=== PATIENT | female | born 1960 | race Caucasian/White ===

== ENCOUNTER 2016-10-26 15:44 | Inpatient (IN) | payer MEDICARE, MEDICAID ==
[~2016-10-26] VITALS: Ht 160 cm; Wt 134.5 kg
--- NOTE | ~2016-10-26 | PR ---
[place], [place] PROGRESS NOTE NAME: JAJA SENA UNIT #: [id number] ROOM: 509 DOCTOR: BRIDGETT SIMPSON MD BIRTHDATE: [birth year] DOS: CARDIOLOGY PROGRESS NOTE SUBJECTIVE: The patient was seen at her bedside today for followup of peripheral edema and a question of congestive heart failure. The patient tells me that she feels much better today after aggressive treatment of her respiratory failure and some diuresis. Her ankles are no longer swollen and she is anxious to go home. She has been keeping her legs elevated when she is not out of bed and this has helped as well. PHYSICAL EXAMINATION: VITAL SIGNS: Today, her pulse is 75 and regular, blood pressure is 118/74. She is afebrile. NECK: Supple. She has no jugular distention or hepatojugular reflux. Carotids are full. LUNGS: Respirations are unlabored. She has markedly decreased breath sounds with expiratory prolongation bilaterally and an occasional wheeze, but her lungs do sound more clear than 24 hours ago. HEART: Has a regular rhythm with distant tones. She has a fourth heart sound, but no third heart sound. ABDOMEN: Obese, but otherwise benign. EXTREMITIES: Showed no edema. IMPRESSION: 1. Severe obstructive lung disease. 2. Ongoing cigarette abuse. 3. Dependent edema, exacerbated by right heart strain and slight fluid retention. PLAN: I agree with oral diuresis. The patient should keep her legs elevated when she is not in bed. She should consider wearing support stockings and she should certainly make every effort to quit smoking. I have discussed her case with Dr. Waddell. She may be discharged from a cardiac standpoint when Dr. Waddell feels her pulmonary status will tolerate it. [place], [place] PROGRESS NOTE NAME: JAJA SENA UNIT #: [id number] ROOM: 509 DOCTOR: BRIDGETT SIMPSON MD BIRTHDATE: [birth year] BRIDGETT SIMPSON MD CM:PNTRANS 1642 BRIDGETT SIMPSON MD 10/29/16 0941 interface
--- NOTE | ~2016-10-26 | DS ---
[place], [place] DISCHARGE SUMMARY [id number] UNIT #: [id number] ROOM: 509 DOCTOR: DARRION LAM MD BIRTHDATE: [birth year] DOS: 10/28/2016 DISCHARGE DIAGNOSES: 1. Exacerbation of severe underlying chronic obstructive pulmonary disease with oxygen dependence, acute over chronic respiratory failure. 2. Continued nicotine smoke dependence. 3. Generalized disability and obesity, failure to thrive. 4. Acute congestive heart failure. 5. Bipolar disorder. 6. Major depression, recurrent, mild. HOSPITAL COURSE: 1. The patient was admitted with increased shortness of breath, congestive heart failure and exacerbation of COPD. Her hand shoe cutter, Dr. Martinez, evaluated her and after treatment has cleared her for discharge to home today. The patient is breathing better. 2. Exacerbation of chronic obstructive pulmonary disease improved with use of corticosteroids, antibiotics and oxygen. The patient already has oxygen and bronchodilators at home, which she will continue to use. The patient is quite anxious to go home today, especially after clearance by Cardiology. 3. Bipolar disorder. Her treatment was continued. 4. Chronic skin changes in her legs with improved edema with treatment, stasis dermatitis. LABORATORY DATA: BUN and creatinine 31 and 0.8, normal serum electrolytes. DISCHARGE MANAGEMENT: Lasix 60 mg a day, lamotrigine 300 mg daily, fluoxetine 20 mg a day, aspirin 81 mg a day, Naprosyn 500 mg b.i.d., Dulera twice a day, DuoNeb q.i.d., nicotine patch 21 mg a day. Follow up with PCP within a week. DARRION LAM MD CM:DARRIUS 51 [phone] DARRION LAM MD 10/28/161922 interface
--- NOTE | ~2016-10-26 | EKG ---
[place], [place] ELECTROCARDIOGRAM REPORT NAME: JAJA SENA UNIT #: [id number] ROOM: [facility] DOCTOR: BRIDGETT SIMPSON MD BIRTHDATE: [birth year] DOS: 10/27/2016 TIME: 0924 hours. FINDINGS: 1. Sinus rhythm with frequent premature atrial contractions. 2. Low voltage in precordial leads with poor precordial R wave progression. 3. Abnormal electrocardiogram. BRIDGETT SIMPSON MD CM:EKGRPT:ELECTROCARDIOGRAM REPORT [id number] BRIDGETT SIMPSON MD
--- NOTE | ~2016-10-26 | WRIGHTHP ---
[place], [place] PATIENT HISTORY AND PHYSICAL EXAM NAME: JAJA SENA [facility] #: [id number] UNIT #: [id number] ROOM: 509 DOCTOR: DARRION LAM MD BIRTHDATE: [birth year] DOS: 10/26/2016 HISTORY OF PRESENT ILLNESS: The patient is a 56-year-old with a past medical history of: 1. Morbid obesity. 2. COPD. 3. Continued nicotine dependence, 1 pack of cigarettes a day. 4. Chronic respiratory failure related to COPD and morbid obesity and generalized weakness and obesity hypoventilation syndrome. 5. Mild protein-calorie malnutrition. 6. Bipolar disorder. 7. Major depression, recurrent. 8. Oxygen dependence. 9. Folic acid deficiency. 10. Chronic pedal edema and skin changes with stasis dermatitis. The patient presented to the Emergency Department with 1-month complaint of increasing shortness of breath, wheezing, and cough. The patient was found to have congestive heart failure on the chest x-ray and was diagnosed as having exacerbation of COPD. The patient was admitted on a monitored bed for treatment and she is starting to feel slightly better. REVIEW OF SYSTEMS: LUNGS: Increasing shortness of breath and wheezing. GASTROINTESTINAL: No nausea, vomiting, diarrhea, or constipation. CARDIOVASCULAR: No chest pain, no palpitations. FAMILY HISTORY: Noncontributory. ALLERGIES: No known drug allergies. HOME MEDICATIONS: The patient takes lamotrigine, fluoxetine, aspirin, bronchodilators, Naprosyn, furosemide at home. PHYSICAL EXAMINATION: GENERAL: Alert and oriented x 3, morbidly obese, generalized weakness, and decreased breath sounds all over with some expiratory wheezing, otherwise in no distress. EXTREMITIES: 1-2+ leg and pedal edema with chronic skin changes in her legs and stasis dermatitis. DIAGNOSTIC AND LABORATORY DATA: Chest x-ray showing congestive heart failure. BUN elevated at 29, blood sugar of 129. Normal serum electrolytes. BNP of 1395. Normal serum electrolytes. Normal CBC. IMPRESSION: 1. The patient with exacerbation of severe underlying chronic obstructive pulmonary disease and continued nicotine of smoke dependence. We will increase her bronchodilators, Solu-Medrol, oxygen, antibiotic. 2. Generalized disability, obesity, and adult failure to thrive. The patient worked with physical therapy. [place], [place] PATIENT HISTORY AND PHYSICAL EXAM NAME: JAJA SENA [facility] #: [id number] UNIT #: [id number] ROOM: [facility] DOCTOR: CAROLE EDWARDS,DARRION Johnson BIRTHDATE: [birth year] 3. Acute congestive heart failure to be evaluated and seen by her post exchange manager. The patient is being diuresed with IV Lasix and serum electrolytes are being monitored on daily basis. 4. Bipolar disorder treated by Psychiatry. 5. Major depression, recurrent, treated, and controlled. DARRION LAM MD CM:HISPHYS:PATIENT HISTORY AND PHYSICAL EXAMINATION [id number] DARRION LAM MD 10/27/16 1227 interface
[~2016-10-26 15:44] MED LIST: ADVAIR DISKUS 51 DSK INH; ASPIRIN CHEWABL81 MG PO; CALCIUM 600600 M2 PO; COMBIVENT RESPIM4 GM INH; LAMICTAL XR300 M1 PO; LASIX40 MG PO; LEVOFLOXACIN500 MG PO; NABUMETONE500 M2 PO; NAPROXEN500 MG PO; Nicotrol 10MG I1 BOX INH; PREDNISONE10 MG PO; PROZAC20 MG PO
[2016-10-26 16:06] VITALS: BP 145/58
[2016-10-26 16:24] LABS: BASO % 0.4 % (0.0-1.0); EOS # 0.1 10*3/uL (0.0-0.4); EOS % 1.3 % (1.0-4.0); HEMATOCRIT 38.8 % (37.0-47.0); HEMOGLOBIN 11.8 g/dl (12.0-16.0); LYMPH # 1.9 10*3/uL (1.3-4.4); LYMPH % 22.3 % (27.0-41.0); MEAN CORPUSCULAR HGB 27.4 pg (27.0-31.0); MEAN CORPUSCULAR HGB CONC 30.4 g/dl (33.0-37.0); MEAN PLATELET VOLUME 10.5 fl (9.6-12.3); MONO # 0.5 10*3/uL (0.1-1.0); MONO % 6.5 % (3.0-9.0); NEUT # 5.8 10*3/uL (2.3-7.9); NEUT % 69.3 % (47.0-73.0); PLATELET COUNT AUTOMATED 237 10*3/uL (130-400); RED BLOOD COUNT 4.31 10*6/uL (4.10-5.10); RED CELL DISTRI WIDTH 14.7 % (0-14.5); WHITE BLOOD COUNT 8.3 10*3/uL (4.8-10.8)
[2016-10-26 16:40] LABS: ALBUMIN 3.4 gm/dl (3.1-4.5); ALKALINE PHOSPHATASE 105 U/L (45-117); BILIRUBIN, TOTAL 0.2 mg/dl (0.2-1.0); BUN 23 mg/dl (7-24); CARBON DIOXIDE 33 mmol/L (21-32); CHLORIDE 104 mmol/L (98-107); EST GLOM FILT AFRICAN AMERICAN > 60 ml/min; GLUCOSE 140 mg/dL (65-99); POTASSIUM 4.5 mmol/L (3.5-5.1); SGOT/AST 16 IU/L (3-35); SGPT/ALT 12 U/L (12-78); SODIUM 143 mmol/L (136-145)
[2016-10-26 18:54] VITALS: BP 105/69
[2016-10-26 19:37] VITALS: BP 146/80
[2016-10-26 20:45] VITALS: BP 117/59
[2016-10-27] VITALS: BP 147/61
[2016-10-27 07:29] LABS: BUN 25 mg/dl (7-24); CARBON DIOXIDE 33 mmol/L (21-32); CHLORIDE 100 mmol/L (98-107); EST GLOM FILT AFRICAN AMERICAN > 60 ml/min; GLUCOSE 129 mg/dL (65-99); POTASSIUM 4.8 mmol/L (3.5-5.1); SODIUM 142 mmol/L (136-145)
[2016-10-27 08:00] VITALS: BP 149/54
[2016-10-27 12:00] VITALS: BP 116/55
[2016-10-27 16:00] VITALS: BP 140/65
[2016-10-27 20:00] VITALS: BP 113/56
[2016-10-28] VITALS: BP 109/60
[2016-10-28 06:39] LABS: BUN 31 mg/dl (7-24); CARBON DIOXIDE 37 mmol/L (21-32); CHLORIDE 99 mmol/L (98-107); EST GLOM FILT AFRICAN AMERICAN > 60 ml/min; GLUCOSE 128 mg/dL (65-99); SODIUM 141 mmol/L (136-145)
[2016-10-28 08:00] VITALS: BP 136/63
[2016-10-28 12:00] VITALS: BP 118/74
[2016-10-28 16:00] VITALS: BP 135/66
[2016-10-28] MEDS ORDERED: FUROSEMIDE40 MG PO (18:42)
== END 2016-10-28 19:15 | disposition home or self-care (01) | DRG 291 ==
LOC: ED 15:44 → EDHOLD 18:45 → 5E 18:55
PROVIDERS: Internal Medicine; Nurse Practitioner Family
DX: I50.31 Acute diastolic (congestive) heart failure (principal); J96.20 Acute and chronic respiratory failure, unspecified whether with hypoxia or hypercapnia; Z99.81 Dependence on supplemental oxygen; J44.1 Chronic obstructive pulmonary disease with (acute) exacerbation; Z68.42 Body mass index [BMI] 45.0-49.9, adult; R62.7 Adult failure to thrive; E66.9 Obesity, unspecified; I87.2 Venous insufficiency (chronic) (peripheral); F31.9 Bipolar disorder, unspecified; F17.210 Nicotine dependence, cigarettes, uncomplicated; Z90.49 Acquired absence of other specified parts of digestive tract; Z82.49 Family history of ischemic heart disease and other diseases of the circulatory system; Z83.3 Family history of diabetes mellitus; Z79.899 Other long term (current) drug therapy

== ENCOUNTER 2016-12-20 21:40 | Inpatient (IN) | payer MEDICARE, MEDICAID ==
[~2016-12-20] VITALS: Ht 162.5 cm; Wt 137.6 kg
[~2016-12-20 21:40] MED LIST changes: +FUROSEMIDE40 MG PO
[2016-12-20 21:44] VITALS: BP 104/60
[2016-12-20 21:56] LABS: BASO % 0.4 % (0.0-1.0); EOS # 0.2 10*3/uL (0.0-0.4); EOS % 2.4 % (1.0-4.0); HEMATOCRIT 38.8 % (37.0-47.0); HEMOGLOBIN 11.8 g/dl (12.0-16.0); LYMPH # 1.6 10*3/uL (1.3-4.4); LYMPH % 16.8 % (27.0-41.0); MEAN CELL VOLUME 89.4 fl (81.0-99.0); MEAN CORPUSCULAR HGB 27.2 pg (27.0-31.0); MEAN CORPUSCULAR HGB CONC 30.4 g/dl (33.0-37.0); MEAN PLATELET VOLUME 10.2 fl (9.6-12.3); MONO # 0.8 10*3/uL (0.1-1.0); MONO % 8.6 % (3.0-9.0); NEUT # 6.8 10*3/uL (2.3-7.9); NEUT % 71.5 % (47.0-73.0); PLATELET COUNT AUTOMATED 256 10*3/uL (130-400); RED BLOOD COUNT 4.34 10*6/uL (4.10-5.10); RED CELL DISTRI WIDTH 16.3 % (0-14.5); WHITE BLOOD COUNT 9.5 10*3/uL (4.8-10.8)
[2016-12-20 22:13] LABS: ALBUMIN 2.9 gm/dl (3.1-4.5); ALKALINE PHOSPHATASE 129 U/L (45-117); BILIRUBIN, TOTAL 0.4 mg/dl (0.2-1.0); BUN 18 mg/dl (7-24); CARBON DIOXIDE 31 mmol/L (21-32); CHLORIDE 102 mmol/L (98-107); EST GLOM FILT AFRICAN AMERICAN > 60 ml/min; GLUCOSE 104 mg/dL (65-99); MAGNESIUM 2.2 mg/dL (1.5-2.1); POTASSIUM 4.3 mmol/L (3.5-5.1); SGOT/AST 22 IU/L (3-35); SGPT/ALT 19 U/L (12-78); SODIUM 145 mmol/L (136-145); TROPONIN I < 0.015 ng/ml (<0.045)
[2016-12-20 22:26] LABS: INTERNATIONAL NORM RATIO 0.9 (2.0-3.5)
[2016-12-20 22:35] VITALS: BP 128/76
[2016-12-20 23:12] VITALS: BP 118/64
[2016-12-21] VITALS: BP 110/57
[2016-12-21 00:25] VITALS: BP 122/78
[2016-12-21 08:00] VITALS: BP 148/66
[2016-12-21 16:00] VITALS: BP 109/50
[2016-12-21 20:00] VITALS: BP 112/47
[2016-12-22] VITALS: BP 146/75
[2016-12-22 08:00] VITALS: BP 130/78
[2016-12-22 12:00] VITALS: BP 136/80
[2016-12-22 16:00] VITALS: BP 136/78
[2016-12-22 20:00] VITALS: BP 136/72
[2016-12-23] VITALS: BP 132/47
[2016-12-23 04:00] VITALS: BP 136/64
[2016-12-23 08:00] VITALS: BP 125/96
[2016-12-23 12:00] VITALS: BP 143/72
[2016-12-23 16:08] VITALS: BP 130/56
[2016-12-23 20:00] VITALS: BP 126/60
[2016-12-24] VITALS: BP 135/83
[2016-12-24 08:00] VITALS: BP 136/61
[2016-12-24 12:00] VITALS: BP 150/87
[2016-12-24 16:00] VITALS: BP 125/62
[2016-12-24 20:00] VITALS: BP 131/73
[2016-12-25] VITALS: BP 152/71
[2016-12-25 06:30] LABS: BASO % 0.5 % (0.0-1.0); EOS # 0.1 10*3/uL (0.0-0.4); EOS % 1.1 % (1.0-4.0); HEMATOCRIT 39.1 % (37.0-47.0); HEMOGLOBIN 11.8 g/dl (12.0-16.0); LYMPH # 1.9 10*3/uL (1.3-4.4); LYMPH % 22.3 % (27.0-41.0); MEAN CELL VOLUME 90.3 fl (81.0-99.0); MEAN CORPUSCULAR HGB 27.3 pg (27.0-31.0); MEAN CORPUSCULAR HGB CONC 30.2 g/dl (33.0-37.0); MEAN PLATELET VOLUME 9.7 fl (9.6-12.3); MONO # 0.7 10*3/uL (0.1-1.0); MONO % 8.5 % (3.0-9.0); NEUT # 5.7 10*3/uL (2.3-7.9); NEUT % 67.1 % (47.0-73.0); PLATELET COUNT AUTOMATED 295 10*3/uL (130-400); RED BLOOD COUNT 4.33 10*6/uL (4.10-5.10); RED CELL DISTRI WIDTH 16.2 % (0-14.5); WHITE BLOOD COUNT 8.5 10*3/uL (4.8-10.8)
[2016-12-25 06:49] LABS: BUN 18 mg/dl (7-24); CARBON DIOXIDE 37 mmol/L (21-32); CHLORIDE 96 mmol/L (98-107); EST GLOM FILT AFRICAN AMERICAN > 60 ml/min; GLUCOSE 101 mg/dL (65-99); POTASSIUM 4.1 mmol/L (3.5-5.1); SODIUM 143 mmol/L (136-145)
[2016-12-25] MEDS ORDERED: DOXYCYCLINE MO100 M1 PO (07:30)
[2016-12-25] MEDS ORDERED: COMBIVENT RESPIM4 GM INH (07:30)
[2016-12-25 08:00] VITALS: BP 113/69
== END 2016-12-25 09:05 | disposition home or self-care (01) | DRG 177 ==
LOC: ED 21:40 → EDHOLD 12-21 00:31 → 4E 12-21 00:31
PROVIDERS: Emergency Medicine Emergency Medical Services; Internal Medicine
PROC: 3E073KZ Introduction of Other Diagnostic Substance into Coronary Artery, Percutaneous Approach (ICD-10-PCS; principal; 2016-12-21)
PROC: 4A02XM4 Measurement of Cardiac Total Activity, External Approach (ICD-10-PCS; principal; 2016-12-21)
DX: J15.6 Pneumonia due to other Gram-negative bacteria (principal); J96.20 Acute and chronic respiratory failure, unspecified whether with hypoxia or hypercapnia; I11.0 Hypertensive heart disease with heart failure; I50.9 Heart failure, unspecified; J44.0 Chronic obstructive pulmonary disease with (acute) lower respiratory infection; Z99.81 Dependence on supplemental oxygen; R07.2 Precordial pain; M13.812 Other specified arthritis, left shoulder; M13.811 Other specified arthritis, right shoulder; F31.9 Bipolar disorder, unspecified; F17.210 Nicotine dependence, cigarettes, uncomplicated; J44.9 Chronic obstructive pulmonary disease, unspecified; Z96.642 Presence of left artificial hip joint; Z96.652 Presence of left artificial knee joint; Z83.3 Family history of diabetes mellitus; Z80.0 Family history of malignant neoplasm of digestive organs; Z82.49 Family history of ischemic heart disease and other diseases of the circulatory system; Z79.82 Long term (current) use of aspirin; Z90.49 Acquired absence of other specified parts of digestive tract; Z79.899 Other long term (current) drug therapy

== ENCOUNTER → 2017-01-07 | Outpatient (CLI) | payer MEDICARE, MEDICAID ==
[~2017-01-07] MED LIST changes: +DOXYCYCLINE MO100 M1 PO
== END | disposition home or self-care (01) ==
LOC: RAD 18:20
DX: J18.9 Pneumonia, unspecified organism (principal); R06.02 Shortness of breath; R91.1 Solitary pulmonary nodule

== ENCOUNTER → 2017-01-31 | Outpatient (CLI) | payer MEDICARE, MEDICAID | END | disposition home or self-care (01) | LOC: RAD 15:37 | DX: J18.9 Pneumonia, unspecified organism (principal); I50.9 Heart failure, unspecified; J43.9 Emphysema, unspecified; Z87.891 Personal history of nicotine dependence ==

== ENCOUNTER 2017-04-14 15:34 | Emergency (ER) | payer MEDICARE, MEDICAID ==
[~2017-04-14] VITALS: Wt 136.1 kg
[2017-04-14] MEDS ORDERED: NAPROSYN500 MG PO (15:51)
== END 2017-04-14 20:36 | disposition home or self-care (01) ==
LOC: ED 15:34
DX: M25.561 Pain in right knee (principal); R03.0 Elevated blood-pressure reading, without diagnosis of hypertension; J44.1 Chronic obstructive pulmonary disease with (acute) exacerbation; F31.9 Bipolar disorder, unspecified; I50.9 Heart failure, unspecified; E83.42 Hypomagnesemia; F17.210 Nicotine dependence, cigarettes, uncomplicated; Z79.82 Long term (current) use of aspirin; Z79.899 Other long term (current) drug therapy; J96.00 Acute respiratory failure, unspecified whether with hypoxia or hypercapnia; Z90.49 Acquired absence of other specified parts of digestive tract

== ENCOUNTER → 2017-04-18 | Outpatient (CLI) | payer MEDICARE, MEDICAID ==
[~2017-04-18] MED LIST changes: +NAPROSYN500 MG PO
[2017-04-18 15:19] LABS: HEMATOCRIT 39.7 % (37.0-47.0); HEMOGLOBIN 12.1 g/dl (12.0-16.0); MEAN CELL VOLUME 91.7 fl (81.0-99.0); MEAN CORPUSCULAR HGB 27.9 pg (27.0-31.0); MEAN CORPUSCULAR HGB CONC 30.5 g/dl (33.0-37.0); MEAN PLATELET VOLUME 10.2 fl (9.6-12.3); RED BLOOD COUNT 4.33 10*6/uL (4.10-5.10); RED CELL DISTRI WIDTH 14.6 % (0-14.5); WHITE BLOOD COUNT 9.8 10*3/uL (4.8-10.8)
[2017-04-18 15:44] LABS: ALBUMIN 3.4 gm/dl (3.1-4.5); ALKALINE PHOSPHATASE 111 U/L (45-117); BUN 19 mg/dl (7-24); CHLORIDE 101 mmol/L (98-107); CREATININE 0.89 mg/dL (0.55-1.02); POTASSIUM 3.8 mmol/L (3.5-5.1); SGOT/AST 16 IU/L (3-35); SGPT/ALT 15 U/L (12-78); SODIUM 142 mmol/L (136-145); TOTAL PROTEIN 7.6 gm/dL (6.4-8.2)
== END | disposition home or self-care (01) ==
LOC: LAB 14:43
PROVIDERS: Family Medicine
DX: I51.7 Cardiomegaly (principal); J44.9 Chronic obstructive pulmonary disease, unspecified; R60.0 Localized edema; F41.1 Generalized anxiety disorder; E74.00 Glycogen storage disease, unspecified

== ENCOUNTER 2017-05-21 16:26 | Inpatient (IN) | payer MEDICARE, MEDICAID ==
[~2017-05-21] VITALS: Ht 162.5 cm; Wt 140.6 kg
--- NOTE | ~2017-05-21 | EKG ---
[place], [place] ELECTROCARDIOGRAM REPORT NAME: JAJA SENA UNIT #: [id number] ROOM: [facility] DOCTOR: MELODY EDWARDS,KATY BIRTHDATE: 56 DOS: 05/21/2017 TIME: 1738 hours. IMPRESSION: 1. Sinus rhythm. 2. Low voltage complexes. 3. Normal QT interval. KATY OLIVER MD CM:EKGRPT:ELECTROCARDIOGRAM REPORT [id number] KATY OLIVER MD
[2017-05-21 16:38] VITALS: BP 137/61
[2017-05-21 17:38] LABS: BASO % 0.3 % (0.0-1.0); EOS # 0.1 10*3/uL (0.0-0.4); EOS % 1.1 % (1.0-4.0); HEMATOCRIT 37.3 % (37.0-47.0); HEMOGLOBIN 11.4 g/dl (12.0-16.0); LYMPH # 1.5 10*3/uL (1.3-4.4); MEAN CELL VOLUME 90.8 fl (81.0-99.0); MEAN CORPUSCULAR HGB 27.7 pg (27.0-31.0); MEAN CORPUSCULAR HGB CONC 30.6 g/dl (33.0-37.0); MEAN PLATELET VOLUME 9.6 fl (9.6-12.3); MONO # 0.5 10*3/uL (0.1-1.0); NEUT % 77.2 % (47.0-73.0); PLATELET COUNT AUTOMATED 280 10*3/uL (130-400); RED BLOOD COUNT 4.11 10*6/uL (4.10-5.10); RED CELL DISTRI WIDTH 14.9 % (0-14.5); WHITE BLOOD COUNT 9.1 10*3/uL (4.8-10.8)
[2017-05-21 17:45] VITALS: BP 130/70
[2017-05-21 17:46] LABS: ACT PARTIAL THROMBO TIME 24.4 SECONDS (20.8-31.5)
[2017-05-21 17:54] LABS: ALBUMIN 3.1 gm/dl (3.1-4.5); ALKALINE PHOSPHATASE 126 U/L (45-117); BUN 16 mg/dl (7-24); CHLORIDE 98 mmol/L (98-107); CREATININE 0.89 mg/dL (0.55-1.02); POTASSIUM 4.5 mmol/L (3.5-5.1); SGOT/AST 21 IU/L (3-35); SGPT/ALT 24 U/L (12-78); SODIUM 140 mmol/L (136-145); TOTAL PROTEIN 7.7 gm/dL (6.4-8.2); TROPONIN I < 0.015 ng/ml (<0.045)
[2017-05-21 20:20] VITALS: BP 104/85
--- NOTE | 2017-05-21 20:20 | NUR ---
A 56, admitted to , under the services of RONDA Perry DO with a diagnosis of COPD EXACERBATION. Chief complaint is SOB. Patient arrived via bed from ER. Monitor applied. Initial assessment completed. Vital signs taken and recorded. RONDA PERRY DO notified of admission to the unit. Orders received. See assessment for past medical history, medications and allergies. Patient and/or family oriented to uniT. visitation policy reviewed. Clothing/patient valuable form completed. PAUL CONNOR
[2017-05-21 20:52] VITALS: BP 104/85
--- NOTE | 2017-05-21 21:10 | NUR ---
DR BURNETTE ON FLOOR, MADE HIM AWARE THAT PATIENT HAS RASH ON LEFT SHOULDER, CHEST, ARM. ALSO MADE HIM AWARE OF EXCORIATION UNDER FOLDS AND REQUESTED NYSTATIN.
--- NOTE | 2017-05-21 22:18 | NUR ---
CALLED AND QUESTIONED ORDER FOR NS BOLUS D/T PT HX OF CHF AND PRO-BNP 854. HE STATES HE WILL LOOK AT ORDER AND MAKE ADJUSTMENTS
[2017-05-21] MEDS ORDERED: LASIX40 MG PO (22:39)
[2017-05-21] MEDS ORDERED: OMEPRAZOLE20 M2 PO (22:40)
[2017-05-21] MEDS ORDERED: VOLTAREN50 M1 PO (22:41)
--- NOTE | 2017-05-21 22:41 | NUR ---
MED REC UP TO DATE WITH PT LIST FROM HOME
[2017-05-22] VITALS: BP 118/50
--- NOTE | 2017-05-22 02:00 | NUR ---
SLEEPING. RESP EASY AND NONLABORED ON 2.5L NC. NO DISTRESS NOTED. CALL LIGHT IN REACH. WILL CONTINUE TO MONITOR.
[2017-05-22 06:42] LABS: HEMATOCRIT 37.2 % (37.0-47.0); HEMOGLOBIN 11.3 g/dl (12.0-16.0); MEAN CELL VOLUME 90.7 fl (81.0-99.0); MEAN CORPUSCULAR HGB 27.6 pg (27.0-31.0); MEAN CORPUSCULAR HGB CONC 30.4 g/dl (33.0-37.0); MEAN PLATELET VOLUME 9.5 fl (9.6-12.3); PLATELET COUNT AUTOMATED 295 10*3/uL (130-400); RED CELL DISTRI WIDTH 14.8 % (0-14.5); WHITE BLOOD COUNT 8.6 10*3/uL (4.8-10.8)
[2017-05-22 07:01] LABS: ALKALINE PHOSPHATASE 120 U/L (45-117); BUN 14 mg/dl (7-24); CHLORIDE 101 mmol/L (98-107); CHOLESTEROL 183 mg/dL (<200); CREATININE 0.84 mg/dL (0.55-1.02); FREE T4 1.26 ng/dl (0.76-1.46); HDL CHOLESTEROL 59 mg/dl (40-60); LDL CHOLESTEROL 112 mg/dL (9-159); PHOSPHOROUS 3.2 mg/dL (2.5-4.9); POTASSIUM 4.9 mmol/L (3.5-5.1); SGOT/AST 21 IU/L (3-35); SGPT/ALT 23 U/L (12-78); SODIUM 140 mmol/L (136-145); TOTAL PROTEIN 7.9 gm/dL (6.4-8.2); TRIGLYCERIDES 62 mg/dl (<150); VLDL CHOLESTEROL 12 mg/dL (6-40)
[2017-05-22 07:29] LABS: PLATELET SUFFICIENCY NORMAL (NORMAL); TOTAL CELLS COUNTED 100 #CELLS
[2017-05-22 08:00] VITALS: BP 134/56
--- NOTE | 2017-05-22 09:00 | NUR ---
Director Of Compliance in to talk to patient. Patient states lives at home with son and grandchildren. There are few steps in the home. Physician: francisco [facility]acy: [facility] Home health services: none Patient's level of ADLs: INDEPENDENT Patient has working utilities: all working DME: home oxygen, portable tanks, nebulizer from [employer], cane Follow-up physician's appointment after d/c: will be made by hospitalist nurse director upon discharge Does patient want to access PORTAL?: no Discharge plan discussed with patient, patient lives at home with family, states she gets around fine with a cane, son drives, patient states she will be going back home when able, discussed with her VNA and she stated she didn't need any at this time, case management will follow. ROXANE WAITE
[2017-05-22 12:00] VITALS: BP 125/31
[2017-05-22 16:00] VITALS: BP 140/65
[2017-05-22 20:00] VITALS: BP 150/85
--- NOTE | 2017-05-22 20:00 | NUR ---
ASSUMED CARE OF PATIENT. ASSESSMENT COMPLETE. SITTING UP ON SIDE OF BED. NO COMPLAINTS. DENIES FURTHER NEEDS AT THIS TIME. CALL LIGHT IN REACH. WILL CONTINUE TO MONITOR.
[2017-05-23] VITALS: BP 132/62
--- NOTE | 2017-05-23 02:00 | NUR ---
SLEEPING. RESP EASY AND NONLABORED ON 4L NC. NO DISTRESS NOTED. CALL LIGHT IN REACH. WILL CONTINUE TO MONITOR.
[2017-05-23 06:46] LABS: HEMATOCRIT 33.9 % (37.0-47.0); HEMOGLOBIN 10.4 g/dl (12.0-16.0); MEAN CELL VOLUME 91.4 fl (81.0-99.0); MEAN CORPUSCULAR HGB CONC 30.7 g/dl (33.0-37.0); MEAN PLATELET VOLUME 9.8 fl (9.6-12.3); PLATELET COUNT AUTOMATED 272 10*3/uL (130-400); RED BLOOD COUNT 3.71 10*6/uL (4.10-5.10); RED CELL DISTRI WIDTH 14.9 % (0-14.5); WHITE BLOOD COUNT 8.9 10*3/uL (4.8-10.8)
[2017-05-23 06:59] LABS: BUN 21 mg/dl (7-24); CHLORIDE 102 mmol/L (98-107); CREATININE 0.76 mg/dL (0.55-1.02); SODIUM 141 mmol/L (136-145)
[2017-05-23 07:23] LABS: TOTAL CELLS COUNTED 100 #CELLS
[2017-05-23 07:24] LABS: PLATELET SUFFICIENCY NORMAL (NORMAL)
[2017-05-23 08:00] VITALS: BP 136/78
--- NOTE | 2017-05-23 09:44 | NUR ---
case management visits with patient, patient denies any home needs
[2017-05-23 12:00] VITALS: BP 133/75
[2017-05-23 16:00] VITALS: BP 127/59
[2017-05-23 20:00] VITALS: BP 124/78
--- NOTE | 2017-05-23 22:45 | NUR ---
PATIENT MEDICATED WITH PRN RESTORIL ORDERED FOR C/O INSOMNIA.
--- NOTE | 2017-05-23 23:50 | NUR ---
EARLIER RESTORIL APPEARS EFFECTIVE. PATIENT RESTING QUIETLY IN BED, ON 4L 02 NC. RESPIRATIONS EASY/REG. CALL LIGHT IS IN REACH
[2017-05-24] VITALS: BP 131/78
[2017-05-24 06:35] LABS: HEMATOCRIT 34.7 % (37.0-47.0); HEMOGLOBIN 10.7 g/dl (12.0-16.0); MEAN CELL VOLUME 91.3 fl (81.0-99.0); MEAN CORPUSCULAR HGB 28.2 pg (27.0-31.0); MEAN CORPUSCULAR HGB CONC 30.8 g/dl (33.0-37.0); MEAN PLATELET VOLUME 9.9 fl (9.6-12.3); PLATELET COUNT AUTOMATED 259 10*3/uL (130-400); WHITE BLOOD COUNT 9.9 10*3/uL (4.8-10.8)
[2017-05-24 07:11] LABS: CHLORIDE 100 mmol/L (98-107); POTASSIUM 4.7 mmol/L (3.5-5.1); SODIUM 140 mmol/L (136-145)
[2017-05-24 07:17] LABS: ALKALINE PHOSPHATASE 97 U/L (45-117); BUN 24 mg/dl (7-24); CREATININE 0.69 mg/dL (0.55-1.02); SGOT/AST 18 IU/L (3-35); SGPT/ALT 24 U/L (12-78); TOTAL PROTEIN 7.1 gm/dL (6.4-8.2)
[2017-05-24 07:21] LABS: PLATELET SUFFICIENCY NORMAL (NORMAL); POLYCHROMASIA SLIGHT; TOTAL CELLS COUNTED 100 #CELLS
[2017-05-24 08:00] VITALS: BP 108/52
--- NOTE | 2017-05-24 09:00 | NUR ---
case management visits with patient, patient denies any home needs
--- NOTE | 2017-05-24 11:43 | NUR ---
Nutritional Support Services Note: Discussing with pt and pts son diet for CHF. Encouraged healthy eating and better compliance to diet. Diet copy given to pt. Her diet consists of Lays potato chips and Dr. Cadet. Encouraged follow up as needed. Moni Kenney
[2017-05-24 12:00] VITALS: BP 134/69
--- NOTE | 2017-05-24 12:18 | NUR ---
PULSE OX ON 4L 97% AT REST. DECREASED TO 3L, SAT 93% AT REST. HEART RATE 78, B/P 140/61. PT AMBULATED IN THE LABOY ON 3L, O2 DECREASING TO 80%, INCREASED TO 4L, SAT 90%, ATTEMPTED TO AMBULATE PT. ON 4L, SAT NOT MAINTAINING. PT. WALKED APPRX. 50FT AT THIS TIME. O2 INCREASED TO 6L, SAT INCREASING TO 90%, CONTINUED TO WALK PT BACK TO ROOM, PULSE OX 87 TO 88%. PT. RETURNED TO ROOM, RESTING AT BEDSIDE, WITH 6L, O2 97, DECREASED TO 4L O2 96, DECREASED TO 3L, SAT 96%. B/P AFTER WALKING 160/88 HEART RATE 84. RN AND WILL BE NOTIFIED.
--- NOTE | 2017-05-24 14:55 | NUR ---
PHYSICAL THERAPY PAtient evaluated on 4, full evaluation to follow. Continue with PT as per plan of care with fall, poor activity tolerance and acute debilty precautions. Recommend SNF, patient refuses. Will require home health RN, PT and aides prn. Would benfit from wheeled walker for home- informed case management. PAtient is high complexity via chart review, tests and evaluation: [id number]. Thank you for this referral. Mary Stanton,PT
--- NOTE | 2017-05-24 15:09 | NUR ---
case management received a message that patient needed a wheeled walker at home, script obtained, discussed with patient, patient chose [facility] to get walker from, patient's information and script faxed to [facility]
[2017-05-24 16:00] VITALS: BP 131/68
[2017-05-24 20:00] VITALS: BP 109/42
--- NOTE | 2017-05-24 20:00 | NUR ---
SITTING AT BEDSIDE, NO DISTRESS NOTED. RESPIRATIONS EASY. LUNGS DIMINISHED WITH POOR AIR EXCHANGE. PULSE OX 94% 4L. CLAIMS NON-PRODUCTIVE COUGH, NONE NOTED UPON ASSESSMENT. TRACE BLE EDEMA - OFFERED AND EDUCATED REGARDING TEDS, DECLINED. CALL LIGHT WITHIN REACH. NO VOICED COMPLAINTS
[2017-05-25] VITALS: BP 134/67
--- NOTE | 2017-05-25 | NUR ---
SLEEPING. NO DISTRESS NOTED. RESPIRATIONS EASY. VSS. CALL LIGHT WITHIN REACH
--- NOTE | 2017-05-25 03:00 | NUR ---
SLEEPING. O2 IN USE. CALL LIGHT WITHIN REACH
[2017-05-25 03:58] VITALS: BP 128/70
--- NOTE | 2017-05-25 06:00 | NUR ---
SLEPT THROUGHOUT NIGHT WITH NO DISTRESS NOTED. RESPIRATIONS EASY. O2 IN USE. CALL LIGHT WITHIN REACH. NO VOICED COMPLAINTS THIS SHIFT
--- NOTE | 2017-05-25 08:00 | NUR ---
SITTING ON SIDE OF BED, NO C/O NO DISTRESS NOTED. PT REQUESTING IV BE RESTARTED, STATES WHERE IT IS AT IT HITS CANE WHEN SHE IS WALKING. RESTARTED IN RIGHT ARM. SEE SHIFT ASSESSMENT.
[2017-05-25 08:06] VITALS: BP 144/91
--- NOTE | 2017-05-25 09:00 | NUR ---
case management visits with patient, patient's walker will be delivered to her today, patient denies any other needs at this time
--- NOTE | 2017-05-25 09:16 | NUR ---
Occupational Therapy evalaution completed this date on 4 with full eval to follow. Precautions include low complexity level, 7 steps to enter her home,right knee pain/contusion, new ww use, IV UE,O2 dependent. Recommend OT per POC and return home with family support and home health OT,PT,SN upon d/c. Thank you for this referral. Philly Agudelo OTR/l
--- NOTE | 2017-05-25 10:11 | NUR ---
PHYSICAL THERAPY Ceci seen this AM 1:1 for her therapy session, Pt sitting independent at bed side. Transfer sit/stand and up on her straight cane standing balance MOD A X 1. Gait with her cane 12' X 1, MIN ACCOUNTS PAYABLE ASSISTANT X 1. Then with wheeled walker 70' X 1, CGA X 1, no LOB cueing for safety and back at bedside. After short rest act marching, hip ABD/ADD with not problem. NAKITA LOWE VACATION GUIDE.
--- NOTE | 2017-05-25 10:15 | NUR ---
DRESSING CHANGED TO LEFT BREAST PER ORDER.
--- NOTE | 2017-05-25 10:48 | NUR ---
case management again talked with patient regarding discharge arrangements, discussed a SNF for rehab prior to going back home, patient refused, stated she would feel better going home, again discussed VNA and she stated she would now accept this, given choice of companies, she chose [employer], emergency planner will notify [facility] access hospital when patient is medically stable for discharge
--- NOTE | 2017-05-25 11:45 | NUR ---
MEDICATED PO NORCO FOR C/O PAIN IN LEFT BREAST WOUND.
[2017-05-25 12:00] VITALS: BP 134/59
--- NOTE | 2017-05-25 13:50 | NUR ---
Patient requested home health. provided list of agencies, patient chose [facility]. Received order, faxed clincals for referral.
--- NOTE | 2017-05-25 15:57 | NUR ---
Pt. pulse ox measured during ambulation in the hallway. Pt.s Spo2 at rest on 3L NC 93%, Hr 82, RR 20, BP 136/62. Spo2 dropped to 86% after ambulating 10ft. O2 increased to 6L to bring Spo2 92%. Pt. continued to ambulate approx 100ft with Spo2 between 90-92%, HR 120, BP 144/86. RN notified
[2017-05-25 16:00] VITALS: BP 151/73
--- NOTE | 2017-05-25 16:10 | NUR ---
RESPITORY WALKING PT TO ACCESS O2 LEVEL.
[2017-05-25 20:00] VITALS: BP 129/67
--- NOTE | 2017-05-25 21:00 | NUR ---
SLEEPING, AWAKENS EASILY BUT DROWSY. RESPIRATIONS EASY. LUNGS DIMINISHED WITH POOR AIR EXCHANGE. PULSE OX 99% 3L. INFREQUENT NON-PRODUCTIVE COUGH. TRACE BLE EDEMA - DECLINING TEDS. CALL LIGHT WITHIN REACH. NO VOICED COMPLAINTS
[2017-05-26] VITALS: BP 149/76
--- NOTE | 2017-05-26 | NUR ---
SLEEPING. NO DISTRESS NOTED. RESPIRATIONS EASY. VSS. CALL LIGHT WITHIN REACH
--- NOTE | 2017-05-26 03:00 | NUR ---
SLEEPING, O2 IN USE. CALL LIGHT WITHIN REACH
--- NOTE | 2017-05-26 05:55 | NUR ---
SLEPT THROUGHOUT NIGHT WITH NO DISTRESS NOTED. RESPIRATIONS EASY. O2 REMAINS IN USE. CALL LIGHT WITHIN REACH. NO VOICED COMPLAINTS THIS SHIFT
[2017-05-26 08:00] VITALS: BP 136/68
--- NOTE | 2017-05-26 08:30 | NUR ---
Patient resting quietly with no c/o discomfort. Respirations easy and regular on O2. Vital signs stable. No overt distress. LAMONT DALEY R
[2017-05-26] MEDS ORDERED: LEVAQUIN500 M2 PO (09:40)
[2017-05-26] MEDS ORDERED: PREDNISONE10 MG PO (09:40)
[2017-05-26] MEDS ORDERED: MUCINEX ER600 MG PO (09:40)
--- NOTE | 2017-05-26 10:32 | NUR ---
PHYSICAL THERAPY Therapist arrives with pt seated at edge of bed today on 3L 02 . She reports she just wants to go home if at all possible. While MEDICAL ATTENDANT was in room medical team came in to speak about D/C - DO reports that pt is unable to ambulate level surfaces without increasing O2 to approx 6L and does have 7 stairs to get into home. Pt reports not wanting to go to a SNF and wishes to go home. DO states they will order 6L 02 for exertion activities and 3L 02 at rest. Pt was agreeable to gait training. MEDICAL ATTENDANT donned portable O2 at 6L 02 as per DO request. She completed 70'x2 with WW with no rest breaks. She reports she wanted to go further but was unsure she could make it back. She hopes to get home health PT when she returns home. Pt reports no pain or concerns upon completion. She was left seated edge of bed upon completion. Pt seen 1:1 with MEDICAL ATTENDANT today. Roxie Last MEDICAL ATTENDANT
--- NOTE | 2017-05-26 13:30 | NUR ---
Patient resting quietly with no c/o discomfort. Respirations easy and regular. Vital signs stable. No overt distress. LAMONT DALEY R
--- NOTE | 2017-05-26 13:31 | NUR ---
Discharge instructions reviewed with patient/family. Patient receptive and verbalizes understanding. Follow-up care arranged. Written instructions given to patient/family. LAMONT DALEY
--- NOTE | 2017-05-26 15:24 | NUR ---
PHYSICAL THERAPY CO-SIGN I approve of the Phyical Therapy notes written above. AIDE FRY PT
== END 2017-05-26 13:31 | disposition home health service (06) | DRG 872 ==
LOC: ED 16:26 → 4E 19:00 → EDHOLD 19:00 → 4E 19:18
PROVIDERS: Family Medicine; Internal Medicine; Physician Assistant; Student in an Organized Health Care Education/Training Program; ADMIT Internal Medicine
DX: A41.9 Sepsis, unspecified organism (principal); E44.0 Moderate protein-calorie malnutrition; I50.32 Chronic diastolic (congestive) heart failure; E83.41 Hypermagnesemia; E66.01 Morbid (severe) obesity due to excess calories; J44.1 Chronic obstructive pulmonary disease with (acute) exacerbation; Z68.43 Body mass index [BMI] 50.0-59.9, adult; R74.8 Abnormal levels of other serum enzymes; R73.9 Hyperglycemia, unspecified; Z96.652 Presence of left artificial knee joint; Z96.642 Presence of left artificial hip joint; D64.9 Anemia, unspecified; F31.9 Bipolar disorder, unspecified; Z90.49 Acquired absence of other specified parts of digestive tract; Z80.0 Family history of malignant neoplasm of digestive organs; Z79.899 Other long term (current) drug therapy; Z87.891 Personal history of nicotine dependence; Z79.82 Long term (current) use of aspirin; Z83.3 Family history of diabetes mellitus; Z82.49 Family history of ischemic heart disease and other diseases of the circulatory system

== ENCOUNTER 2017-07-07 12:34 | Inpatient (IN) | payer MEDICARE, MEDICAID ==
[~2017-07-07] VITALS: Ht 162.5 cm; Wt 146.3 kg
--- NOTE | ~2017-07-07 | EKG ---
[place], [place] ELECTROCARDIOGRAM REPORT NAME: JAJA SENA UNIT #: [id number] ROOM: 403 DOCTOR: KATY OLIVER MD BIRTHDATE: [birth year] DOS: 07/07/2017 TIME: 1249 IMPRESSION: 1. Sinus rhythm. 2. Low-voltage complexes. 3. Normal QT interval. KATY OLIVER MD CM:EKGRPT:ELECTROCARDIOGRAM REPORT [id number] KATY OLIVER MD
[2017-07-07 12:34] VITALS: BP 117/42
[~2017-07-07 12:34] MED LIST changes: +LEVAQUIN500 M2 PO; +MUCINEX ER600 MG PO; +OMEPRAZOLE20 M2 PO; +VOLTAREN50 M1 PO
[2017-07-07 13:00] LABS: HEMATOCRIT 34.8 % (37.0-47.0); HEMOGLOBIN 10.5 g/dl (12.0-16.0); MEAN CELL VOLUME 89.2 fl (81.0-99.0); MEAN CORPUSCULAR HGB 26.9 pg (27.0-31.0); MEAN CORPUSCULAR HGB CONC 30.2 g/dl (33.0-37.0); MEAN PLATELET VOLUME 9.8 fl (9.6-12.3); PLATELET COUNT AUTOMATED 230 10*3/uL (130-400); RED CELL DISTRI WIDTH 14.9 % (0-14.5)
[2017-07-07 13:09] LABS: ACT PARTIAL THROMBO TIME 23.2 SECONDS (20.8-31.5)
[2017-07-07 13:17] LABS: ALKALINE PHOSPHATASE 99 U/L (45-117); BUN 24 mg/dl (7-24); CHLORIDE 102 mmol/L (98-107); CREATININE 1.14 mg/dL (0.55-1.02); POTASSIUM 4.1 mmol/L (3.5-5.1); SGOT/AST 20 IU/L (3-35); SGPT/ALT 22 U/L (12-78); SODIUM 142 mmol/L (136-145); TOTAL PROTEIN 6.7 gm/dL (6.4-8.2)
[2017-07-07 13:18] VITALS: BP 117/64
[2017-07-07 13:19] LABS: PLATELET SUFFICIENCY NORMAL (NORMAL); TOTAL CELLS COUNTED 100 #CELLS
[2017-07-07 13:20] LABS: TROPONIN I < 0.015 ng/ml (<0.045)
[2017-07-07] MEDS ORDERED: ALBUTEROL2.5 MG/0.5 INH (13:45)
[2017-07-07 16:00] VITALS: BP 112/64
[2017-07-07 20:00] VITALS: BP 112/79
[2017-07-08] VITALS: BP 99/43
[2017-07-08 07:12] LABS: HEMATOCRIT 33.1 % (37.0-47.0); HEMOGLOBIN 10.2 g/dl (12.0-16.0); MEAN CELL VOLUME 89.7 fl (81.0-99.0); MEAN CORPUSCULAR HGB 27.6 pg (27.0-31.0); MEAN CORPUSCULAR HGB CONC 30.8 g/dl (33.0-37.0); MEAN PLATELET VOLUME 10.2 fl (9.6-12.3); PLATELET COUNT AUTOMATED 202 10*3/uL (130-400); RED BLOOD COUNT 3.69 10*6/uL (4.10-5.10); RED CELL DISTRI WIDTH 14.9 % (0-14.5); WHITE BLOOD COUNT 19.1 10*3/uL (4.8-10.8)
[2017-07-08 07:31] LABS: BUN 26 mg/dl (7-24); CHLORIDE 99 mmol/L (98-107); CHOLESTEROL 160 mg/dL (<200); CREATININE 0.83 mg/dL (0.55-1.02); PHOSPHOROUS 3.3 mg/dL (2.5-4.9); POTASSIUM 4.1 mmol/L (3.5-5.1); SODIUM 141 mmol/L (136-145); TRIGLYCERIDES 51 mg/dl (<150); VLDL CHOLESTEROL 10 mg/dL (6-40)
[2017-07-08 07:41] LABS: HDL CHOLESTEROL 76 mg/dl (40-60); LDL CHOLESTEROL 74 mg/dL (9-159); THYROID STIM HORMONE (HS) 0.545 uIU/ml (0.358-4.75)
[2017-07-08 08:00] VITALS: BP 128/64
[2017-07-08 08:03] LABS: PLATELET SUFFICIENCY NORMAL (NORMAL); TOTAL CELLS COUNTED 100 #CELLS
[2017-07-08 08:28] LABS: VITAMIN D, 25-HYDROXY 13.7 ng/mL (30-100)
[2017-07-08 12:00] VITALS: BP 94/64
[2017-07-08 16:00] VITALS: BP 126/52
[2017-07-08 18:19] LABS: BILIRUBIN NEGATIVE (NEGATIVE); BLOOD NEGATIVE (NEGATIVE); CLARITY CLEAR (CLEAR); COLOR YELLOW (YELLOW); GLUCOSE NEGATIVE (NEGATIVE); KETONE NEGATIVE (NEGATIVE); LEUKO ESTERASE NEGATIVE (NEGATIVE); NITRITE NEGATIVE (NEGATIVE); PH 5.5 (5.0-9.0); SPECIFIC GRAVITY >= 1.030 (1.005-1.030); UROBILINOGEN 0.2 E.U./dl (0.2-1.0)
[2017-07-08 18:31] LABS: BACTERIA TRACE; EPITHELIAL CELLS 0-2
[2017-07-08 20:00] VITALS: BP 153/59
[2017-07-09] VITALS: BP 114/46
[2017-07-09 07:48] LABS: HEMATOCRIT 32.6 % (37.0-47.0); HEMOGLOBIN 9.8 g/dl (12.0-16.0); MEAN CELL VOLUME 89.8 fl (81.0-99.0); MEAN CORPUSCULAR HGB CONC 30.1 g/dl (33.0-37.0); MEAN PLATELET VOLUME 10.5 fl (9.6-12.3); PLATELET COUNT AUTOMATED 240 10*3/uL (130-400); RED BLOOD COUNT 3.63 10*6/uL (4.10-5.10); WHITE BLOOD COUNT 17.9 10*3/uL (4.8-10.8)
[2017-07-09 08:00] VITALS: BP 128/68
[2017-07-09 08:20] LABS: PLATELET SUFFICIENCY NORMAL (NORMAL); TOTAL CELLS COUNTED 100 #CELLS
[2017-07-09 08:21] LABS: CHLORIDE 101 mmol/L (98-107); POTASSIUM 4.5 mmol/L (3.5-5.1); SODIUM 140 mmol/L (136-145)
[2017-07-09 08:27] LABS: BUN 31 mg/dl (7-24); CREATININE 0.81 mg/dL (0.55-1.02)
[2017-07-09 12:00] VITALS: BP 142/50
[2017-07-09 16:00] VITALS: BP 150/70
[2017-07-09 20:00] VITALS: BP 106/54
[2017-07-10] VITALS: BP 137/77
[2017-07-10 07:17] LABS: HEMATOCRIT 33.6 % (37.0-47.0); HEMOGLOBIN 10.3 g/dl (12.0-16.0); MEAN CELL VOLUME 91.1 fl (81.0-99.0); MEAN CORPUSCULAR HGB 27.9 pg (27.0-31.0); MEAN CORPUSCULAR HGB CONC 30.7 g/dl (33.0-37.0); MEAN PLATELET VOLUME 10.8 fl (9.6-12.3); PLATELET COUNT AUTOMATED 223 10*3/uL (130-400); RED BLOOD COUNT 3.69 10*6/uL (4.10-5.10); WHITE BLOOD COUNT 13.3 10*3/uL (4.8-10.8)
[2017-07-10 07:38] LABS: BUN 31 mg/dl (7-24); CHLORIDE 102 mmol/L (98-107); CREATININE 0.85 mg/dL (0.55-1.02); POTASSIUM 4.7 mmol/L (3.5-5.1); SODIUM 141 mmol/L (136-145)
[2017-07-10 08:00] VITALS: BP 142/70
[2017-07-10 08:00] LABS: PLATELET SUFFICIENCY NORMAL (NORMAL); TOTAL CELLS COUNTED 100 #CELLS
[2017-07-10 12:00] VITALS: BP 140/68
[2017-07-10 14:11] LABS: BASO % 0.1 % (0.0-1.0); HEMATOCRIT 34.3 % (37.0-47.0); HEMOGLOBIN 10.5 g/dl (12.0-16.0); LYMPH # 0.7 10*3/uL (1.3-4.4); LYMPH % 4.9 % (27.0-41.0); MEAN CELL VOLUME 90.3 fl (81.0-99.0); MEAN CORPUSCULAR HGB 27.6 pg (27.0-31.0); MEAN CORPUSCULAR HGB CONC 30.6 g/dl (33.0-37.0); MEAN PLATELET VOLUME 10.5 fl (9.6-12.3); MONO # 0.9 10*3/uL (0.1-1.0); MONO % 6.3 % (3.0-9.0); NEUT % 87.5 % (47.0-73.0); PLATELET COUNT AUTOMATED 234 10*3/uL (130-400); WHITE BLOOD COUNT 13.8 10*3/uL (4.8-10.8)
[2017-07-10 16:00] VITALS: BP 126/60
[2017-07-10 20:00] VITALS: BP 148/55
[2017-07-11] VITALS: BP 149/61
[2017-07-11 08:00] VITALS: BP 104/52
[2017-07-11 08:06] LABS: ALBUMIN 3.2 gm/dl (3.1-4.5); BUN 30 mg/dl (7-24); CHLORIDE 101 mmol/L (98-107); CREATININE 0.91 mg/dL (0.55-1.02); POTASSIUM 4.7 mmol/L (3.5-5.1); SODIUM 140 mmol/L (136-145)
[2017-07-11 08:08] LABS: SGOT/AST 51 IU/L (3-35); SGPT/ALT 71 U/L (12-78); TOTAL PROTEIN 7.2 gm/dL (6.4-8.2)
[2017-07-11 08:10] LABS: ALKALINE PHOSPHATASE 77 U/L (45-117)
[2017-07-11] MEDS ORDERED: MUCINEX ER600 MG PO (09:49)
[2017-07-11] MEDS ORDERED: VITAMIN D-32000 UNIT PO (09:51)
[2017-07-11] MEDS ORDERED: PREDNISONE10 MG PO (09:52)
[2017-07-11] MEDS ORDERED: LEVAQUIN750 M1 PO (09:55)
== END 2017-07-11 12:00 | disposition home or self-care (01) | DRG 871 ==
LOC: ED 12:34 → 4E 13:13 → EDHOLD 13:13 → 4E 13:16
PROVIDERS: Emergency Medicine; Internal Medicine; Registered Nurse; Student in an Organized Health Care Education/Training Program
DX: A41.9 Sepsis, unspecified organism (principal); J18.9 Pneumonia, unspecified organism; N17.0 Acute kidney failure with tubular necrosis; E87.2 Acidosis; I50.9 Heart failure, unspecified; Z99.81 Dependence on supplemental oxygen; E44.0 Moderate protein-calorie malnutrition; J44.0 Chronic obstructive pulmonary disease with (acute) lower respiratory infection; J44.1 Chronic obstructive pulmonary disease with (acute) exacerbation; Z68.43 Body mass index [BMI] 50.0-59.9, adult; R65.20 Severe sepsis without septic shock; Z96.642 Presence of left artificial hip joint; Z96.652 Presence of left artificial knee joint; J20.9 Acute bronchitis, unspecified; D64.9 Anemia, unspecified; Y95 Nosocomial condition; E55.9 Vitamin D deficiency, unspecified; F31.9 Bipolar disorder, unspecified; E66.9 Obesity, unspecified; Z90.89 Acquired absence of other organs; Z87.891 Personal history of nicotine dependence; Z82.49 Family history of ischemic heart disease and other diseases of the circulatory system; Z83.3 Family history of diabetes mellitus; Z80.0 Family history of malignant neoplasm of digestive organs; Z79.82 Long term (current) use of aspirin; Z79.899 Other long term (current) drug therapy

== ENCOUNTER → 2017-08-13 | Outpatient (CLI) | payer MEDICARE, MEDICAID ==
[~2017-08-13] MED LIST changes: +ALBUTEROL2.5 MG/0.5 INH; +LEVAQUIN750 M1 PO; +VITAMIN D-32000 UNIT PO
== END | disposition home or self-care (01) ==
LOC: RAD 12:58
DX: J84.10 Pulmonary fibrosis, unspecified (principal); I50.9 Heart failure, unspecified; J44.9 Chronic obstructive pulmonary disease, unspecified; Z87.891 Personal history of nicotine dependence; R09.89 Other specified symptoms and signs involving the circulatory and respiratory systems

== ENCOUNTER 2017-09-18 10:43 | Inpatient (IN) | payer MEDICARE, MEDICAID ==
[~2017-09-18] VITALS: Ht 162.5 cm; Wt 144.4 kg
--- NOTE | ~2017-09-18 | WRIGHTHP ---
[place], [place] PATIENT HISTORY AND PHYSICAL EXAM NAME: JAJA SENA UNIT #: [id number] ROOM: 531 DOCTOR: FRITZ MORENO MD BIRTHDATE: [birth year] DOS: 09/18/2017 HISTORY OF PRESENT ILLNESS: This patient is 56 years old, comes in with complaints of difficulty breathing. The patient was last admitted to the hospital in June 2017 with healthcare-associated pneumonia. The patient comes in again with cough and shortness of breath. Denies having any chest pains or palpitations, not have any fever or chills. PAST MEDICAL HISTORY: Significant for: 1. Panacinar emphysema. 2. Chronic respiratory failure, oxygen dependent. 3. Morbid obesity. 4. Chronic obstructive pulmonary disease. 5. Moderate cigarette smoker. 6. Morbid obesity. MEDICATIONS: She is on currently are albuterol inhaler, Advair 500, Combivent, aspirin, calcium, vitamin D, diclofenac, fluoxetine, Lasix, Lamictal, omeprazole. SOCIAL HISTORY: Smoker. Denies using any alcohol. PHYSICAL EXAMINATION: GENERAL: She is awake and alert and oriented. VITAL SIGNS: Blood pressure is 110/44, pulse of 89, respirations 20, temperature 97.4. LUNGS: Diminished breath sounds, scattered wheezes. HEART: Regular. ABDOMEN: Obese. EXTREMITIES: Without any edema. ASSESSMENT AND PLAN: 1. Acute exacerbation of chronic obstructive pulmonary disease. The patient has been placed on breathing treatments and oxygen supplementation. 2. CT of the chest done in the Emergency Room showed extensive air space infiltrate compatible with pneumonia with the right middle lobe nodule. We will ask Dr. Moreland for an opinion. The patient has been placed on antibiotics. 3. Morbid obesity, most likely has underlying obstructive sleep apnea, may require a sleep study. [place], [place] PATIENT HISTORY AND PHYSICAL EXAM NAME: JAJA SENA UNIT #: [id number] ROOM: 531 DOCTOR: FRITZ MORENO MD BIRTHDATE: [birth year] FRITZ MORENO MD CM:HISPHYS:PATIENT HISTORY AND PHYSICAL EXAMINATION 0848 0920 FRITZ MORENO MD 09/19/17 0919 interface
--- NOTE | ~2017-09-18 | CON ---
[place], [place] REPORT OF CONSULTATION NAME: JAJA SENA UNIT #: [id number] ROOM: 531 DOCTOR: SHEBA ABRAHAM DO BIRTHDATE: [birth year] DOS: 09/19/2017 CONSULTING PROVIDER: Dr. Dewitt. REASON FOR CONSULTATION: Shortness of breath, COPD exacerbation and right upper and right middle lobe pneumonia. HISTORY OF PRESENT ILLNESS: DICTATION ENDS HERE. SHEBA ABRAHAM DO JIMMIE DOAN MD CM:CONSTR:REPORT OF CONSULTATION 1657 09/20/17 1643 EVELYN SCHWARTZ [facility].[id number]
--- NOTE | ~2017-09-18 | PR ---
[place], [place] PROGRESS NOTE [id number] UN[facility] #: [id number] ROOM: 531 DOCTOR: FRITZ MORENO MD BIRTHDATE: [birth year] DOS: SUBJECTIVE: The patient continues to sleep. While talking to her, the patient falls back into sleep. This morning, she does not have any complaints. OBJECTIVE: VITAL SIGNS: Graphic trend shows blood pressure 106/44, pulse of 96, respirations 16, temperature 97.7. LUNGS: Diminished breath sounds. No wheezes heard. HEART: Regular. ABDOMEN: Obese. EXTREMITIES: Without any edema. ASSESSMENT AND PLAN: 1. The patient with bilateral pneumonia. The patient's workup is still proceeding. Today she will undergo the bronchoscopy. 2. Lung nodules. Dr. Moreland has been consulted. There is a possibility this could be malignancy. 3. Morbid obesity with possible obstructive sleep apnea, will require sleep study as an outpatient. FRITZ MORENO MD CM:PNTRANS 0834 0844 FRITZ MORENO MD 09/21/17 0843 interface
--- NOTE | ~2017-09-18 | PR ---
[place], [place] PROGRESS NOTE NAME: JAJA SENA UNIT #: [id number] ROOM: 531 DOCTOR: JIMMIE MAY MD BIRTHDATE: [birth year] DOS: 09/24/2017 SUBJECTIVE: The patient has been noted without any ongoing acute new complaints at this time. The patient is noted comfortable at the present time. Has not been noted with any symptoms of hemoptysis or chest pain or any abdominal pain. The coughing and the other symptoms have been progressively improving. OBJECTIVE: VITAL SIGNS: Normal temperature, respiratory rate 18, heart rate 71, blood pressure 124/54. Pulse oxygen saturation on 4 liters cannula 98% saturation. HEENT: Examination shows no new change. NECK: Supple and obese. CARDIOVASCULAR: S1, S2 audible. LUNGS: Without any wheeze or crackles. ABDOMEN: Soft with severe morbid obesity. Bowel sounds present. EXTREMITIES: Without any acute edema. Chronic obesity. DIAGNOSTIC STUDIES AD LABORATORY DATA: The patient's chest x-ray shows continued resolution of previous mass-like consolidation in the right upper lobe. IgG level was noted as normal. IgG subclass 2 was noted mildly decreased. IgM mildly elevated. Acid fast smear for this patient noted negative with ____ results pending. IMPRESSION: 1. Progressive resolution of the acute pneumonia, rule out underlying malignancy and nodule. 2. Suspected obstructive sleep apnea disorder. 3. Resolving chronic obstructive pulmonary disease. 4. Chronic heavy nicotine abuse. PLAN OF TREATMENT: From the pulmonary standpoint, the patient could be discharged home on oral Levaquin, tapering dose of prednisone, bronchodilators, and also encouraged about tobacco abstinence, oxygen supplementation, assessment if the patient does not have oxygen in the home settings. The patient will require outpatient assessment for the sleep apnea disorder as well as further pulmonary assessment. Monitoring of current abnormality to exclude malignancy. Abstinence of tobacco use was recommended. [place], [place] PROGRESS NOTE NAME: JAJA SENA UNIT #: [id number] ROOM: 531 DOCTOR: JIMMIE MAY MD BIRTHDATE: [birth year] JIMMIE DOAN MD CM:PNTRANS [id number] JIMMIE OG MD 09/24/17 2347 interface
--- NOTE | ~2017-09-18 | PR ---
[place], [place] PROGRESS NOTE [id number] UNIT #: [id number] ROOM: 531 DOCTOR: FRITZ MORENO MD BIRTHDATE: [birth year] DOS: SUBJECTIVE: The patient is doing fine without any complaints today. OBJECTIVE EXAMINATION: GENERAL: She is awake and alert and oriented. VITAL SIGNS: Blood pressure is 100/46, pulse of 80, respirations 20, temperature 98. LUNGS: Clear except for a few scattered wheezes. HEART: Regular. ABDOMEN: Soft. EXTREMITIES: Without any edema. LABORATORY DATA: Chest x-ray shows clearing of the pneumonia. ASSESSMENT AND PLAN: 1. Bilateral pneumonia, which is improving. Chest x-ray continues to show presence of right lobe bronchopneumonia, which is incompletely resolved. The patient will continue on p.o. antibiotics. 2. Precordial chest pain, was to have a stress test yesterday. I have no report available, but the patient can be discharged to home and follow up as an outpatient once cleared by cardiology. 3. Morbid obesity and possible sleep apnea with increased daytime sleepiness, advised to have a sleep study done. FRITZ MORENO MD CM:PNTRANS 38 FRITZ MORENO MD 09/25/171038 interface
--- NOTE | ~2017-09-18 | PR ---
[place], [place] PROGRESS NOTE NAME: JAJA SENA UNIT #: [id number] ROOM: 531 DOCTOR: FRITZ MORENO MD BIRTHDATE: [birth year] DOS: 09/20/2017 SUBJECTIVE: The patient states that she did not rest very well during the night and is requesting an incentive spirometry. Does not have any other complaints. She feels slightly better as far as the breathing is concerned. PHYSICAL EXAMINATION: VITAL SIGNS: Blood pressure is 139/60, pulse of 82, respirations 16, temperature 97.9. LUNGS: Diminished breath sounds, few wheezes heard. HEART: Regular. ABDOMEN: Obese. EXTREMITIES: Without any edema. ASSESSMENT AND PLAN: 1. Bilateral pneumonia, possible gram negative. Workup in progress. 2. CT of the chest showing multiple lung nodules. Dr. Moreland plans to take her for a bronchoscopy tomorrow. Discussed with the patient in detail. Incentive spirometry was ordered. FRITZ MORENO MD CM:PNTRANS [id number] FRITZ MORENO MD 09/20/17 7022 interface
--- NOTE | ~2017-09-18 | CON ---
[place], [place] REPORT OF CONSULTATION [facility] [id number] UNIT #: [id number] ROOM: 531 DOCTOR: SHEBA ABRAHAM DO BIRTHDATE: [birth year] DOS: 09/19/2017 CONSULTING PROVIDER: Dr. Darcy Dewitt REASON FOR CONSULTATION: Shortness of breath with pneumonia and acute exacerbation of COPD. HISTORY OF PRESENT ILLNESS: The patient is a 56-year-old white female who states she has had chest tightness with cough over the past 4 to 5 days. She has a history of COPD and was treated and discharged in June 2017 after treatment for healthcare-associated pneumonia. She is a former 2 pack per day smoker and quit smoking last October. She also has history of chronic respiratory failure with hypoxia and is dependent on 3 liters of O2 via nasal cannula. She states she has never been tested for sleep apnea. She denies chest pains, but states that there is tightness in her chest when she tried to take a deep breath. She denies fever or chills. REVIEW OF SYSTEMS: CONSTITUTIONAL: The patient denies fever or chills. She denies any significant weight change. HEENT: Denies any burning, redness or tenderness. Denies pain in the eyes, ears, nose, mouth. Denies change in vision or hearing. Denies trouble swallowing. CARDIOVASCULAR: Denies chest pain, but admits to chest tightness. Denies palpitations. Denies lower extremity edema. RESPIRATORY: Reports shortness of breath, reports cough, reports dyspnea on exertion, reports sputum production. Denies wheeze or paroxysmal nocturnal dyspnea. GASTROINTESTINAL: Denies nausea, vomiting, diarrhea, constipation, nor abdominal pain. Denies melena. Denies hematochezia. Denies hematemesis. Denies loss of appetite. GENITOURINARY: Denies dysuria. Denies hematuria. Denies frequency, urgency or hesitancy of urine output. SKIN: Denies any new rashes, lesions or ulcers. MUSCULOSKELETAL: Denies joint pains, erythema, edema or cyanosis of the extremities. NEUROLOGIC: Denies dizziness. Denies lightheadedness. Denies confusion. PAST MEDICAL HISTORY: 1. COPD with panacinar emphysema. 2. Chronic respiratory failure with hypoxia and dependence on supplemental O2 via nasal cannula at 3 liters per minute. 3. Morbid obesity. 4. Former tobacco abuse, 2 packs per day smoker, quit in October 2016. 5. Vitamin D deficiency. 6. Depression. 7. GERD. PAST SURGICAL HISTORY: 1. History of Achilles tendon repair. [place], [place] REPORT OF CONSULTATION NAME: JAJA SENA UNIT #: [id number] ROOM: 531 DOCTOR: SHEBA ABRAHAM DO BIRTHDATE: [birth year] 2. History of appendectomy. 3. History of tonsillectomy. 4. Left hip replacement. 5. Left knee replacement. 6. Right foot tendon repair. SOCIAL HISTORY: Former smoker, 2 packs per day, quit in October 2016. Denies alcohol consumption, denies illicit drug use. FAMILY HISTORY: Mother at age 70 of CHF, also had type 2 diabetes and hypertension. Father at age 68 of colon cancer, also had hypertension. MEDICATIONS: Reported home medications: Albuterol 2.5 mg inhaled q.i.d., Advair 1 inhalation daily, Combivent 1 puff inhaled q.i.d. p.r.n. shortness of breath, aspirin 81 mg daily, calcium carbonate 600 mg p.o. daily, vitamin D3 2000 units p.o. daily, diclofenac 75 mg p.o. t.i.d., Prozac 40 mg p.o. daily, Lasix 40 mg p.o. b.i.d., Lamictal XR 300 mg p.o. daily, omeprazole 20 mg p.o. daily. DRUG ALLERGIES: No known drug allergies. PHYSICAL EXAMINATION: GENERAL: The patient is a 56-year-old white female, awake and alert without any acute distress. VITAL SIGNS: Height 5 feet 4 inches with a weight of 144.412 kilograms, BMI of 54.7. Vital signs at time of exam: Temperature 97.4, pulse 89, respiratory rate 22, blood pressure 110/44, pulse ox 93% on 4 liters via nasal cannula. HEENT: Head atraumatic, normocephalic. Eyes are nonicteric. No lesions, no drainage noted. Nares patent. Oral mucosa moist. No pharyngeal erythema or exudate noted. Tongue in midline. NECK: Supple, nontender, trachea midline. CARDIOVASCULAR: Regular rate and rhythm. No murmur, no gallops, no rubs noted. S1 and S2 audible. LUNGS: Sound tight, slightly diminished with scattered wheezes. No rhonchi or rales appreciated. Good inspiratory effort. ABDOMEN: Obese, soft, nontender. Bowel sounds present. EXTREMITIES: No cyanosis, clubbing, erythema or edema appreciated. SKIN: No lesions or rashes noted. NEUROLOGIC: No focal deficit. Grossly intact. No focal neuro deficits. Sensation grossly intact. PSYCHIATRIC: Good historian. Fair judgment, fair insight. Good recent and remote memory. Exhibits normal mood and normal affect. LABORATORY AND DIAGNOSTIC DATA: CBC on admission, 09/18/2017: White blood cell count 8.1, hemoglobin and hematocrit 9.7 and 32.8, platelet count 273. CBC this morning, white blood cell count 6.4, hemoglobin 9.6, hematocrit 32.6, platelet count 280. CMP on admission, 09/18/2017: Sodium 141, potassium 3.9, chloride 101, bicarbonate 33, BUN 15, creatinine 0.71, glucose 82, calcium 8.5, albumin 2.6, total protein 7.2, total bilirubin 0.4, AST 25, ALT 22, alkaline [place], [place] REPORT OF CONSULTATION NAME: JAJA SENA UNIT #: [id number] ROOM: 531 DOCTOR: SHEBA ABRAHAM DO BIRTHDATE: [birth year] phosphatase 130. Initial troponin was negative. Initial lactic acid 2.3, corrected down to 1.5 two hours later. BMP this morning, sodium 140, potassium 4.4, chloride 101, bicarbonate 34, BUN 14, creatinine 0.63, glucose 159 and calcium 8.8. Urinalysis on admission is negative. Chest x-ray on admission shows pneumonia in the right mid lung field and a chest CT taken yesterday afternoon shows extensive airspace infiltrate throughout the right upper and right middle lobes, most compatible with pneumonia. There is also an 8 mm right middle lobe nodule which appears to have increased minimally in size from the prior CT study. IMPRESSION: 1. Right middle and right lower lobe pneumonia. 2. Acute exacerbation of chronic obstructive pulmonary disease. 3. Morbid obesity. PLAN: The patient admitted and started on IV antibiotics of 1 gram Rocephin daily and 500 mg Levaquin daily by primary care provider, Dr. Darcy Dewitt. Dr. Dewitt also started the patient on DuoNeb q. 4 hours and Solu-Medrol 30 mg q. 12 hours. Mucinex q. 12 hours and Dulera q. 12 hours have been started for the patient as well. Blood cultures are pending. We will order a sputum culture as well and we will check urinary Legionella and strep pneumo antigens. We will also check serum IgE level. Thank you for allowing us to participate in the care of this patient. SHEBA ABRAHAM DO JIMMIE DOAN MD CM:CONSTR:REPORT OF CONSULTATION 1737 09/19/174 interface
--- NOTE | ~2017-09-18 | PR ---
[place], [place] PROGRESS NOTE NAME: JAJA SENA [facility] #: [id number] UNIT #: [id number] ROOM: 531 DOCTOR: JIMMIE MAY MD BIRTHDATE: [birth year] DOS: 09/22/2017 SUBJECTIVE: The patient is noted 09/22/2017. She has a bronchoscopy done yesterday, copious amount of purulent material removed from the endobronchial tree. There were no endobronchial specific obstruction noted from many endobronchial lesions. She has been noted reduction of cough for this patient as a shortness breath, wheezing in the last 24 hours after bronchoscopy. Currently, comfortably lying in the bed. Denies symptoms, abdominal pain, nausea, vomiting. The patient has not reported any symptoms of edema or pain of the lower extremities. No dizziness or headache. Remaining systems were reviewed. They were noted all negative. OBJECTIVE: VITAL SIGNS: Normal temperature, respiratory rate 19, heart rate 77, blood pressure 132/63 135/45. The pulse oxygen saturation on 4 liters 94% saturation. HEENT: Examination shows head was atraumatic. Eyes nonicterus. NECK: Supple. CARDIOVASCULAR: S1, S2 was audible. LUNGS: The patient was noted without any wheeze or crackles present time. Breaths are noted moderate decreased bilaterally, significant improvement in the air entry was noted from yesterday. ABDOMEN: Noted severe morbid obesity. Bowel sounds present. EXTREMITIES: The patient noted mild edema with chronic obesity. There were no clubbing, cyanosis. CENTRAL NERVOUS SYSTEM: Cranial nerves 2-12 intact. MUSCULOSKELETAL: Without any acute deformities. SKIN: Was noted without lesions or rashes. LABORATORY DATA: BMP today: BUN 25. Creatinine was normal, glucose 121. CO2 38. CBC of the patient today: WBC count 7.2, hemoglobin 9.0, hematocrit 31.1, platelet count 342,000. IMPRESSION: 1. The patient with acute pneumonia that has been noted at the present time with a severe morbid obesity. 2. Possibility of malignancy cannot be excluded. 3. Suspected obstructive sleep apnea disorder. 4. History of past heavy nicotine abuse. The chest x-ray of patient that was done yesterday was noted with reduction of the infiltration and consolidation in the right upper lobe. PLAN: Continuation of current antibiotics and bronchodilators administration. Continuation of the oxygen supplementation. Continue current dose of corticosteroids. Repeat another chest x-ray in the next couple of days. Ambulation was encouraged. The oxygen supplementation will continue to maintain a pulse ox saturation 92% or greater. Usual treatment, all other therapies. [place], [place] PROGRESS NOTE NAME: JAJA SENA [facility] UNIT #: [id number] ROOM: 531 DOCTOR: JIMMIE MAY MD BIRTHDATE: [birth year] JIMMIE DOAN MD CM:PNRICHARD [id number] JIMMIE OG MD 09/22/17 1548 interface
--- NOTE | ~2017-09-18 | CON ---
[place], [place] REPORT OF CONSULTATION NAME: JAJA SENA [facility] #: [id number] UNIT #: [id number] ROOM: 531 DOCTOR: JIMMIE MAY MD BIRTHDATE: [birth year] DOS: 09/19/2017 PULMONARY CONSULTATION AND EVALUATION REQUESTING PHYSICIAN: Darcy Dewitt M.D. REASON FOR CONSULTATION: Assessment of the acute pneumonia and other abnormalities noted on the CT scan of the chest. The consultation for the patient was done as an addendum on 09/19/2017. The patient was independently seen and examined. History was confirmed. Physical examination was performed. All the labs of the patient including radiology data were independently reviewed. The assessment was personally completed and any changes in the medical management of the patient were personally made for the patient and approved. The note done by the regional medical director was approved as well. HISTORY OF PRESENT ILLNESS: This is a 56-year-old white female patient who was admitted to the hospital under the care of Dr. Darcy Dewitt. She has been treated in the hospital previously in June as well for management of acute pneumonia at that time, treated by Dr. Darcy Dewitt and discharged home. The patient was noted with symptoms of coughing as well, which has been noted intermittently. She denies symptoms of wheezing. She has not reported any symptoms of chest pain. The patient denies any symptoms of hemoptysis. REVIEW OF SYSTEMS: Completed by the regional medical director. The patient does complain of symptoms of fatigue. Denies symptoms of fever, chills, or tiredness. Denies symptoms of gastroesophageal reflux, nausea, vomiting, diarrhea, abdominal pain, hematemesis, melena, abnormal weight loss, or joint pain, skin rashes, dizziness, headache, diplopia, seizures, or others. PAST MEDICAL HISTORY: 1. The patient was reported with history of chronic obstructive pulmonary disease. 2. Chronic hypoxic respiratory failure, with use of oxygen 3 liters nasal cannula continuous use. 3. Severe morbid obesity. 4. Chronic heavy tobacco use. 5. The patient has history of anxiety and depression. SOCIAL HISTORY: Reported by the patient as use of tobacco products since teenager, 2 packs of cigarettes per day, active use. She is not and has one son. PAST SURGICAL HISTORY: 1. The patient had a left hip replacement. 2. Left total knee replacement. 3. Right foot tendon surgery and repair. 4. Appendectomy. FAMILY HISTORY: Unknown by the patient. [place], [place] REPORT OF CONSULTATION NAME: JAJA SENA UNIT #: [id number] ROOM: 531 DOCTOR: FRANKI OG MD,JIMMIE BIRTHDATE: [birth year] CURRENT MEDICATIONS: Administered were noted as use of omeprazole, Lasix oral, diclofenac, aspirin, Lamictal, Prozac, Dulera, Mucinex 600 mg p.o. b.i.d., Solu-Medrol 30 mg b.i.d., DuoNeb q. 4 hours, Levaquin, and IV Rocephin. DRUG ALLERGIES: Reported as no known drug allergies. PHYSICAL EXAMINATION: GENERAL: A 56-year-old female, who has been noted currently awake and alert without any acute distress at this time of assessment, lying on the bed, using oxygen supplementation by the nasal cannula. VITAL SIGNS: Height of the patient recorded by the nursing staff as 5 feet 4 inches, weight of 318 pounds with BMI of 54.6. The vital signs for the patient, which were recorded on the patient, shows the T-max of the patient was noted as normal. Respiratory rate of the patient recorded as 20-22. Heart rate of 71-94. Blood pressure 117/51-118/78. Pulse oxygen saturation of the patient was recorded by the nursing staff on 2 liters was 86% and on 4 liters nasal cannula it was 93% at rest. HEENT: Severe morbid obesity. Head was atraumatic. Eyes nonicterus. Decreased severe posterior pharyngeal space with high tongue base and crowding of soft tissue structures. CARDIOVASCULAR: S1, S2 audible. LUNGS: Generalized decreased breath sounds noted in the lungs bilaterally without any wheezing. ABDOMEN: Noted soft, severely obese. Bowel sounds present without any tenderness. EXTREMITIES: Shows chronic obesity without any acute edema. SKIN: Visible skin, no lesions or rashes. MUSCULOSKELETAL: Without any acute deformities. CENTRAL NERVOUS SYSTEM: Grossly intact. Cranial nerves 2-12 intact. No focal deficit. LABORATORY DATA: The patient's CBC yesterday on admission, WBC count normal, hemoglobin 9.7, hematocrit 32.8, platelet count was normal. The lactic acid was 2.3 yesterday followed by 1.5. CMP from 09/18/2017, normal BUN and creatinine. Glucose was normal, CO2 of 33. Albumin 2.6. Troponin first set was normal. BMP this morning, glucose 159, BUN and creatinine normal. CO2 34. CBC from this morning, hemoglobin 9.6, remaining CBC was unchanged as previously from yesterday. IMAGING STUDIES: Chest x-ray of the patient that was done on 09/18/2017 shows large area of consolidation noted in the right upper lobe on this patient. CT scan of the chest that was done for this patient previously on 12/22/2016shows nodule noted in the right upper lung for the patient with patchy retention of infiltration noted in the right middle and the right upper lobe. The CT scan of the chest that was done on 09/18/2017 was done without contrast. The previous CT scan was also done in December 2016 without contrast limiting the assessment of the mediastinal structures effectively. The current CT scan of the chest of the patient shows mass-like consolidation, infiltration noted with interstitial infiltration involving most of the right upper lobe, lateral subsegment was also noted with mass-like consolidation, air bronchogram involving the right middle [place], [place] REPORT OF CONSULTATION NAME: JAJA SENA UNIT #: [id number] ROOM: 531 DOCTOR: FRANKI OG MD,[facility] BIRTHDATE: [birth year] lobe lateral subsegment as well, small area of patchy scarring on the patient suspected in the left lung. There was no additional infiltration of the patient or nodule noted except a small subcentimeter nodule noted in the periphery of the left upper lobe. IMPRESSION: 1. The patient who has been currently admitted to the hospital with limited symptoms. Whether the patient has acute pneumonia at this time is not clear. The patient has been previously treated for the pneumonia a few times including her admission in June [address] scan in December 2016 as well. Certainly, the pneumonia would be considered ____ the patient's acute bacterial pneumonia; however, other etiology to be considered as findings were noted very concerning for the patient. Possibility of malignant process until is documented is completely resolved. Rule out the recurrent pneumonia etiology of the patient such as common variable hypogammaglobulinemia as well and other etiologies as well. Rule out the allergic bronchopulmonary aspergillosis assessment for the patient as well because of fleeting infiltration and consolidation. The patient was noted with continued chronic nicotine dependence and remained dependent on the nicotine. 2. History of chronic hypoxic respiratory failure with acute hypoxic respiratory failure superimposed. 3. Acute exacerbation of chronic obstructive pulmonary disease. 4. Strong clinical suspicion of obstructive sleep apnea disorder, not assessed in the past or treated at the present time. 5. Severe morbid obesity as well. PLAN OF MANAGEMENT: Ordering the IgE level. Consideration for bronchoscopy would be done as well possibly on Sunday. The patient will be continued on corticosteroids and current antibiotics. Sputum for Gram stain and culture as well. The urine for Legionella antigen and strep antigen for the patient could be obtained as well. Further treatment changes will be made for the patient based on the progression of the current radiologic abnormality and clinical symptoms as well. Tobacco cessation was addressed with the patient. Starting the patient on nicotine replacement patches to overcome any nicotine withdrawal as well. Additional treatment changes will be made accordingly. Thanks for allowing me to participate in the care of this patient. JIMMIE DOAN MD CM:CONSTR:REPORT OF CONSULTATION 1638 09/20/17 0402 interface
--- NOTE | ~2017-09-18 | PR ---
[place], [place] PROGRESS NOTE NAME: [facility]: [id number] UNIT #: [id number] ROOM: 531 DOCTOR: SHEBA ABRAHAM DO BIRTHDATE: [birth year] DOS: 09/20/2017 SUBJECTIVE: The patient states that she is breathing easier today. She is seen and examined today while lying in her bed. She does note that she has not been sleeping well and has been urinating frequently at night. She does note that her cough is loosening up and that the Mucinex is helping, though she is still having coarse cough and is not fully expectorating. She does also note still some dyspnea with exertion. OBJECTIVE: VITAL SIGNS: At the time of exam, temperature 97.9, pulse 82, respirations 16, blood pressure 139/60 with a pulse ox 90% on 4 liters via nasal cannula. GENERAL APPEARANCE: Awake, alert, in no acute distress, cooperative and responsive. HEAD: Normocephalic, atraumatic. EYES: No lesions, no ulcerations. Nonicteric. No drainage. ENT: No scars, no masses, no lesions. Oral mucosa moist. Nares patent. NECK: Without masses or ulcerations. Supple, nontender. Trachea is midline. LUNGS: Slightly diminished. Scattered expiratory wheeze. No rhonchi or rales appreciated. CARDIAC: Regular rate and rhythm. No gallop, no murmur. No edema in the lower extremities. ABDOMEN: Soft, nontender, nondistended, obese, bowel sounds present. EXTREMITIES: No clubbing, no cyanosis, no erythema, no edema appreciated. SKIN: No rashes, no ulcerations, no lesions. No induration, no nodules. NEUROLOGIC: No focal deficit, grossly intact. Sensation grossly intact. PSYCHIATRIC: Good historian. Fair judgment and insight. Good recent and remote memory, exhibits normal mood and normal affect. LABORATORY AND DIAGNOSTIC DATA: Immunoglobulin workup is still pending. Blood cultures have resulted and show no growth. IMPRESSION: 1. Recurrent pneumonia. 2. Acute on chronic hypoxic respiratory failure. 3. Acute exacerbation of chronic obstructive pulmonary disease. 4. Likely obstructive sleep apnea, undiagnosed at this time. 5. Severe morbid obesity. TREATMENT PLAN: Continue current corticosteroids and current antibiotics. Continue DuoNeb breathing treatments as well and Dulera and Mucinex. The patient has not been using her Nicoderm patches. She states she is not having cravings and that she does not need the patches at this time. Continue to encourage her to quit smoking. The sputum culture is as of yet uncollected as the patient has not been able to fully expectorate with her cough. The patient will be taken for bronchoscopy tomorrow. She will be made n.p.o. at midnight in order to have the bronchoscopy in the morning. Urinary strep and legionella antigens are pending. Serum immunoglobulin levels are also pending at this time. [place], [place] PROGRESS NOTE NAME: JAIDADANIELLEJAJA D UNIT #: [id number] ROOM: 531 DOCTOR: SHEBA ABRAHAM DO BIRTHDATE: [birth year] SHEBA ABRAHAM DO JIMMIE DOAN MD CM:WILFREDO [id number] 06 SHEBA ABRAHAM DO 09/20/17 180 interface
--- NOTE | ~2017-09-18 | PR ---
[place], [place] PROGRESS NOTE NAME: JAJA SENA UNIT #: [id number] ROOM: 531 DOCTOR: FRANKI OG MD,JIMMIE BIRTHDATE: [birth year] DOS: 09/25/2017 SUBJECTIVE: The patient is noted comfortable at this time, resting on the bed. She was currently considered for home discharge today. Shortness of breath and the patient's other symptoms have been progressively resolving. OBJECTIVE: VITAL SIGNS: Normal temperature, respiratory rate 20, heart rate of 88, blood pressure 101/46 recorded this morning. The pulse oxygen saturation on 3 liters nasal cannula is 95% saturation. HEENT: Examination shows head was atraumatic. Eyes nonicterus. CARDIOVASCULAR: S1, S2 are audible. LUNGS: The patient was noted without any wheezing or crackles at this time. ABDOMEN: Soft and obese. EXTREMITIES: Without any acute edema. LABORATORY DATA: Culture of the bronchial washing noted as normal duglas. Urine for Legionella antigen and strep antigen were both noted as negative. CBC of this morning, WBC count 12.2, hemoglobin 9.3, hematocrit 32.1, platelet count normal. IMPRESSION: Progressive resolution and improvement of the patient with acute exacerbation of chronic obstructive pulmonary disease, acute bronchitis, respiratory failure, as well as pneumonia, radiologically ruled out mass lesion. PLAN OF TREATMENT: I agree with home discharge on tapering dose of prednisone and antibiotics of the patient and other medical treatment. Outpatient followup suggested in couple of weeks after discharge. JIMMIE DOAN MD CM:PNTRANS 1250 JIMMIE OG MD 09/26/1729 interface
--- NOTE | ~2017-09-18 | PR ---
[place], [place] PROGRESS NOTE NAME: [facility]NA [facility] [id number] UNIT #: [id number] ROOM: 531 DOCTOR: SHEBA ABRAHAM DO BIRTHDATE: [birth year] DOS: 09/21/2017 SUBJECTIVE: The patient was seen and examined today while lying in her bed. She notes that her respiratory improvement has seemed to plateaued and she is still having significant trouble expectorating with her cough. She states that she has not been up moving around much, but does get dyspneic with even minimal exertion. She denies any chest pain, nausea, vomiting, fever, chills, diarrhea, constipation, lightheadedness or dizziness. OBJECTIVE: VITAL SIGNS: At time of exam, temperature 97.6, pulse 86, respirations 22, blood pressure 106/42, bedside pulse ox 94% on 4 liters via nasal cannula. GENERAL APPEARANCE: Awake, alert, in mild distress at rest, cooperative and responsive. HEAD: Normocephalic, atraumatic. EYES: No lesion, no ulcerations. Nonicteric. No drainage. ENT: No scars, no masses, no lesions. Oral mucosa moist. Nares patent. ENT: No scars, no masses, no lesions. NECK: Without masses or ulcerations. Supple, nontender. Trachea is midline. LUNGS: Coarse breath sounds bilaterally with wheeze noted in the left lower lobe of the lung with expiration. The patient has a coarse cough that is not productive. No rales or rhonchi noted. CARDIOVASCULAR: Regular rate and rhythm. No gallop or murmur. No edema in the lower extremities. ABDOMEN: Soft, nontender, nondistended, obese. Bowel sounds present. EXTREMITIES: No clubbing, no cyanosis, no erythema, no edema. SKIN: No rash, no ulcerations, no lesions, no induration, no nodules. NEUROLOGIC: No focal deficit. Sensation grossly intact. PSYCHIATRIC: Good historian. Good recent and remote memory and fair judgment and insight and exhibits normal mood and normal affect. LABORATORY AND DIAGNOSTIC DATA: Serum immunoglobulin studies are still pending. Urinary strep pneumo and Legionella antigens are still pending. Blood cultures are negative. IMPRESSION: 1. Recurrent pneumonia. 2. Acute exacerbation of chronic obstructive pulmonary disease. 3. Acute on chronic hypoxic respiratory failure. 4. Presumed obstructive sleep apnea, undiagnosed. 5. Severe morbid obesity. 6. Tobacco abuse. TREATMENT PLAN: The patient will have bronchoscopy today. Continue current antibiotics per primary team. Any adjustment to antibiotic regimen can be changed based on results of cultures of bronchial washings. Continue use of Solu-Medrol and DuoNeb as well as Mucinex. Continue to encourage the patient to quit smoking. She has been doing well with the nicotine patch thus far. [place], [place] PROGRESS NOTE NAME: JAJA SENA UNIT #: [id number] ROOM: 531 DOCTOR: SHEBA ARBAHAM DO BIRTHDATE: [birth year] SHEBA ABRAHAM DO JIMMIE DOAN MD CM:PNRICHARD 01 26 SHEBA ABRAHAM DO 09/21/171925 interface
--- NOTE | ~2017-09-18 | EKG ---
[place], [place] ELECTROCARDIOGRAM REPORT NAME: JAJA SENA UNIT #: [id number] ROOM: 531 DOCTOR: FRANKI OG MD,JIMMIE BIRTHDATE: [birth year] DOS: 09/20/2017 The electrocardiogram done for the patient on 09/20/2017, at 4:07 p.m. Normal sinus rhythm noted with a heart rate of 79 beats per minute. Nonspecific ST-T changes were noted in the 1 and aVL lead. JIMMIE DOAN MD CM:EKGRPT:ELECTROCARDIOGRAM REPORT 1615 1927 JIMMIE OG MD
--- NOTE | ~2017-09-18 | PR ---
[place], [place] PROGRESS NOTE NAME: JAJA SENA UNIT #: [id number] ROOM: 531 DOCTOR: FRITZ MORENO MD BIRTHDATE: [birth year] DOS: 09/24/2017 SUBJECTIVE: The patient states that she feels a lot better. She did develop some discomfort in her chest Sunday night and a consultation with Cardiology was ordered and pending for a stress test this morning. The patient denies having any chest pains or palpitations this morning. OBJECTIVE: VITAL SIGNS: Graphic trend shows a pressure of 141/68, pulse of 82, respirations 20, temperature 98.5. LUNGS: Diminished breath sounds, clear. HEART: Regular. ABDOMEN: Obese, soft. EXTREMITIES: Without any edema. LABORATORY DATA: The cultures from the bronchoscopy shows moderate yeast, normal duglas. Blood culture shows no bacterial growth. The troponins have all come back negative. Chest x-ray shows improving pneumonia. ASSESSMENT AND PLAN: 1. The patient who presents with bilateral pneumonia, status post bronchoscopy with negative bronch cultures. The patient should be able to go home tomorrow on p.o. antibiotics. 2. Morbid obesity with obstructive sleep apnea. The patient is encouraged to get a sleep study as an outpatient. 3. Benign hypertension, controlled. 4. Precordial chest pain, awaiting a stress test today. If that is cleared, the plan is to discharge her to home tomorrow. 5. 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 The patient to follow up with Dr. Moreland for possible immunoglobulin injections as an outpatient. FRITZ MORENO MD CM:PNTRANS [id number] FRITZ MORENO MD 09/24/17 1510 interface
--- NOTE | ~2017-09-18 | PR ---
[place], [place] PROGRESS NOTE NAME: JAJA SENA [facility] #: [id number] UNIT #: [id number] ROOM: 531 DOCTOR: DARRION LAM MD BIRTHDATE: [birth year] DOS: 09/22/2017 IMPRESSION: 1. The patient with acute pneumonia, being followed by screw down, being treated with antibiotics and clinically improving. Chest x-ray shows right upper and middle lobe pneumonia, which is improving. 2. Obstructive sleep apnea and obesity. 3. Obesity. The patient is working with dietary. 4. Acute of exacerbation of chronic obstructive pulmonary disease, being treated with bronchodilators. 5. Lung nodules, possibility of malignancy exists. Dr. Moreland to perform the workup. DARRION LAM MD CM:PNTRANS 11 DARRION LAM MD 09/23/17 0054 interface
--- NOTE | ~2017-09-18 | PR ---
[place], [place] PROGRESS NOTE [id number] UNIT #: [id number] ROOM: 531 DOCTOR: DARRION LAM MD BIRTHDATE: [birth year] DOS: 09/23/2017 SUBJECTIVE: The patient complaining of some diarrhea today and she had some chest tightness during the night. OBJECTIVE: VITAL SIGNS: Blood pressure 153/50, heart rate 78 beats per minute, breathing 20 times per minute, temperature of 98 degrees Fahrenheit. GENERAL APPEARANCE: The patient is alert and oriented x 3, in no visible distress. Generalized weakness and morbid obesity. HEENT AND NECK: Exam within normal limits. CARDIOVASCULAR SYSTEM: Heart rate is regular in rate and rhythm. S1 and S2 normally audible. LUNGS: Clear to auscultation. ABDOMEN: Soft, nontender. No obvious organomegaly. Bowel sounds are present. EXTREMITIES: Without significant cyanosis or edema. IMPRESSION: 1. The patient complains of acute diarrhea, probably secondary to patient receiving antibiotics, but I will check her for Clostridium difficile colitis. 2. Complains of chest tightness for which cardiology were consulted. Cardiac enzymes have been negative so far. 3. The patient with acute pneumonia with right upper and middle lobe lung infiltrates on the chest x-ray being treated with Levaquin and ceftriaxone. 4. Obstructive sleep apnea and obesity. The patient is being followed by Dr. Moreland, the sports information director. 5. Morbid obesity with a BMI of 54.6. The patient working on diet. 6. Acute exacerbation of chronic obstructive pulmonary disease being treated with bronchodilators. 7. Lung nodules, possibility of malignancy being followed by Dr. Moreland. DARRION LAM MD CM:PNTRANS [id number] DARRION LAM MD 09/23/17 1935 interface
--- NOTE | ~2017-09-18 | DS ---
[place], [place] DISCHARGE SUMMARY NAME: JAJA SENA UNIT #: [id number] ROOM: 531 DOCTOR: TIFFANIE EDWARDSFRITZ BIRTHDATE: [birth year] DOS: 09/25/2017 DIAGNOSES: 1. Bilateral pneumonia with consolidation, possible gram-negative , bronch cultures so far negative. 2. Right middle lobe nodules, for workup as an outpatient by Dr. Moreland. Bronchoscopy did not show any evidence of any malignancy. 3. Moderate cigarette smoker. 4. Chronic obstructive pulmonary disease with acute exacerbation. 5. Chronic respiratory failure, oxygen dependent. 6. Morbid obesity with increased daytime sleepiness, most likely has underlying obstructive sleep apnea. 7. Benign hypertension. 8. Chest pain. Cardiology consultation was obtained and they did not suggest any further cardiac eval. HOSPITAL COURSE: A 56-year-old patient who comes in with complaints of difficulty breathing. She is morbidly obese and seems to have underlying sleep apnea. After admission, was placed on IV antibiotics, breathing treatments. A CT of the chest confirmed the extensive pneumonia. Dr. Moreland was consulted. Bronchoscopy was ordered and performed. Bronch cultures so far are negative. The patient did complain of some chest pain, a Cardiology consultation was obtained. They did not feel that the patient would need to have any further cardiac evaluation. Repeat chest x-rays have shown slow resolution of the pneumonia, but not complete. The patient is encouraged to quit smoking and have a sleep study as an outpatient. This morning, she is stable and is being discharged to home to follow up with Dr. Mead as well as Dr. Moreland. DISCHARGE MEDICATIONS: Breathing treatments of DuoNeb q. 4, Cipro 500 b.i.d., prednisone 5 b.i.d. for 10 days, fluoxetine 40 daily, Lamictal 300 mg daily, Advair 500 twice a day, aspirin 81 daily, calcium 600 daily, Lasix 40 b.i.d., omeprazole 20 daily, diclofenac 75 t.i.d., albuterol breathing treatments q.i.d., vitamin D 2000 units daily, Combivent p.r.n. [place], [place] DISCHARGE SUMMARY NAME: JAJA SENA UNIT #: [id number] ROOM: 531 DOCTOR: FRITZ MORENO MD BIRTHDATE: [birth year] FRITZ MORENO MD CM:DARRIUS 9 FRITZ MORENO MD 09/25/17 0909 interface
--- NOTE | ~2017-09-18 | PR ---
[place], [place] PROGRESS NOTE NAME: JAJA SENA [facility] #: [id number] UNIT #: [id number] ROOM: 531 DOCTOR: JIMMIE MAY MD BIRTHDATE: [birth year] DOS: 09/20/2017 SUBJECTIVE: The patient independently seen and examined in [id number] encounter today. Physical examination performed. All the available labs were reviewed. Assessment and management were personally completed any changes in medical management were personally made. Note done by the medical director/head team physician, was approved. The patient was continued Nicotine replacement therapy as well as antibiotics, bronchodilators, still noted with symptoms of cough. There were no symptoms of chest pain. The cough has been noted with minimal sputum expectoration. Denies symptoms of hemoptysis. Denies symptoms of headache or diplopia. General weakness, fatigue were noted. Shortness of breath occurred with minimal exertion. She denies any symptoms of wheezing. Remaining systems were reviewed. They were noted all negative. PHYSICAL EXAMINATION: VITAL SIGNS: Normal temperature, respiratory rate 18, heart rate 77, blood pressure 120/51. The pulse oxygen saturation on 4 L nasal cannula 90%-92% saturation. GENERAL: Chronic severe obesity. HEENT: Head was atraumatic. Eyes nonicterus. NECK: Supple. CARDIOVASCULAR: S1, S2 audible. LUNGS: The patient was noted with decreased breath sounds in the lungs. There were no wheezing or crackles heard. ABDOMEN: Chronic obesity was noted. Abdomen is soft, nontender. EXTREMITIES: The patient was noted without any new finding. MUSCULOSKELETAL: Without any acute deformities. SKIN: No lesions or rashes. CENTRAL NERVOUS SYSTEM: No gross focal deficit for this patient was noted. Cranial nerves II-XII were intact. IMPRESSION: 1. The patient large area of consolidation nodular formation, rule out mass lesion for the patient and endobronchial obstruction in the right lung. 2. History of recurrent pneumonia, rule out immune deficiency. Other etiology of current pulmonary infiltration, recurrent with allergic bronchial pulmonary aspergillosis workup was also started. PLAN OF MANAGEMENT: The patient was suggested fibrobronchoscopy, that will be done tomorrow morning, which will be therapeutic and diagnostic at the same time. The risk and benefits of procedure were discussed. No change in antibiotic will be needed. Continue bronchodilator. Nicotine replacement patches. Continue other therapy, plan of management and care. In addition, treatment changes for the patient will be needed, to be done based on progression of the illness. Other supportive plan of therapy to be continued as in progress per usual care. [place], [place] PROGRESS NOTE NAME: SENAJAJA UNIT #: [id number] ROOM: 531 DOCTOR: JIMMIE MAY MD BIRTHDATE: [birth year] JIMMIE DOAN MD CM:PNTRANS 1447 23 JIMIME OG MD 09/20/172123 interface
--- NOTE | ~2017-09-18 | CON ---
[place], [place] REPORT OF CONSULTATION NAME: [facility] [id number] UNIT #: [id number] ROOM: 531 DOCTOR: BRIDGETT SIMPSON MD BIRTHDATE: [birth year] DOS: 09/24/2017 REASON FOR CONSULTATION: Chest tightness. HISTORY OF PRESENT ILLNESS: The patient is a 56-year-old woman with a long history of obstructive lung disease and cigarette abuse. The patient has been abstinent of cigarettes since 10/2016. She also has morbid obesity, obstructive sleep apnea and chronic pedal edema. She was admitted to the hospital on this occasion with dyspnea and cough. A chest x-ray did show a right lung pneumonia and a CAT scan of the chest showed extensive infiltrates in the right upper and middle lobes along with an 8 mm right middle lobe nodule which may have increased in size from a prior CT of the chest. The patient is being treated for pneumonia and did undergo bronchoscopy by Dr. Moreland on 09/21/2017. She was found to have mucus plugging and tracheobronchitis. We were asked to see the patient because the night before last, she did experience some tightness in her chest. She described a pressure sensation over her upper chest, which did not radiate. It lasted several minutes before it resolved spontaneously. The patient does note that repositioning herself in bed did seem to alleviate her symptoms. An electrocardiogram did not show any acute changes and serial troponins have been normal. The patient has had episodes of chest tightness in the past and did undergo myocardial perfusion imaging on 12/21/2016, less than one year ago. This showed normal perfusion with an ejection fraction of 75% and was felt to be a low risk examination. PAST MEDICAL HISTORY: Includes: 1. Panacinar emphysema. 2. Chronic respiratory failure, on home oxygen. 3. Morbid obesity. 4. Chronic obstructive pulmonary disease. 5. Probable obstructive sleep apnea. 6. Morbid obesity with body mass index between 50 and 55. 7. History of cigarette abuse. The patient claims to be abstinent since 10/2016. 8. History of recurrent pneumonias. MEDICATIONS PRIOR TO ADMISSION: Albuterol by nebulizer q.i.d., Advair 500/50 one inhalation daily, Combivent 1 puff q.i.d. as needed, aspirin 81 mg daily, calcium carbonate 600 mg daily, vitamin D 2000 units every morning, Voltaren 75 mg t.i.d., fluoxetine 40 mg daily, furosemide 40 mg b.i.d., lamotrigine 300 mg extended release daily and omeprazole 20 mg daily. ALLERGIES: She has no known drug allergies. FAMILY HISTORY: Her mother had diabetes type 2 and hypertension. She at age 70 from heart failure. Father had hypertension, at age 68 of colon cancer. [place], [place] REPORT OF CONSULTATION NAME: JAJA SENA UNIT #: [id number] ROOM: 531 DOCTOR: BRIDGETT SIMPSON MD BIRTHDATE: [birth year] REVIEW OF SYSTEMS: The patient denies diplopia or loss of vision. She denies syncope. She denies focal weakness. She denies lightheadedness. She denies nausea or vomiting. She has had a productive cough, but denies hemoptysis or hematemesis. She denies any nausea or vomiting. She has had some diarrhea with her antibiotic therapies, but denies any blood in her stool or urine. She did have the chest tightness noted above. She denies any palpitations or syncope. She denies any skin rashes. She does have occasional peripheral edema if she is on her feet for a long period of time. She denies any heat or cold intolerance. The remainder of the review of systems is negative except as noted above. SOCIAL HISTORY: The patient was a smoker of one-half to 1 pack of cigarettes a day, but quit in 10/2016. She denies any alcohol consumption. PHYSICAL EXAMINATION: GENERAL: The patient is a morbidly obese white female. She was asleep when I entered the room and was snoring with occasional apparent obstructive movements. She awakened easily, however. VITAL SIGNS: Pulse was 70 and regular, blood pressure is 128/54. She was afebrile, pulse oximetry was 98% with oxygen by 4 liters nasal cannula. She weighs 144.4 kg and has a body mass index of 54.7. HEENT: Normocephalic and atraumatic. Extraocular muscles are intact. Sclerae are clear. Pupils are round and react to light. The oral mucosa is moist. Tongue is midline. NECK: Supple. She has no jugular distention. Carotids are full. I heard no bruits. She had no neck or supraclavicular masses and no thyromegaly. LUNGS: Respirations are unlabored. She does have crackles at the bases, especially on the right. She has no presacral edema or chest wall tenderness. CARDIOVASCULAR: Her heart has a regular rhythm with a soft S4 gallop, but no S3 or murmur. The PMI is not displaced. She has no precordial heave, lift or thrill. ABDOMEN: Soft and normally active without masses, organomegaly or bruits. EXTREMITIES: Showed no edema. Peripheral pulses are palpable in the feet bilaterally. LABORATORY DATA: I reviewed her electrocardiograms, they show sinus rhythm with low voltage, but are otherwise normal tracings. Serial troponins have been unremarkable. Sodium is 142, potassium 4.5, BUN 25, creatinine 0.85. Hemoglobin is 9, hematocrit 31.1. There are 7200 white cells and 342,000 platelets present. IMPRESSIONS: 1. Atypical chest tightness. The patient has no acute EKG changes or elevation in cardiac biomarkers to suggest an acute coronary syndrome. In addition, a stress test done within the last 12 months was a low risk examination. 2. Right lung pneumonia. 3. Obstructive lung disease. 4. Former cigarette smoker. 5. Morbid obesity. 6. Obstructive sleep apnea. [place], [place] REPORT OF CONSULTATION NAME: JAJA SENA UNIT #: [id number] ROOM: 531 DOCTOR: BRIDGTET SIMPSON MD BIRTHDATE: [birth year] PLAN: At this point, the patient shows no signs of an acute coronary syndrome and her cardiac evaluation in the past has been unremarkable. I do not believe that any further cardiac workup at this time is indicated. I think that her chest tightness is probably a result of the pneumonia, coughing, lying in bed, etc. Cardiology will sign off at this point, but we will remain available to see the patient at the request of Dr. Dewitt and Dr. Waddell. We thank Dr. Dewitt and Dr. Waddell for asking our advice regarding her management. BRIDGETT SIMPSON MD CM:CONSTR:REPORT OF CONSULTATION 1007 09/24/17 1034 interface
--- NOTE | ~2017-09-18 | PR ---
[place], [place] PROGRESS NOTE NAME: JAJA SENA [facility] #: [id number] UNIT #: [id number] ROOM: 531 DOCTOR: JIMMIE MAY MD BIRTHDATE: [birth year] DOS: 09/21/2017 SUBJECTIVE: The patient was independently seen and examined, [id number] encounter, history was personally confirmed for the patient. The physical examination performed. The assessment of the patient for today's note were personally completed. The management was also personally done for this patient for today's visit. The note which was done by the dental assistant medical assistant was personally approved. She has been still noted chest congestion, coughing, unable to expectorate sputum with symptoms of shortness breath, which has been noted partially decreased. Wheezing was reported intermittently. She was noted quite nervous about the bronchoscopy. Denies symptoms of chest pain or hemoptysis. Denies symptoms of abdominal pain, nausea, vomiting, diarrhea or earache. Denies symptoms of headache or diplopia. The remaining systems were reviewed, they were noted all negative. OBJECTIVE: VITAL SIGNS: Reviewed of the patient noted as a temperature of 99.2 degree Fahrenheit to normal temperature, respiratory rate is between 16-24, heart rate of 95-88, blood pressure 127/56 to 115/51. The pulse oxygen saturation on 3-4 liters nasal cannula on 88-94% saturation. HEENT: Examination shows head was atraumatic. Eyes nonicterus. NECK: Supple. CARDIOVASCULAR: S1, S2 is audible. LUNGS: The patient was noted with decreased breath sounds noted in the lungs bilaterally. Expiratory wheezing without any crackles heard. ABDOMEN: Soft and obese. EXTREMITIES: The patient was noted with chronic obesity findings. MUSCULOSKELETAL: Without acute deformities. SKIN: Visible skin noted without any lesions or rashes. IMPRESSION: 1. The patient who has been currently noted with large area of consolidation, pulmonary nodule for the patient as well in the lungs. Possibility of infection to be considered, rule out malignancy. 2. History of morbid obesity. 3. Acute exacerbation of chronic obstructive pulmonary disease. 4. History of chronic heavy nicotine abuse. PLAN OF TREATMENT: Proceed with the bronchoscopy as previously. Continue current antibiotic. No changes need to be done based on the current culture. Continue nicotine replacement patches. Oxygen supplementation, use of the BiPAP if needed in case of hypoxia or respiratory distress would be considered. Outpatient assessment for sleep apnea disorder would be done. Usual care. [place], [place] PROGRESS NOTE NAME: JAIDAJAJA Salvador UNIT #: [id number] ROOM: 53 DOCTOR: JIMMIE MAY MD BIRTHDATE: [birth year] JIMMIE DOAN MD CM:WILFREDO 1456 9 JIMMIE OG MD 09/22/17199 interface
--- NOTE | ~2017-09-18 | PR ---
[place], [place] PROGRESS NOTE NAME: JAJA SENA [facility] #: [id number] UNIT #: [id number] ROOM: 531 DOCTOR: JIMMIE MAY MD BIRTHDATE: [birth year] DOS: 09/23/2017 SUBJECTIVE: She has been sitting on the side of the bed and the patient continued to show reduction in symptoms of shortness of breath and cough. Denies symptoms of chest pain or hemoptysis. The patient denies symptoms of nausea or vomiting. She does have diarrhea, which was noted as painless. There were symptoms of hematochezia with that. Denies symptoms of dysuria, suprapubic pain, and hematuria. Denies any joint pains. Denies any acute edema of the lower extremity. Denies any symptoms of headache. General weakness and fatigue for the patient noted with gradual improvement. Remaining systems were reviewed. They were noted all negative. OBJECTIVE: VITAL SIGNS: For the patient, normal temperature, respiratory rate of 20, heart rate 78, blood pressure 153/90-199/71. The pulse oxygen saturation on 2 liters nasal cannula is 93% saturation and 3 liters 93% saturation later on. HEENT: Chronic obesity. Head was atraumatic. Eyes: No icterus. NECK: Supple. CARDIOVASCULAR: S1, S2 is audible. LUNGS: The patient noted moderate decreased breath sounds. The patient noted with absence of wheezing on today's exam. ABDOMEN: Noted severe obesity. There was no tenderness. Bowel sounds present. EXTREMITIES: The patient noted chronic obesity with minimal edema of the ankles. MUSCULOSKELETAL SYMPTOMS: Noted without any acute deformities. VISIBLE SKIN: Dryness of the skin noted. There were no lesions or rashes. CENTRAL NERVOUS SYSTEM: Cranial nerves 2-12 intact without any focal neurologic deficit. LABORATORY DATA: Culture of the bronchial washing of the patient noted moderate growth of yeast as of final results. There was no other abnormal organism noted and normal duglas was isolated. Blood culture from the 09/18/2017, of this month, finally reported as no bacterial growths. CK-MB and troponin for the patient which were done this morning was normal. IMPRESSION: 1. The patient who has been noted clinically and radiologically resolving pneumonia, rule out any additional mass, lesion, and nodules in the lung. 2. History of recurrent pneumonia as well. 3. History of chronic nicotine abuse. 4. Resolving acute exacerbation of chronic obstructive pulmonary disease. 5. Severe morbid obesity. 6. Diarrhea for the patient. Current use of antibiotic, rule out Clostridium difficile colitis. PLAN OF TREATMENT: Decrease the dose of Solu-Medrol. The patient 40 mg daily from 30 mg b.i.d. today. Order stool for C. diff toxins. Continuation of bronchodilator treatment plan for the patient as previously. Usual care and other supportive plan of management and care. [place], [place] PROGRESS NOTE NAME: JAIDAELVINA Salvador UNIT #: [id number] ROOM: 531 DOCTOR: JIMMIE MAY MD BIRTHDATE: [birth year] JIMMIE DOAN MD CM:PNTRANS [id number] JIMMIE OG MD 09/23/17 1631 interface
--- NOTE | ~2017-09-18 | PROC NOTE ---
[place], [place] PROCEDURE NOTE NAME: JAJA SENA UNIT #: [id number] ROOM: 531 DOCTOR: FRANKI OG MD,JIMMIE BIRTHDATE: [birth year] DOS: 09/21/2017 PREOPERATIVE DIAGNOSES: The patient with pulmonary infiltration, which are noted, large with recurrent pneumonia, pulmonary nodules. POSTOPERATIVE DIAGNOSES: The patient with diagnosis of acute pneumonia as well. PROCEDURE DESCRIPTION: Informed consent obtained from the patient. The patient brought to the OR and placed in supine position. Conscious sedation administered by the Anesthesia Department. After achieving proper sedation, airway introduced into the mouth. Bronchoscope advanced into the airway into laryngeal area. Epiglottis and vocal cords were seen. Vocal cord noted yellowish in color. Large amount of redundant tissue noted in the oropharyngeal area because of fat. The vocal cord was moving symmetrically with movements. Bronchoscope was advanced to vocal cord. Tracheal lumen noted moderate amount of bilious secretion with the mixture of thick mucus, suctioned out to the vianey level. Vianey noted sharp. Right upper, right middle, right lower, left upper, lingula, all bronchi were examined for the patient individually. The patient noted impaction of the mucus plug of the patient purulent secretion endobronchial tree of the patient especially in the right, endobronchial tree on the left side. All the secretions suctioned out clear. The mucus plug was extracted from the endobronchial tree. The bronchial washing sent for the appropriate culture. Cytology was also sent. Another chest x-ray ordered of the patient to reassess. The progression of the current pneumonia compared to the previous chest x-ray. JIMMIE DOAN MD CM:PROCNOTE:PROCEDURE NOTE [id number] JIMMIE OG MD
[2017-09-18 10:43] VITALS: BP 135/75
[~2017-09-18 10:43] MED LIST changes: +ADV 500/50 INH; -ADVAIR DISKUS 51 DSK INH; -PROZAC20 MG PO; +PROZAC40 M1 PO
[2017-09-18 11:15] LABS: BASO % 0.2 % (0.0-1.0); EOS # 0.3 10*3/uL (0.0-0.4); EOS % 3.1 % (1.0-4.0); HEMATOCRIT 32.8 % (37.0-47.0); HEMOGLOBIN 9.7 g/dl (12.0-16.0); LYMPH # 0.8 10*3/uL (1.3-4.4); LYMPH % 9.9 % (27.0-41.0); MEAN CELL VOLUME 87.7 fl (81.0-99.0); MEAN CORPUSCULAR HGB 25.9 pg (27.0-31.0); MEAN CORPUSCULAR HGB CONC 29.6 g/dl (33.0-37.0); MEAN PLATELET VOLUME 9.7 fl (9.6-12.3); MONO # 0.9 10*3/uL (0.1-1.0); MONO % 11.2 % (3.0-9.0); NEUT # 6.1 10*3/uL (2.3-7.9); NEUT % 75.4 % (47.0-73.0); PLATELET COUNT AUTOMATED 273 10*3/uL (130-400); RED BLOOD COUNT 3.74 10*6/uL (4.10-5.10); RED CELL DISTRI WIDTH 14.8 % (0-14.5); WHITE BLOOD COUNT 8.1 10*3/uL (4.8-10.8)
[2017-09-18 11:18] VITALS: BP 112/64
[2017-09-18 11:32] LABS: ALBUMIN 2.6 gm/dl (3.1-4.5); ALKALINE PHOSPHATASE 130 U/L (45-117); BUN 15 mg/dl (7-24); CHLORIDE 101 mmol/L (98-107); CREATININE 0.71 mg/dL (0.55-1.02); POTASSIUM 3.9 mmol/L (3.5-5.1); SGOT/AST 25 IU/L (3-35); SGPT/ALT 22 U/L (12-78); SODIUM 141 mmol/L (136-145); TOTAL PROTEIN 7.2 gm/dL (6.4-8.2)
[2017-09-18 11:36] LABS: TROPONIN I < 0.015 ng/ml (<0.045)
[2017-09-18 11:49] LABS: BILIRUBIN NEGATIVE (NEGATIVE); BLOOD NEGATIVE (NEGATIVE); CLARITY CLEAR (CLEAR); COLOR YELLOW (YELLOW); GLUCOSE NEGATIVE (NEGATIVE); KETONE NEGATIVE (NEGATIVE); LEUKO ESTERASE NEGATIVE (NEGATIVE); NITRITE NEGATIVE (NEGATIVE); PH 5.5 (5.0-9.0); SPECIFIC GRAVITY 1.015 (1.005-1.030); UROBILINOGEN 0.2 E.U./dl (0.2-1.0)
[2017-09-18 12:00] LABS: EPITHELIAL CELLS 15-20; RBC 0-2 rbc/hpf (0-2)
[2017-09-18 12:30] VITALS: BP 118/78
[2017-09-18 13:30] VITALS: BP 97/64
[2017-09-18] MEDS ORDERED: COMBIVENT RESPIM4 GM INH (14:48)
[2017-09-18 16:00] VITALS: BP 105/53
[2017-09-18 20:00] VITALS: BP 110/44
[2017-09-19] VITALS: BP 132/59
[2017-09-19 06:30] LABS: HEMATOCRIT 32.6 % (37.0-47.0); HEMOGLOBIN 9.6 g/dl (12.0-16.0); MEAN CELL VOLUME 87.9 fl (81.0-99.0); MEAN CORPUSCULAR HGB 25.9 pg (27.0-31.0); MEAN CORPUSCULAR HGB CONC 29.4 g/dl (33.0-37.0); MEAN PLATELET VOLUME 9.9 fl (9.6-12.3); PLATELET COUNT AUTOMATED 280 10*3/uL (130-400); RED BLOOD COUNT 3.71 10*6/uL (4.10-5.10); RED CELL DISTRI WIDTH 14.7 % (0-14.5); WHITE BLOOD COUNT 6.4 10*3/uL (4.8-10.8)
[2017-09-19 06:35] LABS: BUN 14 mg/dl (7-24); CHLORIDE 101 mmol/L (98-107); POTASSIUM 4.4 mmol/L (3.5-5.1); SODIUM 140 mmol/L (136-145)
[2017-09-19 06:37] LABS: CREATININE 0.63 mg/dL (0.55-1.02)
[2017-09-19 07:15] LABS: PLATELET SUFFICIENCY NORMAL (NORMAL); TOTAL CELLS COUNTED 100 #CELLS
[2017-09-19 08:00] VITALS: BP 110/44
[2017-09-19 12:00] VITALS: BP 117/51
[2017-09-19 16:00] VITALS: BP 119/44
[2017-09-19 20:00] VITALS: BP 125/47
[2017-09-20] VITALS: BP 144/58
[2017-09-20 08:00] VITALS: BP 139/60
[2017-09-20 11:55] LABS: ACT PARTIAL THROMBO TIME 24.9 SECONDS (20.8-31.5)
[2017-09-20 12:00] VITALS: BP 120/51
[2017-09-20 16:00] VITALS: BP 122/60
[2017-09-20 20:00] VITALS: BP 153/59
[2017-09-21] VITALS (10 sets, daily range): BP systolic 92–159; BP diastolic 40–67
[2017-09-21 08:10] LABS: IMMUNOGLOBULIN M, QNT 234 mg/dL (26-217)
[2017-09-22 06:09] LABS: IGG SUBCLASS 1 641 mg/dL (248-810); IGG SUBCLASS 2 83 mg/dL (130-555); IGG SUBCLASS 3 41 mg/dL (15-102); IGG SUBCLASS 4 18 mg/dL (2-96); IMMUNOGLOBULIN G, QNT 879 mg/dL (700-1600)
[2017-09-22 06:26] LABS: HEMATOCRIT 31.1 % (37.0-47.0); LYMPH # 0.6 10*3/uL (1.3-4.4); LYMPH % 8.5 % (27.0-41.0); MEAN CELL VOLUME 89.1 fl (81.0-99.0); MEAN CORPUSCULAR HGB 25.8 pg (27.0-31.0); MEAN CORPUSCULAR HGB CONC 28.9 g/dl (33.0-37.0); MEAN PLATELET VOLUME 10.1 fl (9.6-12.3); MONO # 0.3 10*3/uL (0.1-1.0); MONO % 4.7 % (3.0-9.0); NEUT # 6.2 10*3/uL (2.3-7.9); NEUT % 86.4 % (47.0-73.0); PLATELET COUNT AUTOMATED 342 10*3/uL (130-400); RED BLOOD COUNT 3.49 10*6/uL (4.10-5.10); RED CELL DISTRI WIDTH 14.8 % (0-14.5); WHITE BLOOD COUNT 7.2 10*3/uL (4.8-10.8)
[2017-09-22 06:47] LABS: BUN 25 mg/dl (7-24); CHLORIDE 100 mmol/L (98-107); CREATININE 0.85 mg/dL (0.55-1.02); POTASSIUM 4.5 mmol/L (3.5-5.1); SODIUM 142 mmol/L (136-145)
[2017-09-22 08:00] VITALS: BP 123/54
[2017-09-22 12:00] VITALS: BP 133/63
[2017-09-22 15:08] LABS: ACID FAST SPEC PROCESSING Concentration (.)
[2017-09-22 16:00] VITALS: BP 113/77
[2017-09-22 20:00] VITALS: BP 132/43
[2017-09-23] VITALS: BP 99/71
[2017-09-23 08:00] VITALS: BP 153/50
[2017-09-23 12:00] VITALS: BP 11/55
[2017-09-23 14:47] LABS: CKMB 1.4 ng/ml (0.5-3.6)
[2017-09-23 16:00] VITALS: BP 111/50
[2017-09-23 18:00] LABS: CKMB 1.3 ng/ml (0.5-3.6)
[2017-09-23 20:00] VITALS: BP 118/90
[2017-09-24] VITALS: BP 141/68
[2017-09-24 08:00] VITALS: BP 128/54
[2017-09-24 12:00] VITALS: BP 122/62; BP 145/96
[2017-09-24 16:00] VITALS: BP 128/68
[2017-09-24 20:00] VITALS: BP 107/49
[2017-09-25] VITALS: BP 100/46
[2017-09-25 06:19] LABS: BASO % 0.1 % (0.0-1.0); EOS % 0.1 % (1.0-4.0); HEMATOCRIT 32.1 % (37.0-47.0); HEMOGLOBIN 9.3 g/dl (12.0-16.0); LYMPH % 8.4 % (27.0-41.0); MEAN CELL VOLUME 87.2 fl (81.0-99.0); MEAN CORPUSCULAR HGB 25.3 pg (27.0-31.0); MEAN PLATELET VOLUME 9.9 fl (9.6-12.3); MONO # 0.8 10*3/uL (0.1-1.0); MONO % 6.7 % (3.0-9.0); NEUT # 10.3 10*3/uL (2.3-7.9); NEUT % 84.4 % (47.0-73.0); PLATELET COUNT AUTOMATED 326 10*3/uL (130-400); RED BLOOD COUNT 3.68 10*6/uL (4.10-5.10); RED CELL DISTRI WIDTH 14.7 % (0-14.5); WHITE BLOOD COUNT 12.2 10*3/uL (4.8-10.8)
[2017-09-25 06:26] LABS: CREATININE 0.85 mg/dL (0.55-1.02)
[2017-09-25 08:00] VITALS: BP 101/46
[2017-09-25] MEDS ORDERED: PREDNISONE5 MG PO (08:25)
[2017-09-25] MEDS ORDERED: CIPRO500 MG PO (08:25)
== END 2017-09-25 11:23 | disposition home or self-care (01) | DRG 177 ==
LOC: ED 10:43 → 5E 12:14 → EDHOLD 12:14 → 5E 12:23
PROVIDERS: Emergency Medicine; Internal Medicine; Internal Medicine Cardiovascular Disease; Internal Medicine Critical Care Medicine
PROC: 0BC38ZZ Extirpation of Matter from Right Main Bronchus, Via Natural or Artificial Opening Endoscopic (ICD-10-PCS; principal; 2017-09-21)
PROC: 0BC88ZZ Extirpation of Matter from Left Upper Lobe Bronchus, Via Natural or Artificial Opening Endoscopic (ICD-10-PCS; principal; 2017-09-21)
PROC: 0BC28ZZ Extirpation of Matter from Carina, Via Natural or Artificial Opening Endoscopic (ICD-10-PCS; principal; 2017-09-21)
PROC: 0BCB8ZZ Extirpation of Matter from Left Lower Lobe Bronchus, Via Natural or Artificial Opening Endoscopic (ICD-10-PCS; principal; 2017-09-21)
PROC: 0BC48ZZ Extirpation of Matter from Right Upper Lobe Bronchus, Via Natural or Artificial Opening Endoscopic (ICD-10-PCS; principal; 2017-09-21)
PROC: 0BC58ZZ Extirpation of Matter from Right Middle Lobe Bronchus, Via Natural or Artificial Opening Endoscopic (ICD-10-PCS; principal; 2017-09-21)
PROC: 0BC68ZZ Extirpation of Matter from Right Lower Lobe Bronchus, Via Natural or Artificial Opening Endoscopic (ICD-10-PCS; principal; 2017-09-21)
PROC: 0BC78ZZ Extirpation of Matter from Left Main Bronchus, Via Natural or Artificial Opening Endoscopic (ICD-10-PCS; principal; 2017-09-21)
PROC: 0BC98ZZ Extirpation of Matter from Lingula Bronchus, Via Natural or Artificial Opening Endoscopic (ICD-10-PCS; principal; 2017-09-21)
DX: J15.6 Pneumonia due to other Gram-negative bacteria (principal); J96.21 Acute and chronic respiratory failure with hypoxia; T17.590A Other foreign object in bronchus causing asphyxiation, initial encounter; E66.01 Morbid (severe) obesity due to excess calories; D80.3 Selective deficiency of immunoglobulin G [IgG] subclasses; Z68.43 Body mass index [BMI] 50.0-59.9, adult; J44.0 Chronic obstructive pulmonary disease with (acute) lower respiratory infection; J44.1 Chronic obstructive pulmonary disease with (acute) exacerbation; R07.89 Other chest pain; R19.7 Diarrhea, unspecified; R91.1 Solitary pulmonary nodule; Z96.652 Presence of left artificial knee joint; F31.9 Bipolar disorder, unspecified; F41.9 Anxiety disorder, unspecified; Z96.649 Presence of unspecified artificial hip joint; I10 Essential (primary) hypertension; K21.9 Gastro-esophageal reflux disease without esophagitis; E55.9 Vitamin D deficiency, unspecified; X58.XXXA Exposure to other specified factors, initial encounter; F17.210 Nicotine dependence, cigarettes, uncomplicated; G47.33 Obstructive sleep apnea (adult) (pediatric); J20.9 Acute bronchitis, unspecified; Z99.81 Dependence on supplemental oxygen; Z79.51 Long term (current) use of inhaled steroids; Z79.899 Other long term (current) drug therapy; Z79.82 Long term (current) use of aspirin; Z90.49 Acquired absence of other specified parts of digestive tract; Z82.49 Family history of ischemic heart disease and other diseases of the circulatory system; Z83.3 Family history of diabetes mellitus; Z80.0 Family history of malignant neoplasm of digestive organs; Y93.89 Activity, other specified; Y92.89 Other specified places as the place of occurrence of the external cause; Y99.8 Other external cause status

== ENCOUNTER 2017-09-29 13:37 | Inpatient (IN) | payer MEDICARE, MEDICAID ==
[~2017-09-29] VITALS: Ht 160 cm; Wt 144.4 kg
--- NOTE | ~2017-09-29 | WRIGHTHP ---
[place], [place] PATIENT HISTORY AND PHYSICAL EXAM NAME: JAJA SENA [facility] #: [id number] UNIT #: [id number] ROOM: 518 DOCTOR: FRITZ MORENO MD BIRTHDATE: [birth year] DOS: 09/29/2017 HISTORY OF PRESENT ILLNESS: The patient is 56-year-old. The patient is known to me from previous admission. She was discharged from the hospital on the of this month after being admitted for bilateral pneumonia with negative bronch cultures. The patient after discharge, continued to get worse at home with increasing cough and shortness of breath, so decided to come back to the Emergency Room, where the chest x-ray now shows worsening of the pneumonia. She denies having any chest pains or palpitations. Does have a cough, which is productive of sputum and she also has a moist sounding cough. PAST MEDICAL HISTORY: Significant for: 1. Bilateral pneumonia with consolidation, negative bronch cultures. 2. Right middle lobe nodule. 3. Moderate cigarette smoker. 4. COPD. 5. Chronic respiratory failure, oxygen dependent. 6. Morbid obesity. 7. Benign hypertension. 8. Chest pain, with no workup planned as per Cardiology. MEDICATIONS: She is on Advair 500 twice a day, breathing treatments q.i.d., aspirin 81 daily, calcium 600 daily, vitamin D 2000 units daily, Cipro 500 b.i.d. which she was continuing at home. Voltaren 75 b.i.d., fluoxetine 40 daily, Lasix 40 b.i.d., Lamictal 300 daily, omeprazole 20 daily. SOCIAL HISTORY: Smoker of about half a pack of cigarettes a day. Denies using any alcohol. PHYSICAL EXAMINATION: GENERAL: She is awake and alert and oriented. VITAL SIGNS: Graphic trends shows blood pressure 142/70, pulse of 76, respirations 14, moist sounding cough. LUNGS: Diminished breath sounds. HEART: Regular. ABDOMEN: Obese. EXTREMITIES: Without any edema. ASSESSMENT AND PLAN: 1. This is a patient who presents with cough and shortness of breath, has probably noticed to have another pneumonia. 2. The patient with bilateral pneumonia again, which had initially improved with IV antibiotics, which has worsened now and patient presents with cough and shortness of breath and elevated white cell count and has been admitted. This repeat CT will be ordered. Dr. Moreland has been consulted. IV antibiotics started. 3. Chronic obstructive pulmonary disease with moderate cigarette smoker. Advised against smoking. 4. Lung nodules, which needs to continued be followed up. [place], [place] PATIENT HISTORY AND PHYSICAL EXAM NAME: JAJA SENA UNIT #: [id number] ROOM: [facility] DOCTOR: FRITZ MORENO MD BIRTHDATE: [birth year] FRITZ MORENO MD CM:HISPHYS:PATIENT HISTORY AND PHYSICAL EXAMINATION 2 5 FRITZ MORENO MD 09/30/17 0915 interface
--- NOTE | ~2017-09-29 | CON ---
[place], [place] REPORT OF CONSULTATION NAME: [id number] UNIT #: [id number] ROOM: 518 DOCTOR: JIMMIE MAY MD BIRTHDATE: [birth year] DOS: 09/30/2017 PULMONARY CONSULTATION, EVALUATION AND MANAGEMENT REASON FOR CONSULTATION: Recurrence of respiratory symptoms, increased, requiring rehospitalization. HISTORY OF PRESENT ILLNESS: This is a 56-year-old white female who has been known to me from the past. The patient has been recently hospitalized, noted multilobar pneumonia, area of consolidation, mass-like lesion for the patient. She was discharged home, as the patient showed significant improvement in the respiratory symptoms including coughing, wheezing, shortness of breath and other upon stability. She has been known with chronic hypoxic respiratory failure, using oxygen supplementation. The patient was discharged home on 09/25/2017. She returned back to the hospital, as the patient stated that she had developed increased shortness for the past 2 to 3 days. The shortness of breath has been noted worsening with increased wheezing and nonproductive cough. She denies any symptoms of chest pain, hemoptysis. The coughing has been noted essentially mild to moderate without any sputum expectoration. REVIEW OF SYSTEMS: CONSTITUTIONAL: Fatigue and tiredness noted without symptoms of fever or chills. EYES: Denies any burning, redness, tenderness. EARS, NOSE, THROAT SYMPTOMS: Denies sore throat, hoarseness, otalgia, postnasal drainage or epistaxis. CARDIOVASCULAR: No angina pain, edema, pain, lower extremities. GASTROINTESTINAL: No dysphagia, nausea, vomiting, diarrhea, abdominal pain, hematemesis, melena, or hematochezia. SKIN: No abnormal lesions or rashes. MUSCULOSKELETAL: No acute deformities or pain. Denies any joint redness. GENITOURINARY: Denies dysuria, suprapubic pain, or hematuria. SKIN: Denies abnormal lesions or rashes. CENTRAL NERVOUS SYSTEM: Denies dizziness, headache or diplopia. General weakness and fatigue was reported. Remaining systems were reviewed. They were noted all negative. PAST MEDICAL HISTORY: 1. History of chronic obstructive pulmonary disease. 2. Morbid obesity. 3. Chronic hypoxic respiratory failure with long-term use of oxygen 3 liter nasal cannula. 4. History of chronic nicotine abuse. Denies any tobacco use recently after discharge from the hospital. 5. Anxiety and depression. 6. Suspected pulmonary nodule in the lungs for the patient as well. 7. Suspected diagnosis of obstructive sleep apnea disorder, not assessed as yet. [place], [place] REPORT OF CONSULTATION NAME: JAJA SENA UNIT #: [id number] ROOM: 518 DOCTOR: FRANKI OG MD,JIMMIE BIRTHDATE: [birth year] SOCIAL HISTORY: The patient lives at home. She is not and has one son. Denies history of alcohol use, illicit drug use. Noted tobacco use of the patient since teenager up to 2 packs of cigarettes per day. Stated no use of tobacco of products since hospitalization in September 2017. PAST SURGICAL HISTORY: 1. Left hip replacement. 2. Left total knee replacement. 3. Right foot tendon repair. 4. Appendectomy. 5. Therapeutic and diagnostic bronchoscopy that was done for patient on 09/21/2017. FAMILY HISTORY: Unknown by the patient. CURRENT MEDICATIONS: Administered noted use of diclofenac, omeprazole, Prozac, Lasix 40 mg ordered, Lamictal, DuoNeb q.4 hours, Rocephin, vancomycin, Levaquin, and other p.r.n. medications administration. DRUG ALLERGIES: No known drug allergies. PHYSICAL EXAMINATION: GENERAL: A 56-year-old female has been noted currently awake and alert with a cough and wheezing and mild tachypnea at the present time. The patient's height was recorded by the nursing staff on admission 5 feet 3 inches, weight of 313 pounds, BMI 55.4. VITAL SIGNS: Normal temperature in the last 24 hours since admission, respiratory rate of 18-22, heart rate of 85-80, blood pressure 100/60-124/62. Pulse ox saturation on 4 liters canula 92%-97% saturation recorded. HEENT: Examination shows head was atraumatic. Eyes nonicterus. NECK: Supple. It was obese. Neck was short and obese. Decreased posterior pharyngeal space, high tongue base and crowding soft tissue structures. CARDIOVASCULAR: S1, S2 audible. LUNGS: Decreased breath sounds with diffuse expiratory wheezing in the lungs bilaterally. ABDOMEN: Soft and obese, nontender. EXTREMITIES: The patient was noted without any edema, clubbing or cyanosis. CENTRAL NERVOUS SYSTEM: The patient was noted cranial nerves 2-12 intact. No focal deficit. MUSCULOSKELETAL: Without acute deformities. SKIN: Visible skin, no lesions or rashes. LABORATORY DATA: CMP yesterday on admission, glucose 120, BUN and creatinine normal. CO2 of 36. C-reactive protein 9.95. Troponin normal. CBC yesterday, WBC count 12.8, hemoglobin 10.3, hematocrit 35.2, platelet count 318,000. Lactic acid 1.2, noted yesterday. Chest x-ray shows previously noted pulmonary infiltration without any changes. CT scan of the chest, which was done without contrast was personally reviewed for the patient and compared to the previous CT scan of the chest of the patient done at last admission. It shows evidence of a ground glass opacity infiltration in the right upper lung. Reduction of the [place], [place] REPORT OF CONSULTATION NAME: JAJA SENA UNIT #: [id number] ROOM: 518 DOCTOR: FRANKI OG MD,[facility] BIRTHDATE: [birth year] infiltration of the patient was continued in the right perihilar area in the right upper lobe. Nodule was noted in the left lower lobe for the patient as well. The remaining infiltration seemed to be resolving. Small area of atelectasis noted in the left lingula as well. There were no pleural effusions. IMPRESSION: 1. The patient who has been currently admitted to the hospital with resolving bilateral pneumonia, but noted with recurrence of acute exacerbation of chronic obstructive pulmonary disease. Denies any tobacco use. 2. Morbid obesity and muscle deconditioning as well. 3. Chronic hypoxic respiratory failure with use of oxygen supplementation. 4. Metabolic alkalosis secondary to chronic hypercarbia. 5. Solitary pulmonary nodule for the patient at this time. Etiology was unclear, requires further investigation. 6. Suspected diagnosis of obstructive sleep apnea disorder. PLAN OF TREATMENT: The patient has been started on broad spectrum intravenous antibiotics. The spectrum of the antibiotic will be changed for this patient after the initial cultures are available. The patient has been ordered the Solu-Medrol 40 mg IV q.8 hours. She will benefit from long-term acute care facility consultation and management if approved and authorized by the insurance; otherwise, continue the inpatient care. During this hospitalization, the patient would not be discharged home until sufficient improvement occurs. Other supportive plan of management therapy, plan of care, sputum for Gram stain and culture if the patient is able to expectorate sputum will be done. Other plan of therapy for the patient is to make changes based on the progression of the illness. Thanks for allowing me to participate in the care of this patient. JIMMIE DOAN MD CM:CONSTR:REPORT OF CONSULTATION 1358 09/30/17 5807 interface
--- NOTE | ~2017-09-29 | PR ---
[place], [place] PROGRESS NOTE NAME: JAJA SENA UNIT #: [id number] ROOM: 518 DOCTOR: JIMMIE MAY MD BIRTHDATE: [birth year] DOS: 10/01/2017 SUBJECTIVE: She was still noted symptoms of shortness of breath, stating she is not feeling well. The patient does have [id number] cough without any sputum expectoration, wheezing was described. Denies symptoms of abdominal pain, nausea or vomiting. Denies symptoms of hemoptysis or chest pain. The patient was still complaining of generalized weakness, fatigue, shortness of breath occurring with mild exertion. The remaining systems were reviewed. They were noted all negative. PHYSICAL EXAMINATION: VITAL SIGNS: Normal temperature, respiratory rate 17, heart rate 61, blood pressure 148/68. Intake for the patient recorded 1450 mL. The pulse oxygen saturation on 3 liters cannula 92% saturation. HEENT: Chronic obesity. Head was atraumatic. Eyes nonicterus. CARDIOVASCULAR: S1, S2 audible. LUNGS: Noted without any crackles. Expiratory wheezing was noted with moderate decreased breath sounds. ABDOMEN: Soft, obese. EXTREMITIES: Without acute edema. SKIN: No lesions or rashes. MUSCULOSKELETAL SYMPTOMS: No deformities. CENTRAL NERVOUS SYSTEM: Cranial nerves 2-12 intact. No focal deficit. IMPRESSION: 1. The patient with resolving acute bilateral pneumonia with recurrence of the acute exacerbation of chronic obstructive pulmonary disease as well. 2. Morbid obesity. 3. Muscle deconditioning. 4. Suspected obstructive sleep apnea disorder. PLAN OF TREATMENT: The patient has been accepted for transfer to [facility] that could happen today. The patient will be started on the BiPAP upon transfer to the [facility]. In the meantime, continue bronchodilators, oxygen supplementation, corticosteroids and other medical management. Usual care, other supportive therapy, plan of treatment and care. Adjustment in antibiotic will be made for this patient after transfer to [facility]. [place], [place] PROGRESS NOTE NAME: JAJA SENA UNIT #: [id number] ROOM: 518 DOCTOR: JIMMIE MAY MD BIRTHDATE: [birth year] JIMMIE DOAN MD CM:PNRICHARD [id number] JIMMIE OG MD 10/02/17 0207 interface
--- NOTE | ~2017-09-29 | PR ---
[place], [place] [facility]GRESS NOTE [id number] #: [id number] ROOM: 518 DOCTOR: FRITZ MORENO MD BIRTHDATE: [birth year] DOS: 10/01/2017 SUBJECTIVE: The patient is doing fine without any complaints. OBJECTIVE: VITAL SIGNS: Pressure is 121/48, pulse of 70, respirations 20, temperature 97.6. LUNGS: Clear. HEART: Regular. ABDOMEN: Soft. EXTREMITIES: Without any edema. The patient does have a very moist sounding cough and some upper airway wheezes were noted. ASSESSMENT AND PLAN: Bilateral pneumonia with worsening of the right middle lobe pneumonia after discharge on p.o. antibiotics. She considered peripherally inserted central catheter line and intravenous antibiotics. At the rehab, Dr. Moreland suggested [facility], so arrangements will be made today for transfer to [facility] because of continued prolonged treatment required for this pneumonia. FRITZ MORENO MD CM:PNTRANS [id number] FRITZ MORENO MD 10/01/17 0944 interface
[~2017-09-29 13:37] MED LIST changes: +CIPRO500 MG PO; +PREDNISONE5 MG PO
[2017-09-29 13:45] VITALS: BP 170/77
[2017-09-29 14:30] LABS: HEMATOCRIT 35.2 % (37.0-47.0); HEMOGLOBIN 10.3 g/dl (12.0-16.0); MEAN CORPUSCULAR HGB 25.8 pg (27.0-31.0); MEAN CORPUSCULAR HGB CONC 29.3 g/dl (33.0-37.0); MEAN PLATELET VOLUME 9.7 fl (9.6-12.3); PLATELET COUNT AUTOMATED 318 10*3/uL (130-400); RED CELL DISTRI WIDTH 14.8 % (0-14.5); WHITE BLOOD COUNT 12.8 10*3/uL (4.8-10.8)
[2017-09-29 14:47] LABS: ALBUMIN 2.9 gm/dl (3.1-4.5); ALKALINE PHOSPHATASE 83 U/L (45-117); BUN 20 mg/dl (7-24); CHLORIDE 99 mmol/L (98-107); CREATININE 0.67 mg/dL (0.55-1.02); POTASSIUM 4.8 mmol/L (3.5-5.1); SGOT/AST 10 IU/L (3-35); SGPT/ALT 15 U/L (12-78); SODIUM 140 mmol/L (136-145); TOTAL PROTEIN 6.9 gm/dL (6.4-8.2)
[2017-09-29 15:04] LABS: TOTAL CELLS COUNTED 100 #CELLS
[2017-09-29 15:05] LABS: POLYCHROMASIA SLIGHT; STOMATOCYTE FEW
[2017-09-29 15:06] LABS: PLATELET SUFFICIENCY NORMAL (NORMAL)
[2017-09-29 15:09] LABS: TROPONIN I < 0.015 ng/ml (<0.045)
[2017-09-29 15:13] VITALS: BP 124/77; BP 175/79
[2017-09-29 17:30] VITALS: BP 100/60
[2017-09-29 20:46] VITALS: BP 119/77
[2017-09-30] VITALS: BP 144/71
[2017-09-30 04:36] LABS: BILIRUBIN NEGATIVE (NEGATIVE); BLOOD NEGATIVE (NEGATIVE); CLARITY CLEAR (CLEAR); COLOR YELLOW (YELLOW); GLUCOSE NEGATIVE (NEGATIVE); KETONE NEGATIVE (NEGATIVE); LEUKO ESTERASE TRACE (NEGATIVE); NITRITE NEGATIVE (NEGATIVE); PH 6.5 (5.0-9.0); SPECIFIC GRAVITY 1.025 (1.005-1.030); UROBILINOGEN 0.2 E.U./dl (0.2-1.0)
[2017-09-30 08:00] VITALS: BP 124/62
[2017-09-30 12:00] VITALS: BP 111/44
[2017-09-30 20:00] VITALS: BP 141/58
[2017-10-01] VITALS: BP 121/48
[2017-10-01 08:00] VITALS: BP 148/68
[2017-10-01 12:00] VITALS: BP 113/80
== END 2017-10-01 13:43 | disposition short-term general hospital (02) | DRG 190 ==
LOC: ED 13:37 → EDHOLD 16:11 → 5E 16:11
PROVIDERS: Registered Nurse
DX: J44.0 Chronic obstructive pulmonary disease with (acute) lower respiratory infection (principal); J18.1 Lobar pneumonia, unspecified organism; J96.11 Chronic respiratory failure with hypoxia; E87.3 Alkalosis; J96.12 Chronic respiratory failure with hypercapnia; L89.322 Pressure ulcer of left buttock, stage 2; Z68.43 Body mass index [BMI] 50.0-59.9, adult; Z87.01 Personal history of pneumonia (recurrent); J44.1 Chronic obstructive pulmonary disease with (acute) exacerbation; Z99.81 Dependence on supplemental oxygen; E66.01 Morbid (severe) obesity due to excess calories; Z96.642 Presence of left artificial hip joint; Z96.652 Presence of left artificial knee joint; I10 Essential (primary) hypertension; R91.1 Solitary pulmonary nodule; F41.9 Anxiety disorder, unspecified; F32.9 Major depressive disorder, single episode, unspecified; Z79.899 Other long term (current) drug therapy; Z79.82 Long term (current) use of aspirin; Z90.49 Acquired absence of other specified parts of digestive tract; Z90.89 Acquired absence of other organs; Z87.891 Personal history of nicotine dependence; Z82.49 Family history of ischemic heart disease and other diseases of the circulatory system; Z83.3 Family history of diabetes mellitus; Z80.0 Family history of malignant neoplasm of digestive organs

== ENCOUNTER 2017-10-18 13:46 | Inpatient (IN) | payer MEDICARE, MEDICAID ==
[~2017-10-18] VITALS: Ht 162.5 cm; Wt 135.2 kg
--- NOTE | ~2017-10-18 | PR ---
[place], [place] PROGRESS NOTE [id number] #: [id number] ROOM: 404 DOCTOR: DARRION LAM MD BIRTHDATE: [birth year] DOS: 10/19/2017 SUBJECTIVE: The patient is starting to feel better, but otherwise she is somewhat depressed because of her chronically bad health. PHYSICAL EXAMINATION: VITAL SIGNS: Blood pressure 116/84, heart rate of 99 beats per minute, breathing 20 times per minute, temperature 98.3 degrees Fahrenheit. GENERAL APPEARANCE: Generalized weakness, morbid obesity HEENT AND NECK: Exam within normal limits. CARDIOVASCULAR SYSTEM: Heart rate is regular in rate and rhythm. S1 and S2 normally audible. LUNGS: Decreased breath sounds on lung auscultation. ABDOMEN: Soft, nontender. No obvious organomegaly. Bowel sounds are present. EXTREMITIES: Without significant cyanosis or edema. IMPRESSION: The patient with right upper lung and right middle lobe pneumonia, which are improving. The patient continued on antibiotics. Dr. Moreland is following and has arranged for her to go to [facility]. The patient kept on DVT prophylaxis with Lovenox. 1. Major depression, recurrent, mild, treated with fluoxetine. The patient reassured that she is doing better and will go for rehabilitation again. Generalized weakness and adult failure to thrive. The patient to work with physical therapy. 2. Severe protein calorie malnutrition. The patient working with dietary. Encouraged to eat. 3. Morbid obesity is also being followed by dietary. 4. Acute exacerbation of severe underlying chronic obstructive pulmonary disease with acute over chronic respiratory failure, being treated with corticosteroids, oxygen, and nebulizer treatments. Her breathing is improving. DARRION LAM MD CM:PNTRANS 18 [phone] DARRION LAM MD 10/19/172132 interface
--- NOTE | ~2017-10-18 | DS ---
[place], [place] DISCHARGE SUMMARY NAME: JAJA SENA [facility] #: [id number] UNIT #: [id number] ROOM: 404 DOCTOR: DARRION LAM MD BIRTHDATE: [birth year] DOS: 10/21/2017 DISCHARGE DIAGNOSES: 1. Acute exacerbation of severe underlying chronic obstructive pulmonary disease. 2. Morbid obesity. 3. Major depression, recurrent. 4. Adult failure to thrive. 5. Severe protein calorie malnutrition. 6. Right upper and middle lobe pneumonia, continues to resolve on the chest x-ray. 7. Gastroesophageal reflux disease and esophagitis without any heartburns with omeprazole. 8. Morbid obesity. The patient is working with dietary and on her diet. 9. Severe protein calorie malnutrition. The patient was given nutritional supplements. 10. Major depression, recurrent, mild, treated with fluoxetine. 11. Significant underlying centrilobular emphysema. 12. Stopped smoking cigarettes in 2017. 13. Chronic respiratory failure with oxygen dependence. 14. Benign essential hypertension, treated and controlled. HOSPITAL COURSE: 1. The patient presented to the Emergency Department with increased shortness of breath, wheezing, and cough. The patient was earlier treated for right upper and middle lobe pneumonia. The repeat chest x-ray still showed pneumonia, which has somewhat improved. The patient was treated for acute exacerbation of COPD, significant wheezing and shortness of breath. The patient was seen by Dr. Moreland who is also following her pulmonary nodules in the past. The patient treated with antibiotics, corticosteroids, oxygen, and her breathing is somewhat improved. Dr. Moreland recommended transfer to intermediate facility, which has been arranged and she is going there today on a tapering down dose of prednisone. 2. Treated right upper and middle lobe pneumonia, resolving on the x-ray. 3. Major depression, recurrent, mild, treated with fluoxetine and she is feeling better now. 4. Gastroesophageal reflux disease and esophagitis without heartburns with omeprazole. 5. Morbid obesity. The patient is working with dietary. 6. Severe protein calorie malnutrition. The patient kept on nutritional supplements. LABORATORY DATA: Normal serum electrolytes. Albumin low at 2.3, hemoglobin 10.7, no leukocytosis, normal platelets. CT chest results as mentioned above. DISCHARGE MANAGEMENT: Levaquin 500 mg daily for a week, then to be stopped, DuoNeb every 4 hours, Dulera 200 mcg 2 inhalations b.i.d., diclofenac 75 mg b.i.d., Medrol Dosepak, omeprazole 20 mg daily, aspirin 81 mg a day, fluoxetine 40 mg a day, lamotrigine 300 mg daily, furosemide 40 mg a day, Lovenox 40 mg daily for 5 days, then to be stopped, Tylenol 1 gram every 8 hours p.r.n. for [place], [place] DISCHARGE SUMMARY NAME: JAIDAJAJA D UNIT #: [id number] ROOM: [facility] DOCTOR: DARRION LAM MD BIRTHDATE: [birth year] pain and fever. DARRION LAM MD CM:DARRIUS [id number] DARRION LAM MD 10/21/17 1730 interface
--- NOTE | ~2017-10-18 | PR ---
[place], [place] PROGRESS NOTE NAME: [facility]NA [facility] [id number] UNIT #: [id number] ROOM: 404 DOCTOR: DARRION LAM MD BIRTHDATE: [birth year] DOS: 10/20/2017 SUBJECTIVE: The patient's breathing is slightly better, some complains of cough. She is somewhat depressed because of her overall health condition. OBJECTIVE: VITAL SIGNS: Blood pressure 121/64, heart rate 86 beats per minute, breathing 18 times per minute, temperature 99 degrees Fahrenheit. GENERAL APPEARANCE: Morbid obesity, decreased breath sounds and expiratory wheezing. HEENT AND NECK: Exam within normal limits. CARDIOVASCULAR SYSTEM: Heart rate is regular in rate and rhythm. S1 and S2 normally audible. LUNGS: Clear to auscultation. ABDOMEN: Soft, nontender. No obvious organomegaly. Bowel sounds are present. EXTREMITIES: Without significant cyanosis or edema. IMPRESSION: 1. Major depression, recurrent, mild, treated with fluoxetine. 2. Acute exacerbation of severe underlying chronic obstructive pulmonary disease. The patient is being followed by Dr. Moreland. She is being treated with corticosteroids, nebulizer, oxygen, antibiotics with slow improvement in her breathing. 3. Morbid obesity. The patient is working with dietary. 4. Adult failure to thrive. The patient waiting to be transferred to [facility] facility tomorrow. 5. Severe protein-calorie malnutrition. The patient working with dietary and being encouraged to eat. DARRION LAM MD CM:PNTRANS 06 [phone] DARRION LAM MD 10/20/172131 interface
--- NOTE | ~2017-10-18 | EKG ---
[place], [place] ELECTROCARDIOGRAM REPORT NAME: JAJA SENA UNIT #: [id number] ROOM: 404 DOCTOR: FRANKI OG MD,JIMMIE BIRTHDATE: [birth year] DOS: 10/18/2017 PROCEDURE: Electrocardiogram. PROCEDURE DATE AND TIME: 10/18/2017 at 02:21 p.m. FINDINGS: Sinus rhythm noted with heart rate 97 beats per minute. Ventricular trigeminy was also noted, short MI interval. PVC was also noted. JIMMIE DOAN MD CM:EKGRPT:ELECTROCARDIOGRAM REPORT [id number] JIMMIE OG MD
--- NOTE | ~2017-10-18 | WRIGHTHP ---
[place], [place] PATIENT HISTORY AND PHYSICAL EXAM NAME: JAJA SENA [facility] #: [id number] UNIT #: [id number] ROOM: 404 DOCTOR: DARRION LAM MD BIRTHDATE: [birth year] DOS: 10/18/2017 HISTORY OF PRESENT ILLNESS: The patient is a 57-year-old female with a past medical history of: 1. Pneumonia in September 2017. 2. COPD. 3. Nicotine smoke dependence. The patient says she stopped in 2016. 4. Morbid obesity. 5. Chronic respiratory failure, oxygen dependence. 6. Benign essential hypertension. 7. GERD and esophagitis. The patient presented to the Emergency Department with one day complaints of increasing shortness of breath, wheezing, and cough. The patient already treated for pneumonia last month and her chest x-ray still showed pneumonia in the right upper lung and right middle lung, although it was somewhat improved. The patient was diagnosed as having acute over chronic respiratory failure and recommended for admission and further management. REVIEW OF SYSTEMS: LUNGS: Increasing shortness of breath and wheezing with cough. GASTROINTESTINAL: No nausea, vomiting, diarrhea or constipation. CARDIOVASCULAR: No chest pains or palpitations. FAMILY HISTORY: Noncontributory. MEDICATIONS: Omeprazole, lamotrigine, fluoxetine, aspirin, Advair, DuoNeb, furosemide, oxygen. PHYSICAL EXAMINATION: GENERAL: Alert and oriented x 3, morbidly obese, somewhat short of breath, but in no visible distress, except for morbid obesity and generalized weakness. VITAL SIGNS: Blood pressure 116/58, heart rate 98 beats per minute, breathing 22 times per minute, temperature 98 degrees Fahrenheit. HEENT AND NECK: Extraocular movements are intact. Sclerae are anicteric. Oral mucosa is moist and clean. No obvious facial weakness. Neck is supple without any lymphadenopathy. No thyromegaly. No JVD. No carotid arterial bruits. LUNGS: Clear to auscultation. No wheezing. No rhonchi. CARDIOVASCULAR SYSTEM: Heart rate is regular in rate and rhythm. S1 and S2 normally audible. No significant murmur or any other abnormal cardiac sounds. ABDOMEN: Soft, nontender. No obvious organomegaly. Bowel sounds are present. No obvious herniation. EXTREMITIES: Without significant cyanosis or edema. Warm to touch. CENTRAL NERVOUS SYSTEM: Alert and oriented x 3. Cranial nerves II-XII are intact. Speech is normal. The patient is able to move all extremities. Normal muscle strength. Deep tendon reflexes are equal on both sides. Plantars were downgoing. LABORATORY DATA: Lactic acid level normal. Normal serum electrolytes. Albumin low at 2.3. Chest x-ray is showing resolving right upper lobe and middle lobe [place], [place] PATIENT HISTORY AND PHYSICAL EXAM [facility]: [id number] UN[facility] #: [id number] ROOM: [facility] DOCTOR: DARRION LAM MD BIRTHDATE: [birth year] pneumonia. No leucocytosis. Anemia, hemoglobin low at 10.7. IMPRESSION AND PLAN: 1. The patient with right upper lobe and right middle lobe pneumonia. I will treat with IV Rocephin and get Dr. Moreland, the hvac project engineer to see her. 2. Acute exacerbation of severe underlying chronic obstructive pulmonary disease with acute over chronic respiratory failure, with home oxygen dependence. The patient to be continued on oxygen, breathing treatments, antibiotics. 3. Major depression, recurrent, mild, treated and controlled with fluoxetine, which is being continued. 4. Gastroesophageal reflux disease and esophagitis, asymptomatic with omeprazole. 5. Morbid obesity. The patient to work with Dietary. 6. Severe protein-calorie malnutrition. The patient to work with Dietary. DARRION LAM MD CM:HISPHYS:PATIENT HISTORY AND PHYSICAL EXAMINATION 1643 [id number] DARRION LAM MD 10/18/17 172 interface
--- NOTE | ~2017-10-18 | PR ---
[place], [place] PROGRESS NOTE NAME: JAJA SENA UNIT #: [id number] ROOM: 404 DOCTOR: FRANKI OG MD,JIMMIE BIRTHDATE: [birth year] DOS: 10/20/2017 PULMONARY PROGRESS NOTE SUBJECTIVE: She has been noted comfortable at this time without any acute distress. Denies symptoms of chest pain, nausea, or vomiting. Shortness of breath has been improving, but not resolved. Cough has been noted minimal. The wheezing was improving. OBJECTIVE: VITAL SIGNS: Normal temperature, respiratory rate of 18, heart rate 86, blood pressure and 121/64. Pulse oxygen saturation on 5 liters nasal cannula was noted as 95% saturation. HEENT: Chronic obesity. Head was atraumatic. Eyes nonicterus. NECK: Supple. CARDIOVASCULAR: S1, S2 audible. LUNGS: Noted with moderate decreased breath sounds, expiratory wheezing, no crackles. ABDOMEN: Soft, nontender. Obese. EXTREMITIES: Without any acute edema. IMPRESSION: Other labs of the patient's CT scan of chest, which was done without contrast was noted with marked improvement, resolution previously noted pulmonary infiltration. The patient was still noted with some nodule formation in the left lower lobes. PLAN OF MANAGEMENT: Continuation of the current therapy, plan of management with corticosteroids, bronchodilators, oxygen supplementation and other treatment as previously. Usual care. Additional treatment changes will be based on the progression of the illness. JIMMIE DOAN MD CM:PNTRANS [phone] JIMMIE OG MD 10/21/17211 interface
--- NOTE | ~2017-10-18 | CON ---
[place], [place] REPORT OF CONSULTATION NAME: JAJA SENA [facility] #: [id number] UNIT #: [id number] ROOM: 404 DOCTOR: FRANKI OG MDJIMMIE BIRTHDATE: [birth year] DOS: 10/19/2017 PULMONARY CONSULTATION, EVALUATION, AND MANAGEMENT CONSULTATION REQUESTED BY: Darcy Dewitt MD. REASON FOR CONSULTATION: To assess the patient for the current ongoing increased respiratory symptom and exacerbation of COPD. HISTORY OF PRESENT ILLNESS: This is a 57-year-old white female patient who has been known to me, has been hospitalized in this hospital with extensive pneumonia involving the right lung with a right hilar lymphadenopathy suspected mass lesion in the right lung as well. The patient was seen in the office as the patient initially transferred to [facility]. The patient was treated for 10-11 days and discharged home last week. She came for followup visit as the patient was noted with increased shortness of breath occurring with exertion. Tapering prednisone and also noted increased hypoxia with the usual oxygen. She was assessed and recommended for inpatient hospitalization. The patient did accept the recommendation, came to the Emergency Room yesterday, and hospitalized. Shortness breath, which has been noted with minimal exertion. She was noted with significant oxygen desaturation, oxygen saturation 70-80 with 3 liters of oxygen supplementation on the home settings. She does have symptoms of wheezing intermittently. She was noted with mild cough without any sputum expectoration noticed with general weakness and fatigue. REVIEW OF SYSTEMS: CONSTITUTIONAL SYMPTOMS: Fatigue and tiredness noted without any symptoms of fevers or chills. EYES: Denies any burning, redness, or tenderness. EARS, NOSE, AND THROAT SYMPTOMS: Denies sore throat, hoarseness, otalgia, postnasal drainage, or epistaxis. CARDIOVASCULAR SYSTEM: Denies angina pain, edema or pain of the lower extremities. GASTROINTESTINAL SYMPTOMS: No dysphagia, nausea, vomiting, diarrhea, abdominal pain, hematemesis, melena, or hematochezia. SKIN: Denies abnormal lesions or rashes. CENTRAL NERVOUS SYSTEM: No dizziness, headache, or diplopia. Noted severe generalized muscular weakness and debility and muscle deconditioning. There were symptoms of seizures or tingling sensation of the extremities. Remaining systems were reviewed. They were noted all negative. PAST MEDICAL HISTORY: 1. Chronic hypoxic respiratory failure, use of oxygen supplementation on 3 liters nasal canula after discharge or determined. 2. Very severe COPD was noted with PFTs in the office. 3. Severe morbid obesity. 4. Past heavy nicotine abuse. 5. Anxiety disorder and depression. 6. Pneumonia. The patient noted extensive involving the right lung with a [place], [place] REPORT OF CONSULTATION NAME: JAAJ SENA UNIT #: [id number] ROOM: 404 DOCTOR: FRANKI OG MD,JIMMIE BIRTHDATE: [birth year] right hilar lymphadenopathy, rule out malignancy in the right hemithorax as well. 7. Overall muscle decondition noted currently. SOCIAL HISTORY: The patient lives at home, not , has one son. Tobacco use noted from teenager, 2 packs of cigarettes per day, but has not been smoking cigarettes since her last hospitalization in September 2017. There was no history of alcohol use or illicit drug use. PAST SURGICAL HISTORY: 1. Left hip replacement. 2. Left total knee replacement. 3. Right foot tendon repair. 4. Appendectomy. 5. Therapeutic bronchoscopy, which was done for this patient on 09/21/2017. There were no endobronchial lesions noted. FAMILY HISTORY: Unknown. MEDICATIONS: The current medications administration noted as Lasix 40 mg p.o. daily, Lamictal 300 mg p.o. daily, Prozac 40 mg daily, aspirin 81 mg p.o. daily, Solu-Medrol 40 mg IV b.i.d., omeprazole 20 mg daily, Dulera 200/5 two inhalations b.i.d., DuoNeb q.4 hours, and Levaquin 500 mg IV daily. DRUG ALLERGIES: Noted as no known drug allergies. PHYSICAL EXAMINATION: GENERAL: A 57-year-old female patient who has been currently sitting comfortably on her bed. Height of 5 feet 3 inches, weight of 318 pounds, and BMI 55.4. VITAL SIGNS: Normal temperature, respiratory rate of 18-24, heart rate 66-52, blood pressure 137/69-149/64, and pulse oxygen saturation on 6 liters nasal cannula on admission was 97% and on 5 liters was 88% saturation yesterday noted. HEENT: On examination, head was atraumatic. Eyes nonicterus. NECK: Supple. CARDIOVASCULAR: S1, S2 is audible. LUNGS: Noted moderate decreased breath sounds, scattered expiratory wheezing, no crackles. ABDOMEN: Noted severe morbid obesity. Bowel sounds present. EXTREMITIES: The patient was noted without any acute edema, clubbing, or cyanosis. MUSCULOSKELETAL: The patient noted without any acute deformities. CENTRAL NERVOUS SYSTEM: The patient's cranial nerves 2-12 intact. LABORATORY DATA: Chest x-ray of the patient that was done yesterday, one view, in the Emergency Room, was noted with hyperinflation, resolving infiltration from the upper and the middle lobe from previous chest x-ray comparison. BMP yesterday on admission, glucose 147, BUN 19, and creatinine was normal. Lactic acid 1.7. CBC this morning, normal WBC count and hemoglobin 10.4. BMP: Glucose 161, BUN 30, creatinine was normal, and CO2 33. [place], [place] REPORT OF CONSULTATION NAME: JAJA SENA UNIT #: [id number] ROOM: 404 DOCTOR: JIMMIE MAY MD BIRTHDATE: [birth year] IMPRESSION: 1. The patient with resolving acute pneumonia, rule out right hilar mass. 2. Acute recurrent exacerbation of chronic obstructive pulmonary disease with a previous treatment at home with tapering prednisone. 3. Morbid obesity. 4. History of chronic tobacco use. 5. History of chronic hypercapnic and hypoxic respiratory failure. 6. Rule out acute pneumonia as well. 7. Mild steroid-induced hyperglycemia. PLAN OF MANAGEMENT: CT scan of chest was ordered with contrast to be assessed with further recommendation given afterwards. Continue current dose of steroids, antibiotics, and use of Levaquin at this time. Continue bronchodilators. BiPAP was ordered. The patient was suspected clinically with diagnosis of obstructive sleep apnea disorder with pending sleep study. Physical therapy and occupation therapy, halfway facility assessment upon discharge would be considered for severe muscle deconditioning. The patient was ordered with Lovenox for DVT prophylaxis. Thanks for allowing me to participate in the care of this patient. JIMMIE DOAN MD CM:CONSTR:REPORT OF CONSULTATION 1655 11/01/17 0822 interface
[2017-10-18 13:54] VITALS: BP 113/49
[2017-10-18 14:22] LABS: BASO % 0.1 % (0.0-1.0); EOS % 0.3 % (1.0-4.0); HEMATOCRIT 35.9 % (37.0-47.0); HEMOGLOBIN 10.7 g/dl (12.0-16.0); LYMPH # 0.7 10*3/uL (1.3-4.4); LYMPH % 7.4 % (27.0-41.0); MEAN CELL VOLUME 82.9 fl (81.0-99.0); MEAN CORPUSCULAR HGB 24.7 pg (27.0-31.0); MEAN CORPUSCULAR HGB CONC 29.8 g/dl (33.0-37.0); MEAN PLATELET VOLUME 10.7 fl (9.6-12.3); MONO # 0.3 10*3/uL (0.1-1.0); MONO % 3.2 % (3.0-9.0); NEUT # 8.1 10*3/uL (2.3-7.9); NEUT % 88.6 % (47.0-73.0); PLATELET COUNT AUTOMATED 190 10*3/uL (130-400); RED BLOOD COUNT 4.33 10*6/uL (4.10-5.10); RED CELL DISTRI WIDTH 16.4 % (0-14.5); WHITE BLOOD COUNT 9.1 10*3/uL (4.8-10.8)
[2017-10-18 14:38] LABS: ALBUMIN 2.3 gm/dl (3.1-4.5); ALKALINE PHOSPHATASE 120 U/L (45-117); BUN 19 mg/dl (7-24); CHLORIDE 101 mmol/L (98-107); CREATININE 1.05 mg/dL (0.55-1.02); POTASSIUM 3.7 mmol/L (3.5-5.1); SGOT/AST 25 IU/L (3-35); SGPT/ALT 31 U/L (12-78); SODIUM 140 mmol/L (136-145); TOTAL PROTEIN 6.5 gm/dL (6.4-8.2)
[2017-10-18 14:50] VITALS: BP 116/58
[2017-10-18 16:10] VITALS: BP 112/83
[2017-10-18 20:07] VITALS: BP 137/69
[2017-10-19] VITALS: BP 126/58
[2017-10-19 07:03] LABS: HEMATOCRIT 34.2 % (37.0-47.0); MEAN CORPUSCULAR HGB 24.6 pg (27.0-31.0); MEAN CORPUSCULAR HGB CONC 29.2 g/dl (33.0-37.0); MEAN PLATELET VOLUME 10.8 fl (9.6-12.3); PLATELET COUNT AUTOMATED 172 10*3/uL (130-400); RED BLOOD COUNT 4.07 10*6/uL (4.10-5.10)
[2017-10-19 07:41] LABS: CHLORIDE 100 mmol/L (98-107); CREATININE 0.89 mg/dL (0.55-1.02); POTASSIUM 4.1 mmol/L (3.5-5.1); SODIUM 140 mmol/L (136-145)
[2017-10-19 08:00] VITALS: BP 149/64
[2017-10-19 08:14] LABS: PLATELET SUFFICIENCY NORMAL (NORMAL); TOTAL CELLS COUNTED 100 #CELLS
[2017-10-19 08:21] LABS: BUN 30 mg/dl (7-24)
[2017-10-19 12:00] VITALS: BP 142/58
[2017-10-19 16:00] VITALS: BP 116/84
[2017-10-19 20:00] VITALS: BP 128/65
[2017-10-20] VITALS: BP 123/50
[2017-10-20 08:52] VITALS: BP 129/63
[2017-10-20 12:00] VITALS: BP 112/46
[2017-10-20 16:00] VITALS: BP 121/64
[2017-10-20 20:00] VITALS: BP 139/55
[2017-10-21] VITALS: BP 134/46
[2017-10-21 08:00] VITALS: BP 147/67
[2017-10-21 16:13] VITALS: BP 141/66
[2017-10-21] MEDS ORDERED: LEVOFLOXACIN500 MG PO (16:20)
[2017-10-30] MEDS ORDERED: BUSPAR15 MG PO (15:51)
[2017-10-30] MEDS ORDERED: [UNRECOGNIZED DRUG - OTHER] PO (15:52)
[2017-10-30] MEDS ORDERED: INCRUSE ELLI62.5 MCG PO (15:54)
== END 2017-10-21 18:45 | disposition other institution (70) | DRG 193 ==
LOC: ED 13:46 → 4E 15:14 → EDHOLD 15:14 → 4E 15:48
PROVIDERS: Emergency Medicine; Internal Medicine
PROC: 5A09357 Assistance with Respiratory Ventilation, Less than 24 Consecutive Hours, Continuous Positive Airway Pressure (ICD-10-PCS; principal; 2017-10-19)
PROC: 5A09357 Assistance with Respiratory Ventilation, Less than 24 Consecutive Hours, Continuous Positive Airway Pressure (ICD-10-PCS; 2017-10-20)
PROC: 5A09357 Assistance with Respiratory Ventilation, Less than 24 Consecutive Hours, Continuous Positive Airway Pressure (ICD-10-PCS; 2017-10-21)
DX: J18.1 Lobar pneumonia, unspecified organism (principal); J96.21 Acute and chronic respiratory failure with hypoxia; E43 Unspecified severe protein-calorie malnutrition; J96.22 Acute and chronic respiratory failure with hypercapnia; A41.9 Sepsis, unspecified organism; F33.0 Major depressive disorder, recurrent, mild; J44.0 Chronic obstructive pulmonary disease with (acute) lower respiratory infection; J44.1 Chronic obstructive pulmonary disease with (acute) exacerbation; Z68.43 Body mass index [BMI] 50.0-59.9, adult; I11.0 Hypertensive heart disease with heart failure; I50.9 Heart failure, unspecified; Z99.81 Dependence on supplemental oxygen; E66.01 Morbid (severe) obesity due to excess calories; Z96.642 Presence of left artificial hip joint; Z96.652 Presence of left artificial knee joint; R59.0 Localized enlarged lymph nodes; K21.0 Gastro-esophageal reflux disease with esophagitis; F41.9 Anxiety disorder, unspecified; R73.9 Hyperglycemia, unspecified; R62.7 Adult failure to thrive; T38.0X5A Adverse effect of glucocorticoids and synthetic analogues, initial encounter; Y92.89 Other specified places as the place of occurrence of the external cause; Z87.01 Personal history of pneumonia (recurrent); Z87.891 Personal history of nicotine dependence; Z90.49 Acquired absence of other specified parts of digestive tract; Z82.49 Family history of ischemic heart disease and other diseases of the circulatory system; Z83.3 Family history of diabetes mellitus; Z80.0 Family history of malignant neoplasm of digestive organs

== ENCOUNTER 2017-10-31 23:18 | Inpatient (IN) | payer MEDICARE, MEDICAID ==
[~2017-10-31] VITALS: Ht 160 cm; Wt 139.3 kg
--- NOTE | ~2017-10-31 | CON ---
[place], [place] REPORT OF CON[facility]ULTATION [id number] UN[facility] #: [id number] ROOM: 405 DOCTOR: DALLAS EDWARDSTROY BIRTHDATE: [birth year] DOS: 11/03/2017 CONSULTATION REPORT HISTORY OF PRESENT ILLNESS: I was consulted because the patient was referred for a cardiac catheterization. The patient did have a stress test done yesterday, basically reported as abnormal and the patient would need the heart catheterization. Basically, the patient is morbidly obese, hypertension and hyperlipidemia. The stress test showed systolic function was normal at 77%, moderate to large sized area of moderately reduced uptake in the basal and mid segment of the anterior, anteroseptal and anterolateral patton suggesting myocardial ischemia compatible with 2-vessel coronary artery disease and predicted a moderate to high risk for future cardiac events. Hence, I was referred for cardiac catheterization as the patient wants to come to [place]. She was seen by other cardiologists here in [place]. Right now, she denies any chest discomfort, does have significant shortness of breath and she uses oxygen. She is being followed by Dr. Moreland. The patient had a bronchoscopy done with significant reduction of cough and had bronchoscopy and washings and she has done well. PAST MEDICAL HISTORY: Significant for COPD, morbid obesity, history of multiple episodes of pneumonia, moderate cigarette smoking, moderate depression and hypertension. MEDICATIONS: She is on the following medications, which include inhalers, oxygen, Voltaren, omeprazole, prednisone and Lasix and she is also on metoprolol 25 b.i.d., atorvastatin 80 mg at bedtime and IV vancomycin. ALLERGIES: None. REVIEW OF SYSTEMS: Severe shortness of breath. No chest discomfort now. No GI or issues. No neurological or psychological problems. PHYSICAL EXAMINATION: GENERAL: The patient is alert, oriented x 3. VITAL SIGNS: Blood pressure today is 140/40. The patient is in sinus rhythm. NECK: Supple, no JVD. LUNGS: Diminished breath sounds. HEART: Sounds are regular, distant. ABDOMEN: Morbidly obese. LABORATORY DATA: EKG shows sinus rhythm. Hemoglobin 8, hematocrit 33.4. Her last sodium 139, potassium 4.8, creatinine is 1.34. Liver functions are normal. Troponins have been negative. IMPRESSION: The patient with morbid obesity, hypertension, hyperlipidemia with abnormal stress test to undergo heart catheterization. RECOMMENDATIONS: Continue the beta blockers and lipid-lowering agents. Ejection fraction is well preserved. Discussed with the patient in detail the [place], [place] REPORT OF CONSULTATION NAME: JAJA SENA UNIT #: [id number] ROOM: [facility] DOCTOR: TROY HAYNES MD BIRTHDATE: [birth year] risks and benefits of the heart catheterization. She does understand and wishes to proceed. TROY HAYNES MD CM:CONSTR:REPORT OF CONSULTATION 1235 11/03/17 7308 interface
--- NOTE | ~2017-10-31 | PR ---
[place], [place] PROGRESS NOTE NAME: JAJA SENA UNIT #: [id number] ROOM: 405 DOCTOR: DARRION LAM MD BIRTHDATE: [birth year] DOS: SUBJECTIVE: The patient with abnormal cardiac stress test today, recommended heart catheterization, but she refused to go to [facility] with Dr. Martinez for heart cath and she prefers to go to a different hospital towards [place]. The patient is chest pain free. OBJECTIVE: VITAL SIGNS: Blood pressure 124/54, heart rate 73 beats per minute, breathing 20 times per minute, temperature 98 degrees Fahrenheit. GENERAL APPEARANCE: The patient is alert and oriented x 3, in no visible distress. HEENT AND NECK: Exam within normal limits. CARDIOVASCULAR SYSTEM: Heart rate is regular in rate and rhythm. S1 and S2 normally audible. LUNGS: Clear to auscultation. ABDOMEN: Soft, nontender. No obvious organomegaly. Bowel sounds are present. EXTREMITIES: Without significant cyanosis or edema. IMPRESSION: 1. The patient with coronary artery disease of the [place] vessels, with abnormal cardiac stress test today for ischemia, requires heart catheterization. The patient does not want to go to [facility] as recommended for heart catheterization with the treating breast worker. Case was discussed with Dr. Bai at [facility] who will try to arrange for heart catheterization on Sunday. The patient is presently asymptomatic. 2. Acute with minimal elevation of troponin I levels to 0.068, which has returned to normal. 3. Moderate sleep apnea. The patient is kept on bilevel positive airway pressure. 4. Acute over chronic respiratory failure. The patient remains on 4 liters of oxygen and also uses bilevel positive airway pressure. 5. Morbid obesity. The patient is working with Dietary. 6. Gastroesophageal reflux disease and esophagitis, treated and followed. 7. Nicotine smoke dependence. The patient encouraged to stop smoking cigarettes. 8. Benign essential hypertension, treated and monitored and controlled. [place], [place] PROGRESS NOTE NAME: JAJA SENA UNIT #: [id number] ROOM: 405 DOCTOR: DARRION LAM MD BIRTHDATE: [birth year] DARRION LAM MD CM:WILFREDO [id number] DARRION LAM MD 11/02/17 1855 interface
--- NOTE | ~2017-10-31 | PR ---
[place], [place] PROGRESS NOTE NAME: JAJA SENA UNIT #: [id number] ROOM: 405 DOCTOR: JIMMIE MAY MD BIRTHDATE: [birth year] DOS: 11/02/2017 SUBJECTIVE: She has been noted comfortable at this time. Bronchoscopy completed yesterday. The patient with significant reduction of the cough and noted shortness breath and was also noted decreased. The patient has not been reported symptoms of chest pain or any hemoptysis. She has been currently getting stress test with the patient and assessed by Dr. Martinez as well. OBJECTIVE: VITAL SIGNS: Normal temperature, respiratory rate 14, heart rate of 66, blood pressure 144/60. Pulse oxygen saturation on 5 liters nasal cannula 95% saturation recorded. HEENT: Examination shows head was atraumatic, chronic obesity. NECK: Supple. CARDIOVASCULAR: S1, S2 audible. LUNGS: The patient was noted without any crackle, rhonchi or wheezing. Breaths are noted mildly diminished bilaterally. ABDOMEN: Soft, nontender and obese. EXTREMITIES: Without any acute edema. IMPRESSION: 1. The patient who has been currently noted with acute ongoing bronchitis for this patient with acute on chronic hypoxic respiratory failure secondary to acute exacerbation of chronic obstructive pulmonary disease. 2. Recent fall. 3. Morbid obese. 4. Suspected obstructive sleep apnea disorder with current diagnosis of current or other suspected obstructive sleep apnea disorder with pending sleep study. PLAN OF MANAGEMENT: Continue the patient bronchodilators with oxygen supplementation and the other medical treatment. Cultures of the bronchial washing noted with heavy growth of gram-positive cocci, possible consideration of MRSA as well at this time. PLAN OF THERAPY: Start the patient on vancomycin. Continue corticosteroids, bronchodilators, oxygen supplementation. Proceed with the stress test for this patient and reviewed the results once available. [place], [place] PROGRESS NOTE NAME: JAJA SENA UNIT #: [id number] ROOM: 405 DOCTOR: JIMMIE MAY MD BIRTHDATE: [birth year] JIMMIE DOAN MD CM:PNTRANS 1507 [id number] JIMMIE OG MD 11/03/17 0109 interface
--- NOTE | ~2017-10-31 | DS ---
[place], [place] DISCHARGE SUMMARY [id number] UN[facility] #: [id number] ROOM: 405 DOCTOR: DARRION LAM MD BIRTHDATE: [birth year] DOS: DATE OF DISCHARGE: 11/05/2017 DISCHARGE DIAGNOSES: 1. The patient with abnormal cardiac stress test with large anterolateral wall reversible ischemic defect on cardiac stress test going for heart catheterization at [facility] with Dr. Bai. 2. Adult failure to thrive and morbid obesity. 3. Acute exacerbation of chronic obstructive pulmonary disease, treated and improved. 4. Moderate sleep apnea treated with BiPAP. 5. Nicotine smoke dependence. 6. Benign essential hypertension. 7. Coronary artery disease of the [place] vessels. 8. Chronic obstructive pulmonary disease. 9. Gastroesophageal reflux disease. 10. Esophagitis. 11. History of major depression, moderate. HOSPITAL COURSE: 1. The patient was admitted by Dr. Darcy Dewitt when she presented from an long term with chest pain and shortness of breath. The patient's cardiac enzymes are minimally positive and cardiac stress test turned out to show to be positive as mentioned above. The patient preferred to go to [facility], so a consult was obtained with Dr. Bai, who is taking her for heart catheterization early tomorrow morning to [facility]. 2. Acute exacerbation of chronic obstructive pulmonary disease treated with corticosteroids, oxygen, nebulizer treatments and antibiotics and Dr. Moreland, the risk control officer followed her. The patient's breathing has improved. The patient had acute over chronic respiratory failure and requires oxygen. 3. Continue nicotine abuse. The patient is encouraged to stop. 4. Major depression, recurrent. The patient remains on fluoxetine, Lamictal, her mood appears to be stable. 5. Benign essential hypertension, treated and controlled. The patient is on Lasix, metoprolol. 6. Mixed hyperlipidemia, treated and controlled with Lipitor. 7. Generalized anxiety disorder, being treated with buspirone. LABORATORY DATA: Cardiac stress test results as mentioned above. Blood cultures were negative. Urine cultures showed contamination. Echocardiogram showed mild concentric LVH with normal left ventricular systolic function. DISCHARGE MANAGEMENT: Metoprolol 25 mg b.i.d., Lipitor 80 mg a day, Tylenol p.r.n., DuoNebs every 4 hours, prednisone 40 mg a day, omeprazole 20 mg daily, furosemide 40 mg a day, fluoxetine 40 mg a day, aspirin 81 mg a day, Dulera twice a day, IV vancomycin 2500 mg daily, buspirone 10 mg 3 times a day. [place], [place] DISCHARGE SUMMARY NAME: JAJA SENA UNIT #: [id number] ROOM: [facility] DOCTOR: DARRION LAM MD BIRTHDATE: [birth year] DARRION LAM MD CM:DARRIUS 1620 165 DARRION LAM MD 11/04/17 1653 interface
--- NOTE | ~2017-10-31 | PR ---
[place], [place] PROGRESS NOTE [id number] UNIT #: [id number] ROOM: 405 DOCTOR: BRIDGETT SIMPSON MD BIRTHDATE: [birth year] DOS: 11/03/2017 SUBJECTIVE: The patient had a stress test on 11/02/2017, which demonstrated a moderate to large sized area of ischemia in the anterior wall including the anterior, anteroseptal and anterolateral patton. This study is compatible with 1 or 2-vessel coronary artery disease and a moderate to high risk for future heart/cardiac events. Ejection fraction is 77%. I explained these findings to the patient and my recommendations that she undergo cardiac catheterization. The society for angiography and interventions indication is #17 with a score of 9. The patient told me that she did not want to go to [facility] for catheterization and asked that Dr. Waddell arrange for her to go to [place]. The notes indicate that Dr. Waddell has contacted Dr. Guzman and that he will take the patient to the catheterization. We will sign off the patient's care at this time, but will remain available to see her if needed and I thank Dr. Waddell and Dr. Dewitt for asking our advice regarding her care. BRIDGETT SIMPSON MD CM:PNTRANS [id number] BRIDGETT SIMPSON MD 11/08/17 1444 interface
--- NOTE | ~2017-10-31 | PR ---
[place], [place] PROGRESS NOTE [facility] [id number] UNIT #: [id number] ROOM: 405 DOCTOR: FRANKI OG MD,JIMMIE BIRTHDATE: [birth year] DOS: 11/04/2017 PULMONARY FOLLOWUP SUBJECTIVE: She has not been noted with any symptoms of chest pain. Stated she rested last night and used the BiPAP comfortably. She has not been noted with any symptoms of abdominal pain. Denies any acute shortness of breath. There were no symptoms of acute chest pain at this time. OBJECTIVE: VITAL SIGNS: For the patient, which has been recorded showed the temperature noted as normal, respiratory rate 18, heart rate 69, blood pressure 131/67. Pulse oxygen saturation on 6 liters nasal canula 94% saturation this morning. HEENT: Head was atraumatic. Eyes nonicterus. NECK: Supple. CARDIOVASCULAR: S1, S2 is audible. LUNGS: Noted without any wheeze or crackles. ABDOMEN: Soft, nontender. Bowel sounds present. EXTREMITIES: Without any acute edema. IMPRESSION: 1. The patient with resolving acute exacerbation of chronic obstructive pulmonary disease, acute bronchitis, progressively improving acute on chronic hypoxic respiratory failure as well. 2. Obstructive sleep apnea disorder with pending further assessment. 3. Abnormal stress test. PLAN OF TREATMENT: Proceed with the patient's transfer to the [facility] for cardiac catheterization as planned. No other change in treatment at this time will be necessary. Other treatment previously outlined will be continued. Usual care. JIMMIE DOAN MD CM:PNTRANS [id number] JIMMIE OG MD 11/04/17 2252 interface
--- NOTE | ~2017-10-31 | PROC NOTE ---
[place], [place] PROCEDURE NOTE NAME: JAJA SENA UNIT #: [id number] ROOM: 405 DOCTOR: FRANKI OG MD,JIMMIE BIRTHDATE: [birth year] DOS: 11/01/2017 PROCEDURE: Bronchoscopy. PREOPERATIVE DIAGNOSIS: Severe nonresolving cough for the patient. POSTOPERATIVE DIAGNOSES: Finding of acute tracheobronchitis with mucus impaction the patient was noted. COMPLICATIONS: None. PROCEDURE DESCRIPTION: Informed consent was obtained from the patient. The patient brought to the OR. The patient was placed in supine position. Conscious sedation administered by the Anesthesia Department. After achieving proper sedation, airway introduced into the mouth. Bronchoscope advanced to airway into laryngeal area. Epiglottis and vocal cords were seen. Vocal cords were noted, yellowish in color, moving with the movement. After the trachea was entered, the vocal cords were noted with copious amount of thick mucus secretion with some purulent secretion mixture. The secretion was suctioned out to the jam level. The patient noted with similar secretions causing impaction of multiple subsegments of endobronchial tree bilaterally with mucus plugs and purulent secretions, which was cleared out. Procedure well tolerated by the patient without any difficulty. All secretions removed and sent for cultures. JIMMIE DOAN MD CM:PROCNOTE:PROCEDURE NOTE [id number] JIMMIE OG MD
--- NOTE | ~2017-10-31 | WRIGHTHP ---
[place], [place] PATIENT HISTORY AND PHYSICAL EXAM [facility] [id number] UNIT #: [id number] ROOM: 405 DOCTOR: FRITZ MORENO MD BIRTHDATE: [birth year] DOS: 11/01/2017 HISTORY OF PRESENT ILLNESS: This patient is 57-year-old. The patient states she fell at the care home and so they sent her to the emergency room for evaluation. She did not have any complaints of chest pains or shortness of breath. In the emergency room I was told the patient's pulse ox was dropping into the 80s even though I do not see any such records in the notes from the emergency room. They also informed that the patient was having chest pain and troponin was elevated, so was admitted. This morning the patient denies having any chest pains at all. She denies having any shortness of breath, is at her baseline. She was supposed to see Dr. Moreland this morning for possible bronchoscopy. PAST MEDICAL HISTORY: 1. COPD. 2. Morbid obesity. 3. Recent hospitalization for pneumonia for which she has been at care home for recuperation. 4. Gastroesophageal reflux disease. 5. Moderate cigarette smoker. 6. Moderate depression. 7. Benign hypertension. MEDICATIONS: Advair 500 twice a day, Combivent 1 puff q.6h. breathing treatments, aspirin 81 daily, BuSpar 10 t.i.d. with five q.6h. p.r.n., calcium 600 daily, vitamin D 2000 units daily, Voltaren 75 b.i.d., fluoxetine 40 daily, Lasix 40 daily, guaifenesin 400 b.i.d., Lamictal 300 daily, omeprazole 20 daily, prednisone 5 b.i.d. SOCIAL HISTORY: History of cigarette smoking. The patient has not smoked since hospitalization earlier this year. PHYSICAL EXAMINATION: GENERAL: She is awake and alert and oriented, morbidly obese, very pleasant lady in no major distress. VITAL SIGNS: Shows a blood pressure 142/70, pulse of 86, respirations 20, afebrile. LUNGS: Diminished breath sounds, clear. HEART: Regular. ABDOMEN: Obese, soft, nontender. EXTREMITIES: Without any edema. ASSESSMENT AND PLAN: 1. The patient admitted after a fall. There have been no injuries. 2. Apparent hypoxic respiratory failure in the emergency room, none recorded in the chart. The patient is on oxygen chronically, has chronic respiratory failure. Supplementation is currently at 4 liters and her oxygen saturations in the high 90s. 3. Moderate sleep, should use BiPAP. 4. Chest pain with mild troponin elevation, most likely not cardiac. [place], [place] PATIENT HISTORY AND PHYSICAL EXAM NAME: JAJA SENA UNIT #: [id number] ROOM: 405 DOCTOR: FRITZ MORENO MD BIRTHDATE: [birth year] Cardiology consultation was obtained. They feel that the patient does not need any cardiac workup. The plan is to discharge her to home today. FRITZ MORENO MD CM:HISPHYS:PATIENT HISTORY AND PHYSICAL EXAMINATION [id number] FRITZ MORENO MD 11/01/17 0925 interface
--- NOTE | ~2017-10-31 | PR ---
[place], [place] PROGRESS NOTE [id number] UNIT #: [id number] ROOM: 405 DOCTOR: FRANKI OG MD,JIMMIE BIRTHDATE: [birth year] DOS: 11/03/2017 SUBJECTIVE: The patient noted comfortable at this time, resting on the bed. Coughing continued to resolve. Shortness of breath was improving. There were no symptoms of acute chest pain. The patient underwent stress testing yesterday. The patient was recommended cardiac catheterization plan to be done on Sunday morning for the patient as per patient. She has not been noted symptoms of hemoptysis. Denies symptoms of nausea or vomiting. OBJECTIVE: VITAL SIGNS: For the patient which has been recorded showed the temperature noted normal, respiratory rate 20, heart rate 81, blood pressure 141/71. The pulse ox saturation on high flow nasal cannula 6-8 liters 92% saturation. HEENT: Examination shows head was atraumatic. Eyes nonicterus. NECK: Supple. CARDIOVASCULAR: S1, S2 audible. LUNGS: Noted without any wheeze or crackles at present time. Breaths are noted generally diminished bilaterally. ABDOMEN: Soft, nontender. EXTREMITIES: Without any acute edema. IMPRESSION: 1. The patient who has been noted current abnormal stress testing for the patient will be assessed for coronary artery disease for this patient with a cardiac catheterization on Sunday. 2. Stable acute on chronic hypoxic respiratory failure. 3. Resolving acute exacerbation of chronic obstructive pulmonary disease progressively. PLAN OF MANAGEMENT: Continuation of the current plan of management. No changes in the treatment from pulmonary standpoint need to be done today. All other supportive therapy, plan of management as in progress. JIMMIE DOAN MD CM:PNTRANS [phone] JIMMIE OG MD 11/04/17 0017 interface
--- NOTE | ~2017-10-31 | CON ---
[place], [place] REPORT OF CONSULTATION NAME: JAJA SENA [facility] #: [id number] UNIT #: [id number] ROOM: 405 DOCTOR: JIMMIE MAY MD BIRTHDATE: [birth year] DOS: 11/01/2017 PULMONARY CONSULTATION, EVALUATION, AND MANAGEMENT CONSULTATION REQUESTED BY: Dr. Darcy Dewitt. REASON FOR CONSULTATION: To assess the patient for current ongoing acute coughing with COPD exacerbation. HISTORY OF PRESENT ILLNESS: This is a 57-year-old white female, very well known to me from the past. The patient was admitted to the hospital, was treated for acute exacerbation of COPD, and was discharged to the retirement facility. She was staying in the retirement facility. The patient was brought to the hospital as the patient has fallen at home possibly related to hypoxia; however, it has not been clearly documented from the medical records. The patient has been using oxygen supplementation 4-5 liters. She is well known to me, I have seen the patient. She has outpatient scheduled bronchoscopy, which will be done today as well because of nonresolving coughing with chest congestion. The patient was noted with symptoms of some shortness of breath. The cough has been noted since the patient was seen about a week ago with chest congestion, inability to expectorate sputum with some wheezing and chest tightness. The patient does not have any symptoms of chest pain. REVIEW OF SYSTEMS: CONSTITUTIONAL: Symptoms of fatigue and tiredness noted without any symptoms of fever or chills. EYES: Denies burning, redness, tenderness. EARS, NOSE, AND THROAT: No sore throat, hoarseness, otalgia, postnasal drainage or epistaxis. CARDIOVASCULAR SYSTEM: No angina pain, edema or pain to lower extremities. GASTROINTESTINAL: No dysphagia, nausea, vomiting, diarrhea, abdominal pain, hematemesis, melena, or hematochezia. GENITOURINARY: No dysuria, suprapubic pain, or hematuria. MUSCULOSKELETAL: No acute joint pain, redness, or tenderness. SKIN: Visible skin, no lesions or rashes. CENTRAL NERVOUS SYSTEM: Denies dizziness, headache, diplopia, syncopal episodes. Remaining systems were reviewed of the patient, they were noted all negative. PAST MEDICAL HISTORY, SURGICAL HISTORY, SOCIAL HISTORY, AND FAMILY HISTORY: Reviewed with the patient from my consultation that was completed on 10/19/2017 and remains unchanged after review. Please refer to the consultation of 10/19/2017, which is available as [employer] document of 10/19/2017. MEDICATIONS: Current medications administered by the patient was noted as use of omeprazole, Lasix oral, Prozac, aspirin, Dulera, prednisone 5 mg b.i.d. DRUG ALLERGIES: No known drug allergies. PHYSICAL EXAMINATION: [place], [place] REPORT OF CONSULTATION NAME: JAJA SENA UNIT #: [id number] ROOM: 405 DOCTOR: FRANKI OG MD,JIMMIE BIRTHDATE: [birth year] GENERAL: This is a 57-year-old female patient who has been noted currently awake and alert, without any acute distress. Height of 5 feet 3 inches, weight of 300 pounds, BMI 53. VITAL SIGNS: Normal temperature, respiratory rate 12-18, heart rate 86-54, blood pressure 128/51-115/54. Pulse oxygen saturation on 8 liters nasal cannula yesterday was 92% saturation and earlier on the BiPAP of 70% it was 100%. The pulse ox saturation is recorded as 86% on 6 liters nasal cannula on admission. HEENT: Chronic severe obesity. Head was atraumatic. Eyes nonicterus. NECK: Supple. CARDIOVASCULAR: S1, S2 is audible. LUNGS: The patient was noted without any crackles. Decreased breath sounds with scattered expiratory wheezing. ABDOMEN: Soft with severe obesity. Bowel sounds present. It was nontender. EXTREMITIES: Noted chronic obesity findings without edema, clubbing, cyanosis. SKIN: Visible skin, no lesions or rashes. MUSCULOSKELETAL: Without any acute deformities. CENTRAL NERVOUS SYSTEM: Cranial nerves 2-12 intact. LABORATORY DATA: The troponin, which were done for the patient yesterday and this morning were noted with elevation in troponin minimal at 0.68 this morning. The CBC of patient that was done on 10/31/2017, hemoglobin 9.8, hematocrit 33.4, WBC count normal, platelet count was normal. The CMP, which was done for the patient yesterday, shows BUN 32, creatinine 1.34, glucose 131. The second set of troponin noted 0.51. Third set of troponin 0.31. IMAGING STUDIES: CT scan of the head that was done without contrast has not reported any acute intracranial abnormalities. ____ described in the bilateral maxillary sinus as well as left sphenoid sinuses as well. X-rays of the right knee of the patient as well as left shoulder were taken and does not show any acute abnormalities. There was no chest x-ray done on this admission. IMPRESSION: 1. The patient admitted to the hospital noted with ongoing chronic obstructive pulmonary disease exacerbation for this patient with nonresolving cough, mucus impaction suspected versus pulmonary infection. There was no evidence of pneumonia noted previously with a chest x-ray done previously. 2. The patient with acute on chronic hypoxic respiratory failure as a result of acute exacerbation of chronic obstructive pulmonary disease. 3. Fall, there was no syncope noted, may be related to hypoxia or other etiology. 4. Mildly abnormal troponin, etiology unclear. PLAN OF MANAGEMENT: Bronchoscopy planned for the patient as an outpatient will be done currently as an inpatient for further assessment of severe cough. After bronchoscopy, the patient's antibiotic might need to be changed based on the Gram stain and culture. The patient is currently getting prednisone 5 mg b.i.d., which will be changed to 40 mg daily at this time, gradually taper done for this patient later on after discharge. After the bronchoscopy of the patient is noted uneventful, the patient certainly could be discharged back to nursing facility. Bronchodilator will be continued by the patient as [place], [place] REPORT OF CONSULTATION NAME: JAJA SENA UNIT #: [id number] ROOM: 405 DOCTOR: JIMMIE MAY MD BIRTHDATE: [birth year] previously. Other supportive therapy, plan of management of the patient will be continued as in progress. Thanks for allowing me to participate in the care of this patient. JIMMIE DOAN MD CM:CONSTR:REPORT OF CONSULTATION 1532 11/02/17 0050 interface
--- NOTE | ~2017-10-31 | PR ---
[place], [place] PROGRESS NOTE [id number] UNIT #: [id number] ROOM: 405 DOCTOR: DARRION LAM MD BIRTHDATE: [birth year] DOS: 11/03/2017 SUBJECTIVE: The patient is doing well. She is asymptomatic. OBJECTIVE: VITAL SIGNS: Blood pressure 141/71, afebrile, breathing normally, heart rate of 81 beats per minute. GENERAL APPEARANCE: The patient is alert and oriented x 3, in no visible distress, except for obesity. HEENT AND NECK: Exam within normal limits. CARDIOVASCULAR SYSTEM: Heart rate is regular in rate and rhythm. S1 and S2 normally audible. LUNGS: Clear to auscultation. ABDOMEN: Soft, nontender. No obvious organomegaly. Bowel sounds are present. EXTREMITIES: Without significant cyanosis or edema. IMPRESSION: 1. The patient with acute myocardial infarction and coronary artery disease with abnormal cardiac stress test, waiting for heart catheterization on Sunday. 2. Acute exacerbation of chronic obstructive pulmonary disease, being treated with bronchodilators. Dr. Moreland, the rabble furnace tender is also following her. 3. Moderate sleep apnea, being treated with BiPAP. 4. Morbid obesity. The patient is working with Dietary. 5. Nicotine smoke dependence. The patient encouraged to stop. 6. Benign essential hypertension, treated and controlled. DARRION LAM MD CM:PNTRANS [phone] DARRION LAM MD 11/03/171957 interface
--- NOTE | ~2017-10-31 | PR ---
[place], [place] PROGRESS NOTE NAME: JAJA SENA [facility] #: [id number] UNIT #: [id number] ROOM: 405 DOCTOR: BRIDGETT SIMPSON MD BIRTHDATE: [birth year] DOS: 11/02/2017 SUBJECTIVE: The patient was seen in the Cardiology Department just prior to her stress test. She is a 57-year-old woman who presented from the [facility] after she fell out of bed. She was sent to the Emergency Room for evaluation of pain in her left shoulder, right knee, head and cervical spine. No severe pathology was found. She did show some signs of respiratory failure and her initial troponin was mildly elevated at 0.076. Subsequent troponins have trended back to the normal range. The patient did have some chest pressure, but no acute EKG changes. Perfusion imaging, 12/21/2016 was low risk, but given her elevation in troponin it was felt that she should undergo a risk stratifying stress test again on this admission. PHYSICAL EXAMINATION: GENERAL: She is a well-nourished white woman who is awake, alert and oriented. VITAL SIGNS: Pulse is 66 and regular, blood pressure 144/60. She is afebrile. NECK: Supple. She has no jugular distention. Carotids are full. LUNGS: Respirations are unlabored. Chest is clear to auscultation and percussion. HEART: Has a regular rhythm with an S4 gallop. ABDOMEN: Obese, but otherwise benign. EXTREMITIES: Showed no edema. LABORATORY DATA: She is not currently having any chest discomfort or acute EKG changes and her troponins have trended back to the normal range. IMPRESSION: 1. History of obstructive lung disease. 2. Obstructive sleep apnea. 3. Congestive heart failure with preserved ejection fraction. 4. Echocardiogram, 11/01/2017, normal left ventricular size and systolic function with ejection fraction 60 to 65% and stage 1 diastolic relaxation abnormalities, moderately elevated right ventricular systolic pressure with pulmonary artery pressure about 50 to 55 mmHg and dilation of the inferior vena cava. 5. Elevation in troponin. PLAN: We will proceed with a pharmacologic stress test today. Further recommendations will depend upon the results of the stress test. We thank Dr. Dewitt for asking our advice regarding the patient's care. [place], [place] PROGRESS NOTE NAME: JAJA SENA UNIT #: [id number] ROOM: 405 DOCTOR: BRIDGETT SIMPSON MD BIRTHDATE: [birth year] BRIDGETT SIMPSON MD CM:PNTRANS [phone] BRIDGETT SIMPSON MD 11/02/17 1542 interface
[~2017-10-31 23:18] MED LIST changes: +BUSPAR15 MG PO; +INCRUSE ELLI62.5 MCG PO; +[UNRECOGNIZED DRUG - OTHER] PO
[2017-10-31 23:20] VITALS: BP 118/54
[2017-10-31 23:47] VITALS: BP 126/72
[2017-11-01] VITALS (14 sets, daily range): BP systolic 110–136; BP diastolic 38–60
[2017-11-01 00:51] LABS: HEMATOCRIT 33.4 % (37.0-47.0); HEMOGLOBIN 9.8 g/dl (12.0-16.0); MEAN CELL VOLUME 83.3 fl (81.0-99.0); MEAN CORPUSCULAR HGB 24.4 pg (27.0-31.0); MEAN CORPUSCULAR HGB CONC 29.3 g/dl (33.0-37.0); MEAN PLATELET VOLUME 10.8 fl (9.6-12.3); NUCLEATED RED BLOOD CELL 0.3 % (0.0-0.0); PLATELET COUNT AUTOMATED 297 10*3/uL (130-400); RED BLOOD COUNT 4.01 10*6/uL (4.10-5.10); RED CELL DISTRI WIDTH 17.2 % (0-14.5); WHITE BLOOD COUNT 9.9 10*3/uL (4.8-10.8)
[2017-11-01 01:11] LABS: PLATELET SUFFICIENCY NORMAL (NORMAL); TOTAL CELLS COUNTED 100 #CELLS
[2017-11-01 01:16] LABS: ALBUMIN 2.4 gm/dl (3.1-4.5); CREATININE 1.34 mg/dL (0.55-1.02); POTASSIUM 4.8 mmol/L (3.5-5.1)
[2017-11-01 01:22] LABS: TROPONIN I 0.076 ng/ml (<0.045)
[2017-11-01] MEDS ORDERED: COMBIVENT RESPIM4 GM INH (03:17)
[2017-11-01] MEDS ORDERED: PREDNISONE5 MG PO (03:21)
[2017-11-01] MEDS ORDERED: VITAMIN D32000 UNIT PO (03:21)
[2017-11-01] MEDS ORDERED: DULCOLAX10 M1 R (03:23)
[2017-11-01] MEDS ORDERED: FLUOXETINE40 MG PO (03:24)
[2017-11-01] MEDS ORDERED: LAMOTRIGINE ER300 MG PO (03:24)
[2017-11-01] MEDS ORDERED: BUSPIRONE10 MG PO (05:28)
[2017-11-01] MEDS ORDERED: [UNRECOGNIZED DRUG - OTHER] PO (05:33)
[2017-11-01 08:38] LABS: BILIRUBIN NEGATIVE (NEGATIVE); BLOOD NEGATIVE (NEGATIVE); CLARITY SL CLOUDY (CLEAR); COLOR YELLOW (YELLOW); GLUCOSE NEGATIVE (NEGATIVE); KETONE TRACE (NEGATIVE); LEUKO ESTERASE NEGATIVE (NEGATIVE); NITRITE NEGATIVE (NEGATIVE); PH 5.5 (5.0-9.0); SPECIFIC GRAVITY 1.025 (1.005-1.030); UROBILINOGEN 0.2 E.U./dl (0.2-1.0)
[2017-11-01 08:51] LABS: BACTERIA 4+; CALCIUM OXALATE CRYSTALS 4+; EPITHELIAL CELLS 40-45
[2017-11-02] VITALS: BP 130/51
[2017-11-02 08:00] VITALS: BP 144/60
[2017-11-02 12:00] VITALS: BP 108/64
[2017-11-02 16:00] VITALS: BP 122/54
[2017-11-02 16:08] LABS: ACID FAST SPEC PROCESSING Concentration (.)
[2017-11-02 20:00] VITALS: BP 122/55
[2017-11-03] VITALS: BP 121/63
[2017-11-03 08:00] VITALS: BP 147/46
[2017-11-03 12:00] VITALS: BP 141/71
[2017-11-03 16:00] VITALS: BP 100/64
[2017-11-03 20:00] VITALS: BP 95/45
[2017-11-04] VITALS: BP 121/62
[2017-11-04 06:27] LABS: BUN 21 mg/dl (7-24); CREATININE 0.63 mg/dL (0.55-1.02)
[2017-11-04 08:00] VITALS: BP 131/67
[2017-11-04 12:00] VITALS: BP 116/48
[2017-11-04 16:00] VITALS: BP 127/73
[2017-11-04 20:00] VITALS: BP 127/59
[2017-11-05] VITALS: BP 132/59
== END 2017-11-05 05:30 | disposition other institution (70) | DRG 280 ==
LOC: ED 23:18 → EDHOLD 11-01 03:44 → 4E 11-01 03:44
PROVIDERS: Internal Medicine; Internal Medicine Critical Care Medicine; Physician Assistant
PROC: 0BC88ZZ Extirpation of Matter from Left Upper Lobe Bronchus, Via Natural or Artificial Opening Endoscopic (ICD-10-PCS; principal; 2017-11-01)
PROC: 0BC38ZZ Extirpation of Matter from Right Main Bronchus, Via Natural or Artificial Opening Endoscopic (ICD-10-PCS; principal; 2017-11-01)
PROC: 0BC48ZZ Extirpation of Matter from Right Upper Lobe Bronchus, Via Natural or Artificial Opening Endoscopic (ICD-10-PCS; principal; 2017-11-01)
PROC: 0BC58ZZ Extirpation of Matter from Right Middle Lobe Bronchus, Via Natural or Artificial Opening Endoscopic (ICD-10-PCS; principal; 2017-11-01)
PROC: 0BCB8ZZ Extirpation of Matter from Left Lower Lobe Bronchus, Via Natural or Artificial Opening Endoscopic (ICD-10-PCS; principal; 2017-11-01)
PROC: 0BC98ZZ Extirpation of Matter from Lingula Bronchus, Via Natural or Artificial Opening Endoscopic (ICD-10-PCS; principal; 2017-11-01)
PROC: 0BC78ZZ Extirpation of Matter from Left Main Bronchus, Via Natural or Artificial Opening Endoscopic (ICD-10-PCS; principal; 2017-11-01)
PROC: 0BC68ZZ Extirpation of Matter from Right Lower Lobe Bronchus, Via Natural or Artificial Opening Endoscopic (ICD-10-PCS; principal; 2017-11-01)
PROC: 0BC18ZZ Extirpation of Matter from Trachea, Via Natural or Artificial Opening Endoscopic (ICD-10-PCS; principal; 2017-11-01)
PROC: 5A09357 Assistance with Respiratory Ventilation, Less than 24 Consecutive Hours, Continuous Positive Airway Pressure (ICD-10-PCS; principal; 2017-11-01)
PROC: 4A02XM4 Measurement of Cardiac Total Activity, External Approach (ICD-10-PCS; 2017-11-02)
PROC: 3E073KZ Introduction of Other Diagnostic Substance into Coronary Artery, Percutaneous Approach (ICD-10-PCS; 2017-11-02)
PROC: 5A09357 Assistance with Respiratory Ventilation, Less than 24 Consecutive Hours, Continuous Positive Airway Pressure (ICD-10-PCS; 2017-11-05)
DX: I21.9 Acute myocardial infarction, unspecified (principal); J96.21 Acute and chronic respiratory failure with hypoxia; N17.0 Acute kidney failure with tubular necrosis; E43 Unspecified severe protein-calorie malnutrition; L89.152 Pressure ulcer of sacral region, stage 2; R65.10 Systemic inflammatory response syndrome (SIRS) of non-infectious origin without acute organ dysfunction; I11.0 Hypertensive heart disease with heart failure; E66.01 Morbid (severe) obesity due to excess calories; I50.32 Chronic diastolic (congestive) heart failure; J44.1 Chronic obstructive pulmonary disease with (acute) exacerbation; J44.0 Chronic obstructive pulmonary disease with (acute) lower respiratory infection; Z68.43 Body mass index [BMI] 50.0-59.9, adult; Z80.0 Family history of malignant neoplasm of digestive organs; Z83.3 Family history of diabetes mellitus; G47.33 Obstructive sleep apnea (adult) (pediatric); J20.9 Acute bronchitis, unspecified; R62.7 Adult failure to thrive; F17.210 Nicotine dependence, cigarettes, uncomplicated; D64.9 Anemia, unspecified; I25.10 Atherosclerotic heart disease of native coronary artery without angina pectoris; K21.0 Gastro-esophageal reflux disease with esophagitis; Z96.652 Presence of left artificial knee joint; R73.9 Hyperglycemia, unspecified; E83.41 Hypermagnesemia; F41.1 Generalized anxiety disorder; F31.9 Bipolar disorder, unspecified; Z96.642 Presence of left artificial hip joint; E78.2 Mixed hyperlipidemia; Z79.82 Long term (current) use of aspirin; Z99.81 Dependence on supplemental oxygen; Z90.49 Acquired absence of other specified parts of digestive tract; Z82.49 Family history of ischemic heart disease and other diseases of the circulatory system

== ENCOUNTER 2018-06-26 11:44 | Inpatient (IN) | payer MEDICARE, MEDICAID ==
[~2018-06-26] VITALS: Ht 160 cm; Wt 148.8 kg
--- NOTE | ~2018-06-26 | PR ---
[place], [place] PROGRESS NOTE NAME: JAJA SENA UNIT #: [id number] ROOM: 404 DOCTOR: JIMMIE MAY MD BIRTHDATE: [birth year] DOS: 06/28/2018 SUBJECTIVE: She has been noted comfortable at this time. She reported reduction in symptoms of shortness of breath, coughing and wheezing. Denies symptoms of chest pain. The patient had used the BiPAP as ordered last night. She is receiving the bronchodilator therapy at this time. Denies symptoms of chest pain. OBJECTIVE: VITAL SIGNS: Normal temperature, respiratory rate 20, heart rate of 88, blood pressure 110/43, pulse oxygen saturation on 5 L nasal cannula was 96% saturation. HEENT: Examination shows head was atraumatic. Eyes nonicterus. NECK: Supple. CARDIOVASCULAR: S1, S2 is audible. LUNGS: Without any wheeze or crackle at the present time. Breaths are noted moderately diminished bilaterally today. ABDOMEN: Soft, nontender. EXTREMITIES: Without any acute edema. IMPRESSION: 1. The patient with resolving acute exacerbation of chronic obstructive pulmonary disease progressively current medical management. 2. Morbid obesity. 3. Obstructive sleep apnea disorder. 4. Acute on chronic hypoxic and hypercapnic respiratory failure, resolving as well. PLAN OF MANAGEMENT: Continuation of the current plan of management. Follow the patient for the next 24 hours. The patient is stable, does well as the patient was asked for ambulation may consider home if tolerated as well. The patient may consider for discharge tomorrow morning based on the progression of the illness. [place], [place] PROGRESS NOTE NAME: JAJA SENA UNIT #: [id number] ROOM: 404 DOCTOR: JIMMIE MAY MD BIRTHDATE: [birth year] JIMMIE DOAN MD CM:PNTRANS [phone] JIMMIE OG MD 06/28/18 1358 interface
--- NOTE | ~2018-06-26 | WRIGHTHP ---
[place], [place] PATIENT HISTORY AND PHYSICAL EXAM NAME: JAJA SENA [facility] #: [id number] UNIT #: [id number] ROOM: 404 DOCTOR: DARRION LAM MD BIRTHDATE: [birth year] DOS: HISTORY OF PRESENT ILLNESS: The patient is a 57-year-old female with a past medical history of; 1. Significant underlying COPD. 2. Morbid obesity. 3. Heme-positive stools with progressive anemia. The patient refused panendoscopy in the past. 4. Obstructive sleep apnea. The patient takes BiPAP. 5. Advance adult failure to thrive, morbid obesity, generalized weakness. 6. Benign essential hypertension. 7. GERD and esophagitis. 8. Major depression, recurrent, moderate. 9. Continued nicotine smoke dependence. 10. Significant peripheral volume overload. 11. Echocardiogram showing normal left ventricular ejection fraction, but the patient has diastolic dysfunction. 12. Coronary artery disease of [place] vessels. The patient presented to the Emergency Department at [facility] with increasing complaints of shortness of breath for a few weeks, especially for 4 days. She had little cough, no significant sputum, some wheezing. The patient was found to be hypoxemic in the Emergency Department and her pulse ox was low, so she was given 5 liters of oxygen, which brought up her pulse ox to 98%. The patient was diagnosed as having acute exacerbation of COPD and admitted to a monitored bed. No complaints of chest pain, no dizziness or fainting episodes. REVIEW OF SYSTEMS: RESPIRATORY: Increased shortness of breath, wheezing and chest congestion. GASTROINTESTINAL: No nausea, vomiting, diarrhea or constipation. CARDIOVASCULAR: No chest pains or palpitations. FAMILY HISTORY: Noncontributory. HOME MEDICATIONS: The patient takes omeprazole, furosemide, fluoxetine, Naprosyn and bronchodilators. ALLERGIES: No known drug allergies. GENERAL APPEARANCE: GENERAL: The patient is alert and oriented x 3, in no visible distress except for morbid obesity and generalized weakness. HEENT AND NECK: Extraocular movements are intact. Sclerae are anicteric. Oral mucosa is moist and clean. No obvious facial weakness. Neck is supple without any lymphadenopathy. No thyromegaly. No JVD. No carotid arterial bruits. LUNGS: Clear to auscultation. No wheezing. No rhonchi. CARDIOVASCULAR SYSTEM: Heart rate is regular in rate and rhythm. S1 and S2 normally audible. No significant murmur or any other abnormal cardiac sounds. [place], [place] PATIENT HISTORY AND PHYSICAL EXAM [id number] #: [id number] ROOM: [facility] DOCTOR: DARRION LAM MD BIRTHDATE: [birth year] ABDOMEN: Soft, nontender. No obvious organomegaly. Bowel sounds are present. No obvious herniation. EXTREMITIES: Without significant cyanosis or edema. Warm to touch. CENTRAL NERVOUS SYSTEM: Alert and oriented x 3. Cranial nerves II-XII are intact. Speech is normal. The patient is able to move all extremities. Normal muscle strength. Deep tendon reflexes are equal on both sides. Plantars were downgoing. LABORATORY DATA: Blood gases showing pH of 7.37, pCO2 of 54, pO2 89, 98% saturation on 5 liters of oxygen by nasal cannula. Chest x-ray showing mild central vascular congestion. IMPRESSION AND PLAN: 1. Acute exacerbation of chronic obstructive pulmonary disease, to be treated with bronchodilators, corticosteroids and antibiotic. Pulmonary consult and corticosteroids to be followed closely. 2. Morbid obesity. The patient to work with dietary. BMI 58.1 and she will work with physical therapy. 3. Major depression, recurrent, mild to moderate, treated with fluoxetine, which is being continued. 4. Gastroesophageal reflux disease and esophagitis, asymptomatic with omeprazole, which is being continued. 5. Generalized anxiety disorder. The patient is started on buspirone to better control her anxiety. 6. Obstructive sleep apnea, morbid obesity. The patient is to be continued on BiPAP from home. 7. Benign essential hypertension. Blood pressure to be monitored and treated. 8. Coronary artery disease of [place] vessels without any chest pains. DARRION LAM MD CM:HISPHYS:PATIENT HISTORY AND PHYSICAL EXAMINATION 35 32 DARRION LAM MD 06/26/182134 interface
--- NOTE | ~2018-06-26 | PR ---
[place], [place] PROGRESS NOTE NAME: JAJA SENA UNIT #: [id number] ROOM: 404 DOCTOR: FRANKI OG MD,JIMMIE BIRTHDATE: [birth year] DOS: 06/29/2018 PULMONARY PROGRESS NOTE SUBJECTIVE: The patient noted comfortable, resting on the bed, had been showing gradual reduction and improvement in respiratory symptoms, reduction in shortness breath, cough and wheezing, other symptoms were reported. OBJECTIVE: VITAL SIGNS: For the patient as a normal temperature. Respiratory rate of 20, heart rate 63, blood pressure 140/63. Pulse oxygen saturation on 5 liters nasal cannula at 99% saturation. HEENT: No acute change. NECK: Supple. CARDIOVASCULAR: S1, S2 audible. LUNGS: Decreased breath sounds noted with mild expiratory wheezing, no crackles. ABDOMEN: Soft, nontender. Bowel sounds present. EXTREMITIES: Without any acute edema. IMPRESSION: 1. The patient with gradual, but progressive resolution and improvement noted in acute exacerbation of chronic obstructive pulmonary disease as well as acute bronchitis. 2. Obstructive sleep apnea disorder as well. 3. Debility and muscle deconditioning. PLAN OF THERAPY: Continuation of the bronchodilators, oxygen supplementation, other therapy, and plan of management. The patient stated she has been ordered consultation by social research assistant for placement in a fdc facility prior to final home discharge. She agreed with that. The patient could be transferred to fdc facility if accepted authorized by the insurance. JIMMIE DOAN MD CM:PNTRANS [id number] JIMMIE OG MD 06/30/18 0058 interface
--- NOTE | ~2018-06-26 | PR ---
[place], [place] PROGRESS NOTE NAME: JAJA SENA UNIT #: [id number] ROOM: 404 DOCTOR: DARRION LAM MD BIRTHDATE: [birth year] DOS: 06/27/2018 SUBJECTIVE: The patient's breathing is improving, but she has chronic complains of weakness. OBJECTIVE: VITAL SIGNS: Blood pressure 126/50, heart rate 95 beats per minute, breathing 22 times per minute, temperature 99 degrees Fahrenheit. GENERAL APPEARANCE: The patient is alert and oriented x 3, in no visible distress. Moderate obesity and generalized weakness. HEENT AND NECK: Exam within normal limits. CARDIOVASCULAR SYSTEM: Heart rate is regular in rate and rhythm. S1 and S2 normally audible. LUNGS: Clear to auscultation. ABDOMEN: Soft, nontender. No obvious organomegaly. Bowel sounds are present. EXTREMITIES: Without significant cyanosis or edema. IMPRESSION: 1. Hyperkalemia. The patient's potassium levels to be monitored and treated with diet. 2. Morbid obesity. The patient working with dietary and being educated for low-calorie, low-fat diet with plenty of fresh vegetables. 3. Benign essential hypertension. Blood pressure is being monitored and controlled. 4. Acute exacerbation of chronic obstructive pulmonary disease, being treated with bronchodilators, corticosteroids, antibiotics and followed closely. 5. Major depression, recurrent, mild to moderate, treated with fluoxetine and being controlled. 6. Gastroesophageal reflux disease and esophagitis, asymptomatic with omeprazole. No heart franklin. 7. Generalized anxiety disorder. The patient started on buspirone for better anxiety, controlled. 8. Obstructive sleep apnea treated with BiPAP, which the patient brought from home. [place], [place] PROGRESS NOTE NAME: JAJA SENA UNIT #: [id number] ROOM: 404 DOCTOR: DARRION LAM MD BIRTHDATE: [birth year] DARRION LAM MD CM:PNTRANS [id number] DARRION LAM MD 06/27/182155 interface
--- NOTE | ~2018-06-26 | PR ---
[place], [place] PROGRESS NOTE NAME: JAJA SENA UNIT #: [id number] ROOM: 404 DOCTOR: DARRION LAM MD BIRTHDATE: [birth year] DOS: 06/28/2018 SUBJECTIVE: The patient is starting to breathe better. OBJECTIVE: VITAL SIGNS: Blood pressure 110/43, heart rate 94 beats per minute, breathing 24 times per minute, temperature 98 degrees Fahrenheit. GENERAL APPEARANCE: The patient is alert and oriented x 3, in no visible distress. HEENT AND NECK: Exam within normal limits. CARDIOVASCULAR SYSTEM: Heart rate is regular in rate and rhythm. S1 and S2 normally audible. LUNGS: Decreased breath sounds on lung auscultation. ABDOMEN: Soft, nontender. No obvious organomegaly. Bowel sounds are present. Morbid obesity. EXTREMITIES: Without significant cyanosis or edema. IMPRESSION: 1. Hyperkalemia, being followed closely. I will repeat potassium levels. 2. Acute exacerbation of severe underlying chronic obstructive pulmonary disease with acute over chronic respiratory failure, being treated with antibiotics, corticosteroids, oxygen, bronchodilators and Dr. Moreland, the data acquisition technician, is also following. 3. Morbid obesity. We are taking bedsore precautions turning her every 2 hours and dietary are following. The patient is given dietary education. 4. Major depression, recurrent, [id number], treated and controlled with fluoxetine. 5. Gastroesophageal reflux disease and esophagitis, asymptomatic with omeprazole. 6. Generalized anxiety disorder, treated with buspirone. Anxiety is under control. 7. Obstructive sleep apnea treated with BiPAP from home. The patient is also morbidly obese. 8. Benign essential hypertension. Blood pressure is being monitored, treated and controlled. 9. Coronary artery disease of the [place] vessels without chest pains. [place], [place] PROGRESS NOTE NAME: JAJA SENA UNIT #: [id number] ROOM: 404 DOCTOR: DARRION LAM MD BIRTHDATE: [birth year] DARRION LAM MD CM:PNTRANS [id number] DARRION LAM MD 06/28/18 1008 interface
--- NOTE | ~2018-06-26 | EKG ---
[place], [place] ELECTROCARDIOGRAM REPORT NAME: JAJA SENA UNIT #: [id number] ROOM: 404 DOCTOR: BAMBI DRAFT REPORT BIRTHDATE: [birth year] [facility] Test Date: 2018-06-26 Test Time: 12:25:32 Pat Name: JAJA SENA Department: Room: 404 Gender: F Refractory Manager: : [id number] Requested By: KARI VICTOR Order Number: [id number] Reading MD: Ronak Moreland MD Measurements Intervals [place] Rate: 74 P: 45 ME: 126 QRS: 36 QRSD: 87 T: 39 QT: 382 QTc: 424 Interpretive Statements Sinus rhythm Compared to ECG 03/26/2018 21:24:15 Atrial premature complex(es) no longer present Electronically Signed On 06-30-2018 13:08:30 PST by Ronak Moreland MD CM:EKGRPT:ELECTROCARDIOGRAM REPORT [id number] KARI HERRING DRAFT REPORT KARI VICTOR DO
--- NOTE | ~2018-06-26 | CON ---
[place], [place] REPORT OF CONSULTATION [id number] UN[facility] #: [id number] ROOM: 404 DOCTOR: JIMMIE MAY MD BIRTHDATE: [birth year] DOS: 06/27/2018 CONSULTATION REQUESTED BY: Dr. Waddell. REASON FOR CONSULTATION: Abnormal respiratory symptoms. HISTORY OF PRESENT ILLNESS: This is a 57-year-old white female patient who has been known to me with past history of hypercapnic respiratory failure and hypoxic respiratory failure, COPD and obstructive sleep apnea disorder. The patient supposedly to be seen in my office yesterday. She has been reporting increased respiratory symptom in the past few days, which has been noted significantly worsened. The patient came into the hospital for further assessment assessed in the Emergency Room. The symptoms have been noted as 4 days. The patient's oxygen saturation was also noted worsened usual use of oxygen supplementation. She does have symptoms of coughing, which has been noted mild to moderate, nonproductive, associated wheezing, tightness in the chest was reported. Denies symptoms of hemoptysis. REVIEW OF SYSTEMS: CONSTITUTIONAL: The patient completed fatigue and tiredness noted and constitutional symptom, abnormal weight loss. EYES: Denies burning, redness or discharge. EARS, NOSE, THROAT SYMPTOMS: Denies sore throat, hoarseness, otalgia, postnasal drainage or epistaxis. CARDIOVASCULAR: Denies anginal pain, edema, pain of the lower extremities. GASTROINTESTINAL: Denies dysphagia, nausea, vomiting, diarrhea, abdominal pain, hematemesis, melena, hematochezia. History of chronic severe obesity. GENITOURINARY: No dysuria, suprapubic pain, hematuria. MUSCULOSKELETAL: No acute joint pain, redness, or tenderness. SKIN: Without abnormal lesions or rashes. MUSCULOSKELETAL SYMPTOMS: Denies acute joint pain, redness, or tenderness. CENTRAL NERVOUS SYSTEM: Denies dizziness, headache, diplopia, syncopal episodes. Remaining systems were reviewed. They were noted all negative. PAST MEDICAL HISTORY: 1. End-stage chronic obstructive pulmonary disease. 2. Chronic hypercapnic respiratory failure. 3. Chronic hypoxic respiratory failure, use of oxygen supplementation 3-4 liters nasal cannula continuous use. 4. Obstructive sleep apnea disorder. 5. Past heavy nicotine dependence, currently nonsmoker. 6. Anxiety disorder. 7. Severe obesity. 8. Previous history of pneumonia. SOCIAL HISTORY: The patient is not , lives at home. Smoking noted since teenager, 2 packs of cigarettes per day until 09/2017, and history of alcohol, illicit drug use. [place], [place] REPORT OF CONSULTATION NAME: JAJA SENA UNIT #: [id number] ROOM: 404 DOCTOR: JIMMIE MAY MD BIRTHDATE: [birth year] PAST SURGICAL HISTORY: 1. Left hip replacement. 2. Left total knee replacement. 3. Right foot tendon repair. 4. Appendectomy. 5. Therapeutic bronchoscopy. FAMILY HISTORY: Unknown. CURRENT MEDICATIONS: Administered for the patient on this hospitalization, omeprazole, Solu-Medrol 20 mg q.8 hours, Lasix oral 40 mg daily, Pulmicort Respules, DuoNeb for this patient q.4h, Rocephin was also noted. DRUG ALLERGIES: The patient noted as no known drug allergies. PHYSICAL EXAMINATION: GENERAL: This is a 57-year-old female patient without acute distress this morning, sitting on the bed. Height of 5 feet 2 inches, weight of 328 pounds, BMI 58.1. VITAL SIGNS: Normal temperature, respiratory rate 18-24, heart rate of 95-100, blood pressure 126/50-143/82. Pulse oxygen saturation on 5 L nasal cannula was 94% saturation. HEENT: Chronic severe obesity. Head was atraumatic. Eyes: No icterus. NECK: Supple. CARDIOVASCULAR: S1, S2 audible. LUNGS: Decreased breath sounds noted bilaterally. Scattered expiratory wheezing, no crackles. ABDOMEN: Soft, nontender. Bowel sounds present. EXTREMITIES: Chronic obesity without any edema. MUSCULOSKELETAL: Without any acute deformities. CENTRAL NERVOUS SYSTEM: Cranial nerves 2-12 intact. SKIN: No lesions or rashes. CENTRAL NERVOUS SYSTEM: No focal deficit. LABORATORY DATA: The patient's CMP admission yesterday, normal BUN and creatinine, CO2 35. CBC yesterday in the Emergency Room noted as normal CBC. The lactic acid 2.2, follow 1.2. CBC this morning remains normal. BMP patient this morning, glucose 145, potassium 5.2. Arterial blood gas yesterday afternoon, pH of 7.37, pCO2 of 54, pO2 89.8. Chest x-ray patient 1 view does not show any acute pulmonary infiltration. IMPRESSION: 1. The patient recurrence of acute exacerbation of chronic obstructive pulmonary disease, [id number] hypoxic respiratory failure with chronic hypercapnia. 2. The patient with chronic obesity. 3. History of obstructive sleep apnea disorder as well. 4. History of severe morbid obesity. [place], [place] REPORT OF CONSULTATION NAME: JAJA SENA UNIT #: [id number] ROOM: 404 DOCTOR: FRANKI OG MD,JIMMIE BIRTHDATE: [birth year] PLAN OF MANAGEMENT: Continue current dose of Solu-Medrol, bronchodilators, oxygen and the antibiotic. The patient responded to treatment very well. BiPAP will be continued at this time as well during the day as needed for any respiratory distress, continue to use at nighttime. Bronchodilators administration. Additional treatment changes will be ordered based on the progression of the illness. Usual care, other supportive plan of management and care plan and treatment and therapies. JIMMIE DOAN MD CM:CONSTR:REPORT OF CONSULTATION 1316 06/27/18 8686 interface
--- NOTE | ~2018-06-26 | DS ---
[place], [place] DISCHARGE SUMMARY [id number] UNIT #: [id number] ROOM: 404 DOCTOR: DARRION LAM MD BIRTHDATE: [birth year] DOS: 06/29/2018 DISCHARGE DIAGNOSES: 1. Acute exacerbation of chronic obstructive pulmonary disease. 2. Morbid obesity and obesity hypoventilation syndrome. 3. Obstructive sleep apnea. The patient takes BiPAP at night. 4. Acute on chronic hypercapnic respiratory failure. 5. Hyperkalemia. 6. Major depression, recurrent, mild to moderate. 7. Gastroesophageal reflux disease. 8. Esophagitis. 9. Generalized anxiety disorder. 10. Benign essential hypertension. 11. Coronary artery disease. 12. Heme-positive stools with progressive anemia. The patient had refused panendoscopy for gastrointestinal workup in the past. 13. Advanced adult failure to thrive and suboptimal long-term prognosis. 14. Benign essential hypertension. 15. Nicotine smoke dependence. 16. Significant peripheral volume overload. 17. Diastolic dysfunction on echocardiogram in the past. 18. Coronary artery disease of the [place] vessels. HOSPITAL COURSE: The patient presented to the Emergency Room with increasing complaints of shortness of breath for a few weeks, especially for 4 days prior to admission. The patient had little cough, no significant sputum, but she did have some wheezing. The patient was found to be hypoxemic in the Emergency Department and her pulse ox was low, so she was given 5 liters of oxygen, which improved her pulse ox to 98%. We continued her BiPAP settings, gave her corticosteroids, oxygen, antibiotics and arrange for her to go to rehab on her own request. The patient's breathing is improved. The patient is emotionally upset today because some happening in her family. The patient has been cleared for discharge by third steel pourer, Dr. Moreland, and she will be sent over to rehab and continued treatment. 1. Benign essential hypertension. Blood pressure is being monitored and treated. 2. Chronic diastolic type CHF, compensated. 3. Coronary artery disease of [place] vessels without chest pain. 4. Obstructive sleep apnea, treated with BiPAP at night. 5. Morbid obesity. The patient worked with dietary. LABORATORY DATA: Blood cultures negative. Normal serum electrolytes. Potassium level slightly elevated at 5.2, which is stable. DISCHARGE MANAGEMENT: Omeprazole 20 mg a day, furosemide 40 mg a day, fluoxetine 40 mg a day. The patient was given Medrol Dosepak and Naprosyn twice a day, breathing treatment with DuoNeb q.i.d. and Pulmicort 0.5 mg b.i.d., buspirone 10 mg 3 times a day for generalized severe anxiety and the patient to take Medrol Dosepak and Augmentin 875 mg twice a day for a week at the time of discharge and continue BiPAP with pressures of 15 and 7. Oxygen titrate to keep [place], [place] DISCHARGE SUMMARY NAME: JAJA SENA UNIT #: [id number] ROOM: 404 DOCTOR: DARRION LAM MD BIRTHDATE: [birth year] pulse ox 90%-96%. DARRION LAM MD CM:DARRIUS [id number] DARRION LAM MD 07/18/18 0852 interface
[~2018-06-26 11:44] MED LIST changes: +BUSPIRONE10 MG PO; +CALCIUM500 M1 PO; +DULCOLAX10 M1 R; +FLUOXETINE40 MG PO; +LAMOTRIGINE ER300 MG PO; +VITAMIN D32000 UNIT PO; +ZYPREXA2.5 MG PO
[2018-06-26 11:45] VITALS: BP 146/88
--- NOTE | 2018-06-26 11:49 | NUR ---
PT DEMANDS TO BE LEFT TO SIT UPRIGHT AT SIDE OF BED WITH TRAY TABLE TO R4EST ON.
[2018-06-26 12:08] LABS: BASO % 0.4 % (0.0-1.0); EOS # 0.2 10*3/uL (0.0-0.4); EOS % 2.6 % (1.0-4.0); HEMATOCRIT 39.3 % (37.0-47.0); LYMPH # 1.6 10*3/uL (1.3-4.4); LYMPH % 20.3 % (27.0-41.0); MEAN CELL VOLUME 88.1 fl (81.0-99.0); MEAN CORPUSCULAR HGB 26.9 pg (27.0-31.0); MEAN CORPUSCULAR HGB CONC 30.5 g/dl (33.0-37.0); MEAN PLATELET VOLUME 9.6 fl (9.6-12.3); MONO # 0.7 10*3/uL (0.1-1.0); MONO % 8.9 % (3.0-9.0); NEUT # 5.4 10*3/uL (2.3-7.9); NEUT % 67.5 % (47.0-73.0); PLATELET COUNT AUTOMATED 293 10*3/uL (130-400); RED BLOOD COUNT 4.46 10*6/uL (4.10-5.10); RED CELL DISTRI WIDTH 17.5 % (0-14.5)
[2018-06-26 12:16] LABS: ACT PARTIAL THROMBO TIME 24.1 SECONDS (20.8-31.5)
[2018-06-26 12:27] LABS: ALBUMIN 3.2 gm/dl (3.1-4.5); ALKALINE PHOSPHATASE 129 U/L (45-117); BUN 15 mg/dl (7-24); CHLORIDE 99 mmol/L (98-107); CREATININE 0.83 mg/dL (0.55-1.02); LIPASE 56 U/L (73-393); POTASSIUM 4.2 mmol/L (3.5-5.1); SGOT/AST 17 IU/L (3-35); SGPT/ALT 20 U/L (12-78); SODIUM 138 mmol/L (136-145); TOTAL PROTEIN 7.4 gm/dL (6.4-8.2)
[2018-06-26 12:29] LABS: TROPONIN I < 0.015 ng/ml (<0.045)
[2018-06-26 12:42] VITALS: BP 140/82
--- NOTE | 2018-06-26 13:45 | NUR ---
A 57, admitted to , under the services of Dr. CAROLE EDWARDS,DARRION Johnson with a diagnosis of AC RESP FAILURE W/ HYPOXIA, COPD EX. Chief complaint is SOB AT HOME X4 DAYS, SPO2 74% ON 5L PER EMS. Patient arrived via wheel chair from ER. Monitor applied. Initial assessment completed. Vital signs taken and recorded. DR. CAROLE EDWARDS,DARRION Johnson notified of admission to the unit. Orders received. See assessment for past medical history, medications and allergies. Patient and/or family oriented to unit. [address] visitation policy reviewed. Clothing/patient valuable form completed. ALEXANDRA DOTY
[2018-06-26] MEDS ORDERED: FEROSUL325 MG PO (13:54)
--- NOTE | 2018-06-26 13:57 | NUR ---
MED REC UPDATED PER POLICY. MED LIST PROVIDED BY PATIENT.
[2018-06-26 14:00] VITALS: BP 129/50
[2018-06-26 15:50] LABS: ABG BASE EXCESS 4.8 mmol/L (-2.0-2.0); ABG HCO3 30.9 mmol/l (22-26); ABG O2 SATURATION 97.8 % (95-97); ARTERIAL BLOOD GAS PCO2 54.3 mmHg (35-45); ARTERIAL BLOOD GAS PH 7.371 (7.35-7.45); ARTERIAL BLOOD GAS PO2 89.8 mmHg (80-90)
[2018-06-26 16:00] VITALS: BP 143/82
[2018-06-26 20:00] VITALS: BP 124/56
[2018-06-27] VITALS: BP 124/63
--- NOTE | 2018-06-27 06:30 | NUR ---
JAJA SENA [id number] Please refer to the physician's history and physical for past medical history, comorbid conditions, and allergies. Diagnosis: ACUTE RESPIRATORY FAILURE WITH HYPOXIA, COPD Familia Score: 17,AT RISK WOUND DESCRIPTIONS: Location of the wound: right posterior thigh proximal aspect Thickness: Full Size: 3.2cm x 3.5cm x 0.1cm Tunneling: none Undermining: none Sinus Tract: none Presence of Exudate: none Amount: None Color: Yellow, red Odor: None Periwound Skin Appearance: Normal Wound edges: approximated Pain (associated with wound): none at time of assessment How does patient state this happened? pt stated it started about 1 week ago and she stated that it just keeps getting worse. Location of the wound: right posterior thigh distal aspect Thickness: Partial Size: 0.4cm x 0.5cm x 0.1cm Tunneling: none Undermining: none Sinus Tract: none Presence of Exudate: none Amount: None Color: Red Odor: None Periwound Skin Appearance: Normal Wound edges: approximated Pain (associated with wound): none at time of assessment How does patient state this happened? pt stated it started about 1 week ago and she stated that it just keeps getting worse. Surface the patient is resting on: Isoflex SKIN PREVENTION RECOMMENDATION: 1. Pressure redistribution support surface as appropriate 2. Elevate heels 3. Remove boots/TEDS every shift and reapply 4. Head of bed 30 degrees as tolerated 5. Assess nutrition and hydration 6. Manage moisture 7. Avoid the use of containment devices while in bed 8. Use absorptive products on surfaces limit layers of linens on bed 9. Turn and reposition every 1-2 hours in bed and every 1 hour in chair as tolerated 10. Weight shifts every 15 minutes while up in chair 11. Offloading with pillows or device to keep heels elevated off bed 12. Monitor skin at least every shift 13. Inspect under medical devices twice a day WOUND TREATMENT RECOMMENDATIONS: Full thickness guidelines: Cleanse right posterior thigh proximal aspect with nss and apply sureprep around the wound therahoney to the wound bed and cover with optifoam gentle. Partial thickness guidelines: Cleanse right posterior thigh distal apsect with nss and apply sureprep around the wound therahoney to the wound bed and cover with optifoam gentle. Wheelchair cushion when oob. When asked patient what her wound care wishes on discharge were she stated that she is going to be going to [facility] upon discharge.
[2018-06-27 06:42] LABS: HEMATOCRIT 37.3 % (37.0-47.0); HEMOGLOBIN 11.6 g/dl (12.0-16.0); LYMPH # 0.6 10*3/uL (1.3-4.4); LYMPH % 10.8 % (27.0-41.0); MEAN CELL VOLUME 86.3 fl (81.0-99.0); MEAN CORPUSCULAR HGB 26.9 pg (27.0-31.0); MEAN CORPUSCULAR HGB CONC 31.1 g/dl (33.0-37.0); MEAN PLATELET VOLUME 9.9 fl (9.6-12.3); MONO # 0.3 10*3/uL (0.1-1.0); MONO % 4.6 % (3.0-9.0); NEUT % 84.3 % (47.0-73.0); PLATELET COUNT AUTOMATED 281 10*3/uL (130-400); RED BLOOD COUNT 4.32 10*6/uL (4.10-5.10); RED CELL DISTRI WIDTH 17.2 % (0-14.5); WHITE BLOOD COUNT 5.9 10*3/uL (4.8-10.8)
[2018-06-27 06:51] LABS: BUN 17 mg/dl (7-24); CHLORIDE 102 mmol/L (98-107); CREATININE 0.82 mg/dL (0.55-1.02); SODIUM 138 mmol/L (136-145)
[2018-06-27 06:58] LABS: POTASSIUM 5.2 mmol/L (3.5-5.1)
[2018-06-27 08:00] VITALS: BP 126/50
--- NOTE | 2018-06-27 08:08 | NUR ---
PATIENT RESTING QUIETLY IN BED. NO DISTRESS NOTED. BREATHING TREATMENT IN USE. PT STATES SHE IS LESS SOB. LUNGS DIMINISHED T/O. NO VOICED COMPLAINTS AT THIS TIME. WILL CONTINUE TO MONITOR. CALL LIGHT WITHIN REACH. VSS.
--- NOTE | 2018-06-27 09:00 | NUR ---
Custom Home Installer in to talk to patient. Patient states lives at home with her son and granddaughter. There are 7 steps in the home. Physician: Dr. Haynes Pharmacy: [facility] services: has had [facility] in the past, states doesn't need currently Patient's level of ADLs: MINIMAL ASSIST Patient has working utilities: yes DME: cane, O2 @ 5L nc, portable, nebulizer, O2 supplier [employer] Follow-up physician's appointment after d/c: she prefers to make her own follow up appt after discharge Does patient want to access PORTAL?: no Discharge plan discussed with patient. She lives at home with her son and granddaughter. She states she needs minimal assistance with her ADLs and ambulates with a cane. Discussed short term SNF and she is agreeable. When given a list of facilities she chose [facility] as she has been there previously. When medically stable and accepted she will be discharged to [facility]. WHITNEY MINAYA
--- NOTE | 2018-06-27 10:27 | NUR ---
DRESSING APPLIED TO RIGHT THIGH PER ORDER. PATIENT TOLERATED WELL.
[2018-06-27 12:00] VITALS: BP 124/48
--- NOTE | 2018-06-27 13:27 | NUR ---
Patient requesting referral to [facility]; Contacted facility and faxed initial referral, will fax PT eval when available. Waiting on review/acceptance.
[2018-06-27 16:00] VITALS: BP 133/55
--- NOTE | 2018-06-27 16:00 | NUR ---
PATIENT RESTING QUIETLY IN BED. NO DISTRESS NOTED. 02 IN USE VIA 5LNC. DENIES ANY SOB. DENIES ANY PAIN/DISCOMFORT AT THIS TIME. WILL CONTINUE TO MONITOR.
--- NOTE | 2018-06-27 16:08 | NUR ---
Physical therapy eval completed on 4. Full PT eval to follow. Pt ID by name and . Pt is SBA for walking with walker today. Continue PT for safe functional mobility. Recommend SNF. Moderate complexity PT eval. thank you for this referral, Asha Faustin, PT
[2018-06-27 20:00] VITALS: BP 130/65
[2018-06-28] VITALS: BP 110/43
--- NOTE | 2018-06-28 10:47 | NUR ---
PHYSICAL THERAPY Patient presented to therapy in sitting at EOB with 5 liters of spO2 and report of having R knee pain of 5/10. Patient says the R knee pain is constant. Patient agrees to therapy session. Patient was identified by name and . Patient Patient STS transfer from EOB was MIN A X 1. Patient ambulated 16' x 1 with CGA X 1 with SOB, which required her to turn around and go back to EOB. Patient sat on EOB and performed X 4 STSs with MIN A X 1. Patient tolerated treatment with R knee pain and SOB with exertion. Patient is MIN A X 1 for all transfers. Patient was 1:1 with this BALANCE BRIDGE ASSEMBLER for 19 minutes total. Patient was left in sitting position with call light within reach and tray table near patient attached to wall outlet with 5 liters of spO2. Patient is recommended to SNF upon discharge. SHAYLA JONES BALANCE BRIDGE ASSEMBLER
--- NOTE | 2018-06-28 11:25 | NUR ---
Patient accepted to [facility] exemption complete. Patient requires a 3 night stay. Will be able to go Sunday06/29/18 if medically stable for discharge.
--- NOTE | 2018-06-28 11:48 | NUR ---
Speeder Tender in to see patient. She does have a bipap at home which she will be able to bring to [facility] with her. There is a family member at the bedside that will being the bipap to her. case planner notified. Spoke to Dr. Waddell, possible discharge to [facility] over the weekend.
[2018-06-28 12:00] VITALS: BP 134/63
[2018-06-28 16:00] VITALS: BP 98/48
[2018-06-28 20:00] VITALS: BP 132/60
[2018-06-29] VITALS: BP 140/63
--- NOTE | 2018-06-29 08:05 | NUR ---
PT NOT ON BIPAP AT THIS TIME
[2018-06-29 12:00] VITALS: BP 150/63
[2018-06-29] MEDS ORDERED: MEDROL DOSEPAK4 MG PO (15:49)
[2018-06-29] MEDS ORDERED: AUGMENTIN 875-875 MG PO (15:49)
--- NOTE | 2018-06-29 18:14 | NUR ---
[facility] Discharge instructions reviewed with patient/family. Patient receptive and verbalizes understanding. Follow-up care arranged. Written instructions given to patient/family. ANNA CALDERON
--- NOTE | 2018-07-01 07:46 | NUR ---
PHYSICAL THERAPY CO-SIGN I approve of the Phyical Therapy notes written above. AIDE FRY PT
== END 2018-06-29 18:14 | disposition other institution (70) | DRG 189 ==
LOC: ED 11:44 → EDHOLD 13:11 → 4E 13:11
PROVIDERS: Emergency Medicine; Internal Medicine Critical Care Medicine; ADMIT Internal Medicine
PROC: 5A09357 Assistance with Respiratory Ventilation, Less than 24 Consecutive Hours, Continuous Positive Airway Pressure (ICD-10-PCS; principal; 2018-06-28)
PROC: 5A09357 Assistance with Respiratory Ventilation, Less than 24 Consecutive Hours, Continuous Positive Airway Pressure (ICD-10-PCS; 2018-06-29)
DX: J96.21 Acute and chronic respiratory failure with hypoxia (principal); J44.0 Chronic obstructive pulmonary disease with (acute) lower respiratory infection; I50.32 Chronic diastolic (congestive) heart failure; J44.1 Chronic obstructive pulmonary disease with (acute) exacerbation; Z68.43 Body mass index [BMI] 50.0-59.9, adult; F33.1 Major depressive disorder, recurrent, moderate; J20.9 Acute bronchitis, unspecified; J96.22 Acute and chronic respiratory failure with hypercapnia; R62.7 Adult failure to thrive; I25.10 Atherosclerotic heart disease of native coronary artery without angina pectoris; F17.210 Nicotine dependence, cigarettes, uncomplicated; E87.5 Hyperkalemia; D64.9 Anemia, unspecified; F41.1 Generalized anxiety disorder; K21.0 Gastro-esophageal reflux disease with esophagitis; E66.01 Morbid (severe) obesity due to excess calories; G47.33 Obstructive sleep apnea (adult) (pediatric); I11.0 Hypertensive heart disease with heart failure; Z96.652 Presence of left artificial knee joint; Z96.642 Presence of left artificial hip joint; Z90.49 Acquired absence of other specified parts of digestive tract; Z79.899 Other long term (current) drug therapy; Z82.49 Family history of ischemic heart disease and other diseases of the circulatory system; Z83.3 Family history of diabetes mellitus; Z80.0 Family history of malignant neoplasm of digestive organs

== ENCOUNTER 2019-06-26 15:39 | Inpatient (IN) | payer OTHER, MEDICAID ==
[~2019-06-26] VITALS: Ht 160 cm; Wt 150.6 kg
[~2019-06-26 15:39] MED LIST changes: +AUGMENTIN 875-875 MG PO; +FEROSUL325 MG PO; +MEDROL DOSEPAK4 MG PO
[2019-06-26 15:42] VITALS: BP 140/65
[2019-06-26 16:50] VITALS: BP 148/68
[2019-06-26 16:52] LABS: HEMATOCRIT 45.7 % (37.0-47.0); HEMOGLOBIN 13.8 g/dl (12.0-16.0); MEAN CELL VOLUME 110.4 fl (81.0-99.0); MEAN CORPUSCULAR HGB 33.3 pg (27.0-31.0); MEAN CORPUSCULAR HGB CONC 30.2 g/dl (33.0-37.0); MEAN PLATELET VOLUME 10.5 fl (9.6-12.3); PLATELET COUNT AUTOMATED 214 10*3/uL (130-400); RED BLOOD COUNT 4.14 10*6/uL (4.10-5.10); RED CELL DISTRI WIDTH 16.6 % (0-14.5); WHITE BLOOD COUNT 9.7 10*3/uL (4.8-10.8)
[2019-06-26 17:08] LABS: ACT PARTIAL THROMBO TIME 25.1 SECONDS (20.0-32.1); INTERNATIONAL NORM RATIO 1.1 (2.0-3.5)
[2019-06-26 17:13] LABS: ALBUMIN 3.4 gm/dl (3.1-4.5); ALKALINE PHOSPHATASE 101 U/L (45-117); BUN 24 mg/dl (7-24); CHLORIDE 96 mmol/L (98-107); CREATININE 0.77 mg/dL (0.55-1.02); POTASSIUM 4.6 mmol/L (3.5-5.1); SGOT/AST 13 IU/L (3-35); SGPT/ALT 16 U/L (12-78); SODIUM 141 mmol/L (136-145); TOTAL PROTEIN 7.3 gm/dL (6.4-8.2)
[2019-06-26 17:16] LABS: TOTAL CELLS COUNTED 100 #CELLS
[2019-06-26 17:17] LABS: PLATELET SUFFICIENCY NORMAL (NORMAL)
[2019-06-26 17:30] LABS: TROPONIN I < 0.015 ng/ml (<0.045)
[2019-06-26 18:34] LABS: ABG BASE EXCESS 18.2 mmol/L (-2.0-2.0); ARTERIAL BLOOD GAS PH 7.249 (7.35-7.45)
--- NOTE | 2019-06-26 18:35 | NUR ---
BLOOD GAS PCO2 121 CALLED CRITICAL AT THIS TIME. ALEXANDRA SANCHEZ NOTIFIED.
--- NOTE | 2019-06-26 19:22 | NUR ---
placed patient on bipap /, bu 8, 50%o2. vt 445, f12. will continue to monitor
[2019-06-26 20:20] VITALS: BP 145/80
--- NOTE | 2019-06-26 21:50 | NUR ---
PATIENT WAS PLACED IN AIR MATTRESS BED FROM [facility] FLOOR.
[2019-06-26 23:19] VITALS: BP 163/80
--- NOTE | 2019-06-26 23:36 | NUR ---
PATIENT HAS MULTIPLE WOUNDS AT MULTIPLE STAGES. THE PATIENT HAS STATED THAT SHE REFUSES FOR A FULL WOUND ASSESSMENT AND STATES SHE DOES NOT WANT WOUND PHOTOS DONE.
[2019-06-27] VITALS (9 sets, daily range): BP systolic 124–160; BP diastolic 55–92
--- NOTE | 2019-06-27 03:48 | NUR ---
PATIENT IN BED RESTING EYES AT THIS TIME. RESP EASY AND NONLABORED. NO DISTRESS NOTED. CONT CHERRY CUTTER AND SPO2 IN PLACE. RN WILL CONT TO MONITOR.
--- NOTE | 2019-06-27 05:55 | NUR ---
PATIENT IN BED RESTING EYES AT THIS TIME. RESP EASY AND NONLABORED. RN WILL CONT TO MONITOR
--- NOTE | 2019-06-27 08:30 | NUR ---
A 58, admitted to ICCU, under the services of FRITZ Licea MD with a diagnosis of COPD EXACERBATION. Chief complaint is SHORTNESS OF BREATH. Patient arrived via bed from ER. Monitor applied. Initial assessment completed. Vital signs taken and recorded. FRITZ LICEA MD notified of admission to the unit. Orders received. See assessment for past medical history, medications and allergies. Patient and/or family oriented to unit. [facility]U visitation policy reviewed. Clothing/patient valuable form completed. VIOLA ADAM
[2019-06-27 08:59] LABS: ABG BASE EXCESS 18.8 mmol/L (-2.0-2.0); ARTERIAL BLOOD GAS PH 7.214 (7.35-7.45)
--- NOTE | 2019-06-27 11:03 | NUR ---
JJAA SENA [id number] Please refer to the physician's history and physical for past medical history, comorbid conditions, and allergies. Diagnosis: COPD EXACERBATION Familia Score: , WOUND DESCRIPTIONS: Wound Number: 1 Location of the wound: left upper thigh above knee ( pre debridement ) Thickness: Full Size: 2.2cm x 3.0cm x 0.3cm Tunneling: none Undermining: none Sinus Tract: none Presence of Exudate: none Amount: None Color: Black, red Odor: None Periwound Skin Appearance: Erythema Wound edges: approximated Pain (associated with wound): none at time of assessment How does patient state this happened? pt unable to stated at this time Wound Number: 1 Location of the wound: left upper thigh above knee ( post debridement ) Thickness: Full Size: 2.4cm x 3.2cm x 0.5cm Tunneling: none Undermining: none Sinus Tract: none Presence of Exudate: serosanguineous Amount: Moderate Color: Black, red Odor: None Periwound Skin Appearance: Erythema Wound edges: approximated Pain (associated with wound): none at time of assessment How does patient state this happened? pt unable to stated at this time Wound Number: 2 Location of the wound: right lateral aspect of ankle Type of wound: DTI Size: 1.0cm x 1.5cm x <0.1cm Tunneling: none Undermining: none Sinus Tract: none Presence of Exudate: none Amount: None Color: Purple, dark red Odor: None Periwound Skin Appearance: Erythema Wound edges: closed Pain (associated with wound): none at time of assessment How does patient state this happened? pt unable to state at this time Wound Number: 3 Location of the wound: right lateral aspect of foot Type of wound: DTI Size: 0.5cm x 0.5cm x <0.1cm Tunneling: none Undermining: none Sinus Tract: none Presence of Exudate: none Amount: None Color: Purple, dark red Odor: None Periwound Skin Appearance: Erythema Wound edges: closed Pain (associated with wound): none at time of assessment How does patient state this happened? pt unable to state at this time Wound Number: 4 Location of the wound: right posterior lower extremity Type of wound: unstageable Thickness: Full Size: 2.5cm x 1.7cm x <0.1cm Tunneling: none Undermining: none Sinus Tract: none Presence of Exudate: none Amount: None Color: Black Odor: None Periwound Skin Appearance: Erythema Wound edges: closed Pain (associated with wound): none at time of assessment How does patient state this happened? pt unable to state at this time Wound Number: 5 Location of the wound: right lateral aspect of hip Thickness: Full Size: 3.0cm x 3.5cm x 0.1cm Tunneling: none Undermining: none Sinus Tract: none Presence of Exudate: Serous Amount: Light Color: Yellow, red Odor: None Periwound Skin Appearance: Scar tissue Wound edges: approximated Pain (associated with wound): none at time of assessment How does patient state this happened? pt unable to stated at this time Wound Number: 6 Location of the wound: right anterior upper medial aspect of thigh Thickness: Full Size: 4.5cm x 8.0cm x 0.1cm Tunneling: none Undermining: none Sinus Tract: none Presence of Exudate: Serous Amount: Light Color: Yellow, red Odor: None Periwound Skin Appearance: Scar tissue Wound edges: approximated Pain (associated with wound): none at time of assessment How does patient state this happened? pt unable to stated at this time Wound Number: 7 Location of the wound: left anterior upper medial aspect of thigh distal Thickness: Full Size: 4.5cm x 7.0cm x 0.1cm Tunneling: none Undermining: none Sinus Tract: none Presence of Exudate: Serous Amount: Light Color: Yellow, red Odor: None Periwound Skin Appearance: Scar tissue Wound edges: approximated Pain (associated with wound): none at time of assessment How does patient state this happened? pt unable to stated at this time Wound Number: 8 Location of the wound: left anterior upper medial aspect of thigh proximal Thickness: Full Size: 6.0cm x 6.0cm x 0.1cm Tunneling: none Undermining: none Sinus Tract: none Presence of Exudate: Serous Amount: Light Color: Yellow, red Odor: None Periwound Skin Appearance: Scar tissue Wound edges: approximated Pain (associated with wound): none at time of assessment How does patient state this happened? pt unable to stated at this time Wound Number: 9 Location of the wound: left 3rd toe Type of wound: unstageable Thickness: Full Size: 0.2cm x 0.3cm x <0.1cm Tunneling: none Undermining: none Sinus Tract: none Presence of Exudate: none Amount: None Color: Black, dark red Odor: None Periwound Skin Appearance: Erythema Wound edges: closed Pain (associated with wound): none at time of assessment How does patient state this happened? pt unable to state at this time Wound Number: 10 Location of the wound: left breast Type of wound: fungal Thickness: Partial Size: 7.0cm x 23.0cm x 0.1cm Tunneling: none Undermining: none Sinus Tract: none Presence of Exudate: none Amount: None Color: Red Odor: Musty Periwound Skin Appearance: Normal Wound edges: approximated Pain (associated with wound): none at time of assessment How does patient state this happened? pt unable to state at this time Wound Number: 11 Location of the wound: left posterior upper thigh Type of wound: stage 2 Thickness: Partial Size: 0.3cm x 0.5cm x 0.1cm Tunneling: none Undermining: none Sinus Tract: none Presence of Exudate: none Amount: None Color: Red Odor: None Periwound Skin Appearance: Normal Wound edges: approximated Pain (associated with wound): none at time of assessment How does patient state this happened? pt unable to state at this time Wound Number: 12 Location of the wound: left medial ankle Type of wound: DTI Size: 0.5cm x 1.5cm x <0.1cm Tunneling: none Undermining: none Sinus Tract: none Presence of Exudate: none Amount: None Color: Dark red, purple Odor: None Periwound Skin Appearance: Normal Wound edges: closed Pain (associated with wound): none at time of assessment How does patient state this happened? pt unable to state at this time Surface the patient is resting on: Position Pro SKIN PREVENTION RECOMMENDATION: 1. Pressure redistribution support surface as appropriate 2. Elevate heels 3. Remove boots/TEDS every shift and reapply 4. Head of bed 30 degrees as tolerated 5. Assess nutrition and hydration 6. Manage moisture 7. Avoid the use of containment devices while in bed 8. Use absorptive products on surfaces limit layers of linens on bed 9. Turn and reposition every 1-2 hours in bed and every 1 hour in chair as tolerated 10. Weight shifts every 15 minutes while up in chair 11. Offloading with pillows or device to keep heels elevated off bed 12. Monitor skin at least every shift 13. Inspect under medical devices twice a day WOUND TREATMENT RECOMMENDATIONS: Heel raiser pro boots to bilateral feet while in bed General surgery already on consult for debridement and debridement completed at bedside will reeval for other areas as well as this for further debridement per Dr. Parham. Wheelchair cushin when oob. DTI guidelines: Apply sureprep to left medial ankle, right lateral foot, right lateral ankle and allow time to dry then cover with optifoam gentle daily and prn for soiling Unstageable guidelines: Apply betadine to left 3rd toe and cover with bandaid daily and prn for soiling Stage 2 guidelines: Cleanse left posterior upper thigh with nss and apply sureprep around the wound hydrogel to wound bed and cover with optifoam gentle daily and prn for soiling. Cleanse left breast with soap and water and apply nystatin powder every 12 hours. Full thickness guidelines: Cleanse left thigh proximal, left thigh above knee, left thigh distal, right upper thigh, right hip with nss and apply sureprep around the wound therahoney to wound bed and cover with dsd daily and prn for soiling. Unstageable guidelines: Cleanse right posterior lower extremity with betadine and cover with dsd daily and prn for soiling. Venous and arterial stuides due to non-healing wound to bilateral lower extremities.
--- NOTE | 2019-06-27 11:30 | NUR ---
Spoke with Dr. Sierra regarding wound care note being entered and wound care recommendations put in note he stated nurse caring for patient is with another patient at this time but will provide this information to her.
[2019-06-27 11:41] LABS: ABG BASE EXCESS 18.7 mmol/L (-2.0-2.0); ARTERIAL BLOOD GAS PH 7.337 (7.35-7.45)
--- NOTE | 2019-06-27 12:00 | NUR ---
WOUNDS DRESSED PER ORDERS.
--- NOTE | 2019-06-27 13:38 | NUR ---
Color Consultant in to see patient. She is currently intubated. Will follow up at a later time.
--- NOTE | 2019-06-27 13:44 | NUR ---
Nutritional Support Services Note: Recommend diet to be 1800cal. Ht.5'3 Wt.328# BMI> 50 Encourage compliance to diet. Will follow as needed. Moni Torres Rdn Ld
[2019-06-27 15:38] LABS: HEMATOCRIT 44.1 % (37.0-47.0); HEMOGLOBIN 13.1 g/dl (12.0-16.0); MEAN CELL VOLUME 111.1 fl (81.0-99.0); MEAN CORPUSCULAR HGB CONC 29.7 g/dl (33.0-37.0); MEAN PLATELET VOLUME 10.5 fl (9.6-12.3); NUCLEATED RED BLOOD CELL 0.2 % (0.0-0.0); PLATELET COUNT AUTOMATED 215 10*3/uL (130-400); RED BLOOD COUNT 3.97 10*6/uL (4.10-5.10); RED CELL DISTRI WIDTH 16.4 % (0-14.5); WHITE BLOOD COUNT 12.5 10*3/uL (4.8-10.8)
[2019-06-27 15:58] LABS: TOTAL CELLS COUNTED 100 #CELLS
[2019-06-27 15:59] LABS: PLATELET SUFFICIENCY NORMAL (NORMAL)
[2019-06-27 16:03] LABS: ALKALINE PHOSPHATASE 95 U/L (45-117); BUN 29 mg/dl (7-24); CHLORIDE 95 mmol/L (98-107); CREATININE 0.86 mg/dL (0.55-1.02); POTASSIUM 5.1 mmol/L (3.5-5.1); SGOT/AST 22 IU/L (3-35); SGPT/ALT 15 U/L (12-78); SODIUM 142 mmol/L (136-145)
[2019-06-27 16:44] LABS: BILIRUBIN 2+ (NEGATIVE); BLOOD 1+ (NEGATIVE); CLARITY CLOUDY (CLEAR); COLOR YELLOW (YELLOW); GLUCOSE NEGATIVE (NEGATIVE); KETONE 2+ (NEGATIVE); LEUKO ESTERASE NEGATIVE (NEGATIVE); NITRITE NEGATIVE (NEGATIVE); PH 6.5 (5.0-9.0); SPECIFIC GRAVITY 1.025 (1.005-1.030)
[2019-06-27 17:00] LABS: BACTERIA 2+; RBC 21-30 rbc/hpf (0-2)
--- NOTE | 2019-06-27 17:25 | NUR ---
PATIENT RESTING ON VENT, NO SIGNS OF DISTRESS.
--- NOTE | 2019-06-27 19:50 | NUR ---
OGT PLACEMENT VERIFIED BY AIR BOLUS/AUSCULTATION OVER EPIGASTRIC AREA. PT REPOSITIONED ON HER SIDE. HOB ELEVATED.
--- NOTE | 2019-06-27 21:17 | NUR ---
PROPOFOL HAS BEEN TITRATED DOWN TO 40MCG. VERSED GIVEN FOR SEDATION EFFECTIVE.
[2019-06-28] VITALS (12 sets, daily range): BP systolic 116–163; BP diastolic 46–76
--- NOTE | 2019-06-28 01:30 | NUR ---
VERSED GIVEN FOR AGITATION, BITING ETT, GAGGING AT 0120 EFFECTIVE.
[2019-06-28 05:11] LABS: ALBUMIN 2.9 gm/dl (3.1-4.5); ALKALINE PHOSPHATASE 89 U/L (45-117); BUN 36 mg/dl (7-24); CHLORIDE 96 mmol/L (98-107); CREATININE 1.05 mg/dL (0.55-1.02); POTASSIUM 4.2 mmol/L (3.5-5.1); SGOT/AST 23 IU/L (3-35); SGPT/ALT 17 U/L (12-78); SODIUM 141 mmol/L (136-145); TOTAL PROTEIN 6.7 gm/dL (6.4-8.2)
[2019-06-28 06:39] LABS: HEMATOCRIT 42.9 % (37.0-47.0); HEMOGLOBIN 13.1 g/dl (12.0-16.0); MEAN CORPUSCULAR HGB 32.3 pg (27.0-31.0); MEAN CORPUSCULAR HGB CONC 30.5 g/dl (33.0-37.0); MEAN PLATELET VOLUME 11.3 fl (9.6-12.3); NUCLEATED RED BLOOD CELL 0.2 % (0.0-0.0); PLATELET COUNT AUTOMATED 240 10*3/uL (130-400); RED BLOOD COUNT 4.05 10*6/uL (4.10-5.10); RED CELL DISTRI WIDTH 16.4 % (0-14.5); WHITE BLOOD COUNT 11.8 10*3/uL (4.8-10.8)
[2019-06-28 06:54] LABS: MEAN CELL VOLUME 105.9 fl (81.0-99.0)
[2019-06-28 07:55] LABS: PLATELET SUFFICIENCY NORMAL (NORMAL); STOMATOCYTE FEW; TOTAL CELLS COUNTED 100 #CELLS
[2019-06-28 08:20] LABS: ABG BASE EXCESS 16.1 mmol/L (-2.0-2.0); ARTERIAL BLOOD GAS PH 7.513 (7.35-7.45)
--- NOTE | 2019-06-28 09:44 | NUR ---
DIPRIVAN TURNED OFF AT THIS TIME FOR VACATION SEDATION. AWOKE WITHOUT DIFFICULTY. OPENED EYES ON COMMAND. SHOOK HEAD YES/NO APPROPRIATELY. DIPRIVAN RESTARTED AT 20MIC. VERSED GIVEN PER PRN ORDER FOR IMMEDIATE SEDATION AND EFFECTIVE.
[2019-06-28 12:26] LABS: ABG BASE EXCESS 16.6 mmol/L (-2.0-2.0); ARTERIAL BLOOD GAS PH 7.449 (7.35-7.45)
--- NOTE | 2019-06-28 17:20 | NUR ---
PATIENT COUGING FREQUENTLY. SUCTIONED FOR LARGE AMOUNTS THICK YELLOW SPUTUM. EYES WIDE OPEN AT THIS TIME. PATIENT RESTLESS. MEDICATED WITH VERSED PER PRN ORDER AND IMMEDIATELY EFFECTIVE.
--- NOTE | 2019-06-28 20:20 | NUR ---
PATIENT GIVEN VERSED AT THIS TIME. BLOOD PRESSURE ELEVATED AND PATIENT APPEARS AGITATED UPON ASSESSMENT.
--- NOTE | 2019-06-28 21:22 | NUR ---
RESIDUAL ON PATIENT OG TUBE IS <10CC. PATIENT GIVEN 200CC OF FREE WATER FLUSH AT THIS TIME. PATIENT SUCTIONED AND SCANT AMOUNT OF YELLOW/WHITE SPUTUM OBTAINED. PATIENT TOLERATED WELL, AND REPOSITIONED ON LEFT SIDE.
[2019-06-29] VITALS (11 sets, daily range): BP systolic 113–145; BP diastolic 42–90
--- NOTE | 2019-06-29 03:45 | NUR ---
PATIENT SUCTIONED AT THIS TIME WITH COPIOUS AMOUNT OF THICK CLEAR SPUTUM RECEIVED USING THE YANKAR. SOME BLOOD TINGED SPUTUM NOTED WHEN USING THE ENCLOSED SUCTIONING SYSTEM.
--- NOTE | 2019-06-29 04:35 | NUR ---
VERSED GIVEN THIS TIME. PATIENT IS AGITATED AND RESTLESS. EYES OPEN AND REACHING FOR ET TUBE. MEDICATION EFFECTIVE. PATIENT RESTING QUIETLY AT THIS TIME.
--- NOTE | 2019-06-29 05:00 | NUR ---
SPOKE WITH DR. LAM REGARDING PATIENT RHYTHM CHANGE. ORDERS RECEIVED TO GET STAT EKG, TROPS, AND CONSULT CARDIOLOGY.
--- NOTE | 2019-06-29 05:20 | NUR ---
MESSAGE LEFT WITH [employer] CARDIOLOGY ANSWERING MACHINE AND CALLBACK NUMBER PROVIDED.
[2019-06-29 05:26] LABS: ALKALINE PHOSPHATASE 91 U/L (45-117); CHLORIDE 96 mmol/L (98-107); CREATININE 0.99 mg/dL (0.55-1.02); POTASSIUM 3.7 mmol/L (3.5-5.1); SGOT/AST 17 IU/L (3-35); SGPT/ALT 18 U/L (12-78); SODIUM 142 mmol/L (136-145); TOTAL PROTEIN 6.9 gm/dL (6.4-8.2)
[2019-06-29 05:30] LABS: BUN 46 mg/dl (7-24)
--- NOTE | 2019-06-29 05:35 | NUR ---
AHMET HEARD ANYTHING BACK FROM [facility] CARDIOLOGY AT THIS TIME. CALLED DR. LAM AGAIN WITH EKG RESULTS. PATIENT APPEARS TO BE IN AFIB/FLUTTER, AND CONFIRMED WITH DR. QUIGLEY BACK IN THE [facility]U. ORDERS RECEIVED TO START THE PATIENT ON IV CARDIZEM AT THIS TIME.
--- NOTE | 2019-06-29 06:00 | NUR ---
CARDIOLOGY CONSULT CALLED TO [facility] CARDIOLOGY. SPOKE WITH DR MORENO, NEW ORDERS RECEIVED FOR AMIODARONE BOLUS AND CONT GTT, LOVENOX 1MG/KG BID AND DC CARDIZEM SHANAE. CHILD CENTER ASSISTANT INFORMED TO OBTAIN AMIO BOLUS/GTT.
--- NOTE | 2019-06-29 06:00 | NUR ---
SPOKE WITH DR. MORENO FROM [facility] C[facility]. PATIENT WILL BE SWITCHED FROM CARDIZEM TO AMIODARONE DRIP.
[2019-06-29 06:14] LABS: HEMATOCRIT 43.6 % (37.0-47.0); HEMOGLOBIN 13.4 g/dl (12.0-16.0); MEAN CELL VOLUME 103.8 fl (81.0-99.0); MEAN CORPUSCULAR HGB 31.9 pg (27.0-31.0); MEAN CORPUSCULAR HGB CONC 30.7 g/dl (33.0-37.0); MEAN PLATELET VOLUME 11.4 fl (9.6-12.3); PLATELET COUNT AUTOMATED 225 10*3/uL (130-400); RED CELL DISTRI WIDTH 16.5 % (0-14.5); WHITE BLOOD COUNT 11.9 10*3/uL (4.8-10.8)
--- NOTE | 2019-06-29 06:40 | NUR ---
ASSISTED CENTRAL LINE PLACEMENT WITH DR. QUIGLEY. PATIENT TOLERATED WELL. CXR ORDERED TO VERIFY PLACEMENT.
[2019-06-29 06:47] LABS: TOTAL CELLS COUNTED 100 #CELLS
[2019-06-29 06:48] LABS: PLATELET SUFFICIENCY NORMAL (NORMAL); POLYCHROMASIA SLIGHT
[2019-06-29 07:34] LABS: ABG BASE EXCESS 13.5 mmol/L (-2.0-2.0); ARTERIAL BLOOD GAS PH 7.411 (7.35-7.45)
--- NOTE | 2019-06-29 12:10 | NUR ---
PT TAKEN TO SURGERY DEPT FOR BRONCH AT THIS TIME.
--- NOTE | 2019-06-29 12:13 | NUR ---
PHARMACIST AWARE OF VANC TROUGH CRITICAL VALUE. 1200 DOSE HELD AND PHARMACIST TO ADJUST DOSE AND TIME.
--- NOTE | 2019-06-29 14:30 | NUR ---
PT CONVERTED TO NORMAL SINUS RYTHMN. RATE60'S AT THIS TIME.
--- NOTE | 2019-06-29 15:58 | NUR ---
I PAGED [facility] AT THIS TIME TO MAKE THEM AWARE OF PT'S HEART RATE AND RYTHMN CHANGE.
--- NOTE | 2019-06-29 16:17 | NUR ---
DR MORENO RETURNED CALL AND MADE AWARE PT HAS CONVERTED BACK TO NSR AND RATE IS 58. CONTINUE WITH AMIODARONE GTT AT THIS TIME PER DR MORENO AND HE WILL BE IN TO SEE PT THIS EVENING.
--- NOTE | 2019-06-29 19:30 | NUR ---
DR. MORENO IN TO SEE PATIENT AND REVIEW PLAN OF CARE. PATIENT WILL BE KEPT ON AMIODARONE DRIP THROUGHOUT NIGHT, AND WE WILL PLAN ON STARTING PATIENT ON SOME PO LOPRESSOR TOMORROW PER DR. MORENO.
[2019-06-30] VITALS (10 sets, daily range): BP systolic 131–146; BP diastolic 50–69
--- NOTE | 2019-06-30 04:50 | NUR ---
VERSED GIVEN, PATIENT BECOMING AGITATED AND THRASHING IN BED. MEDICATION EFFECTIVE. WILL CONTINUE TO MONITOR.
[2019-06-30 05:35] LABS: ALBUMIN 2.7 gm/dl (3.1-4.5); BUN 40 mg/dl (7-24); CHLORIDE 99 mmol/L (98-107); CREATININE 0.74 mg/dL (0.55-1.02); PHOSPHOROUS 3.2 mg/dL (2.5-4.9); POTASSIUM 3.6 mmol/L (3.5-5.1); SGOT/AST 12 IU/L (3-35); SGPT/ALT 20 U/L (12-78); SODIUM 139 mmol/L (136-145)
[2019-06-30 05:38] LABS: ALKALINE PHOSPHATASE 74 U/L (45-117)
[2019-06-30 06:11] LABS: HEMATOCRIT 39.8 % (37.0-47.0); HEMOGLOBIN 12.3 g/dl (12.0-16.0); MEAN CELL VOLUME 104.2 fl (81.0-99.0); MEAN CORPUSCULAR HGB 32.2 pg (27.0-31.0); MEAN CORPUSCULAR HGB CONC 30.9 g/dl (33.0-37.0); MEAN PLATELET VOLUME 11.5 fl (9.6-12.3); PLATELET COUNT AUTOMATED 191 10*3/uL (130-400); RED BLOOD COUNT 3.82 10*6/uL (4.10-5.10); RED CELL DISTRI WIDTH 16.4 % (0-14.5); WHITE BLOOD COUNT 9.4 10*3/uL (4.8-10.8)
[2019-06-30 07:12] LABS: PLATELET SUFFICIENCY NORMAL (NORMAL); TOTAL CELLS COUNTED 100 #CELLS
[2019-06-30 07:13] LABS: POLYCHROMASIA SLIGHT
[2019-06-30 07:29] LABS: ARTERIAL BLOOD GAS PH 7.422 (7.35-7.45)
--- NOTE | 2019-06-30 08:19 | NUR ---
PATIENT RESTLESS AT THIS TIME. MEDICATED WITH VERSED PER PRN ORDER.
--- NOTE | 2019-06-30 09:38 | NUR ---
CPAP TRIAL STARTED PER DR.S HANSEN
--- NOTE | 2019-06-30 11:00 | NUR ---
Transport Truck Driver in to see patient. She is currently intubated. Will follow up at a later time. Dr. Moreland following.
[2019-06-30 11:43] LABS: ABG BASE EXCESS 7.5 mmol/L (-2.0-2.0); ARTERIAL BLOOD GAS PH 7.341 (7.35-7.45)
--- NOTE | 2019-06-30 12:35 | NUR ---
PER DRS ORDER PT EXTUBATED. PLACED ON BIPAP 20/10 FIO2 40%. TOLERATING WELL. RESPIRATIONS UNLABORED NO STRIDOR.
--- NOTE | 2019-06-30 20:16 | NUR ---
1944 RESTING IN BED WITH HOB ELEVATED. SIDE RAILS UP X'S 2. CALL LIGHT INREACH. BIPAP INTACT. PULSE OX 96%. NO C/O'S VOICED AT PRESENT. RIJ MLC INTACT. ALMONTE PATENT AND DRAINING CLEAR YELLOW URINE.NO DISTRESS NOTED.
--- NOTE | 2019-06-30 21:37 | NUR ---
2114 MIRLANDE 1PO FOR C/O'S BILATERAL FOOT PAIN. WILL MONITOR.
--- NOTE | 2019-06-30 22:27 | NUR ---
EARLIER PAIN MED EFECTIVE. RESTING IN BED WITH EYES CLOSED.
--- NOTE | 2019-07-01 00:50 | NUR ---
0030 INCONTINENT OF SMALL AMOUNT MUSHY BLACK BM(PT IS ON FEOSOL). COMPLETE BED BATH GIVEN AND LINENS CHANGED. PT TURNS SELF IN THE BED.
[2019-07-01 04:00] VITALS: BP 126/56
--- NOTE | 2019-07-01 04:38 | NUR ---
Upon discharge recommend patient to follow up for wound care in outpatient setting continue current wound care orders at discharging facility.
--- NOTE | 2019-07-01 06:14 | NUR ---
RESTING IN BED WITH EYES CLOSED. APPEARS TO BE SLEEPING. BIPAP INTACT. PULSE OX 95%. NO DISTRESS NOTED. ALMONTE PATENT. CONDITION GUARDED.
[2019-07-01 08:00] VITALS: BP 132/63
--- NOTE | 2019-07-01 08:00 | NUR ---
TOOK PT OFF BIPAP PLACED ON 6LHFNC SPO2 96%
--- NOTE | 2019-07-01 10:30 | NUR ---
Numerical Control Router Operator in to talk to patient. Patient states lives at home with her son and granddaughter. There are 7 steps in the home. Physician: Dr. Ramón Waddell [facility]: has had [facility] in the past but not currently Patient's level of ADLs: MINIMAL ASSIST Patient has working utilities: yes DME: cane, O2 @ 5L nc, portable O2 tanks, nebulizer, O2 supplier [employer] Follow-up physician's appointment after d/c: she prefers to make her own follow up appt after discharge Does patient want to access PORTAL?: no Discharge plan discussed with patient. She lives at home with her son and granddaughter. She is independent in her ADLs and ambulates with a cane. Discussed short term SNF and she is agreeable. When provided with a list of facilities she chose 1. [facility] and 2. [facility]. partner integration planner notified. Discussed home health care services if she was to go home and she requested [facility]. WHITNEY MINAYA
--- NOTE | 2019-07-01 11:24 | NUR ---
PT MEDICATED WITH VISTARIL 25MG PO FOR C/O ANXIETY.
[2019-07-01 11:38] LABS: ABG BASE EXCESS 14.4 mmol/L (-2.0-2.0); ARTERIAL BLOOD GAS PH 7.376 (7.35-7.45)
--- NOTE | 2019-07-01 11:38 | NUR ---
Faxed demographics sheet to Shayna at [facility]. Checking to see if benefits are in network.
[2019-07-01 12:00] VITALS: BP 140/67
--- NOTE | 2019-07-01 12:06 | NUR ---
PLACED PT ON BIPAP PER DR DOAN 2HRS ON AND 2HRS OFF.
--- NOTE | 2019-07-01 12:18 | NUR ---
PT SLEEPING SINCE VISTARIL GIVEN AND BIPAP PLACED BACK ON.
--- NOTE | 2019-07-01 12:46 | NUR ---
Patients insurance is out of [facility] (recent change of insurance on 06/18/19). Faxed face sheet to [facility] for benefits check.
--- NOTE | 2019-07-01 15:17 | NUR ---
PT TRANSFERED TO [facility] AT THIS TIME. REPORT GIVEN IN INPT RN.
--- NOTE | 2019-07-01 15:17 | NUR ---
RECEIVED REPORT ON TRANSFER FROM UNIT AT THIS TIME FROM [facility]. PATIENT ASSESSMENT COMPLETED WITHOUT INCIDENT, DENIES CHEST PAIN/PRESSURE AT THIS TIME, DOES COMPLAIN OF SOME SHORTNESS OF BREATH RESPIRATORY NOTIFIED AND ARE BEGINING TREATMENTS ON THIS UNIT NOW. PATIENT DENIES ANY OTHER COMPLAINTS AT THIS TIME, CALL LIGHT WITHIN REACH WILL CONTINUE TO MONITOR.
[2019-07-01 16:00] VITALS: BP 129/53
--- NOTE | 2019-07-01 16:02 | NUR ---
[facility]
[2019-07-01 16:05] LABS: ACID FAST SPEC PROCESSING Concentration (.)
[2019-07-01 20:00] VITALS: BP 125/58
[2019-07-02] VITALS: BP 140/57
--- NOTE | 2019-07-02 06:55 | NUR ---
PATIENT TAKEN OFF OF BI-PAP, PLACED ON 6 L/M CANNULA.
[2019-07-02 07:00] LABS: BASO % 0.1 % (0.0-1.0); HEMATOCRIT 41.3 % (37.0-47.0); HEMOGLOBIN 12.8 g/dl (12.0-16.0); LYMPH # 0.9 10*3/uL (1.3-4.4); MEAN CELL VOLUME 105.4 fl (81.0-99.0); MEAN CORPUSCULAR HGB 32.7 pg (27.0-31.0); MEAN PLATELET VOLUME 11.5 fl (9.6-12.3); MONO # 1.3 10*3/uL (0.1-1.0); MONO % 12.6 % (3.0-9.0); NEUT # 7.8 10*3/uL (2.3-7.9); NEUT % 77.9 % (47.0-73.0); PLATELET COUNT AUTOMATED 164 10*3/uL (130-400); RED BLOOD COUNT 3.92 10*6/uL (4.10-5.10); RED CELL DISTRI WIDTH 16.4 % (0-14.5)
[2019-07-02 07:20] LABS: BUN 34 mg/dl (7-24); CREATININE 0.58 mg/dL (0.55-1.02)
[2019-07-02 07:50] VITALS: BP 122/86
--- NOTE | 2019-07-02 07:50 | NUR ---
ASSESSMENT COMPLETED AND DOCUMENTED. PT RESTING IN BED COMFORTABLY WITH NO COMPLAINTS AT THIS TIME. BREAKFAST WAS ORDERED FOR PT. ALFRED MARCH
--- NOTE | 2019-07-02 10:00 | NUR ---
LARGE AMOUNT OF BLOODY DRAINAGE NOTED UNDER DRESSING OF IJ CATHETER. DRESSING CHANGED PER PROTOCOL USING STERILE TECHNIQUE. NO FURTHER BLEEDING NOTED. SITE ASYMPTOMATIC. PT TOLERATED WELL. ALL LUMENS FLUSH EASILY WITH GOOD BLOOD RETURN.
--- NOTE | 2019-07-02 11:31 | NUR ---
Notified Dr. Dewitt [facility] will not accept patient on Eliquis or Merrem. She will change the Eliquis to Xarelto.
[2019-07-02 12:00] VITALS: BP 114/58
--- NOTE | 2019-07-02 12:00 | NUR ---
ASSESSMEMT COMPLETED AND DOCUMENTED. PT IS RESTING ON RIGHT SIDE COMFORTABLY. CALL LIGHT WITH IN REACH. ALFRED GAYLE SPNRCC
[2019-07-02 12:23] LABS: INTERNATIONAL NORM RATIO 1.1 (2.0-3.5)
--- NOTE | 2019-07-02 12:32 | NUR ---
PT CONTINUES TO HAVE LARGE AMOUNT OF BLOODY DRAINAGE APPEAR UNDER RIGHT IJ DRESSING. TYPICALLY AFTER A LARGE AMOUNT OF COUGHING. DRESSING TO RIJ CHANGED TWO MORE TIMES USING STERILE TECHNIQUE. PT TOLERATED WELL. FLOOR NURSE IS AWARE AND HAS RECEIVED ORDERS FROM
--- NOTE | 2019-07-02 13:08 | NUR ---
Faxed initial referral to [facility] for review. Requires PT/OT evals and precert. Waiting on review/acceptance.
--- NOTE | 2019-07-02 13:16 | NUR ---
Contacted [facility] regarding the needs for this patient. [facility] asked to have referral faxed so they could review. Faxed referral, waiting on review/acceptance
--- NOTE | 2019-07-02 14:10 | NUR ---
Occupational therapy orders received and OT evaluation completed in full on floor four. Patient precautions include fall risk, right IJ, dependent bed mobility, contact precautions, 6L02, catheter, and weakness. Patient would benefit from continued OT treatment to maximize independence and safety with ADLs and transfers. OT recommends a SNF. Patient complexity is [place], [id number]. Thank you for the referral. Erma Louis, OTR/L
--- NOTE | 2019-07-02 15:03 | NUR ---
CHANDLER received call from patients sister Shelly. Shelly verfied patient password. PAPER DELIVERER explained to her the patient has been referred to [facility]. PAPER DELIVERER explained that the patient insurance has changed as the 06/18/2019, and the only local facility ([facility]) is unable to accept the patient. This was explained to patients sister and she understood. -CHANDLER Smith
[2019-07-02 15:19] LABS: ABG BASE EXCESS 12.7 mmol/L (-2.0-2.0); ARTERIAL BLOOD GAS PH 7.368 (7.35-7.45)
--- NOTE | 2019-07-02 15:19 | NUR ---
Grain I Farmworker in to see patient. Discussed [facility] not being in her insurance network and she is upset that her insurance company changed her insurance without her knowing. Discussed [facility] and [facility]. She doesn't know where those are. Explained location and she states she would rather go home if she is not able to go to [facility]. After discussion she is agreeable to go. She discussed [facility] but informed they are not in her insurance network. She states she lives at home with her son. office workforce planner following for SNF referrals.
--- NOTE | 2019-07-02 15:39 | NUR ---
PHYSICAL THERAPY Eval completed as able pt's RIJ with increase bleeding from the site per nsg pt back from US and positiongin ok. Ok to see pt but only for AROM of UE/LE and deferred shld activity at this time, pt will benefit from SNF full report to follow. PT to work on transfer,amb w FWW, balance/strength, safety. Brittany Roach PT
[2019-07-02 16:00] VITALS: BP 123/61
[2019-07-02 20:00] VITALS: BP 138/68
--- NOTE | 2019-07-02 20:00 | NUR ---
ANOTHER RN & MYSELF WENT INTO ROOM TO PUT NEW DRESSING ON PATIENT'S RIJ WHERE THE PORT WAS REMOVED EARLIER & WAS CONTINUING TO BLEED. PROCEDURE EXPLAINED TO PATIENT. PT. TOLERATED WELL.
[2019-07-02 22:00] VITALS: BP 138/68
--- NOTE | 2019-07-02 22:15 | NUR ---
PLACED PATIENT ON BIPAP FOR HS
--- NOTE | 2019-07-02 22:30 | NUR ---
SITE REMAINS DRY & INTACT AT THIS TIME; NO BLEEDING NOTED. PT. REQUESTING TO BE PUT ON BIPAP. INFORMED PATIENT THAT RESPIRATORY WAS IN THE ER & THAT WHEN THEY WERE FINISHED THEY WOULD BE UP. VERBALIZED UNDERSTANDING. CALL LIGHT WITHIN REACH.
--- NOTE | 2019-07-02 23:20 | NUR ---
BLEEDING NOTED ON DRESSING TO RIGHT SIDE OF NECK; OLD DRESSING SATURATED WITH BRIGHT RED BLOOD REMOVED & NEW DRESSING APPLIED. SAND BAG APPLIED AT THIS TIME. PT. TOLERATED FAIR. HOB ELEVATED; WILL CONTINUE TO MONITOR. CALL LIGHT WITHIN REACH.
--- NOTE | 2019-07-02 23:23 | NUR ---
NOTIFIED OF PATIENT STILL BLEEDING FROM RIJ SITE FOLLOWING REMOVAL OF MLC. ALSO AWARE THAT TRANEXAMIC ACID + PRESSURE DRESSING APPLIED, BUT PT CONTINUES TO COUGH WHICH CAUSES SITE TO BLEED AGAIN. PRESSURE CURRENTLY BEING HELD AND A SANDBAG OBTAINED FROM ICU TO PUT ON SITE. PER , ORDER ONE TIME DOSE OF HYCODAN 5ML NOW AND MAKE SURE PT HAS CBC & BMP ORDERED FOR THE MORNING. AWARE OF CURRENT VITALS. STATES TRANSFER MAY BE NECESSARY AND TO KEEP HER INFORMED IF BLEEDING DOES NOT STOP OR WITH ANY CHANGE IN STATUS.
--- NOTE | 2019-07-02 23:51 | NUR ---
PT TAKEN OFF BIPAP AND O2 APPLIED VIA 6L HI FLOW NC. NEW BED LINENS/CHUCKS/GOWN PROVIDED PT HAD BM IN BED. PATIENT PULLED UP AND REPOSITIONED IN BED ON L SIDE WITH HOB ELEVATED. SAND BAG REAPPLIED TO RIJ SITE. PO HYCODAN X1 TIME ORDER ADMINISTERED FOR COUGH. BED LEFT LOCKED IN LOW POSITION, BED ALARM INTACT, CALL LIGHT IN REACH. LAB IN ROOM TO DRAW VANCO TROUGH. WILL INITIATE VANC INFUSION FOLLOWING LAB DRAW.
[2019-07-03] VITALS (10 sets, daily range): BP systolic 97–150; BP diastolic 48–70
[2019-07-03 04:30] LABS: HEMATOCRIT 40.9 % (37.0-47.0); HEMOGLOBIN 12.5 g/dl (12.0-16.0); LYMPH # 0.8 10*3/uL (1.3-4.4); LYMPH % 8.4 % (27.0-41.0); MEAN CELL VOLUME 107.3 fl (81.0-99.0); MEAN CORPUSCULAR HGB 32.8 pg (27.0-31.0); MEAN CORPUSCULAR HGB CONC 30.6 g/dl (33.0-37.0); MONO # 1.1 10*3/uL (0.1-1.0); MONO % 11.1 % (3.0-9.0); NEUT # 7.7 10*3/uL (2.3-7.9); NEUT % 80.2 % (47.0-73.0); PLATELET COUNT AUTOMATED 154 10*3/uL (130-400); RED BLOOD COUNT 3.81 10*6/uL (4.10-5.10); RED CELL DISTRI WIDTH 16.2 % (0-14.5); WHITE BLOOD COUNT 9.6 10*3/uL (4.8-10.8)
--- NOTE | 2019-07-03 04:30 | NUR ---
LARGE AMOUNT OF BLOODY DRAINAGE NOTED TO OLD DRESSING; DRESSING CHANGED AGAIN. PT. TOLERATED FAIR; SAND BAGS ALSO APPLIED. WILL CONTINUE TO MONITOR. CALL LIGHT WITHIN REACH.
[2019-07-03 04:42] LABS: BUN 30 mg/dl (7-24); CHLORIDE 103 mmol/L (98-107); CREATININE 0.51 mg/dL (0.55-1.02); POTASSIUM 3.8 mmol/L (3.5-5.1); SODIUM 145 mmol/L (136-145)
--- NOTE | 2019-07-03 07:30 | NUR ---
DRESSING TO RIJ SATURATED WITH A LARGE AMOUNT OF BLOOD. DRESSING CHANGED AT THIS TIME; PT. TOLERATED FAIR. BIPAP REMAINS ON. PT. VOICES NO C/O; CALL LIGHT WITHIN REACH.
--- NOTE | 2019-07-03 07:53 | NUR ---
DISCUSS PATIENT WITH DR. MORENO, AWARE SITE WHERE RIGHT IJ MULTILUMEN REMOVED, CONTINUED TO BLEED OVERNIGHT.
--- NOTE | 2019-07-03 08:27 | NUR ---
PT TOOK BIPAP OFF, PLACED ON HIGH FLOW 6 LITERS, RESPIRATORY NOTIFIED.
--- NOTE | 2019-07-03 08:38 | NUR ---
[facility] DRESSING APPLIED TO RIGHT IJ SITE. WILL MONITOR FOR CONTINUED BLEEDING. DR. MORENO WOULD LIKE PATIENT TO HAVE ONE UNIT FFP TODAY AND PLATELET FUNCTION TEST DONE. NOTIFY DR. MORENO IF BLEEDING CONTINUES/WORSENS.
--- NOTE | 2019-07-03 09:00 | NUR ---
Barbecue Cook in to see patient. Discussed [facility] and she is agreeable. Discussed discharge planning with nurse and awaiting Dr. Goodwin to see patient. Possible transfer to another hospital.
--- NOTE | 2019-07-03 09:17 | NUR ---
dr. mays office notified of consult.
--- NOTE | 2019-07-03 10:42 | NUR ---
OT NOTE Patient on hold for OT due to possible transfer secondary to medical status. Will check with nursing at a later time. GUSTAVO Cazares/Bhupendra
--- NOTE | 2019-07-03 11:27 | NUR ---
Spoke to Dr. Goodwin's office regarding if patient was going to be seen today at the hospital. Physician spoke to nurse for necessary supplies and patient will be seen today.
--- NOTE | 2019-07-03 13:34 | NUR ---
DR. HOWARD AT BEDSIDE, SUTURE LEFT IJ BLEEDING SITE.
--- NOTE | 2019-07-03 13:35 | NUR ---
asked Arsalan to start precert, waiting on auth.
--- NOTE | 2019-07-03 14:27 | NUR ---
FFP STARTED, PT UNDERSTANDS AND DR. MORENO EXPLAINED TRANSFUSION TO PATIENT WHEN SHE WAS IN THIS AM.
--- NOTE | 2019-07-03 15:27 | NUR ---
DISCUSS WITH PHARMACIST, PO FLAGYL TO BE DIRECTED PRN FOR WOUND DRESSING CHANGES, ORDER WILL BE ACTIVATED
--- NOTE | 2019-07-03 20:17 | NUR ---
WOUNDS TO INNER THIGHS BILATERALLY AND RIGHT HIP CHANGED. FLAGYL POWDER PLACED ON WOUNDS ORDERED BY DR. MORENO.
[2019-07-04] VITALS: BP 112/43
--- NOTE | 2019-07-04 06:13 | NUR ---
JAJA SENA [id number] Please refer to the physician's history and physical for past medical history, comorbid conditions, and allergies. Diagnosis: COPD EXACERBATION Familia Score: 14,MODERATE RISK WOUND DESCRIPTIONS: Wound Number: 1 Location of the wound: left upper thigh above knee ( pre debridement ) Thickness: Full Size: 3.0cm x 3.3cm x 0.9cm Tunneling: none Undermining: none Sinus Tract: none Presence of Exudate: Light Amount: Serosanguineous Color: Black, red, yellow Odor: None Periwound Skin Appearance: Erythema Wound edges: approximated Pain (associated with wound): none at time of assessment How does patient state this happened? pt unable to stated at this time Wound Number: 2 Location of the wound: right lateral aspect of ankle Type of wound: DTI Size: 1.5cm x 1.2cm x <0.1cm Tunneling: none Undermining: none Sinus Tract: none Presence of Exudate: none Amount: None Color: Purple, dark red Odor: None Periwound Skin Appearance: Erythema Wound edges: closed Pain (associated with wound): none at time of assessment How does patient state this happened? pt unable to state at this time Wound Number: 3 Location of the wound: right lateral aspect of foot Type of wound: DTI Size: 0.5cm x 0.5cm x <0.1cm Tunneling: none Undermining: none Sinus Tract: none Presence of Exudate: none Amount: None Color: Purple, dark red Odor: None Periwound Skin Appearance: Erythema Wound edges: closed Pain (associated with wound): none at time of assessment How does patient state this happened? pt unable to state at this time Wound Number: 4 Location of the wound: right posterior lower extremity Type of wound: unstageable Thickness: Full Size: 2.5cm x 1.8cm x 0.4cm Tunneling: none Undermining: none Sinus Tract: none Presence of Exudate: none Amount: None Color: Black, yellow, brown, red Odor: None Periwound Skin Appearance: Erythema Wound edges: closed Pain (associated with wound): none at time of assessment How does patient state this happened? pt unable to state at this time Wound Number: 5 Location of the wound: right lateral aspect of hip Thickness: Full Size: 2.3cm x 3.8cm x 0.1cm Tunneling: none Undermining: none Sinus Tract: none Presence of Exudate: Serous Amount: Light Color: Yellow, red Odor: None Periwound Skin Appearance: Scar tissue Wound edges: approximated Pain (associated with wound): none at time of assessment How does patient state this happened? pt unable to stated at this time Wound Number: 6 Location of the wound: right anterior upper medial aspect of thigh Thickness: Full Size: 0.9cm x 1.5cm x 0.1cm Tunneling: none Undermining: none Sinus Tract: none Presence of Exudate: Serous Amount: Light Color: Yellow, red Odor: None Periwound Skin Appearance: Scar tissue Wound edges: approximated Pain (associated with wound): none at time of assessment How does patient state this happened? pt unable to stated at this time Wound Number: 7 Location of the wound: left anterior upper medial aspect of thigh distal Thickness: Full Size: 5.0cm x 6.2cm x 0.1cm Tunneling: none Undermining: none Sinus Tract: none Presence of Exudate: Serous Amount: Light Color: Yellow, red Odor: None Periwound Skin Appearance: Scar tissue Wound edges: approximated Pain (associated with wound): none at time of assessment How does patient state this happened? pt unable to stated at this time Wound Number: 8 Location of the wound: left anterior upper medial aspect of thigh proximal Thickness: Full Size: 5.0cm x 1.0cm x 0.1cm Tunneling: none Undermining: none Sinus Tract: none Presence of Exudate: Serous Amount: Light Color: Red Odor: None Periwound Skin Appearance: Scar tissue Wound edges: approximated Pain (associated with wound): none at time of assessment How does patient state this happened? pt unable to stated at this time Wound Number: 9 Location of the wound: left 3rd toe Type of wound: unstageable Thickness: Full Size: 0.2cm x 0.3cm x <0.1cm Tunneling: none Undermining: none Sinus Tract: none Presence of Exudate: none Amount: None Color: Black Odor: None Periwound Skin Appearance: Erythema Wound edges: closed Pain (associated with wound): none at time of assessment How does patient state this happened? pt unable to state at this time Wound Number: 10 Location of the wound: left breast Type of wound: fungal Thickness: Partial Size: 10.0cm x 24.5cm x <0.1cm Tunneling: none Undermining: none Sinus Tract: none Presence of Exudate: none Amount: None Color: Red Odor: Musty Periwound Skin Appearance: Normal Wound edges: approximated Pain (associated with wound): none at time of assessment How does patient state this happened? pt unable to state at this time Wound Number: 11 Location of the wound: left posterior upper thigh, no open areas noted at time of assessment. No drainage noted at time of assessment. Scar tissue noted at time of assessment Wound Number: 12 Location of the wound: left medial ankle Type of wound: DTI Size: 1.0cm x 1.5cm x <0.1cm Tunneling: none Undermining: none Sinus Tract: none Presence of Exudate: none Amount: None Color: Dark red, purple Odor: None Periwound Skin Appearance: Normal Wound edges: closed Pain (associated with wound): none at time of assessment How does patient state this happened? pt unable to state at this time Wound Number: 13 Location of the wound: left heel distal Type of wound: unstageable Thickness: Full Size: 0.3cm x 0.2cm x <0.1cm Tunneling: none Undermining: none Sinus Tract: none Presence of Exudate: none Amount: None Color: Black, brown Odor: None Periwound Skin Appearance: Normal Wound edges: approximated Pain (associated with wound): none at time of assessment How does patient state this happened? pt unsure how this happened Wound Number: 14 Location of the wound: left heel medial Type of wound: unstageable Thickness: Full Size: 0.6cm x 0.9cm x <0.1cm Tunneling: none Undermining: none Sinus Tract: none Presence of Exudate: none Amount: None Color: Black, brown Odor: None Periwound Skin Appearance: Normal Wound edges: approximated Pain (associated with wound): none at time of assessment How does patient state this happened? pt unsure how this happened Wound Number: 15 Location of the wound: left heel proximal Type of wound: unstageable Thickness: Full Size: 0.3cm x 0.7cm x <0.1cm Tunneling: none Undermining: none Sinus Tract: none Presence of Exudate: none Amount: None Color: Black, brown Odor: None Periwound Skin Appearance: Normal Wound edges: approximated Pain (associated with wound): none at time of assessment How does patient state this happened? pt unsure how this happened Surface the patient is resting on: Position Pro SKIN PREVENTION RECOMMENDATION: 1. Pressure redistribution support surface as appropriate 2. Elevate heels 3. Remove boots/TEDS every shift and reapply 4. Head of bed 30 degrees as tolerated 5. Assess nutrition and hydration 6. Manage moisture 7. Avoid the use of containment devices while in bed 8. Use absorptive products on surfaces limit layers of linens on bed 9. Turn and reposition every 1-2 hours in bed and every 1 hour in chair as tolerated 10. Weight shifts every 15 minutes while up in chair 11. Offloading with pillows or device to keep heels elevated off bed 12. Monitor skin at least every shift 13. Inspect under medical devices twice a day WOUND TREATMENT RECOMMENDATIONS: Continue heel raiser pro boots to bilateral heels while bed. D/C DTI guidelines to left medial, right lateral foot, right lateral ankle D/C full thickness guidelines D/C partial thickness guidelines D/C stage 1 guidelines Unstageable: Cleanse left heel distal, left heel medial, left heel proximal, left 3rd toe, with betadine and apply dsd daily and prn for soiling. Wheelchair cushion when oob. Full thickness guidelines: Cleanse left upper thigh above knee, right posterior lower extremity, right lateral aspect of hip, right anterior upper medial aspect of thigh, left anterior upper medial aspect of thigh distal, left anterior upper medial aspect of thigh proximal, with nss and apply sureprep around the wound therahoney to wound bed and cover with optifoam gentle. DTI guidelines: Apply sureprep to right lateral aspect of ankle, right lateral aspect of foot, left medial aspect of ankle then cover with optifoam gentle daily and prn for soiling. Cleanse left breast with soap and water and pat area dry then apply nystatin powder every 12 hours
[2019-07-04 08:05] LABS: APTT 29.8 sec (22.9-30.2)
--- NOTE | 2019-07-04 10:30 | NUR ---
Card Seller in to see patient. No new needs or request at this time. When medically stable and auth is received she will be discharged to [facility]. digital media planner following.
[2019-07-04 12:00] VITALS: BP 111/59
--- NOTE | 2019-07-04 13:35 | NUR ---
PHYSICAL THERAPY Pt seen at the on 4L supine position, per nsg ok for activity RIJ removed suture in place with dressing dry and intact. Prior to OOB performed supine 1 x 10 AP's and 1x 5 HS A-AAROM BLE Supine to sit and Sit to supine Max assist x 3 to sit at EOB Sat at EOB with close supervision 6 minutes performed 1 x 5 LAQ's BLE Scooting to HOB Mod assist x 2 for two attempts deferred standing at this time due to fatigue and oxgyen/desating. At rest 02 89-92% sitting flucuated 82% with conversation back to 92% with breathing tech and cough once supine 82-83% nsg in room and increased 02 to 5L at end of session sats 90% on 5L and nsg monitoring Pt positioned in bed for comfort heel protectors on bed alarm hospice community liaison [place] in reach. Good progress and participation in therapy today pt very motivated to "get moving" cont with POC/goals as per eval continue to recommend at SNF at discharge total rx time co-treat PT/OT 30 minutes.Tolerated well w rest breaks t/o will follow Brittany Roach PT
--- NOTE | 2019-07-04 13:40 | NUR ---
OT NOTE Patient was supine in bed with HOB elevated upon arrival, and she was agreeable to OT treatment. Patient's right IJ was removed and a suture was placed prior to treatment per chart review. Nursing gave an approval to see the patient with no additional restrictions. While supine in bed, patient participated in light grooming tasks to maximize her independence with ADLs and increase UE ROM. While supine, vitals as followed- 92% SpO2 on 4L and HR 75 bpm. Patient completed bed mobility with a Max Ax3 to the EOB, which required mod cues for safety and completion. When seated EOB, patient vitals as followed- 82-88% SpO2 on 4L and HR 87 BPM. Patient was educated on pursed lip breathing techniques to miminize dyspnea. Patient sat EOB for approximately six minutes and completed additional ROM exercises into all planes to challenge her dynamic balance. Patient scooted at a Mod Ax3 up the bed and required Max Ax3 to return to supine. Patient's vitals as followed supine- 92% SpO2 on 5L, 5L per nursing request. Patient would benefit from continued OT treatment to maximize independence and safety with ADLs. Patient progressing appropriately. Updated Goals- Dressing: Mod A upper and lower body dressing seated EOB with AE UE ROM: Light UE ROM exercises seated EOB to increase UE ROM to 3/5 ANN Mcdermott/Bhupendra
--- NOTE | 2019-07-04 14:08 | NUR ---
ATTEMPTED TO HAVE PT SIT AT SIDE OF BED WITH FEET ON FLOOR. POX DROPPED TO 82% ON 4L HIGH FLOW. INSTRUCTED TO DEEP BREATH, POX BACK TO 92%. SAT IN THIS POSITION FOR APPROX 10MINS WITH PO/OT AT BEDSIDE. ASSISTED PT BACK TO LAYING IN BED. POX AGAIN DROPPED TO 82%. TOOK A LITTLE LONGER TO RECOVER. OZ INCREASED TO 5L NC, POX BACK TO 92% AFTER INSTRUCTED TO DEEP BREATH. WILL MONITOR. PT SITTING UPRIGHT FOR LUNCH. WILL CALL RT TO HAVE PLACED ON BIPAP AGAIN FOLLOWING MEAL.
--- NOTE | 2019-07-04 14:36 | NUR ---
Updated clinicals and therapy notes faxed to Ashanti at [place] to continue precert. Waiting for auth
--- NOTE | 2019-07-04 14:59 | NUR ---
OCCUPATIONAL THERAPY CO-SIGN I approve of the Occupational Therapy notes written above. Erma Louis, OTR/L
[2019-07-04 16:00] VITALS: BP 121/48
[2019-07-04 20:00] VITALS: BP 130/57
--- NOTE | 2019-07-04 21:30 | NUR ---
PATIENT GIVEN PAIN PILL FOR BACK PAIN 09/25.
[2019-07-05] VITALS: BP 122/51
--- NOTE | 2019-07-05 05:46 | NUR ---
PATIENT HAS SLEPT THROUGH OUT THE NIGHT WITH BIPAP ON WITH NO PROBLEMS.
[2019-07-05 12:00] VITALS: BP 119/53
--- NOTE | 2019-07-05 14:47 | NUR ---
PHYSICAL THERAPY Patient supine in bed at time of arrival; patient provided informed consent for therapy session. Patient on 5L continous O2 via NC. Patient performed supine B LE ther-ex, AROM/AAROM- in order to increase strength, endurance and ROM needed to perform functional mobility: quad sets (5 sec holds) ankle PF/DF, hip ABD/ADD, heel slides, SLR, glute sets 2x10 reps. Intermittent rest breaks provided, due to fatigue and SOB. Patient benefits from cues for pacing, improved ROM and progression of exercises. Patient also provided cues for breathing with all activity- patient tends to hold breath. Performance of bed mobility: supine->sit requiring maxAx3 with patient actively participating followed by static sitting EOB for ~30 minutes while patient ate her lunch- patients O2 sats were assessed in which remained >92% while seated on 5 L continuous O2. Sit->supine requiring maxAx2, followed by scooting to HOB with maxAx2. Patient rolls from side to side with use of bed rail and Marlyn-modAx1 in order to reach full side-lying position. Cues for technique and safety provided throughout. Patient supine in bed with nurse and LEARNING SUPPORT AIDE present to address patient wound dressing at session end. Patient call light within reach. Patient voiced no c/o this date. Faina Cuellar, SERVICE DESK ASSOCIATE
[2019-07-05 16:00] VITALS: BP 130/60
--- NOTE | 2019-07-05 19:30 | NUR ---
REPORT RECEIVED ON PT. PT SITTING UP IN BED IN ROOM, BIPAP IN PLACE, RESPIRATIONS UNLABORED. PT REQUESTS TO BE TAKEN OFF OF BIPAP AT THIS TIME AND PLACED ON NASAL CANNULA. PT DENIES ANY DISTRESS/SOB/CHEST PAIN. PT PLEASANT AND COOPERATIVE WITH CARE AND ASSESSMENT AT THIS TIME. PT DENIES NEEDING ANYTHING AT THE MOMENT. ALL SAFETY MEASURES ARE IN PLACE FOR PT. CALL LIGHT IN REACH.
[2019-07-05 20:00] VITALS: BP 130/59
[2019-07-06] VITALS: BP 116/65
--- NOTE | 2019-07-06 00:30 | NUR ---
PT RESTING, NO S/S OF DISTRESS. CALL LIGHT IN REACH.
--- NOTE | 2019-07-06 06:41 | NUR ---
PT RESTING IN BED. BIPAP IN PLACE. RESPIRATIONS EASY AND UNLABORED. POX 99% HR WNL. NO S/S OF DISTRESS. ALL SAFETY MEASURES IN PLACE. CALL LIGHT IN REACH.
--- NOTE | 2019-07-06 07:10 | NUR ---
PATIENT TAKEN OFF OF BI-PAP, PLACED ON 4 L/M.
[2019-07-06 08:00] VITALS: BP 118/69
[2019-07-06 12:00] VITALS: BP 121/53
--- NOTE | 2019-07-06 14:19 | NUR ---
ALMONTE CATH REMOVED. TOLERATED WELL. WILL MONITOR.
[2019-07-06 16:00] VITALS: BP 106/61
[2019-07-06 20:00] VITALS: BP 132/64
--- NOTE | 2019-07-06 21:22 | NUR ---
TYLENOL GIVEN FOR GENERALIZED PAIN PER PATIENT REQUEST.
--- NOTE | 2019-07-06 22:19 | NUR ---
TYLENOL HELPING WITH DISCOMFORT PER PT.
--- NOTE | 2019-07-06 22:22 | NUR ---
24 HR chart check completed.
[2019-07-07] VITALS: BP 119/55
--- NOTE | 2019-07-07 07:15 | NUR ---
IN TO SEE PT. ASSESSMENT COMPLETE. NO COMPLAINTS AT THIS TIME. WILL MONITOR.
[2019-07-07 08:00] VITALS: BP 120/54
[2019-07-07 08:21] LABS: HEMATOCRIT 41.4 % (37.0-47.0); HEMOGLOBIN 12.5 g/dl (12.0-16.0); MEAN CELL VOLUME 108.4 fl (81.0-99.0); MEAN CORPUSCULAR HGB 32.7 pg (27.0-31.0); MEAN CORPUSCULAR HGB CONC 30.2 g/dl (33.0-37.0); MEAN PLATELET VOLUME 11.5 fl (9.6-12.3); PLATELET COUNT AUTOMATED 185 10*3/uL (130-400); RED BLOOD COUNT 3.82 10*6/uL (4.10-5.10); RED CELL DISTRI WIDTH 15.2 % (0-14.5); WHITE BLOOD COUNT 8.8 10*3/uL (4.8-10.8)
[2019-07-07 08:30] LABS: BUN 32 mg/dl (7-24); CHLORIDE 107 mmol/L (98-107); SODIUM 145 mmol/L (136-145)
[2019-07-07] MEDS ORDERED: ELIQUIS5 M1 PO (08:30)
[2019-07-07] MEDS ORDERED: METOPROLOL SUCC50 M1 PO (08:30)
[2019-07-07] MEDS ORDERED: HYDROXYZINE PAM25 M1 PO (08:39)
[2019-07-07] MEDS ORDERED: PREDNISONE5 MG PO (08:39)
[2019-07-07] MEDS ORDERED: CLEOCIN HCL300 MG PO (08:39)
[2019-07-07] MEDS ORDERED: ZOLPIDEM TART5 MG PO (08:39)
[2019-07-07 08:55] LABS: TOTAL CELLS COUNTED 100 #CELLS
[2019-07-07 08:56] LABS: PLATELET SUFFICIENCY NORMAL (NORMAL); STOMATOCYTE FEW
--- NOTE | 2019-07-07 09:00 | NUR ---
PHYSICAL THERAPY Patient seen this am 1:1 for therapy visit and was supine in bed upon therapist arrival. Patient identified by name / and presented with continuos O2-5L via NC and recorded resting HR 65 bpm prior to treatment. Patient voices no new c/o's and transfers supine to sit EOB with MOD A x 2 as OT dental laboratory assistant was present this session for observation only. Patient tolerated 5-6 minutes static EOB sit, SBA and agreed to attempt sit to stand transfer for the first time in several weeks. Patient educated on safe transfer technique, then performed sit to stand, MOD/GASOLINE TRACTOR OPERATOR, tolerating 30-45 seconds static stand before quick onset of fatigue. Patient was very happy stating it felt good to stand up again. Patient completed second sit to stand MOD A with use of wh walker standing support and able to take 2-3 L side steps for pre bed positioning. Patient remained EOB sit with call light, tray table and telephone as breakfast arrived. Will continue per POC as tolerated, total treatment time 16 minutes. Kings Ferraro, BADGER DISTILLER OPERATOR
--- NOTE | 2019-07-07 09:16 | NUR ---
OT NOTE Pt was seen this A.M. 1:1 for 26 minute OT session. Upon arrival pt was supine in bed. Pt identified by name and and had no complaints at this time. Pt presented to therapy with continuous 5L-O2 via NC which she remained on throughout the entire session. Pt transferred supine to sit EOB with modA X 2. While sitting EOB challenged pt's dynamic sitting balance while weight shifting, crossing midline, and reaching over all planes. Pt was able to maintain F- sitting balance requiring UE support. Pt completed multiple sit to stand transfers from bed level with modA X 2 and use of w/w for UE support. Challenged pt's static standing tolerance needed for increased I in self care tasks and functional transfers. Pt was able to tolerate aprox 30-45 seconds at a time before sitting due to fatigue. Pt was left sitting upright on the EOB with call light in hand, tray table in place, and phone in reach. Continue with POC as able. GUSTAVO Taylor/Bhupendra
--- NOTE | 2019-07-07 11:16 | NUR ---
Updates faxed to [facility]. Ashanti contacted insurance and stated auth is still good for today. Notified them patient is discharged and will need a bipap machine. Ashanti stated the bipap has been ordered and will arrive today. Faxed DC orders.
--- NOTE | 2019-07-07 11:32 | NUR ---
Patient is discharged to [facility], transportation scheduled with [facility] at 12 noon. NH, nursing/stewardess supervisor notified. Attempted to contact patients son but line only rings a constant busy signal. unable to contact or leave message.
[2019-07-07 11:39] VITALS: BP 119/60
--- NOTE | 2019-07-07 12:01 | NUR ---
NURSE TO NURSE REPORT GIVEN TO NURSE ACOSTA AT [facility].
--- NOTE | 2019-07-07 12:01 | NUR ---
[facility] TE[facility] HERE TO TAKE PT TO [facility] AT THIS TIME.
--- NOTE | 2019-07-07 12:02 | NUR ---
Discharge instructions reviewed with patient/family. Patient receptive and verbalizes understanding. Follow-up care arranged. Written instructions given to patient/family. IV TAKEN OUT, MONITOR ACCOUNTED FOR. SALINAS MENESES
--- NOTE | 2019-07-09 07:26 | NUR ---
PHYSICAL THERAPY CO-SIGN I approve of the Physical Therapy notes written above. Brittany Roach PT
--- NOTE | 2019-07-09 07:33 | NUR ---
OCCUPATIONAL THERAPY CO-SIGN I approve of the Occupational Therapy notes written above. Erma Louis, OTR/L
[2019-08-13 10:07] LABS: ACID FAST CULTURE Negative (.)
== END 2019-07-07 12:08 | disposition other institution (70) | DRG 208 ==
LOC: ED 15:39 → ICCU 18:23 → 4E 18:23 → EDHOLD 18:23 → 4E 06-27 08:14 → ICCU 06-27 08:31 → 4E 07-01 14:22
PROVIDERS: Emergency Medicine; Internal Medicine Critical Care Medicine; Nurse Practitioner Family; ADMIT Internal Medicine
PROC: 5A09357 Assistance with Respiratory Ventilation, Less than 24 Consecutive Hours, Continuous Positive Airway Pressure (ICD-10-PCS; principal; 2019-06-26)
PROC: 0BH17EZ Insertion of Endotracheal Airway into Trachea, Via Natural or Artificial Opening (ICD-10-PCS; 2019-06-27)
PROC: 5A1945Z Respiratory Ventilation, 24-96 Consecutive Hours (ICD-10-PCS; 2019-06-27)
PROC: 5A09357 Assistance with Respiratory Ventilation, Less than 24 Consecutive Hours, Continuous Positive Airway Pressure (ICD-10-PCS; 2019-06-27)
PROC: 0HBJXZZ Excision of Left Upper Leg Skin, External Approach (ICD-10-PCS; 2019-06-27)
PROC: 0B968ZZ Drainage of Right Lower Lobe Bronchus, Via Natural or Artificial Opening Endoscopic (ICD-10-PCS; 2019-06-29)
PROC: 0B948ZZ Drainage of Right Upper Lobe Bronchus, Via Natural or Artificial Opening Endoscopic (ICD-10-PCS; 2019-06-29)
PROC: 0B9B8ZZ Drainage of Left Lower Lobe Bronchus, Via Natural or Artificial Opening Endoscopic (ICD-10-PCS; 2019-06-29)
PROC: 0B9D8ZZ Drainage of Right Middle Lung Lobe, Via Natural or Artificial Opening Endoscopic (ICD-10-PCS; 2019-06-29)
PROC: 0B9G8ZZ Drainage of Left Upper Lung Lobe, Via Natural or Artificial Opening Endoscopic (ICD-10-PCS; 2019-06-29)
PROC: 0B918ZZ Drainage of Trachea, Via Natural or Artificial Opening Endoscopic (ICD-10-PCS; 2019-06-29)
PROC: 0B998ZZ Drainage of Lingula Bronchus, Via Natural or Artificial Opening Endoscopic (ICD-10-PCS; 2019-06-29)
PROC: 5A09357 Assistance with Respiratory Ventilation, Less than 24 Consecutive Hours, Continuous Positive Airway Pressure (ICD-10-PCS; 2019-06-30)
PROC: 5A09357 Assistance with Respiratory Ventilation, Less than 24 Consecutive Hours, Continuous Positive Airway Pressure (ICD-10-PCS; 2019-07-01)
PROC: 02H633Z Insertion of Infusion Device into Right Atrium, Percutaneous Approach (ICD-10-PCS; 2019-07-02)
PROC: 5A09357 Assistance with Respiratory Ventilation, Less than 24 Consecutive Hours, Continuous Positive Airway Pressure (ICD-10-PCS; 2019-07-03)
PROC: 30233K1 Transfusion of Nonautologous Frozen Plasma into Peripheral Vein, Percutaneous Approach (ICD-10-PCS; 2019-07-03)
PROC: 5A09357 Assistance with Respiratory Ventilation, Less than 24 Consecutive Hours, Continuous Positive Airway Pressure (ICD-10-PCS; 2019-07-04)
PROC: 5A09357 Assistance with Respiratory Ventilation, Less than 24 Consecutive Hours, Continuous Positive Airway Pressure (ICD-10-PCS; 2019-07-05)
PROC: 5A09357 Assistance with Respiratory Ventilation, Less than 24 Consecutive Hours, Continuous Positive Airway Pressure (ICD-10-PCS; 2019-07-06)
PROC: 5A09357 Assistance with Respiratory Ventilation, Less than 24 Consecutive Hours, Continuous Positive Airway Pressure (ICD-10-PCS; 2019-07-07)
DX: J96.02 Acute respiratory failure with hypercapnia (principal); I50.33 Acute on chronic diastolic (congestive) heart failure; J44.1 Chronic obstructive pulmonary disease with (acute) exacerbation; Z68.43 Body mass index [BMI] 50.0-59.9, adult; N17.9 Acute kidney failure, unspecified; J44.0 Chronic obstructive pulmonary disease with (acute) lower respiratory infection; E87.3 Alkalosis; R58 Hemorrhage, not elsewhere classified; L03.90 Cellulitis, unspecified; N39.0 Urinary tract infection, site not specified; F33.0 Major depressive disorder, recurrent, mild; I48.92 Unspecified atrial flutter; L97.123 Non-pressure chronic ulcer of left thigh with necrosis of muscle; J20.9 Acute bronchitis, unspecified; J96.01 Acute respiratory failure with hypoxia; B95.62 Methicillin resistant Staphylococcus aureus infection as the cause of diseases classified elsewhere; I48.0 Paroxysmal atrial fibrillation; I11.0 Hypertensive heart disease with heart failure; R62.7 Adult failure to thrive; F51.01 Primary insomnia; E66.01 Morbid (severe) obesity due to excess calories; F41.1 Generalized anxiety disorder; I25.10 Atherosclerotic heart disease of native coronary artery without angina pectoris; G47.33 Obstructive sleep apnea (adult) (pediatric); B96.4 Proteus (mirabilis) (morganii) as the cause of diseases classified elsewhere; K21.0 Gastro-esophageal reflux disease with esophagitis; E11.9 Type 2 diabetes mellitus without complications; Z96.642 Presence of left artificial hip joint; Z96.652 Presence of left artificial knee joint; Z99.81 Dependence on supplemental oxygen; Z79.01 Long term (current) use of anticoagulants; Z87.891 Personal history of nicotine dependence; Z83.3 Family history of diabetes mellitus; Z82.49 Family history of ischemic heart disease and other diseases of the circulatory system; Z80.0 Family history of malignant neoplasm of digestive organs

== ENCOUNTER 2019-10-14 10:54 | Inpatient (IN) | payer MEDICARE, MEDICAID ==
[2019-10-14] VITALS (7 sets, daily range): BP systolic 97–148; BP diastolic 51–97
[~2019-10-14] VITALS: Ht 160 cm; Wt 137.5 kg
[~2019-10-14 10:54] MED LIST changes: +CLEOCIN HCL300 MG PO; +ELIQUIS5 M1 PO; +HYDROXYZINE PAM25 M1 PO; +METOPROLOL SUCC50 M1 PO; +ZITHROMAX TRI-500 M1 PO; +ZOLPIDEM TART5 MG PO
[2019-10-14 11:27] LABS: HEMATOCRIT 48.1 % (37.0-47.0); MEAN CELL VOLUME 95.8 fl (81.0-99.0); MEAN CORPUSCULAR HGB 29.3 pg (27.0-31.0); MEAN CORPUSCULAR HGB CONC 30.6 g/dl (33.0-37.0); MEAN PLATELET VOLUME 10.4 fl (9.6-12.3); NUCLEATED RED BLOOD CELL 0.1 10*3/uL (0.0-0.0); NUCLEATED RED BLOOD CELL 0.6 % (0.0-0.0); PLATELET COUNT AUTOMATED 275 10*3/uL (130-400); RED BLOOD COUNT 5.02 10*6/uL (4.10-5.10); RED CELL DISTRI WIDTH 15.6 % (0-14.5); WHITE BLOOD COUNT 15.8 10*3/uL (4.8-10.8)
[2019-10-14 11:28] LABS: ABG BASE EXCESS 19.7 mmol/L (-2.0-2.0); ARTERIAL BLOOD GAS PH 7.467 (7.35-7.45)
[2019-10-14 11:37] LABS: ACT PARTIAL THROMBO TIME 25.4 SECONDS (20.0-32.1); INTERNATIONAL NORM RATIO 1.8 (2.0-3.5)
[2019-10-14 11:43] LABS: ALBUMIN 2.5 gm/dl (3.1-4.5); CREATININE 1.75 mg/dL (0.55-1.02); POTASSIUM 2.8 mmol/L (3.5-5.1); TOTAL PROTEIN 8.2 gm/dL (6.4-8.2)
[2019-10-14 11:54] LABS: TOTAL CELLS COUNTED 100 #CELLS
[2019-10-14 11:55] LABS: PLATELET SUFFICIENCY NORMAL (NORMAL); POLYCHROMASIA SLIGHT
[2019-10-14 12:00] LABS: TROPONIN I 0.468 ng/ml (<0.045)
--- NOTE | 2019-10-14 12:10 | NUR ---
PT RESTING ON BI-PAP POX 84% ON FIO2 OF 35% , RESPIRATORY CALLED TO INCREASED 02.
--- NOTE | 2019-10-14 12:16 | NUR ---
[facility] RESULTS CALLED, NOTIFED DR DUBOIS.
--- NOTE | 2019-10-14 12:18 | NUR ---
PT FIO2 INCREASED TO 50% , POX 93%, WILL CONTINUE TO MONITOR.
--- NOTE | 2019-10-14 14:30 | NUR ---
PT TRANSFERED TO ICU 5 IN STABLE CONDITION. WITH ALL BELONGINGS.
--- NOTE | 2019-10-14 14:40 | NUR ---
A 59yr old female, admitted to ICCU, under the services of FRITZ Bacon MD with a diagnosis of ACUTE RESPIRATORY FAILURE WITH HYPOXIA, COPD EXACERBATION. Chief complaint is increased shortness of breath at [facility]. Patient arrived via stretcher from [place]. Monitor applied. Initial assessment completed. Vital signs taken and recorded. Dr Moreland saw patient in ER prior to her coming to ICCU. See assessment for past medical history, medications and allergies. Patient and/or family oriented to unit. [facility] ICCU visitation policy reviewed. Clothing/patient valuable form completed. Patient arrives with multiple (at least 11 wounds) of her bilateral lower legs/buttocks. Photos/documentation of 4 wounds were taken in ER. Pt too SOB to position for any further photos at this time. LÓPEZ PAZ L
--- NOTE | 2019-10-14 15:04 | NUR ---
PATIENT IS FROM [facility]. PATIENT IS ABLE TO RETURN WHEN MEDICALLY STABLE [facility]
[2019-10-14] MEDS ORDERED: TYLENOL325 M1 PO (15:08)
[2019-10-14] MEDS ORDERED: VENTOLIN 02.5 MG/3 M INH (15:09)
[2019-10-14] MEDS ORDERED: DULCOLAX10 M1 R (15:11)
[2019-10-14] MEDS ORDERED: BUMETANIDE1 MG PO (15:12)
[2019-10-14] MEDS ORDERED: QUESTRAN POWDE378 GM PO (15:14)
[2019-10-14] MEDS ORDERED: DALIRESP500 MC1 PO (15:19)
[2019-10-14] MEDS ORDERED: FLONASE ALLERG9.9 ML NAS (15:21)
[2019-10-14] MEDS ORDERED: SALMETEROL INH (15:27)
[2019-10-14] MEDS ORDERED: FLUTICASONE INH (15:27)
[2019-10-14] MEDS ORDERED: NYSTATIN CREAM15 GM T (15:29)
[2019-10-14] MEDS ORDERED: PREDNISONE20 M1 PO (15:32)
[2019-10-14] MEDS ORDERED: TRAMADOL HCL50 MG PO (15:33)
[2019-10-14] MEDS ORDERED: VENLAFAXINE HY150 M2 PO (15:34)
[2019-10-14] MEDS ORDERED: VITAMIN C500 M6 PO (15:37)
[2019-10-14] MEDS ORDERED: ZINC-220220 MG PO (15:40)
[2019-10-14] MEDS ORDERED: VITAMIN D350 MC2 PO (15:40)
--- NOTE | 2019-10-14 16:06 | NUR ---
DR MORENO CALLED, UPDATED ON ADMISSION ASSESSMENT, REVIEWED HOME MEDICATIONS. ORDERS RECEIVED.
--- NOTE | 2019-10-14 16:58 | NUR ---
DR MORENO NOTIFIED OF CRITCAL TROPONIN 0.398 WHICH HAS DECREASED FROM INITIAL 0.468 AND LACTIC ACID OF 2.1 DOWN FROM 3.0. REVIEWED OTHER LABS. ORDERS RECEIVED.
[2019-10-14 17:06] LABS: COLOR YELLOW (YELLOW)
[2019-10-14 17:07] LABS: BILIRUBIN NEGATIVE (NEGATIVE); BLOOD 2+ (NEGATIVE); CLARITY CLOUDY (CLEAR); GLUCOSE NEGATIVE (NEGATIVE); KETONE NEGATIVE (NEGATIVE); LEUKO ESTERASE 2+ (NEGATIVE); NITRITE POSITIVE (NEGATIVE); SPECIFIC GRAVITY 1.015 (1.005-1.030); UROBILINOGEN 0.2 E.U./dl (0.2-1.0)
[2019-10-14 17:11] LABS: BACTERIA 4+; MUCOUS 2+; WBC 21-30 wbc/hpf (0-5)
--- NOTE | 2019-10-14 17:27 | NUR ---
ABLE TO GET MORE WOUND PHOTOS DONE WHEN WE APPLIED DRESSINGS/HONEY TO THEM.
--- NOTE | 2019-10-14 18:46 | NUR ---
10:55 PT ADMITTED TO DEM. PT PLACED ON BIPAP 20/10 35%. RESPS UNLABORED ON BIPAP. SYSTEM CHECKED AND FX'ING. SPO2 93% HR 80/M. RR 17 VST 800
--- NOTE | 2019-10-14 18:55 | NUR ---
12:30 PT REMAINS IN DEN ON BIPAP. CALLED TO PT'S ROOM : SPO2 APPROX 85% FIO2 TITRATED TO 70%. SPO2 93%.
--- NOTE | 2019-10-14 18:56 | NUR ---
13:23 PT REMAINS IN DEM. ON BIPAP: 20/10 70%. RESPS REGULAR AND UNLABORED. RR 17 VST 1350 SPO2 96% SPO2 96% SYSTEM CHECKED AND FX'ING.
--- NOTE | 2019-10-14 19:00 | NUR ---
14:20 PT TRANSPORTED TO ICU VIA 100% NRB WITHOUT INCIDENT.
[2019-10-14 19:31] LABS: CREATININE 1.37 mg/dL (0.55-1.02); POTASSIUM 2.6 mmol/L (3.5-5.1)
--- NOTE | 2019-10-14 20:04 | NUR ---
UPDATED DR DOAN ON STAT BMP. NEW ORDERS FOR K-DUR NOW AND 2200PM. ORDER READ BACK.
--- NOTE | 2019-10-14 20:24 | NUR ---
FULL ASSESSMENT DONE. BIPAP IN PLACE. REMOVED FOR ORAL CARE. CLIENT AGGITATED WITH HANDS ON CARE. NODS HEAD YES AND NO TO QUESTIONS. DRESSINGS TO WOUNDS INTACT. IV NSS AT 70ML/HR INFUSIONING. WILL CONTINUE TO MONITOR AND TURN CLIENT Q 2 HOURS AND PRN
--- NOTE | 2019-10-14 21:44 | NUR ---
CLIENT DESATS WHEN IN DEEP SLEEP. AWAKEN AND PULSE OX UP. RESP THERAPY NOTIFIED AND INCREASED O2 ON BIPAP TO 60%
--- NOTE | 2019-10-14 22:12 | NUR ---
CLIENT DESATS QUICKLY WHEN BIPAP OFF FOR ORAL CARE OR MEDICATION. DIFFICULTY TO GET PO MEDS IN. MODERATE RETURN TO ACCEPTABLE PO 93-94%. WILL MONITOR
[2019-10-15] VITALS (17 sets, daily range): BP systolic 100–123; BP diastolic 49–79
--- NOTE | 2019-10-15 00:28 | NUR ---
MORE AGGITATED AT THIS TIME. KEEPS PULLING LEADS OFF AND BIPAP TUBING OFF. REORIENTED TO PLACE AND TIME. WILL MONITOR CLOSELY
--- NOTE | 2019-10-15 00:54 | NUR ---
24 HR chart check completed.
--- NOTE | 2019-10-15 02:04 | NUR ---
AWAKE. ASSISTED IN REPOSITIONING. HOB UP. BIPAP ON. NO C/O
--- NOTE | 2019-10-15 04:19 | NUR ---
ANSWERING QUESTIONS WITH OCCATIONAL NONSENSICAL SPEECH. ATTEMPTS TO FOLLOW COMMDANDS. UNABLE TO MOVE SELF MUCH IN BED. ORAL CARE DONE
--- NOTE | 2019-10-15 05:21 | NUR ---
WOUND CARE HERE. WOUNDS EVALUATED AND DRESSINGS TO LOWER LEG AND FEET CHANGED. SEE WOUND CARE NOTES. MORE ALERT AT THIS TIME. PARTIAL BED BATH DONE AFTER WOUND CARE LEFT. ORAL CARE COMPLETED.
[2019-10-15 05:54] LABS: HEMATOCRIT 46.7 % (37.0-47.0); MEAN CELL VOLUME 98.1 fl (81.0-99.0); MEAN CORPUSCULAR HGB 29.8 pg (27.0-31.0); MEAN CORPUSCULAR HGB CONC 30.4 g/dl (33.0-37.0); MEAN PLATELET VOLUME 10.9 fl (9.6-12.3); NUCLEATED RED BLOOD CELL 0.1 10*3/uL (0.0-0.0); NUCLEATED RED BLOOD CELL 0.4 % (0.0-0.0); PLATELET COUNT AUTOMATED 248 10*3/uL (130-400); RED BLOOD COUNT 4.76 10*6/uL (4.10-5.10); RED CELL DISTRI WIDTH 15.6 % (0-14.5); WHITE BLOOD COUNT 15.7 10*3/uL (4.8-10.8)
[2019-10-15 06:02] LABS: ABG BASE EXCESS 22.1 mmol/L (-2.0-2.0); ARTERIAL BLOOD GAS PH 7.466 (7.35-7.45)
[2019-10-15 06:20] LABS: ALBUMIN 2.4 gm/dl (3.1-4.5); BUN 51 mg/dl (7-24); CHLORIDE 93 mmol/L (98-107); CREATININE 1.11 mg/dL (0.55-1.02); POTASSIUM 3.3 mmol/L (3.5-5.1); SODIUM 143 mmol/L (136-145)
[2019-10-15 06:22] LABS: INTERNATIONAL NORM RATIO 1.5 (2.0-3.5)
[2019-10-15 06:26] LABS: ALKALINE PHOSPHATASE 162 U/L (45-117); TOTAL PROTEIN 7.8 gm/dL (6.4-8.2)
[2019-10-15 06:46] LABS: SGOT/AST 1105 IU/L (3-35)
[2019-10-15 06:47] LABS: SGPT/ALT 1726 U/L (12-78)
--- NOTE | 2019-10-15 07:20 | NUR ---
Shift chart check completed.24 HR chart check completed.
--- NOTE | 2019-10-15 07:24 | NUR ---
Spoke with Rosaline ACUNA caring for patient states she will inform Dr. Dewitt of wound care recommendations.
[2019-10-15 07:25] LABS: PLATELET SUFFICIENCY NORMAL (NORMAL); TOTAL CELLS COUNTED 100 #CELLS
--- NOTE | 2019-10-15 07:41 | NUR ---
JAJA SENA [id number] Please refer to the physician's history and physical for past medical history, comorbid conditions, and allergies. Diagnosis: AC RESPIRATORY FAILURE W/HYPOXIA COPD EXAC Familia Score: 9,VERY HIGH RISK WOUND DESCRIPTIONS: Wound Number: 1 Location of the wound: right left (lateral ankle) Type of wound: unstageable Thickness: Full Size: 4.0cm x 4.5cm x 0.1cm Tunneling: none Undermining: none Sinus Tract: none Presence of Exudate: Seroanguineous Amount: Heavy Color: Black, red, yellow Odor: Foul Periwound Skin Appearance: Erythema Wound edges: approximated Pain (associated with wound): tender to touch How does patient state this happened? pt unable to state how these happened Wound Number: 2 Location of the wound: right leg ( achilles area ) Type of wound: unstageable Thickness: Full Size: 8.0cm x 4.7cm x 0.1cm Tunneling: none Undermining: none Sinus Tract: none Presence of Exudate: Serosanguineous Amount: Heavy Color: Red, Yellow Odor: Foul Periwound Skin Appearance: Erythema Wound edges: approximated Pain (associated with wound): tender to touch How does patient state this happened? pt unable to state how this happened Wound Number: 3 Location of the wound: left thigh anterior ( lower ) scar tissue noted at time of assessment no drainage at time of assessment Wound Number: 4 Location of the wound: right toe between 2nd and 3rd toe medial aspect Type of wound: unstageable Thickness: Full Size: 1.2cm x 0.6cm x 0.1cm Tunneling: none Undermining: none Sinus Tract: none Presence of Exudate: Purluent Amount: Light Color: Red, yellow, brown Odor: Foul Periwound Skin Appearance: Erythema Wound edges: approximated Pain (associated with wound): tender to touch How does patient state this happened? pt unable to state how this happened Wound Number: 5 Location of the wound: left heel Type of wound: DTI Thickness: Full Size: 6.5cm x 8.0cm x 0.1cm Tunneling: none Undermining: none Sinus Tract: none Presence of Exudate: none Amount: none Color: Red, purple Odor: None Periwound Skin Appearance: Erythema Wound edges: intact serum filled blister Pain (associated with wound): tender to touch How does patient state this happened? pt unable to state how this happened Wound Number: 6 Location: Left posterior thigh red and blanchable at time of assessment. No drainage noted at time of assessment. No open areas noted at time of assessment. Wound Number: 7 Location of the wound: left inner knee Type of wound: unstageable Thickness: Full Size: 1.8cm x 1.3cm x 0.1cm Tunneling: none Undermining: none Sinus Tract: none Presence of Exudate: Serousanguineous Amount: Light Color: Red, yellow Odor: None Periwound Skin Appearance: Erythema Wound edges: approximated Pain (associated with wound): tender to touch How does patient state this happened? pt unable to state how this happened Wound Number: 8 Location of the wound: right ankle Below ankle bone Type of wound: unstageable Thickness: Full Size: 1.5cm x 2.0cm x 0.1cm Tunneling: none Undermining: none Sinus Tract: none Presence of Exudate: Serousanguineous Amount: Light Color: Red, yellow Odor: None Periwound Skin Appearance: Erythema Wound edges: approximated Pain (associated with wound): tender to touch How does patient state this happened? pt unable to state how this happened Wound Number: 9 Location of the wound: right upper thigh posterior Type of wound: stage 3 Thickness: Full Size: 3.0cm x 4.5cm x 0.1cm Tunneling: none Undermining: none Sinus Tract: none Presence of Exudate: Serosanguineous Amount: Light Color: Red, yellow Odor: None Periwound Skin Appearance: Erythema Wound edges: approximated Pain (associated with wound): tender to touch How does patient state this happened? pt unable to state how this happened Wound Number: 10 Location of the wound: right posterior thigh Type of wound: stage 3 Thickness: Full Size: 1.7cm x 1.2cm x 0.1cm Tunneling: none Undermining: none Sinus Tract: none Presence of Exudate: Serosanguineous Amount: Heavy Color: Red Odor: None Periwound Skin Appearance: Erythema Wound edges: approximated Pain (associated with wound): tender to touch How does patient state this happened? pt unable to state how this happened Left ankle is red and blanchable at time of assessment. No open areas noted at time of assessment. Surface the patient is resting on: Position Pro SKIN PREVENTION RECOMMENDATION: 1. Pressure redistribution support surface as appropriate 2. Elevate heels 3. Remove boots/TEDS every shift and reapply 4. Head of bed 30 degrees as tolerated 5. Assess nutrition and hydration 6. Manage moisture 7. Avoid the use of containment devices while in bed 8. Use absorptive products on surfaces limit layers of linens on bed 9. Turn and reposition every 1-2 hours in bed and every 1 hour in chair as tolerated 10. Weight shifts every 15 minutes while up in chair 11. Offloading with pillows or device to keep heels elevated off bed 12. Monitor skin at least every shift 13. Inspect under medical devices twice a day WOUND TREATMENT RECOMMENDATIONS: Consult podiatry for areas to bilateral lower extremites for possible debridement if studies allow Venous and arterial studies to ble due to non-healing wounds Imaging studies of right foot due to non-healing wounds Cleanse areas to bilateral lower extremities and in between toes with nss paint with betadine cover with adaptic apply abd pad and lightly wrap with kerlix Full thickness guidelines: Clease left inner knee, left anterior thigh and right posterior thigh with nss and apply sureprep around the wound therahoney to wound bed and cover with optifoam gentle daily and prn for soiling. Wheelchair cushion when oob. Elevate heels as tolerated with pillows.
--- NOTE | 2019-10-15 08:00 | NUR ---
PATIENT TAKEN OFF OF BI-PAP, PLACED ON HI-FLOW @ 14 L/M. PULSE OX 93%.
[2019-10-15 08:08] LABS: HEP B CORE AB, IGM Negative (Negative); HEPATITIS B SURFACE AG Negative (Negative); HEPATITIS C VIRUS ANTIBODY 0.2 s/co (0.0-0.9)
--- NOTE | 2019-10-15 08:28 | NUR ---
DR MORENO HAS VISITED. I MADE HER AWARE OF WOUND CARE'S RECOMMENDATION FOR PODIATRY CONSULT. THE DRESSINGS WERE REMOVED FROM BOTH FEET FOR DR MORENO TO VISUALIZE THE WOUNDS. PT WAS TAKEN FROM BIPAP TO 6L NASAL CANNULA BECAUSE SHE WAS BEGGING TO EAT. RESPIRATORY THEN TITRATED HER UP TO 16 L/MIN HIGH FLOW CANNULA TO ACHIEVE A PULSE OX OF 92%. HER HR HAS ELEVATED TO 140'S. DR MORENO ASKED HER ABOUT INTUBATION AND SHE SAID "OKAY, BUT I WANT TO GO BACK TO [facility] SOON I CAN". 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 SHE ATE ONLY A FEW BITES OF BREAKFAST AND DRANK ALL OF COLA AND GOT HER AM MEDS WITHOUT DIFFICULTY SWALLOWING. RESPIRATORY THERAPY HAS RETURNED TO [facility] AND IS PUTTING HER BACK ON BIPAP DUE TO INCREASED WORK OF BREATHING AND ELEVATED HEART RATE.
--- NOTE | 2019-10-15 08:30 | NUR ---
PATIENT PLACED BACK ON BI-PAP DUE TO LABORED BREATHING.
--- NOTE | 2019-10-15 09:00 | NUR ---
Patient is a LTC resident at [facility]. discharge planner following.
--- NOTE | 2019-10-15 09:31 | NUR ---
DR DOAN HAS VISITED, EXAMINED PT. FIO2 HAS BEEN TITRATED UP TO 50% VIA BIPAP. PT IS DROWSY BUT AROUSES TO HIM. HE WILL HAVE ANESTHESIA COME TO INTUBATE PT AFTER THE HUDDLE MEETING ON THE COVID FLOOR. ORDERS FOR SEDATION/VENT SETTINGS GIVEN.
--- NOTE | 2019-10-15 09:38 | NUR ---
PT'S SON, TNOY, CALLED AND INFORMED THAT HIS MOTHER HAD TOLD DR MORENO EARLIER THAT SHE WOULD BE OKAY TO BE INTUBATED. HE ALSO GAVE PERMISSION TO MYSELF AND DAREN MADISON FOR THE INTUBATION.
--- NOTE | 2019-10-15 09:39 | NUR ---
PHYSICAL THERAPY Screen received pt admitted from [facility] where she is a resident per chart. Admitted for respiratory failure and tracheobronchitis. Please consult PT if pt has a decline functional status from baseline, thank you. Brittany Roach PT
--- NOTE | 2019-10-15 09:40 | NUR ---
Patient comes from [facility], she is ok to return when medically stable for discharge.
--- NOTE | 2019-10-15 09:51 | NUR ---
PROPAGATOR LABORER NOTIFIED THAT PT WILL BE INTUBATED THIS AM.
--- NOTE | 2019-10-15 09:58 | NUR ---
DR FREEMAN NOTIFIED OF CONSULTATION.
--- NOTE | 2019-10-15 10:15 | NUR ---
DR FREEMAN VISITED, LOOKED AT PTS FEET/ANKLES AND RECOMMENDS PODIATRY CONSULT.
--- NOTE | 2019-10-15 11:00 | NUR ---
VERSED 5MG FOR RESTLESS AFTER INTUBATION AND BEFORE DIPRIVAN STARTED. IMMEDIATELY EFFECTIVE.
--- NOTE | 2019-10-15 11:20 | NUR ---
PT ORALLY INTUBATE AT [address] ALARCON, USING 20MG ETOMIDATE AND 100MG OF SUCCINYCHOLINE FOR SEDATION. ANESTHESIA IN ROOM FOR STANDBY. OGT PLACED. PORTABLE CXR DONE. PROPOFOL STARTED AT 10MCG/KG/MIN, TITRATED TO 15, THEN 20MCG/KG/MIN WITH ADEQUATE SEDATION. SPUTUM SPECIMEN OBTAINED THICK YELLOW/LONG MUCUS.
--- NOTE | 2019-10-15 11:41 | NUR ---
PODIATRY RESIDENT NOTIFIED OF CONSULTATION. AM LEAVING THE WOUNDS UNWRAPPED UNTIL THEY SEE PATIENT. PT RESTING QUIETLY WITH ADEQUATE SEDATION.
--- NOTE | 2019-10-15 12:07 | NUR ---
PODIATRY HERE, THEY TOOK CULTURE FROM RT ANKLE WOUND. THEY REWRAPPED BOTH FEET. THEY SAID THEY WOULD ENTER ORDERS.
--- NOTE | 2019-10-15 12:45 | NUR ---
VERSED 5MG IV FOR RESTLESSNESS RELATED TO POSITIONING LEGS FOR BILATERAL FEET XRAYS. THIS WAS IMMEDIATELY EFFECTIVE.
[2019-10-15 13:14] LABS: ABG BASE EXCESS 18.6 mmol/L (-2.0-2.0); ARTERIAL BLOOD GAS PH 7.397 (7.35-7.45)
--- NOTE | 2019-10-15 15:23 | NUR ---
Nursing screen received and chart reviewed. Patient admitted for respiratory failure and is currently intubated per chart review. Patient admitted from [facility]. If patient has a decline in ADLs, transfers, or mobility, please send OT orders when medically appropriate. Thank you. Erma Louis, OTR/L
--- NOTE | 2019-10-15 17:06 | NUR ---
PT HAS BEEN RESTING EASILY SINCE INTUBATION. DIPRIVAN DRIP CONTINUES AT 20MCG/KG/MIN. SHE'S BEEN REPOSITIONED Q2H WITH HER HEEL RISERS ON. THE CXR SAID THAT OGT SEEN MIDCHEST. DR DOAN HAD BEEN CALLED EARLIER WITH THE POST INTUBATION ABG'S AND I ASKED HIM TO LOOK AT FILMS. HE SAID OKAY TO USE OGT. HE CAN SEE LOWER CHEST/UPPER ABDOMINAL FILMS THAT WERE TAKEN AND SEE THE OGT. OKAY TO USE. PULMOCARE HAS BEEN STARTED AT 20ML/HR PER ORDER.
--- NOTE | 2019-10-15 20:00 | NUR ---
PT RESTING IN BED WITH EYES CLOSED, AWAKENS WITH VERBAL STIMULATION. ENDOTUBE PATENT, TIES SECURE, VENT SETTINGS VERIFIED AND FUNCTIONING WITHOUT DIFFICULTY. OGT PATENT, PLACEMENT VERIFIED VIA AIR BOLUS, TF INFUSING AND MAYA WELL. HEPLOCKS PATENT AND DIPRIVAN INFUSING ORDERED FOR SEDATION AND EFFECTIVE. ALMONTE PATENT FOR DARK RENETTA URINE. NO ACUTE DISTRESS OR DISCOMFORT NOTED.
[2019-10-16] VITALS (13 sets, daily range): BP systolic 94–118; BP diastolic 37–71
--- NOTE | 2019-10-16 03:23 | NUR ---
Upon discharge recommend patient to follow up for wound care in outpatient setting continue current wound care orders at discharging facility.
[2019-10-16 06:01] LABS: ALBUMIN 2.2 gm/dl (3.1-4.5); BILIRUBIN, DIRECT 0.8 mg/dL (0.0-0.2); CREATININE 1.14 mg/dL (0.55-1.02); POTASSIUM 3.6 mmol/L (3.5-5.1); TOTAL PROTEIN 7.1 gm/dL (6.4-8.2); TOTAL PROTEIN 7.2 gm/dL (6.4-8.2)
[2019-10-16 06:35] LABS: HEMATOCRIT 43.9 % (37.0-47.0); MEAN CELL VOLUME 96.7 fl (81.0-99.0); MEAN CORPUSCULAR HGB 29.1 pg (27.0-31.0); MEAN CORPUSCULAR HGB CONC 30.1 g/dl (33.0-37.0); MEAN PLATELET VOLUME 11.3 fl (9.6-12.3); NUCLEATED RED BLOOD CELL 0.2 % (0.0-0.0); PLATELET COUNT AUTOMATED 267 10*3/uL (130-400); RED BLOOD COUNT 4.54 10*6/uL (4.10-5.10); RED CELL DISTRI WIDTH 15.9 % (0-14.5); WHITE BLOOD COUNT 17.7 10*3/uL (4.8-10.8)
--- NOTE | 2019-10-16 07:00 | NUR ---
PT AGITATED AND MOVING AROUND IN BED. MEDICATED WITH VERSED PER PRN ORDER.
[2019-10-16 07:15] LABS: ABG BASE EXCESS 21.6 mmol/L (-2.0-2.0); ARTERIAL BLOOD GAS PH 7.482 (7.35-7.45)
[2019-10-16 07:45] LABS: PLATELET SUFFICIENCY NORMAL (NORMAL); TOTAL CELLS COUNTED 100 #CELLS
--- NOTE | 2019-10-16 08:59 | NUR ---
PATIENT INTUBATED/SEDATED. SEDATION VACATION FROM DIPRIVAN GTT. PATIENT FOLLOWED COMMANDS TO OPEN EYES. PATIENT THEN BEGAN PULLING AT RESTRAINTS REPEATEDLY. DIPRIVAN GTT RESTARTED. MEDICATED WITH VERSED PER PRN ORDER. LUNGS DIMINISHED. POX 93% ON 50% FIO2.
--- NOTE | 2019-10-16 09:24 | NUR ---
Patient is currently intubated. She is a LTC resident at [facility] and will return there upon discharge. special events planner/psychiatric social worker supervisor following.
[2019-10-16 20:21] LABS: ABG BASE EXCESS 19.6 mmol/L (-2.0-2.0); ARTERIAL BLOOD GAS PH 7.498 (7.35-7.45)
--- NOTE | 2019-10-16 21:10 | NUR ---
PT. RESTING IN BED, RESTLESS AND AGGITATED UNTIL GIVEN VERSED AT 1930 WHICH WAS IMMEDIATELY EFFECTIVE IN ADDITION TO DIPROVAN AT 25MICS. HEP LOCKS X2 IN RA ASYMPT. LUNGS DIMINISHED BILAT, PULSE OX 93% ON 50% FIO2. PT. GIVEN ORAL MOUTH CARE AND SUCTIONED FOR MODERATE AMTS VIA ENDO AND ORALLY. ABDOMEN SOFTLY DISTENDED, MORBIDLY OBESE. TUBE FEEDINGS INCREASED TO 30CC/HR ORDERED, NO RESIDUAL NOTED PRIOR TO INCREASE. PLACEMENT CONFIRMED WITH AIR BOLUS. ALMONTE CATHETER DRAINING AN RENETTA URINE WITH SEDIMENT. BILAT LOWER LEG DRESSINGS INTACT, OPTIFOAM DRESSINGS TO MULIPLE GROIN AREAS.. TYLENOL GIVEN FOR TEMP OF 101.6, WILL CONTINUE TO MONITOR. SOFT WRIST RESTRAINTS ON BILAT TO PREVENT ACCIDENTAL SELF-EXTUBATION. LAUREEN KOCH RN
--- NOTE | 2019-10-16 22:06 | NUR ---
PT'S TEMP UP TO 101.7 RECTALLY, PT. PLACED ON COOLING BLANKET. DR. MORENO NOTIFIED.
--- NOTE | 2019-10-16 22:55 | NUR ---
PT'S CURRENT TEMP 101.2.
[2019-10-17] VITALS (12 sets, daily range): BP systolic 105–127; BP diastolic 27–64
--- NOTE | 2019-10-17 00:14 | NUR ---
PT'S CURRENT TEMP 100.2, WILL CONTINUE TO MONITOR. LAUREEN KOCH RN
[2019-10-17 06:00] LABS: ALBUMIN 2.2 gm/dl (3.1-4.5); CREATININE 1.24 mg/dL (0.55-1.02); POTASSIUM 3.6 mmol/L (3.5-5.1)
[2019-10-17 06:07] LABS: HEMATOCRIT 43.1 % (37.0-47.0); MEAN CELL VOLUME 96.6 fl (81.0-99.0); MEAN CORPUSCULAR HGB 29.1 pg (27.0-31.0); MEAN CORPUSCULAR HGB CONC 30.2 g/dl (33.0-37.0); MEAN PLATELET VOLUME 11.2 fl (9.6-12.3); PLATELET COUNT AUTOMATED 216 10*3/uL (130-400); RED BLOOD COUNT 4.46 10*6/uL (4.10-5.10); RED CELL DISTRI WIDTH 16.2 % (0-14.5); WHITE BLOOD COUNT 13.9 10*3/uL (4.8-10.8)
--- NOTE | 2019-10-17 06:14 | NUR ---
PT'S TEMP REMAINS 99.6 ON COOLING BLANKET, TYLENOL GIVEN ORDERED AT 0502. WILL CONTINUE TO MONITOR. CURRENT TEMP 99.1, TYLENOL MODERATELY EFFECTIVE.
[2019-10-17 06:40] LABS: ATYPICAL LYMPHS 1 % (0-0); PLATELET SUFFICIENCY NORMAL (NORMAL); POLYCHROMASIA SLIGHT; TOTAL CELLS COUNTED 100 #CELLS
[2019-10-17 08:38] LABS: ABG BASE EXCESS 19.8 mmol/L (-2.0-2.0); ARTERIAL BLOOD GAS PH 7.49 (7.35-7.45)
--- NOTE | 2019-10-17 10:15 | NUR ---
ADJUNCT PSYCHOLOGY PROFESSOR FAXED UPDATES TO [facility].
--- NOTE | 2019-10-17 17:15 | NUR ---
13:00 CPT ADMINISTERED POST DA VIA MECHANICAL PERCUSSER TO BILATERAL APICES X 10 MINS. PT TOLERATED WELL.
--- NOTE | 2019-10-17 17:17 | NUR ---
16:00 CPT ADMINISTERED TO BILATERAL APICES AND RLL VIA MECHANICAL PERCUSSER X 10 MINS. PT TOLERATED WELL.
[2019-10-17 18:02] LABS: ADENOVIRUS Negative (Negative); INFLUENZA A Negative (Negative); INFLUENZA B Negative (Negative); METAPNEUMOVIRUS Negative (Negative); PARAINFLUENZA 1 Negative (Negative); PARAINFLUENZA 2 Negative (Negative); PARAINFLUENZA 3 Negative (Negative); RHINOVIRUS Negative (Negative); RSV A Negative (Negative); RSV B Negative (Negative)
[2019-10-18] VITALS (12 sets, daily range): BP systolic 109–135; BP diastolic 47–86
--- NOTE | 2019-10-18 00:09 | NUR ---
TYLENOL AND VERSED FOR LOW GRADE TEMP AND AGITATION DURING ASSESSMENT AT 2320. EFFECTIVE. PT APPEARS CALMER.
--- NOTE | 2019-10-18 02:01 | NUR ---
PT REPOSITIONED. NEW UNDERPAD PLACED UNDER PT. COOLING BLANKET REMAINS IN MONITOR MODE AND PROBE READING AT 100. CONTINUE TO MONITOR.
--- NOTE | 2019-10-18 07:06 | NUR ---
VERSED AT 0630 EFFECTIVE FOR AGITATION.
--- NOTE | 2019-10-18 08:00 | NUR ---
SEDATION VACATION, PT FULLY AWAKE, ÁLVAREZ EQAULLY AND FOLLOWS COMMANDS APPROPIAETLY, ETT SX FOR SMALL AMOUNT THICK SPUTUM, ORAL CARE DONE, ALL IVS/ALMONTE/OGT ARE SECURE AND PATENT, RECTAL TEMP PROBE FOR CONTINOUS TEMPERATURE MONITORING, PT REPOSITIONED WITH ASSIST OF X
[2019-10-18 08:37] LABS: ABG BASE EXCESS 18.3 mmol/L (-2.0-2.0); ARTERIAL BLOOD GAS PH 7.448 (7.35-7.45)
--- NOTE | 2019-10-18 10:11 | NUR ---
08:45 CPT ADMINISTERED TO BILATERAL APICES X 10 VIA MECHANICAL PERCUSSER. PT TOLERATED WELL.
--- NOTE | 2019-10-18 14:38 | NUR ---
13:25 FIO2 DECREASED TO 40% BY DR DOAN. G TO FOLLOW IN 2 HRS.
--- NOTE | 2019-10-18 14:40 | NUR ---
PODIATRY HERE TO CHANGE FOOT DRSG
[2019-10-18 15:52] LABS: ABG BASE EXCESS 19.3 mmol/L (-2.0-2.0); ARTERIAL BLOOD GAS PH 7.496 (7.35-7.45)
--- NOTE | 2019-10-18 20:00 | NUR ---
PT RESTING IN BED AWAKE, NODS HEAD WHEN ASKED QUESTIONS. ENDOTUBE PATENT, TIES SECURE, VENT SETTINGS VERIFIED AND FUNCTIONING WITHOUT DIFFICULTY. HEPLOCK TO RIGHT ARM PATENT AND DIPRIVAN INFUSING ORDERED FOR SEDATION AND EFFECTIVE. ALMONTE PATENT FOR DARK RENETTA URINE WITH SEDIMENT. OGT PATENT AND PLACEMENT VERIFIED VIA AIR BOLUS. TF MAYA WELL. NO ACUTE DISTRESS NOTED AT THIS TIME.
[2019-10-19] VITALS (13 sets, daily range): BP systolic 107–165; BP diastolic 50–88
--- NOTE | 2019-10-19 01:00 | NUR ---
MEDICATED WITH TYLENOL PER PRN ORDER FOR T 100.6(R).
[2019-10-19 04:32] LABS: BASO % 0.1 % (0.0-1.0); HEMATOCRIT 42.4 % (37.0-47.0); LYMPH # 0.6 10*3/uL (1.3-4.4); LYMPH % 4.7 % (27.0-41.0); MEAN CELL VOLUME 95.7 fl (81.0-99.0); MEAN CORPUSCULAR HGB 29.6 pg (27.0-31.0); MEAN CORPUSCULAR HGB CONC 30.9 g/dl (33.0-37.0); MEAN PLATELET VOLUME 11.3 fl (9.6-12.3); MONO # 1.1 10*3/uL (0.1-1.0); MONO % 9.1 % (3.0-9.0); NEUT # 10.2 10*3/uL (2.3-7.9); NEUT % 85.4 % (47.0-73.0); PLATELET COUNT AUTOMATED 194 10*3/uL (130-400); RED BLOOD COUNT 4.43 10*6/uL (4.10-5.10); RED CELL DISTRI WIDTH 15.9 % (0-14.5); WHITE BLOOD COUNT 11.9 10*3/uL (4.8-10.8)
[2019-10-19 04:51] LABS: ALBUMIN 2.3 gm/dl (3.1-4.5); BUN 64 mg/dl (7-24); CHLORIDE 97 mmol/L (98-107); CREATININE 1.08 mg/dL (0.55-1.02); POTASSIUM 4.2 mmol/L (3.5-5.1); SGOT/AST 53 IU/L (3-35); SGPT/ALT 277 U/L (12-78); SODIUM 140 mmol/L (136-145); TOTAL PROTEIN 6.9 gm/dL (6.4-8.2)
[2019-10-19 04:52] LABS: ALKALINE PHOSPHATASE 102 U/L (45-117); PREALBUMIN 25 mg/dl (20-40)
[2019-10-19 07:30] LABS: ABG BASE EXCESS 17.8 mmol/L (-2.0-2.0); ARTERIAL BLOOD GAS PH 7.491 (7.35-7.45)
--- NOTE | 2019-10-19 08:00 | NUR ---
SEDATION VACATION-PT ALERT AND NODS HEAD IN UNDERSTANDING ÁLVAREZ, FOLLOWS COMMANDS, ETT SX FOR MODERATE AMOUNT OF THICK YELLOW MUCUS, ALL LINES AND TUBES ARE SECURE, PT REPOSITIONED
--- NOTE | 2019-10-19 14:33 | NUR ---
VERSED FOR ANXIETY AND IS EFFECTIVE
--- NOTE | 2019-10-19 15:32 | NUR ---
TYLENOL GIVEN FOR RECATAL TEMP OF 103.3 NURSING EXPLOSIVE ORDNANCE HANDLER NOTIFIED OF NEED FOR COOLING BLANKET AND SHE SAID NO MACHINE IS AVAILABLE RIGHT NOW
[2019-10-19 15:34] LABS: ABG BASE EXCESS 18.1 mmol/L (-2.0-2.0); ARTERIAL BLOOD GAS PH 7.476 (7.35-7.45)
--- NOTE | 2019-10-19 15:55 | NUR ---
DR DOAN UPDATED ON ABGS RECTAL TEMP 103.3 [facility] READING OF THIS AMS CHEST OF ETT AT THE BRAD DR DOAN WILL LOOK AT THE XRAY HISSELF-AND STATED NOT TO TOUCH THE ETT UNTILL HE CALLS ME BACK
--- NOTE | 2019-10-19 15:58 | NUR ---
ID CALLED FOR NEW CONSULT
--- NOTE | 2019-10-19 16:10 | NUR ---
DR HOU CALLED IN, REVIEWED CULTURES AND CURRENT ANTIBIOTICS, TEMP 103.3, NO NEW ORDERS GIVEN, HE WILL WAIT FOR BRONCH RESULTS AND ADJUST MEDICATION THEN
--- NOTE | 2019-10-19 16:33 | NUR ---
HYPOTHERMIA MACHINE NOW AVAILABLE AND PLACED ON PT
--- NOTE | 2019-10-19 17:03 | NUR ---
ventilator check, hr 99, spo2 96%, vt 403, rr 28, pip 24, mv 17.8,
--- NOTE | 2019-10-19 17:30 | NUR ---
REPEAT CXR AFTER REPOSITIONING OF ETT PER POLICY
--- NOTE | 2019-10-19 20:25 | NUR ---
PT. RESTING IN BED. HEP LOCK x2 IN RA ASYMPT. LUNGS DIMINISHED BILAT, PULS EOX 95% ON 40% FIO2. ABDOMEN SOFTLY DISTENDED AND NORMO. . EDEMA VS OBESITY. PULMOCARE TF ORDERED, NO RESIDUAL NOTED, PLACEMENT CONFIRMED WITH AIR BOLUS. ALMONTE DRAINING A CLEAR RENETTA URINE WITH SEDIMENT IN TUBING. COOLING BLANKET LAYED ON PATIENT FOR TEMP OF 102.0 CURRENTLY. PT. GIVEN ORAL MOUTH CARE AND SUCTIONED FOR SMALL AMT OF YELLOW/WHITE MUCOUS VIA ENDO. SOFT WRISTS RESTRAINTS BILAT TO PREVENT SELF-EXTUBATION.
--- NOTE | 2019-10-19 22:15 | NUR ---
PT. GIVEN TYLNEOL AT 2135 ORDERED FOR TEMP OF 102. COOLING BLANKET REMAINS ON AND CURRENT TEMP OF 101.3, TYLENOL MINIMALLY EFFECTIVE, WILL CONTINUE TO MONITOR. LAUREEN KOCH RN
[2019-10-20] VITALS (12 sets, daily range): BP systolic 98–194; BP diastolic 48–66
--- NOTE | 2019-10-20 01:51 | NUR ---
VERSED GIVEN AT 0153 ORDERED FOR RESTLESSNESS AND GAGGING AROUND ENDO TUBE.
[2019-10-20 05:16] LABS: ALBUMIN 2.4 gm/dl (3.1-4.5); CREATININE 1.2 mg/dL (0.55-1.02); POTASSIUM 3.4 mmol/L (3.5-5.1); TOTAL PROTEIN 7.1 gm/dL (6.4-8.2)
[2019-10-20 06:15] LABS: BASO % 0.1 % (0.0-1.0); HEMATOCRIT 45.4 % (37.0-47.0); LYMPH # 0.8 10*3/uL (1.3-4.4); LYMPH % 5.6 % (27.0-41.0); MEAN CORPUSCULAR HGB 29.4 pg (27.0-31.0); MEAN CORPUSCULAR HGB CONC 30.6 g/dl (33.0-37.0); MEAN PLATELET VOLUME 12.3 fl (9.6-12.3); MONO % 7.3 % (3.0-9.0); NEUT # 11.7 10*3/uL (2.3-7.9); NEUT % 86.5 % (47.0-73.0); PLATELET COUNT AUTOMATED 170 10*3/uL (130-400); RED BLOOD COUNT 4.73 10*6/uL (4.10-5.10); RED CELL DISTRI WIDTH 16.1 % (0-14.5); WHITE BLOOD COUNT 13.5 10*3/uL (4.8-10.8)
[2019-10-20 07:12] LABS: ABG BASE EXCESS 14.4 mmol/L (-2.0-2.0); ARTERIAL BLOOD GAS PH 7.433 (7.35-7.45)
--- NOTE | 2019-10-20 07:20 | NUR ---
PT IN AF VR 140-150, DR MORENO HERE AND AWARE AND INCREASED CARDIZEM DOSE, PT REMAIN INTUBATED AND LIGHTLY SEDATED WITH DIPROVAN AT 25 MCG, SEDATION VACATION COMPLETED, PT RESPONDS APPROPAIETLY, FOLLOWS COMMANDS AND NOD HEAD TO QUESTIONS, ÁLVAREZ, ALL LINES SECURE, TFS TURNED OFF FOR BRONCH TODAY, ALMONTE PATENT FOR LARGE AMOUNT CLEAR YELLOW URINE, HYPOTHERMIA BLANKET ON "MOMITOR" RECTAL TEMP 99.5
--- NOTE | 2019-10-20 10:30 | NUR ---
TIME OUT COMPLETED FOR BRONCH PT GIVEN VERSED JUST PRIOR TO BRONCH FOR DEEPER SEDATION
--- NOTE | 2019-10-20 12:02 | NUR ---
PTS FIO2 DECREASED TO 30% PER DR DOAN
[2019-10-20 14:24] LABS: ABG BASE EXCESS 11.2 mmol/L (-2.0-2.0); ARTERIAL BLOOD GAS PH 7.418 (7.35-7.45)
--- NOTE | 2019-10-20 14:31 | NUR ---
DR DOAN CALLED WITH BLOOD GASSES AND UPDATED ON POX NO NEW ORDERS, POSSIBLE EXTUBATION IN AM PENDING ANY FURTHER CHANGES
--- NOTE | 2019-10-20 14:59 | NUR ---
TYLENOL FOR RECATL TEMP 100.3 HAS NOT BEEN EFFECTIVE HYPOTHERMIA BLANKET PLACED BACK ON PT REMAINS IN AF VR 110-120
--- NOTE | 2019-10-20 15:04 | NUR ---
PT A BIT MORE SLEEPY SINCE BRONCH
--- NOTE | 2019-10-20 20:11 | NUR ---
PT. RESTING COMFORTABLY, ADEQUATELY SEDATED ON DIPROVAN DRIP AT 25MICS. HEP LOCKS x3 ASYMPT IN RA AND LA. LUNGS DIMINISHED BILAT, PULSE OX 94% ON 30% FIO2. ABDOMEN SOFTLY DISTENDED AND NORMO, MORBIDLY OBESE. DEPENDENT EDEMA VS OBESITY. COOLING BLANKET REMAINS ON PATIENT FOR TEMP OF 100.4. TYLENOL GIVEN ORDERED AT 1934 VIA OGT. TUBE FEEDINGS REMAINS AT 50CC'S/HR, NO RESIDUAL NOTED, PLACMENT CONFIRMED WITH AIR BOLUS. ALMONTE CATHETER DRAINING A PALE RENETTA URINE WITH SEDIMENT IN TUBING. PT. GIVEN ORAL MOUTH CARE AND SUCTIONED FOR MODERATE AMT OF YELLOW/WHITE MUCOUS. LAUREEN KOCHRN
[2019-10-21] VITALS (9 sets, daily range): BP systolic 115–139; BP diastolic 52–78
[2019-10-21 04:59] LABS: BASO % 0.2 % (0.0-1.0); EOS % 0.1 % (1.0-4.0); HEMATOCRIT 45.3 % (37.0-47.0); LYMPH # 0.8 10*3/uL (1.3-4.4); LYMPH % 4.3 % (27.0-41.0); MEAN CELL VOLUME 97.8 fl (81.0-99.0); MEAN CORPUSCULAR HGB 29.6 pg (27.0-31.0); MEAN CORPUSCULAR HGB CONC 30.2 g/dl (33.0-37.0); MEAN PLATELET VOLUME 12.1 fl (9.6-12.3); MONO % 5.2 % (3.0-9.0); NEUT # 17.4 10*3/uL (2.3-7.9); NEUT % 89.6 % (47.0-73.0); PLATELET COUNT AUTOMATED 148 10*3/uL (130-400); RED BLOOD COUNT 4.63 10*6/uL (4.10-5.10); RED CELL DISTRI WIDTH 15.6 % (0-14.5); WHITE BLOOD COUNT 19.4 10*3/uL (4.8-10.8)
[2019-10-21 05:24] LABS: ALBUMIN 2.3 gm/dl (3.1-4.5); ALKALINE PHOSPHATASE 94 U/L (45-117); BUN 64 mg/dl (7-24); CHLORIDE 103 mmol/L (98-107); CREATININE 1.03 mg/dL (0.55-1.02); POTASSIUM 3.7 mmol/L (3.5-5.1); SGOT/AST 36 IU/L (3-35); SGPT/ALT 130 U/L (12-78); SODIUM 140 mmol/L (136-145); TOTAL PROTEIN 6.5 gm/dL (6.4-8.2)
[2019-10-21 07:47] LABS: ABG BASE EXCESS 7.1 mmol/L (-2.0-2.0); ARTERIAL BLOOD GAS PH 7.364 (7.35-7.45)
--- NOTE | 2019-10-21 09:30 | NUR ---
DR. DOAN HERE AND PLACED ON C-PAP 5/PS 10
--- NOTE | 2019-10-21 09:46 | NUR ---
JAJA SENA [id number] Please refer to the physician's history and physical for past medical history, comorbid conditions, and allergies. Diagnosis: AC RESPIRATORY FAILURE W/HYPOXIA COPD EXAC Familia Score: 11,HIGH RISK WOUND DESCRIPTIONS: Wound Number: 1 Location of the wound: right lateral ankle Type of wound: unstageable Thickness: Full Size: 4cm x 4.5cm x 0.1cm Tunneling: none Undermining: none Sinus Tract: none Presence of Exudate: Seroanguineous Amount: Heavy Color: Black, red Odor: None Periwound Skin Appearance: Erythema Wound edges: approximated Pain (associated with wound): tender to touch How does patient state this happened? pt unable to state how these happened Wound Number: 2 Location of the wound: right leg ( achilles area ) Type of wound: unstageable Thickness: Full Size: 8cm x 5.5cm x 0.1cm Tunneling: none Undermining: none Sinus Tract: none Presence of Exudate: Serosanguineous Amount: Heavy Color: Red, Yellow Odor: None Periwound Skin Appearance: Erythema Wound edges: approximated Pain (associated with wound): tender to touch How does patient state this happened? pt unable to state how this happened Wound Number: 3 Location of the wound: left thigh anterior ( lower ) scar tissue noted at time of assessment no drainage at time of assessment Wound Number: 4 Location of the wound: right toe between 2nd and 3rd toe medial aspect Type of wound: unstageable Thickness: Full Size: 2cm x 1cm x 0.1cm Tunneling: none Undermining: none Sinus Tract: none Presence of Exudate: Purluent Amount: Light Color: Red, black Odor: None Periwound Skin Appearance: Erythema Wound edges: approximated Pain (associated with wound): tender to touch How does patient state this happened? pt unable to state how this happened Wound Number: 5 Location of the wound: left heel Type of wound: unstageable Thickness: Full Size: 6cm x 7.5cm x 0.1cm Tunneling: none Undermining: none Sinus Tract: none Presence of Exudate: none Amount: none Color: Black, red Odor: None Periwound Skin Appearance: Erythema Wound edges: closed Pain (associated with wound): tender to touch How does patient state this happened? pt unable to state how this happened Wound Number: 6 Location of the wound: left posterior thigh Type of wound: stage 2 Thickness: Partial Size: 0.2cm x 0.6cm x 0.1cm Tunneling: none Undermining: none Sinus Tract: none Presence of Exudate: none Amount: none Color: Red Odor: None Periwound Skin Appearance: Erythema Wound edges: approximated Pain (associated with wound): tender to touch How does patient state this happened? pt unable to state how this happened Wound Number: 7 Location of the wound: left inner knee Type of wound: unstageable Thickness: Full Size: 1.5cm x 1.5cm x 0.1cm Tunneling: none Undermining: none Sinus Tract: none Presence of Exudate: Serousanguineous Amount: Light Color: Brown, yellow, red Odor: None Periwound Skin Appearance: Erythema Wound edges: approximated Pain (associated with wound): tender to touch How does patient state this happened? pt unable to state how this happened Wound Number: 8 Location of the wound: right ankle Below ankle bone Type of wound: unstageable Thickness: Full Size: 2cm x 2cm x 0.1cm Tunneling: none Undermining: none Sinus Tract: none Presence of Exudate: Serousanguineous Amount: Light Color: Black, red, yellow Odor: None Periwound Skin Appearance: Erythema Wound edges: approximated Pain (associated with wound): tender to touch How does patient state this happened? pt unable to state how this happened Wound Number: 9 Location of the wound: right upper thigh posterior Type of wound: stage 3 Thickness: Full Size: 4cm x 4.5cm x 0.1cm Tunneling: none Undermining: none Sinus Tract: none Presence of Exudate: Serosanguineous Amount: Light Color: Red, yellow Odor: None Periwound Skin Appearance: Erythema Wound edges: approximated Pain (associated with wound): tender to touch How does patient state this happened? pt unable to state how this happened Wound Number: 10 Location of the wound: right posterior thigh Type of wound: stage 3 Thickness: Full Size: 1.5cm x 1.2cm x 0.1cm Tunneling: none Undermining: none Sinus Tract: none Presence of Exudate: Serosanguineous Amount: Moderate Color: Red Odor: None Periwound Skin Appearance: Erythema Wound edges: approximated Pain (associated with wound): tender to touch How does patient state this happened? pt unable to state how this happened Wound Number: 11 Location of the wound: right plantar foot Type of wound: DTI Thickness: Full Size: 0.6cm x 0.8cm x <0.1cm Tunneling: none Undermining: none Sinus Tract: none Presence of Exudate: none Amount: none Color: Purple, red Odor: None Periwound Skin Appearance: Erythema Wound edges: closed Pain (associated with wound): tender to touch How does patient state this happened? pt unable to state how this happened Left ankle is red and blanchable at time of assessment. No open areas noted at time of assessment. Surface the patient is resting on: Position Pro SKIN PREVENTION RECOMMENDATION: 1. Pressure redistribution support surface as appropriate 2. Elevate heels 3. Remove boots/TEDS every shift and reapply 4. Head of bed 30 degrees as tolerated 5. Assess nutrition and hydration 6. Manage moisture 7. Avoid the use of containment devices while in bed 8. Use absorptive products on surfaces limit layers of linens on bed 9. Turn and reposition every 1-2 hours in bed and every 1 hour in chair as tolerated 10. Weight shifts every 15 minutes while up in chair 11. Offloading with pillows or device to keep heels elevated off bed 12. Monitor skin at least every shift 13. Inspect under medical devices twice a day WOUND TREATMENT RECOMMENDATIONS: Podiatry already on consult and was present for assessment of wounds below knee. Continue current wound care orders. Continue wheelchair cushion when oob. Continue to elevate heels as tolerated with pillows vertical to BLE and heel raiser pro boots.
[2019-10-21 11:08] LABS: ACID FAST SPEC PROCESSING Concentration (.)
[2019-10-21 11:43] LABS: ABG BASE EXCESS 6.9 mmol/L (-2.0-2.0); ARTERIAL BLOOD GAS PH 7.389 (7.35-7.45)
--- NOTE | 2019-10-21 12:25 | NUR ---
PT. EXTUBATED PER DRS ORDER. NO SIGNS OF RESPIRATORY DISTRESS OR STRIDOR. PT. PLACED ON BIPAP. TOLERATING WELL. CONTINUE TO MONITOR.
--- NOTE | 2019-10-21 12:25 | NUR ---
EXTUBATED AND PLACED ON BI-PAP 10
[2019-10-22] VITALS: BP 117/55
[2019-10-22 04:00] VITALS: BP 125/52
[2019-10-22 06:10] LABS: BUN 63 mg/dl (7-24); CREATININE 0.88 mg/dL (0.55-1.02)
[2019-10-22 08:00] VITALS: BP 124/47
--- NOTE | 2019-10-22 08:07 | NUR ---
Awake, listless minimal movement. Taking po meds w/ applesauce. Swallow evaul was discussed. BI-pap off to 3 L NC. NT suction per RT.
--- NOTE | 2019-10-22 09:03 | NUR ---
07:40 PT TAKEN OFF OF BIPAP. PLACED ON 4 L NC. DA GIVEN. CPT ADMINISTERED TO BILATERAL APICES WITH MECHANICAL PERCUSSER X 10 MINS. PT TOERATED WELL. NT SCUCTIONED FOR LARGE THIS OLD BLOODY SECRETIONS. PT TOLERATED WELL.
--- NOTE | 2019-10-22 09:24 | NUR ---
SANTOSH faxed updates to [facility] on this date.
--- NOTE | 2019-10-22 09:34 | NUR ---
SPEECH PATHOLOGY Background information- Patient was seen for brief clinical evaluation of swallowing as per orders. She is also ordered a MBS, which cannot be completed until tomorrow when radiologist is present in facility. Patient's history includes respiratory failure with hypoxia, COPD, CHF, MRSA, pneumonia, HTN, DM, MRSA wounds. Patient had been intubated but was extubated yesterday. She remain NPO at this time. Subjective-Patient was awake and cooperative. She displayed generalized weakness and was receiving O2 via NC at 4L. She reported her breathing was "not real good." Pulse ox averaged 94 throughout the encounter. Objective- Oral musculature exam revealed edentulous status. Labial skills were WFL in terms of strength, ROM and coordination. Buccal skills were weak. Lingual strength and ROM were compromised. Patient was able to volitionally swallow. Her volitional cough was weak. Due to impaired oral skills and status which places her at risk for aspiration, feeding trials were not attempted at this time as aspiration cannot be fully detected at bedside. Plan- MBS will be completed tomorrow as per orders to determine safest, most appropriate means of nutrition. Full report to follow. Patient's nurse was informed of results and sabina. and verbalized understanding. Thank you for this referral. SERGIO DENNIS MS CCC-BULLDOZER MECHANIC
--- NOTE | 2019-10-22 10:43 | NUR ---
To [facility] for bone scan, MRI, and US.
--- NOTE | 2019-10-22 14:00 | NUR ---
PHYSICAL THERAPY Eval orders received, chart reviewed. Pt currently off the floor for mutiple testing MRI, Bone scan, and Doppler studies. Will follow in the AM as appropriated pending test results. Brittany Roach PT
--- NOTE | 2019-10-22 14:45 | NUR ---
O2 decreased to 2l NC. Po meds given w/ appleasuce.
[2019-10-22 14:46] VITALS: BP 123/51
--- NOTE | 2019-10-22 15:15 | NUR ---
Returned from radiology IV lower rt. arm was reported as dislodged in MRI. dressing present to site. Multiple dressing changes see wound care documentation. Incontinent Mushy brown BM x2 this shift, Pericare given. Scant bright blood noted in perineal area, Repositioned.
[2019-10-22 15:46] LABS: ABG BASE EXCESS 5.7 mmol/L (-2.0-2.0); ARTERIAL BLOOD GAS PH 7.399 (7.35-7.45)
--- NOTE | 2019-10-22 15:46 | NUR ---
PT NT SX'D FOR SMALL AMNT OF PALE YELLOW THICK SECRETIONS. SPO2 94% ON 2 L NC. TOLERATED WELL. RESPS REGULAR AND UNLABORED.BBSs DIMINISHED WITH FEW SCATTERED RHONCHI. CLEAR POST SX.
[2019-10-22 16:00] VITALS: BP 132/57
--- NOTE | 2019-10-22 18:13 | NUR ---
Dr. Dewitt was notified of Radiology results including osteomyelitis and dislocation of rt. shoulder.
[2019-10-22 20:00] VITALS: BP 120/55
--- NOTE | 2019-10-22 21:45 | NUR ---
PT PLACED ON BIPAP ORDERED.
--- NOTE | 2019-10-22 22:00 | NUR ---
Pt placed on BiPap 18/10 and FiO2 30%. Alarms on and audible.
[2019-10-23] VITALS: BP 132/54
--- NOTE | 2019-10-23 03:31 | NUR ---
PT HAD MODERATE SIZED BROWN LIQUID BM. COMPLETE BATH AND BED LINEN CHANGE DONE. OLD DRESSING SOILED RT THIGH REMOVED AND REPLACED WITH NEW ONE. PT WAS REMOVED FROM BIPAP PRIOR TO THIS AND PLACED ON NC3. SHE IS VERY CONVERSIVE. TOLERATED WELL.
[2019-10-23 04:00] VITALS: BP 110/54
--- NOTE | 2019-10-23 04:21 | NUR ---
PT TEARFUL AND ARGUMENTATIVE. BEGGING ME "PLEASE TAKE ME BACK TO THE [facility]USTODIAL. PLEASE!" I EXPLAINED PLAN OF CARE BUT PT SHAKES HEAD VIGOROUSLY "NO" AND SAYS "I DON'T NEED ANY OF THAT. I JUST WANT TO GO BACK." EMOTIONAL SUPPORT GIVEN. WILL CONVEY TO IN AM.
[2019-10-23 06:27] LABS: ALBUMIN 2.3 gm/dl (3.1-4.5); ALKALINE PHOSPHATASE 82 U/L (45-117); BASO % 0.1 % (0.0-1.0); BUN 59 mg/dl (7-24); CHLORIDE 109 mmol/L (98-107); CREATININE 0.88 mg/dL (0.55-1.02); HEMATOCRIT 41.4 % (37.0-47.0); LYMPH # 0.7 10*3/uL (1.3-4.4); LYMPH % 4.9 % (27.0-41.0); MEAN CELL VOLUME 94.1 fl (81.0-99.0); MEAN CORPUSCULAR HGB 29.1 pg (27.0-31.0); MEAN CORPUSCULAR HGB CONC 30.9 g/dl (33.0-37.0); MONO # 1.1 10*3/uL (0.1-1.0); MONO % 7.9 % (3.0-9.0); NEUT # 12.2 10*3/uL (2.3-7.9); NEUT % 86.6 % (47.0-73.0); PLATELET COUNT AUTOMATED 176 10*3/uL (130-400); RED CELL DISTRI WIDTH 15.7 % (0-14.5); SGOT/AST 41 IU/L (3-35); SGPT/ALT 88 U/L (12-78); SODIUM 146 mmol/L (136-145); TOTAL PROTEIN 6.2 gm/dL (6.4-8.2); WHITE BLOOD COUNT 14.1 10*3/uL (4.8-10.8)
--- NOTE | 2019-10-23 06:41 | NUR ---
PT CALMER BUT STILL VOICING DESIRE TO GO BACK TO [facility] TODAY.
[2019-10-23 08:00] VITALS: BP 111/60
--- NOTE | 2019-10-23 08:10 | NUR ---
Awake and alert. Oriented to person and place. Dr. Dewitt in to evaulate, orders recieved. PICC placed to [facility]. CXR pending.
--- NOTE | 2019-10-23 10:23 | NUR ---
SPEECH PATHOLOGY Patient seen at bedside this am. Plan was for completion of MBS as per orders however due the her condition, she is unable to sit upright in a chair therefore study cannot be completed at this time. She was noted to be more alert than yesterday and reported that she was feeling much better. Pulse ox was monitored throughout the encounter and remained within normal range. Patient was administered applesauce by spoon and swallowed with no overt difficulty. Thin and nectar thick liquid were given by cup with throat clearing observed. Solid food was not attempted due to weakness and edentulous status. Recommend puree and honey thick liquids with use of safety precautions when feeding such as upright positioning in bed, small bites sips, feeding slowly, alternating consistencies and monitoring for s/s aspiration. Follow up therapy will be conducted to ensure safety of diet through education and adherence to precautions. Results and sabina. were discussed with patient and her nurse and they verbalized understanding. FENG DENNIS MSCCC-CORN COOKER
--- NOTE | 2019-10-23 11:27 | NUR ---
Dr. Benavides in [place] [place].
--- NOTE | 2019-10-23 11:28 | NUR ---
Radiology reported inability to do MBS re: pt contition and inability to stand or sit in chair. Vaginal bleeding was noted on aide care as pt. incontinent of stool. Dr. Dewitt was notified and orders were recieved. Speech in to evaulate see PN.
[2019-10-23 12:00] VITALS: BP 119/66
--- NOTE | 2019-10-23 12:05 | NUR ---
Physical Therapy evaluation completed ICCU with full evaluation to follow. Recommend physical therapy per plan of care and return to facilty with f/u therapy as appropriate and per MD upon discharge.Thank you for this referral. Brittany Roach PT
--- NOTE | 2019-10-23 12:15 | NUR ---
PT in for evaulation and treatment.
--- NOTE | 2019-10-23 13:47 | NUR ---
SANTOSH faxed clinical updates to [facility] on this date.
[2019-10-23 16:00] VITALS: BP 133/52
[2019-10-23 20:00] VITALS: BP 117/47
--- NOTE | 2019-10-23 22:30 | NUR ---
PT ON BIPAP.
--- NOTE | 2019-10-23 22:37 | NUR ---
Patient placed on NIV for evening. Tolerated well, and brigida states that she likes it now.
[2019-10-24] VITALS (9 sets, daily range): BP systolic 114–140; BP diastolic 57–71
--- NOTE | 2019-10-24 04:26 | NUR ---
COMPLETE SURGICAL PREP BATH AND BED LINEN CHANGE DONE. PT TOLERATED WELL.
[2019-10-24 06:06] LABS: BASO % 0.2 % (0.0-1.0); HEMATOCRIT 41.3 % (37.0-47.0); LYMPH # 0.6 10*3/uL (1.3-4.4); LYMPH % 5.1 % (27.0-41.0); MEAN CORPUSCULAR HGB 29.1 pg (27.0-31.0); MEAN CORPUSCULAR HGB CONC 30.3 g/dl (33.0-37.0); MEAN PLATELET VOLUME 12.3 fl (9.6-12.3); MONO % 9.1 % (3.0-9.0); NEUT # 9.6 10*3/uL (2.3-7.9); NEUT % 85.1 % (47.0-73.0); PLATELET COUNT AUTOMATED 195 10*3/uL (130-400); RED CELL DISTRI WIDTH 16.4 % (0-14.5); WHITE BLOOD COUNT 11.3 10*3/uL (4.8-10.8)
[2019-10-24 06:40] LABS: ALBUMIN 2.3 gm/dl (3.1-4.5); ALKALINE PHOSPHATASE 91 U/L (45-117); BUN 54 mg/dl (7-24); CHLORIDE 113 mmol/L (98-107); CREATININE 0.85 mg/dL (0.55-1.02); POTASSIUM 3.2 mmol/L (3.5-5.1); SGOT/AST 53 IU/L (3-35); SGPT/ALT 110 U/L (12-78); SODIUM 151 mmol/L (136-145); TOTAL PROTEIN 6.3 gm/dL (6.4-8.2)
--- NOTE | 2019-10-24 08:57 | NUR ---
Once medically stable patient can return to [facility].
--- NOTE | 2019-10-24 09:25 | NUR ---
PHYSICAL THERAPY Spoke with Dr.Thomas clemons pt's R shld and states this is not a new issue and is chronic no treatment/sling indicated. Continues to only want ROM activity at this time no restrictions. Pt scheduled for bone biopsy of R heel today. Per nsg ok to see Attempted to see pt for ROM however as performing QUETA DELGADO for shld flexion pt becoming agitated, yelling "I need to get out of here" unable to calm pt at this time so futher activity deferred. Updated nsg on above. Due to chronic nature of R shld will defer ROM at shld at this time, will perform ROM at distal jnts as/if able to tolerate. RUE positioned on pillow/blanket for comfort. Will follow Brittany Roach PT
--- NOTE | 2019-10-24 09:48 | NUR ---
SPEECH PATHOLOGY Clinician spoke with patient's nurse regarding status. Patient is currently NPO and scheduled for surgery, however surgery is not planned until after 2:30 pm. Nurse reported that patient had recently been given medication and was asleep. Due to this, treatment will be unable to be conducted this date. Will continue plan at a later time. SERGIO DENNIS MSCCC-MANUFACTURER AGENT
--- NOTE | 2019-10-24 10:28 | NUR ---
Dr. Dewitt and Merly in to [facility]. Orders recieved.
--- NOTE | 2019-10-24 13:55 | NUR ---
To OR via bed. Anesthesia permit obtained via phone from [facility].
--- NOTE | 2019-10-24 16:45 | NUR ---
Return form surgery via bed with O2 on at 2l/NC. Monitor:NSR. Wound Vac inplace right foot in continuous mode. Dressing inplace no bleeding noted. Heel protectors inplace. Mouth care done. Pt deep suctioned orally with 14 fr suction cath. for mod amt thick yellow muscous. Pt encouraged to deep breath and cough, pt attempts but is weak. Thicken fluids given along with applesauce with medications. Jenifer Pollard Rn
[2019-10-24 17:12] LABS: ABG BASE EXCESS 5.3 mmol/L (-2.0-2.0); ARTERIAL BLOOD GAS PH 7.408 (7.35-7.45)
--- NOTE | 2019-10-24 19:40 | NUR ---
PATIENT ASSESSMENT COMPLETED AT THIS TIME WITHOUT INCIDENT. PATIENT A&O X2 AND WAS REORIENTED TO TIME, PATIENT PLEASANT AND COOPERATIVE, DENIES ANY PAIN OR DISCOMFORT AT THIS TIME. IV D5 WITH K INFUSING INTO RIGHT ARM PICC WITHOUT INCIDENT, SECOND PORT FLUSHES WITHOUT DIFFICUTLY AND WITH POSITIVE BLOOD RETURN. MONITOR AND PULSE OX INTACT. WILL CONTINUE TO MONITOR. CALL LIGHT WITHIN REACH.
--- NOTE | 2019-10-24 21:15 | NUR ---
TYLENOL GIVEN AT THIS TIME FOR TEMPERATURE 99.3, PATIENT DENIES ANY PAIN OR DISCOMFORT AT THIS TIME. CALL LIGHT WITHIN REACH, WILL CONTINUE TO MONITOR.
--- NOTE | 2019-10-24 22:15 | NUR ---
PATIENT AXILLARY TEMPERATURE AT THIS TIME 98.7 AFTER PRN TYLENOL WAS GIVEN. WILL CONTINUE TO MONITOR. CALL LIGHT WITHIN REACH.
--- NOTE | 2019-10-24 23:00 | NUR ---
RESPIRATORY HERE AND PLACED PATIENT ON BIPAP WITH FULL FACE MASK, EAR PULSE OX PROBE IN USE. CALL LIGHT WITHIN REACH, WILL CONTINUE TO MONITOR.
--- NOTE | 2019-10-24 23:00 | NUR ---
Pt placed on Bipap 18/10 and an FiO2 of 30%. Alarms on and audible.
[2019-10-25 00:20] VITALS: BP 126/62
--- NOTE | 2019-10-25 01:01 | NUR ---
24 HOUR CHART CHECK COMPLETED.
--- NOTE | 2019-10-25 03:00 | NUR ---
PATIENT BATHED AND BED LINENS CHANGED AT THIS TIME WITHOUT INCIDENT. ALL WOUND DRESSINGS ON BILATERAL THIGHS CHANGED. ALMONTE CATHETER, RIGHT UPPER ARM PICC LINE AND WOUND VAC @ 125MMHG INTACT. PATIENT REPOSITIONED IN BED, BLE ELEVATED ON PILLOWS. IV D5W WITH 10MEQ POTASSIUM INFUSING WITHOUT INCIDENT. CALL LIGHT WITHIN REACH. WILL CONTINUE TO MONITOR.
--- NOTE | 2019-10-25 03:15 | NUR ---
PATIENT TAKEN OFF BIPAP AT THIS TIME AND PLACED ON NC 3LPM AT HER REQUEST. RESPIRATORY NOTIFIED. CONTINUOUS PULSE OX IN USE.
[2019-10-25 04:10] VITALS: BP 130/63
[2019-10-25 06:05] LABS: BASO % 0.1 % (0.0-1.0); EOS % 0.1 % (1.0-4.0); HEMATOCRIT 42.5 % (37.0-47.0); LYMPH # 0.7 10*3/uL (1.3-4.4); LYMPH % 5.6 % (27.0-41.0); MEAN CELL VOLUME 97.3 fl (81.0-99.0); MEAN CORPUSCULAR HGB 29.1 pg (27.0-31.0); MEAN CORPUSCULAR HGB CONC 29.9 g/dl (33.0-37.0); MEAN PLATELET VOLUME 11.8 fl (9.6-12.3); MONO % 8.3 % (3.0-9.0); NEUT # 10.3 10*3/uL (2.3-7.9); NEUT % 85.3 % (47.0-73.0); PLATELET COUNT AUTOMATED 220 10*3/uL (130-400); RED BLOOD COUNT 4.37 10*6/uL (4.10-5.10); RED CELL DISTRI WIDTH 16.5 % (0-14.5); WHITE BLOOD COUNT 12.1 10*3/uL (4.8-10.8)
[2019-10-25 06:39] LABS: CHLORIDE 114 mmol/L (98-107); CREATININE 0.76 mg/dL (0.55-1.02); POTASSIUM 3.7 mmol/L (3.5-5.1); SODIUM 151 mmol/L (136-145)
[2019-10-25 06:40] LABS: BUN 43 mg/dl (7-24)
[2019-10-25 07:59] VITALS: BP 138/61
--- NOTE | 2019-10-25 08:00 | NUR ---
PATIENT AWAKE, ALERT AND ORIENTED. NO STATED COMPLAINTS AT THIS TIME. DENIES PAIN. NO SOB AT REST NOTICED. 3L NC INTACT. BREAKFAST TRAY ORDERED. BED IN LOWEST LOCKED POSITION AND CALL LIGHT WITHIN REACH.
--- NOTE | 2019-10-25 09:38 | NUR ---
AWAKE, ALERT AT THIS TIME. ORIENTED X2 WITH SOME RAMBLING GARBLED SPEECH. THIS IS PT'S NORMAL BASELINE. UPON ENTERING ROOM, PT IS COVERED WITH COFFEE. STATES SHE HAD A TERRIBLE ACCIDENT. SKIN ASSESS FOR AVILA, NONE NOTED. BED CHANGED, NEW GOWN APPLIED AND REPOSITIONED IN BED. SMALL BOWEL MOVEMENT CLEANED UP. SMALL AMOUNT OF VAGINAL BLEEDING OBSERVED. BED IN LOWEST LOCKED POSITION AND CALL LIGHT WITHIN REACH.
--- NOTE | 2019-10-25 11:51 | NUR ---
IN TO ROOM, PATIENT DROWSY AT THIS TIME. SPEECH GARBLED. NO SOB NOTED ON ASSESSMENT. 3L NC INTACT. SCDS ON, FEET ELEVATED OFF OF BED WITH PILLOWS AND HEEL PROTECTORS ARE ON. DENIES PAIN AT THIS TIME. RUNNING TRAY ORDERED FOR LUNCH. IV FLUIDS RUNNING AND PICC PATENT. BED IN LOWEST LOCKED POSITION AND CALL LIGHT WITHIN REACH. WILL CONTINUE TO MONITOR.
[2019-10-25 12:00] VITALS: BP 130/60
[2019-10-25 16:02] VITALS: BP 128/68
--- NOTE | 2019-10-25 17:51 | NUR ---
PT ASLEEP BUT EASILY AWAKENS. NO STATED COMPLAINTS. DENIES PAIN. EXTREMITIES ELEVATED OFF OF BED WITH PILLOWS AND HEEL PROTECTORS ON. WOUND VAC AND PICC INTACT. IV FLUIDS RUNNING. 3L NC INTACT. PULSE OX 96%. BED IN LOWEST LOCKED POSITION AND CALL LIGHT WITHIN REACH.
[2019-10-25 20:00] VITALS: BP 136/63
--- NOTE | 2019-10-25 20:00 | NUR ---
PATIENT ASSESSMENT COMPLETED AT THIS TIME WITHOUT INCIDENT, PATIENT DENIES ANY NEEDS OF COMPLAINTS OF PAIN AT THIS TIME. RIGHT ARM PICC LINE INTACT AND FLUSHES EASILY AND WITH GOOD BLOOD RETURN, IV FLUIDS D5W WITH 10 MEQ OF POTASSIUM INFUSING WELL AT THIS TIME. ALMONTE CATHETER INTACT AND DRAINING RENETTA COLORED URINE. WOUND VAC INTACT AND AT ORDERED PRESSURE OF 125MMHG. CALL LIGHT WITHIN REACH, WILL CONTINUE TO MONITOR.
--- NOTE | 2019-10-25 20:20 | NUR ---
24 hour chart check completed
--- NOTE | 2019-10-25 21:05 | NUR ---
MEDICATIONS GIVEN ORALLY AT THIS TIME WITH APPLESAUCE AND SIPS OF NECTAR THICK WATER AT THIS TIME, PATIENT TOLERATED WELL. CALL LIGHT WITHIN REACH WILL CONTINUE TO MONITOR.
--- NOTE | 2019-10-25 22:40 | NUR ---
RESPIRATORY THERAPY PLACED PATIENT ON BIPAP AT THIS TIME VIA FULL FACE MASK. PATIENT RESTING IN A POSITION OF COMFORT AND IS TOLERATING BIPAP WELL AT THIS TIME, CALL LIGHT WITHIN REACH WILL CONTINUE TO MONITOR.
[2019-10-26 00:05] VITALS: BP 121/49
--- NOTE | 2019-10-26 00:05 | NUR ---
VITAL SIGNS AND ASSESSMENT COMPLETED AT THIS TIME WITHOUT INCIDENT. PATIENT REMAINS ON BIPAP VIA FULL FACE MASK AT THIS TIME. PICC LINE AND ALMONTE CATHETER REMAIN PATENT, IV D52 WITH 10MEQ OF POTASSIUM INFUSING WITHOUT INCIDENT. CALL LIGHT WITHIN REACH WILL CONTINUE TO MONITOR.
--- NOTE | 2019-10-26 02:10 | NUR ---
PATIENT CONTINUES ON BIPAP VIA FULL FACE MASK AT THIS TIME, NO SIGNS OR SYMPTOMS OF DISTRESS NOTED. IV FLUIDS INFUSING WITHOUT INCIDENT INTO RIGHT ARM PICC. ALMONTE CATHETER REMAINS INTACT. CALL LIGHT WITHIN REACH WILL CONTINUE TO MONITOR.
[2019-10-26 04:10] VITALS: BP 128/63
--- NOTE | 2019-10-26 04:15 | NUR ---
PATIENT REMAINS ON BIPAP VIA FULL FACE MASK AT THIS TIME, NO SIGNS OR SYMPTOMS OF DISTRESS NOTED AT THIS TIME, IV FLUIDS INFUSING VIA RIGHT ARM PICC WITHOUT INCIDENT. CALL LIGHT WITHIN REACH WILL CONTINUE TO MONITOR.
--- NOTE | 2019-10-26 05:30 | NUR ---
PATIENT TAKEN OFF BIPAP AT THIS TIME FOR ORAL MEDICATION ADMINISTRATION AND PLACED ON NC 3LPM. MEDICATION GIVEN WITHOUT INCIDENT AND MOUTHCARE COMPLETED. PATIENT CARE PROVIDED FOR MEDIUM BM, CATHETER CARE COMPLETED ALSO AND PATIENT REPOSITIONED. WOUND VAC REMAINS INTACT AND AT ORDERED PRESSURE 125MMHG, HEEL PROTECTORS INTACT TO BILATERAL FEET. LEFT FOOT WOUND DRESSING INTACT. IV FLUIDS AND ANTIBIOTICS INFUSING INTO RIGHT ARM PICC WITHOUT INCIDENT. CALL LIGHT WITHIN REACH, WILL CONTINUE TO MONITOR.
--- NOTE | 2019-10-26 07:37 | NUR ---
PATIENT AWAKE AND ALERT IN BED. NO STATED COMPLAINTS, DENIES PAIN AT THIS TIME. 3L NC INTACT, NO SOB NOTED. IV FLUIDS INFUSING IN PICC LINE. WOUND VAC INTACT. BREAKFAST ORDERED. BED IN LOWEST LOCKED POSITION AND CALL LIGHT WITHIN REACH. WILL CONTINUE TO MONITOR.
--- NOTE | 2019-10-26 07:49 | NUR ---
PT RESTING COMFORTABLY ON HOME TRILOGY VENT. HR 88 SPO2 100% WITH 2 L O2 BLEED IN. RR 17-20 VST 450-500 CC. BBSs EQUAL.
[2019-10-26 08:00] VITALS: BP 126/60
[2019-10-26 09:33] LABS: BASO % 0.1 % (0.0-1.0); EOS # 0.1 10*3/uL (0.0-0.4); EOS % 0.9 % (1.0-4.0); HEMATOCRIT 39.3 % (37.0-47.0); LYMPH # 0.7 10*3/uL (1.3-4.4); LYMPH % 6.9 % (27.0-41.0); MEAN CELL VOLUME 98.3 fl (81.0-99.0); MEAN CORPUSCULAR HGB 29.5 pg (27.0-31.0); MEAN PLATELET VOLUME 11.5 fl (9.6-12.3); MONO # 0.6 10*3/uL (0.1-1.0); MONO % 5.6 % (3.0-9.0); NEUT # 8.7 10*3/uL (2.3-7.9); NEUT % 85.9 % (47.0-73.0); PLATELET COUNT AUTOMATED 182 10*3/uL (130-400); RED CELL DISTRI WIDTH 16.1 % (0-14.5); WHITE BLOOD COUNT 10.2 10*3/uL (4.8-10.8)
[2019-10-26 09:49] LABS: ALBUMIN 2.1 gm/dl (3.1-4.5); ALKALINE PHOSPHATASE 92 U/L (45-117); CHLORIDE 112 mmol/L (98-107); POTASSIUM 3.7 mmol/L (3.5-5.1); SGOT/AST 52 IU/L (3-35); SGPT/ALT 127 U/L (12-78); SODIUM 144 mmol/L (136-145); TOTAL PROTEIN 5.8 gm/dL (6.4-8.2)
[2019-10-26 09:51] LABS: BUN 32 mg/dl (7-24)
[2019-10-26 12:00] VITALS: BP 126/62
--- NOTE | 2019-10-26 15:30 | NUR ---
PATIENT TRANSFERRED OUT TO ROOM 424 AT THIS TIME; O2 IN PLACE AT 3L. ALMONTE PATENT DRAINING CLOUDY, RENETTA URINE. CALL LIGHT IN REACH & ENCOURAGED TO USE.
[2019-10-26 16:00] VITALS: BP 135/60
[2019-10-26 20:00] VITALS: BP 121/64
--- NOTE | 2019-10-26 23:59 | NUR ---
PATIENT REFUSING BIPAP AT THIS TIME
[2019-10-27] VITALS: BP 130/57
[2019-10-27 07:31] LABS: BUN 27 mg/dl (7-24); CREATININE 0.56 mg/dL (0.55-1.02)
[2019-10-27 08:00] VITALS: BP 110/58
[2019-10-27] MEDS ORDERED: ELIQUIS5 M1 PO (08:51)
[2019-10-27] MEDS ORDERED: VENLAFAXINE HYD75 MG PO (08:51)
[2019-10-27] MEDS ORDERED: DILTIAZEM CD240 MG PO (08:51)
[2019-10-27] MEDS ORDERED: BUMETANIDE1 MG PO (08:51)
--- NOTE | 2019-10-27 09:19 | NUR ---
Updated clinical information faxed ot [facility] on this date. Patient is LTC there and can return once medically stable.
--- NOTE | 2019-10-27 10:11 | NUR ---
SPEECH PATHOLOGY Patient was seen for treatment this am. Patient had just returned from x-ray and was alert and cooperative for tasks. Patient was fed breakfast by clinician. She was given purees and liquids thickened to nectar consistency. Patient did not each much overall but she displayed no overt difficulty with any item given. Recommend pureed diet and nectar thick liquid. Continue therapy plan. SERGIO [facility]3]-PSYCHIATRIC THERAPIST
--- NOTE | 2019-10-27 10:42 | NUR ---
Patient is discharged at this time to [facility] via [facility] @ 1400. Dc information faxed, [place], nursing/steward/stewardess smoke room as well as family notified.
[2019-10-27 12:00] VITALS: BP 116/67
[2019-10-27 12:08] LABS: ACID FAST SPEC PROCESSING Tissue Grinding (.)
[2019-10-27 12:08] LABS: ACID FAST SPEC PROCESSING Tissue Grinding (.)
--- NOTE | 2019-10-27 12:37 | NUR ---
PICC LINE AND ALMONTE CATHETER REMOVED, MACHINIST LINOTYPE REMOVED IN PREPARATION FOR DISCHARGE TO [facility] AT 2PM TODAY BY [facility].
--- NOTE | 2019-10-27 14:34 | NUR ---
REPORT CALLED TO RECEIVING NURSE AT [facility].
--- NOTE | 2019-10-27 14:35 | NUR ---
PATIENT DISCHARGED TO [facility] BY [facility].
== END 2019-10-27 14:35 | disposition other institution (70) | DRG 981 ==
LOC: ED 10:54 → EDHOLD 13:15 → ICCU 13:15 → 4E 10-26 15:18
PROVIDERS: Family Medicine; Internal Medicine Critical Care Medicine; Podiatrist Foot & Ankle Surgery; ADMIT Internal Medicine
PROC: 5A09357 Assistance with Respiratory Ventilation, Less than 24 Consecutive Hours, Continuous Positive Airway Pressure (ICD-10-PCS; 2019-10-14)
PROC: 5A1955Z Respiratory Ventilation, Greater than 96 Consecutive Hours (ICD-10-PCS; 2019-10-15)
PROC: 0BH17EZ Insertion of Endotracheal Airway into Trachea, Via Natural or Artificial Opening (ICD-10-PCS; 2019-10-15)
PROC: 5A09357 Assistance with Respiratory Ventilation, Less than 24 Consecutive Hours, Continuous Positive Airway Pressure (ICD-10-PCS; 2019-10-15)
PROC: 0BC68ZZ Extirpation of Matter from Right Lower Lobe Bronchus, Via Natural or Artificial Opening Endoscopic (ICD-10-PCS; principal; 2019-10-20)
PROC: 0BCB8ZZ Extirpation of Matter from Left Lower Lobe Bronchus, Via Natural or Artificial Opening Endoscopic (ICD-10-PCS; principal; 2019-10-20)
PROC: 0BC98ZZ Extirpation of Matter from Lingula Bronchus, Via Natural or Artificial Opening Endoscopic (ICD-10-PCS; principal; 2019-10-20)
PROC: 0BC48ZZ Extirpation of Matter from Right Upper Lobe Bronchus, Via Natural or Artificial Opening Endoscopic (ICD-10-PCS; principal; 2019-10-20)
PROC: 0BC18ZZ Extirpation of Matter from Trachea, Via Natural or Artificial Opening Endoscopic (ICD-10-PCS; principal; 2019-10-20)
PROC: 0BC38ZZ Extirpation of Matter from Right Main Bronchus, Via Natural or Artificial Opening Endoscopic (ICD-10-PCS; principal; 2019-10-20)
PROC: 0BC88ZZ Extirpation of Matter from Left Upper Lobe Bronchus, Via Natural or Artificial Opening Endoscopic (ICD-10-PCS; principal; 2019-10-20)
PROC: 0BC58ZZ Extirpation of Matter from Right Middle Lobe Bronchus, Via Natural or Artificial Opening Endoscopic (ICD-10-PCS; principal; 2019-10-20)
PROC: 0BC78ZZ Extirpation of Matter from Left Main Bronchus, Via Natural or Artificial Opening Endoscopic (ICD-10-PCS; principal; 2019-10-20)
PROC: 5A09357 Assistance with Respiratory Ventilation, Less than 24 Consecutive Hours, Continuous Positive Airway Pressure (ICD-10-PCS; 2019-10-21)
PROC: 5A09357 Assistance with Respiratory Ventilation, Less than 24 Consecutive Hours, Continuous Positive Airway Pressure (ICD-10-PCS; 2019-10-22)
PROC: 02HV33Z Insertion of Infusion Device into Superior Vena Cava, Percutaneous Approach (ICD-10-PCS; 2019-10-23)
PROC: 5A09357 Assistance with Respiratory Ventilation, Less than 24 Consecutive Hours, Continuous Positive Airway Pressure (ICD-10-PCS; 2019-10-23)
PROC: 5A09357 Assistance with Respiratory Ventilation, Less than 24 Consecutive Hours, Continuous Positive Airway Pressure (ICD-10-PCS; 2019-10-24)
PROC: 0QBJ0ZZ Excision of Right Fibula, Open Approach (ICD-10-PCS; 2019-10-24)
PROC: 5A09357 Assistance with Respiratory Ventilation, Less than 24 Consecutive Hours, Continuous Positive Airway Pressure (ICD-10-PCS; 2019-10-25)
PROC: 5A09357 Assistance with Respiratory Ventilation, Less than 24 Consecutive Hours, Continuous Positive Airway Pressure (ICD-10-PCS; 2019-10-26)
DX: J96.21 Acute and chronic respiratory failure with hypoxia (principal); L89.623 Pressure ulcer of left heel, stage 3; J69.0 Pneumonitis due to inhalation of food and vomit; L89.613 Pressure ulcer of right heel, stage 3; N39.0 Urinary tract infection, site not specified; M86.8X6 Other osteomyelitis, lower leg; E46 Unspecified protein-calorie malnutrition; J44.0 Chronic obstructive pulmonary disease with (acute) lower respiratory infection; J44.1 Chronic obstructive pulmonary disease with (acute) exacerbation; E87.0 Hyperosmolality and hypernatremia; E87.3 Alkalosis; I48.21 Permanent atrial fibrillation; L03.119 Cellulitis of unspecified part of limb; N17.9 Acute kidney failure, unspecified; J96.22 Acute and chronic respiratory failure with hypercapnia; J20.9 Acute bronchitis, unspecified; E87.6 Hypokalemia; E87.8 Other disorders of electrolyte and fluid balance, not elsewhere classified; B95.62 Methicillin resistant Staphylococcus aureus infection as the cause of diseases classified elsewhere; I48.0 Paroxysmal atrial fibrillation; I12.9 Hypertensive chronic kidney disease with stage 1 through stage 4 chronic kidney disease, or unspecified chronic kidney disease; R74.0 Nonspecific elevation of levels of transaminase and lactic acid dehydrogenase [LDH]; Z96.642 Presence of left artificial hip joint; J20.8 Acute bronchitis due to other specified organisms; E66.01 Morbid (severe) obesity due to excess calories; Z96.652 Presence of left artificial knee joint; F32.9 Major depressive disorder, single episode, unspecified; K21.0 Gastro-esophageal reflux disease with esophagitis; N18.3 Chronic kidney disease, stage 3 (moderate); R62.7 Adult failure to thrive; E11.22 Type 2 diabetes mellitus with diabetic chronic kidney disease; T50.2X5A Adverse effect of carbonic-anhydrase inhibitors, benzothiadiazides and other diuretics, initial encounter; E11.65 Type 2 diabetes mellitus with hyperglycemia; E11.621 Type 2 diabetes mellitus with foot ulcer; L97.509 Non-pressure chronic ulcer of other part of unspecified foot with unspecified severity; B96.20 Unspecified Escherichia coli [E. coli] as the cause of diseases classified elsewhere; G47.33 Obstructive sleep apnea (adult) (pediatric); F41.1 Generalized anxiety disorder; Z90.49 Acquired absence of other specified parts of digestive tract; Z87.891 Personal history of nicotine dependence; Z83.3 Family history of diabetes mellitus; Z82.49 Family history of ischemic heart disease and other diseases of the circulatory system; Z80.0 Family history of malignant neoplasm of digestive organs; Z86.14 Personal history of Methicillin resistant Staphylococcus aureus infection; Y92.89 Other specified places as the place of occurrence of the external cause

== ENCOUNTER 2019-12-30 13:46 | Emergency (ER) | payer MEDICARE, MEDICAID ==
[~2019-12-30 13:46] MED LIST changes: +BUMETANIDE1 MG PO; +DALIRESP500 MC1 PO; +DILTIAZEM CD240 MG PO; +FLONASE ALLERG9.9 ML NAS; +FLUTICASONE INH; +NYSTATIN CREAM15 GM T; +PREDNISONE20 M1 PO; +QUESTRAN POWDE378 GM PO; +SALMETEROL INH; +TRAMADOL HCL50 MG PO; +TYLENOL325 M1 PO; +VENLAFAXINE HY150 M2 PO; +VENLAFAXINE HYD75 MG PO; +VENTOLIN 02.5 MG/3 M INH; +VITAMIN C500 M6 PO; +VITAMIN D350 MC2 PO; +ZINC-220220 MG PO
[2019-12-30 14:48] LABS: BASO # 0.1 10*3/uL (0.0-0.1); BASO % 0.7 % (0.0-1.0); EOS # 0.1 10*3/uL (0.0-0.4); EOS % 1.3 % (1.0-4.0); HEMATOCRIT 38.3 % (37.0-47.0); LYMPH # 2.4 10*3/uL (1.3-4.4); LYMPH % 24.4 % (27.0-41.0); MEAN CELL VOLUME 94.3 fl (81.0-99.0); MEAN CORPUSCULAR HGB 29.8 pg (27.0-31.0); MEAN CORPUSCULAR HGB CONC 31.6 g/dl (33.0-37.0); MEAN PLATELET VOLUME 9.3 fl (9.6-12.3); MONO # 0.7 10*3/uL (0.1-1.0); MONO % 7.3 % (3.0-9.0); NEUT # 6.4 10*3/uL (2.3-7.9); PLATELET COUNT AUTOMATED 313 10*3/uL (130-400); RED BLOOD COUNT 4.06 10*6/uL (4.10-5.10); RED CELL DISTRI WIDTH 13.8 % (0-14.5); WHITE BLOOD COUNT 9.7 10*3/uL (4.8-10.8)
[2019-12-30 14:59] LABS: ACT PARTIAL THROMBO TIME 29.6 SECONDS (20.0-32.1); INTERNATIONAL NORM RATIO 1.1 (2.0-3.5)
[2019-12-30 15:02] LABS: ALKALINE PHOSPHATASE 136 U/L (45-117); BUN 12 mg/dl (7-24); CHLORIDE 96 mmol/L (98-107); CREATININE 0.86 mg/dL (0.55-1.02); POTASSIUM 3.4 mmol/L (3.5-5.1); SGOT/AST 16 IU/L (3-35); SGPT/ALT 11 U/L (12-78); SODIUM 138 mmol/L (136-145); TOTAL PROTEIN 6.6 gm/dL (6.4-8.2)
== END 2019-12-30 20:10 | disposition short-term general hospital (02) ==
LOC: ED 13:46
PROVIDERS: Emergency Medicine
DX: S43.084A Other dislocation of right shoulder joint, initial encounter (principal); R79.1 Abnormal coagulation profile; Z79.899 Other long term (current) drug therapy; Z87.891 Personal history of nicotine dependence; W18.39XA Other fall on same level, initial encounter; Y93.89 Activity, other specified; Y92.89 Other specified places as the place of occurrence of the external cause; Y99.8 Other external cause status

== ENCOUNTER 2020-07-05 00:40 | Inpatient (IN) | payer OTHER ==
[~2020-07-05] VITALS: Ht 165.1 cm; Wt 127.0 kg
[2020-07-05 00:46] VITALS: BP 120/74
[2020-07-05 01:11] LABS: ABG BASE EXCESS 7.7 mmol/L (-2.0-2.0); ARTERIAL BLOOD GAS PH 7.345 (7.35-7.45)
[2020-07-05 01:35] LABS: BASO % 0.1 % (0.0-1.0); EOS % 0.4 % (1.0-4.0); HEMATOCRIT 41.2 % (37.0-47.0); LYMPH # 1.3 10*3/uL (1.3-4.4); LYMPH % 18.5 % (27.0-41.0); MEAN CELL VOLUME 86.6 fl (81.0-99.0); MEAN CORPUSCULAR HGB CONC 28.9 g/dl (33.0-37.0); MEAN PLATELET VOLUME 9.2 fl (9.6-12.3); MONO # 0.4 10*3/uL (0.1-1.0); MONO % 5.9 % (3.0-9.0); NEUT % 74.8 % (47.0-73.0); PLATELET COUNT AUTOMATED 265 10*3/uL (130-400); RED BLOOD COUNT 4.76 10*6/uL (4.10-5.10); RED CELL DISTRI WIDTH 15.3 % (0-14.5); WHITE BLOOD COUNT 6.7 10*3/uL (4.8-10.8)
[2020-07-05 01:51] LABS: INTERNATIONAL NORM RATIO 1.1 (2.0-3.5)
[2020-07-05 01:52] LABS: ALBUMIN 2.4 gm/dl (3.1-4.5); ALKALINE PHOSPHATASE 145 U/L (45-117); BUN 20 mg/dl (7-24); CHLORIDE 100 mmol/L (98-107); CREATININE 0.67 mg/dL (0.55-1.02); SGOT/AST 20 IU/L (3-35); SGPT/ALT 19 U/L (12-78); SODIUM 139 mmol/L (136-145); TOTAL PROTEIN 7.6 gm/dL (6.4-8.2)
[2020-07-05 01:53] LABS: TROPONIN I < 0.015 ng/ml (<0.045)
[2020-07-05 02:09] LABS: BILIRUBIN Negative (Negative); BLOOD 3+ (Negative); CLARITY Cloudy (Clear); COLOR Yellow (Yellow); GLUCOSE Negative (Negative); KETONE Negative (Negative); LEUKO ESTERASE 3+ (Negative); NITRITE Positive (Negative); PH 6.5 (4.5-8.0)
[2020-07-05 02:32] LABS: BACTERIA 4+; RBC TNTC rbc/hpf (0-2); WBC TNTC wbc/hpf (0-5)
[2020-07-05] MEDS ORDERED: ALBUTEROL2.5 MG/0.5 INH (02:48)
[2020-07-05] MEDS ORDERED: BUSPIRONE HCL10 MG PO (02:49)
[2020-07-05] MEDS ORDERED: ELIQUIS5 M1 PO (02:51)
[2020-07-05] MEDS ORDERED: INCRUSE ELLI62.5 MCG INH (02:53)
[2020-07-05] MEDS ORDERED: CONZIP100 M1 PO (02:57)
[2020-07-05] MEDS ORDERED: VRAYLAR3 MG PO (02:58)
[2020-07-05 05:33] VITALS: BP 151/73
[2020-07-05] MEDS ORDERED: ADV 500/50 INH (08:37)
[2020-07-05] MEDS ORDERED: ANUSOL-HC25 MG R (08:39)
[2020-07-05] MEDS ORDERED: BISACODYL LAXATI5 MG PO (08:40)
[2020-07-05] MEDS ORDERED: FLEET ENEMA 13133 ML R (08:51)
[2020-07-05] MEDS ORDERED: MELATONIN5 M1 SL (08:53)
[2020-07-05] MEDS ORDERED: MILK OF MA2400 MG/10 PO (08:54)
[2020-07-05] MEDS ORDERED: PROVENTIL HFA6.7 GM INH (08:55)
[2020-07-05] MEDS ORDERED: VENLAFAXINE75 M1 PO (08:57)
[2020-07-05 09:42] VITALS: BP 116/73
[2020-07-05 12:00] VITALS: BP 127/73
[2020-07-05 13:58] LABS: ABG BASE EXCESS 6.4 mmol/L (-2.0-2.0); ARTERIAL BLOOD GAS PH 7.308 (7.35-7.45)
[2020-07-05 16:00] VITALS: BP 140/56
[2020-07-05 17:37] LABS: ABG BASE EXCESS 7.4 mmol/L (-2.0-2.0); ARTERIAL BLOOD GAS PH 7.33 (7.35-7.45)
[2020-07-05 20:00] VITALS: BP 121/57
[2020-07-06] VITALS: BP 138/63
[2020-07-06 07:06] LABS: BASO % 0.3 % (0.0-1.0); HEMATOCRIT 39.7 % (37.0-47.0); LYMPH # 0.8 10*3/uL (1.3-4.4); LYMPH % 22.8 % (27.0-41.0); MEAN CELL VOLUME 86.9 fl (81.0-99.0); MEAN CORPUSCULAR HGB 25.2 pg (27.0-31.0); MEAN PLATELET VOLUME 10.2 fl (9.6-12.3); MONO # 0.4 10*3/uL (0.1-1.0); MONO % 11.4 % (3.0-9.0); NEUT # 2.4 10*3/uL (2.3-7.9); NEUT % 65.2 % (47.0-73.0); PLATELET COUNT AUTOMATED 273 10*3/uL (130-400); RED BLOOD COUNT 4.57 10*6/uL (4.10-5.10); RED CELL DISTRI WIDTH 15.1 % (0-14.5); WHITE BLOOD COUNT 3.6 10*3/uL (4.8-10.8)
[2020-07-06 07:13] LABS: BUN 22 mg/dl (7-24); CHLORIDE 105 mmol/L (98-107); CREATININE 0.59 mg/dL (0.55-1.02); POTASSIUM 4.3 mmol/L (3.5-5.1); SODIUM 142 mmol/L (136-145)
[2020-07-06 08:00] VITALS: BP 129/95
[2020-07-06 08:32] LABS: ABG BASE EXCESS 8.9 mmol/L (-2.0-2.0); ARTERIAL BLOOD GAS PH 7.354 (7.35-7.45)
[2020-07-06 12:00] VITALS: BP 124/85
[2020-07-06 16:00] VITALS: BP 134/61
[2020-07-06 20:00] VITALS: BP 132/89
[2020-07-07] VITALS: BP 131/86
[2020-07-07 08:00] VITALS: BP 122/93
[2020-07-07 08:24] LABS: ABG BASE EXCESS 9.8 mmol/L (-2.0-2.0); ARTERIAL BLOOD GAS PH 7.375 (7.35-7.45)
[2020-07-07 12:00] VITALS: BP 119/45
[2020-07-07 16:00] VITALS: BP 142/40
[2020-07-07 20:00] VITALS: BP 131/62
[2020-07-08] VITALS: BP 125/45
[2020-07-08 07:27] LABS: BASO % 0.2 % (0.0-1.0); HEMATOCRIT 39.6 % (37.0-47.0); LYMPH # 0.7 10*3/uL (1.3-4.4); LYMPH % 13.2 % (27.0-41.0); MEAN CORPUSCULAR HGB 24.7 pg (27.0-31.0); MEAN PLATELET VOLUME 10.3 fl (9.6-12.3); MONO # 0.4 10*3/uL (0.1-1.0); MONO % 7.3 % (3.0-9.0); NEUT % 78.9 % (47.0-73.0); PLATELET COUNT AUTOMATED 339 10*3/uL (130-400); RED BLOOD COUNT 4.66 10*6/uL (4.10-5.10); RED CELL DISTRI WIDTH 14.9 % (0-14.5); WHITE BLOOD COUNT 5.1 10*3/uL (4.8-10.8)
[2020-07-08 07:47] LABS: ALBUMIN 2.6 gm/dl (3.1-4.5); BUN 34 mg/dl (7-24); CHLORIDE 104 mmol/L (98-107); LDH 174 U/L (84-246); POTASSIUM 4.2 mmol/L (3.5-5.1); SGOT/AST 47 IU/L (3-35); SODIUM 143 mmol/L (136-145); TOTAL PROTEIN 7.5 gm/dL (6.4-8.2)
[2020-07-08 07:54] LABS: ALKALINE PHOSPHATASE 111 U/L (45-117); CREATININE 0.69 mg/dL (0.55-1.02); SGPT/ALT 54 U/L (12-78)
[2020-07-08 08:00] VITALS: BP 120/93
[2020-07-08 08:32] LABS: ABG BASE EXCESS 10.4 mmol/L (-2.0-2.0); ARTERIAL BLOOD GAS PH 7.409 (7.35-7.45)
[2020-07-08 09:21] LABS: ABG BASE EXCESS 11.4 mmol/L (-2.0-2.0); ARTERIAL BLOOD GAS PH 7.405 (7.35-7.45)
[2020-07-08 12:00] VITALS: BP 113/83
[2020-07-08 16:00] VITALS: BP 140/58
[2020-07-09 06:41] LABS: BASO % 0.2 % (0.0-1.0); HEMATOCRIT 42.2 % (37.0-47.0); LYMPH # 0.8 10*3/uL (1.3-4.4); LYMPH % 13.9 % (27.0-41.0); MEAN CELL VOLUME 85.8 fl (81.0-99.0); MEAN CORPUSCULAR HGB CONC 29.1 g/dl (33.0-37.0); MEAN PLATELET VOLUME 9.6 fl (9.6-12.3); MONO # 0.4 10*3/uL (0.1-1.0); MONO % 7.9 % (3.0-9.0); NEUT # 4.2 10*3/uL (2.3-7.9); NEUT % 77.6 % (47.0-73.0); PLATELET COUNT AUTOMATED 334 10*3/uL (130-400); RED BLOOD COUNT 4.92 10*6/uL (4.10-5.10); RED CELL DISTRI WIDTH 14.9 % (0-14.5); WHITE BLOOD COUNT 5.4 10*3/uL (4.8-10.8)
[2020-07-09 06:54] LABS: ALBUMIN 2.8 gm/dl (3.1-4.5); ALKALINE PHOSPHATASE 120 U/L (45-117); BUN 34 mg/dl (7-24); CHLORIDE 100 mmol/L (98-107); CREATININE 0.68 mg/dL (0.55-1.02); POTASSIUM 4.2 mmol/L (3.5-5.1); SGOT/AST 60 IU/L (3-35); SGPT/ALT 108 U/L (12-78); SODIUM 140 mmol/L (136-145); TOTAL PROTEIN 7.9 gm/dL (6.4-8.2)
[2020-07-09 07:25] LABS: ABG BASE EXCESS 10.3 mmol/L (-2.0-2.0); ARTERIAL BLOOD GAS PH 7.416 (7.35-7.45)
[2020-07-09 08:00] VITALS: BP 118/66
[2020-07-09] MEDS ORDERED: DECADRON4 MG PO (09:01)
[2020-07-09] MEDS ORDERED: OMNICEF300 MG PO (09:01)
[2020-07-09] MEDS ORDERED: MUCUS RELIEF600 MG PO (09:01)
[2020-07-09 12:00] VITALS: BP 135/52
== END 2020-07-09 17:18 | disposition other institution (70) | DRG 177 ==
LOC: ED 00:40 → EDHOLD 07:02 → 4E 07:02 → EDHOLD 07:11 → 4E 09:51
PROVIDERS: Emergency Medicine; Internal Medicine Critical Care Medicine; ADMIT Internal Medicine; ATTEND Internal Medicine
PROC: XW033E5 Introduction of Remdesivir Anti-infective into Peripheral Vein, Percutaneous Approach, New Technology Group 5 (ICD-10-PCS; principal; 2020-07-05)
PROC: 5A0935A Assistance with Respiratory Ventilation, Less than 24 Consecutive Hours, High Flow/Velocity Cannula (ICD-10-PCS; 2020-07-05)
PROC: 5A09357 Assistance with Respiratory Ventilation, Less than 24 Consecutive Hours, Continuous Positive Airway Pressure (ICD-10-PCS; 2020-07-06)
PROC: 5A09357 Assistance with Respiratory Ventilation, Less than 24 Consecutive Hours, Continuous Positive Airway Pressure (ICD-10-PCS; 2020-07-07)
PROC: 5A09357 Assistance with Respiratory Ventilation, Less than 24 Consecutive Hours, Continuous Positive Airway Pressure (ICD-10-PCS; 2020-07-08)
DX: U07.1 COVID-19 (principal); J12.82 Pneumonia due to coronavirus disease 2019; J96.21 Acute and chronic respiratory failure with hypoxia; E43 Unspecified severe protein-calorie malnutrition; N39.0 Urinary tract infection, site not specified; I48.21 Permanent atrial fibrillation; D68.59 Other primary thrombophilia; Z68.43 Body mass index [BMI] 50.0-59.9, adult; J96.12 Chronic respiratory failure with hypercapnia; J44.9 Chronic obstructive pulmonary disease, unspecified; E66.01 Morbid (severe) obesity due to excess calories; G47.33 Obstructive sleep apnea (adult) (pediatric); F32.9 Major depressive disorder, single episode, unspecified; B96.20 Unspecified Escherichia coli [E. coli] as the cause of diseases classified elsewhere; R74.01 Elevation of levels of liver transaminase levels; G89.29 Other chronic pain; M54.5 Low back pain; I50.9 Heart failure, unspecified; Z96.642 Presence of left artificial hip joint; Z96.652 Presence of left artificial knee joint; F41.1 Generalized anxiety disorder; S71.102A Unspecified open wound, left thigh, initial encounter; X58.XXXA Exposure to other specified factors, initial encounter; Y93.89 Activity, other specified; Y92.89 Other specified places as the place of occurrence of the external cause; Y99.8 Other external cause status; Z79.01 Long term (current) use of anticoagulants; Z90.49 Acquired absence of other specified parts of digestive tract; Z87.891 Personal history of nicotine dependence; Z83.3 Family history of diabetes mellitus; Z82.49 Family history of ischemic heart disease and other diseases of the circulatory system; Z80.0 Family history of malignant neoplasm of digestive organs

== ENCOUNTER 2020-08-16 23:07 | Observation (INO) | payer OTHER ==
[~2020-08-16] VITALS: Ht 165.1 cm; Wt 131.6 kg
[~2020-08-16 23:07] MED LIST changes: +ANUSOL-HC25 MG R; +BISACODYL LAXATI5 MG PO; +BUSPIRONE HCL10 MG PO; +CONZIP100 M1 PO; +DECADRON4 MG PO; +FLEET ENEMA 13133 ML R; +INCRUSE ELLI62.5 MCG INH; +MELATONIN5 M1 SL; +MILK OF MA2400 MG/10 PO; +MUCUS RELIEF600 MG PO; +OMNICEF300 MG PO; +PROVENTIL HFA6.7 GM INH; +VENLAFAXINE75 M1 PO; +VRAYLAR3 MG PO
[2020-08-16 23:15] VITALS: BP 115/48
[2020-08-16 23:40] LABS: BASO # 0.1 10*3/uL (0.0-0.1); BASO % 0.4 % (0.0-1.0); EOS % 0.1 % (1.0-4.0); HEMATOCRIT 36.6 % (37.0-47.0); LYMPH # 2.3 10*3/uL (1.3-4.4); LYMPH % 14.6 % (27.0-41.0); MEAN CELL VOLUME 88.4 fl (81.0-99.0); MEAN CORPUSCULAR HGB 26.6 pg (27.0-31.0); MEAN CORPUSCULAR HGB CONC 30.1 g/dl (33.0-37.0); MONO # 1.3 10*3/uL (0.1-1.0); MONO % 8.1 % (3.0-9.0); NEUT # 12.1 10*3/uL (2.3-7.9); NEUT % 76.4 % (47.0-73.0); PLATELET COUNT AUTOMATED 291 10*3/uL (130-400); RED BLOOD COUNT 4.14 10*6/uL (4.10-5.10); RED CELL DISTRI WIDTH 19.8 % (0-14.5); WHITE BLOOD COUNT 15.8 10*3/uL (4.8-10.8)
[2020-08-16 23:50] LABS: BILIRUBIN Negative (Negative); BLOOD 2+ (Negative); CLARITY Cloudy (Clear); COLOR Yellow (Yellow); GLUCOSE Negative (Negative); KETONE Negative (Negative); LEUKO ESTERASE 1+ (Negative); NITRITE Negative (Negative); SPECIFIC GRAVITY 1.025 (1.001-1.030)
[2020-08-16 23:55] LABS: ALBUMIN 2.7 gm/dl (3.1-4.5); ALKALINE PHOSPHATASE 121 U/L (45-117); BUN 28 mg/dl (7-24); CHLORIDE 102 mmol/L (98-107); CREATININE 0.81 mg/dL (0.55-1.02); POTASSIUM 3.3 mmol/L (3.5-5.1); SGOT/AST 11 IU/L (3-35); SGPT/ALT 13 U/L (12-78); SODIUM 138 mmol/L (136-145); TOTAL PROTEIN 7.5 gm/dL (6.4-8.2)
[2020-08-16 23:59] LABS: RBC 41-50 rbc/hpf (0-2)
[2020-08-17] LABS: CALCIUM OXALATE CRYSTALS 1+
[2020-08-17 01:49] VITALS: BP 144/62
[2020-08-17] MEDS ORDERED: TYLENOL325 M3 PO (02:44)
[2020-08-17] MEDS ORDERED: ACETAZOLAMIDE250 MG PO (02:44)
[2020-08-17] MEDS ORDERED: MUCINEX ER600 MG PO (03:49)
[2020-08-17 08:00] VITALS: BP 106/67; BP 128/62
[2020-08-17 12:00] VITALS: BP 119/80
[2020-08-17 16:00] VITALS: BP 126/72
[2020-08-17 20:00] VITALS: BP 130/91
[2020-08-18] VITALS: BP 122/64
[2020-08-18 06:46] LABS: BASO # 0.1 10*3/uL (0.0-0.1); BASO % 0.6 % (0.0-1.0); EOS # 0.1 10*3/uL (0.0-0.4); EOS % 0.7 % (1.0-4.0); HEMATOCRIT 36.7 % (37.0-47.0); LYMPH # 1.4 10*3/uL (1.3-4.4); LYMPH % 12.7 % (27.0-41.0); MEAN CELL VOLUME 90.2 fl (81.0-99.0); MEAN CORPUSCULAR HGB 26.5 pg (27.0-31.0); MEAN CORPUSCULAR HGB CONC 29.4 g/dl (33.0-37.0); MONO # 0.7 10*3/uL (0.1-1.0); MONO % 6.5 % (3.0-9.0); NEUT # 8.5 10*3/uL (2.3-7.9); NEUT % 79.1 % (47.0-73.0); PLATELET COUNT AUTOMATED 273 10*3/uL (130-400); RED BLOOD COUNT 4.07 10*6/uL (4.10-5.10); RED CELL DISTRI WIDTH 19.8 % (0-14.5); WHITE BLOOD COUNT 10.7 10*3/uL (4.8-10.8)
[2020-08-18 07:02] LABS: BUN 19 mg/dl (7-24); CHLORIDE 107 mmol/L (98-107); SODIUM 144 mmol/L (136-145)
[2020-08-18 08:00] VITALS: BP 102/70
[2020-08-18 16:00] VITALS: BP 101/63
[2020-08-19] VITALS: BP 118/71
[2020-08-19 08:00] VITALS: BP 113/68
[2020-08-19] MEDS ORDERED: CEFUROXIME AXE250 MG PO (08:09)
== END 2020-08-19 12:56 ==
LOC: ED 23:07 → 5E 08-17 00:36 → EDHOLD 08-17 00:36 → 5E 08-17 01:17
PROVIDERS: Internal Medicine; ADMIT Internal Medicine; ATTEND Internal Medicine
DX: N39.0 Urinary tract infection, site not specified (principal); E66.01 Morbid (severe) obesity due to excess calories; J44.9 Chronic obstructive pulmonary disease, unspecified; E46 Unspecified protein-calorie malnutrition; I48.21 Permanent atrial fibrillation; F31.9 Bipolar disorder, unspecified; M54.5 Low back pain; J96.12 Chronic respiratory failure with hypercapnia; G47.33 Obstructive sleep apnea (adult) (pediatric); R39.198 Other difficulties with micturition; R41.0 Disorientation, unspecified; N17.9 Acute kidney failure, unspecified; G93.41 Metabolic encephalopathy; E87.6 Hypokalemia; I10 Essential (primary) hypertension; R06.2 Wheezing; R62.7 Adult failure to thrive; D72.829 Elevated white blood cell count, unspecified; Z96.0 Presence of urogenital implants; Z79.01 Long term (current) use of anticoagulants; Z20.822 Contact with and (suspected) exposure to COVID-19

== ENCOUNTER 2020-10-03 19:11 | Emergency (ER) | payer OTHER ==
[~2020-10-03 19:11] MED LIST changes: +ACETAZOLAMIDE250 MG PO; +CEFUROXIME AXE250 MG PO; +TYLENOL325 M3 PO
[2020-10-03 19:36] LABS: BILIRUBIN Negative (Negative); BLOOD 3+ (Negative); CLARITY Turbid (Clear); COLOR Yellow (Yellow); GLUCOSE Negative (Negative); KETONE Negative (Negative); LEUKO ESTERASE 3+ (Negative); NITRITE Negative (Negative)
[2020-10-03 19:42] LABS: WBC TNTC wbc/hpf (0-5)
[2020-10-03 19:44] LABS: BASO # 0.1 10*3/uL (0.0-0.1); BASO % 0.4 % (0.0-1.0); EOS # 0.2 10*3/uL (0.0-0.4); EOS % 1.5 % (1.0-4.0); HEMATOCRIT 40.3 % (37.0-47.0); LYMPH # 2.5 10*3/uL (1.3-4.4); LYMPH % 21.3 % (27.0-41.0); MEAN CORPUSCULAR HGB 27.3 pg (27.0-31.0); MEAN PLATELET VOLUME 9.6 fl (9.6-12.3); MONO # 0.8 10*3/uL (0.1-1.0); MONO % 7.2 % (3.0-9.0); NEUT % 69.3 % (47.0-73.0); PLATELET COUNT AUTOMATED 333 10*3/uL (130-400); RED BLOOD COUNT 4.43 10*6/uL (4.10-5.10); RED CELL DISTRI WIDTH 16.7 % (0-14.5); WHITE BLOOD COUNT 11.5 10*3/uL (4.8-10.8)
[2020-10-03 19:59] LABS: ALBUMIN 2.5 gm/dl (3.1-4.5); ALKALINE PHOSPHATASE 112 U/L (45-117); BUN 16 mg/dl (7-24); CHLORIDE 100 mmol/L (98-107); CREATININE 0.77 mg/dL (0.55-1.02); POTASSIUM 3.7 mmol/L (3.5-5.1); SGOT/AST 9 IU/L (3-35); SGPT/ALT 11 U/L (12-78); SODIUM 135 mmol/L (136-145); TOTAL PROTEIN 7.4 gm/dL (6.4-8.2)
== END 2020-10-04 00:27 | disposition left against medical advice (07) ==
LOC: ED 19:11
PROVIDERS: Internal Medicine
DX: J18.9 Pneumonia, unspecified organism (principal); N39.0 Urinary tract infection, site not specified; Z87.891 Personal history of nicotine dependence; Z96.652 Presence of left artificial knee joint; Z96.642 Presence of left artificial hip joint; Z90.49 Acquired absence of other specified parts of digestive tract; Z79.899 Other long term (current) drug therapy

== ENCOUNTER 2020-11-18 10:01 | Emergency (ER) | payer OTHER ==
[2020-11-18 10:18] LABS: BASO # 0.1 10*3/uL (0.0-0.1); BASO % 0.4 % (0.0-1.0); EOS % 0.2 % (1.0-4.0); HEMATOCRIT 42.4 % (37.0-47.0); LYMPH # 1.1 10*3/uL (1.3-4.4); LYMPH % 7.3 % (27.0-41.0); MEAN CORPUSCULAR HGB 27.5 pg (27.0-31.0); MEAN PLATELET VOLUME 9.7 fl (9.6-12.3); MONO # 0.8 10*3/uL (0.1-1.0); MONO % 5.4 % (3.0-9.0); NEUT # 12.7 10*3/uL (2.3-7.9); NEUT % 86.2 % (47.0-73.0); PLATELET COUNT AUTOMATED 303 10*3/uL (130-400); RED BLOOD COUNT 4.61 10*6/uL (4.10-5.10); WHITE BLOOD COUNT 14.7 10*3/uL (4.8-10.8)
[2020-11-18 10:41] LABS: ALBUMIN 2.6 gm/dl (3.1-4.5); ALKALINE PHOSPHATASE 134 U/L (45-117); BUN 24 mg/dl (7-24); CHLORIDE 96 mmol/L (98-107); CREATININE 1.06 mg/dL (0.55-1.02); POTASSIUM 3.7 mmol/L (3.5-5.1); SGOT/AST 11 IU/L (3-35); SGPT/ALT 12 U/L (12-78); SODIUM 137 mmol/L (136-145)
[2020-11-18 10:45] LABS: TROPONIN I < 0.015 ng/ml (<0.045)
== END 2020-11-18 13:52 | disposition home or self-care (01) ==
LOC: ED 10:01
PROVIDERS: Emergency Medicine
DX: R09.02 Hypoxemia (principal); Z79.899 Other long term (current) drug therapy; Z79.2 Long term (current) use of antibiotics; Z98.890 Other specified postprocedural states; Z90.49 Acquired absence of other specified parts of digestive tract; Z96.642 Presence of left artificial hip joint

== ENCOUNTER 2020-11-20 00:35 | Inpatient (IN) | payer OTHER ==
[2020-11-20] VITALS (8 sets, daily range): BP systolic 113–185; BP diastolic 78–161
[~2020-11-20] VITALS: Ht 165.1 cm; Wt 118.1 kg
[2020-11-20 00:59] LABS: BASO # 0.1 10*3/uL (0.0-0.1); BASO % 0.3 % (0.0-1.0); EOS % 0.1 % (1.0-4.0); HEMATOCRIT 44.3 % (37.0-47.0); LYMPH # 1.1 10*3/uL (1.3-4.4); LYMPH % 6.5 % (27.0-41.0); MEAN CORPUSCULAR HGB 27.4 pg (27.0-31.0); MEAN CORPUSCULAR HGB CONC 30.5 g/dl (33.0-37.0); MEAN PLATELET VOLUME 9.4 fl (9.6-12.3); MONO % 5.8 % (3.0-9.0); NEUT # 15.1 10*3/uL (2.3-7.9); NEUT % 86.7 % (47.0-73.0); PLATELET COUNT AUTOMATED 374 10*3/uL (130-400); RED BLOOD COUNT 4.92 10*6/uL (4.10-5.10); RED CELL DISTRI WIDTH 17.1 % (0-14.5); WHITE BLOOD COUNT 17.4 10*3/uL (4.8-10.8)
[2020-11-20 01:22] LABS: BILIRUBIN Negative (Negative); BLOOD 3+ (Negative); CLARITY Turbid (Clear); COLOR Red (Yellow); GLUCOSE Negative (Negative); KETONE Negative (Negative); LEUKO ESTERASE 3+ (Negative); NITRITE Negative (Negative); SPECIFIC GRAVITY 1.015 (1.001-1.030)
[2020-11-20 01:23] LABS: ALBUMIN 2.9 gm/dl (3.1-4.5); ALKALINE PHOSPHATASE 155 U/L (45-117); BUN 23 mg/dl (7-24); CHLORIDE 97 mmol/L (98-107); CREATININE 0.97 mg/dL (0.55-1.02); POTASSIUM 3.8 mmol/L (3.5-5.1); SGOT/AST 15 IU/L (3-35); SGPT/ALT 13 U/L (12-78); SODIUM 137 mmol/L (136-145); TOTAL PROTEIN 8.8 gm/dL (6.4-8.2)
[2020-11-20 01:27] LABS: TROPONIN I < 0.015 ng/ml (<0.045)
[2020-11-20 01:45] LABS: RBC 51-100 rbc/hpf (0-2)
[2020-11-20 01:46] LABS: BACTERIA 3+; WBC TNTC wbc/hpf (0-5)
[2020-11-20] MEDS ORDERED: BUMETANIDE2 MG PO (06:14)
[2020-11-20] MEDS ORDERED: Ipratropium Brom3 ML INH (06:17)
[2020-11-20] MEDS ORDERED: K-TAB20 MEQ PO (06:18)
[2020-11-20] MEDS ORDERED: VISTARIL25 MG PO (06:19)
[2020-11-20] MEDS ORDERED: ZOFRAN4 MG PO (06:21)
[2020-11-20] MEDS ORDERED: VITAMIN C500 M4 PO (06:21)
[2020-11-20 06:25] LABS: HEMATOCRIT 43.2 % (37.0-47.0); MEAN CELL VOLUME 90.2 fl (81.0-99.0); MEAN CORPUSCULAR HGB 27.3 pg (27.0-31.0); MEAN CORPUSCULAR HGB CONC 30.3 g/dl (33.0-37.0); MEAN PLATELET VOLUME 9.5 fl (9.6-12.3); PLATELET COUNT AUTOMATED 351 10*3/uL (130-400); RED BLOOD COUNT 4.79 10*6/uL (4.10-5.10); RED CELL DISTRI WIDTH 16.8 % (0-14.5); WHITE BLOOD COUNT 22.4 10*3/uL (4.8-10.8)
[2020-11-20 06:32] LABS: INTERNATIONAL NORM RATIO 1.3 (2.0-3.5)
[2020-11-20 06:34] LABS: ALBUMIN 2.7 gm/dl (3.1-4.5); ALKALINE PHOSPHATASE 148 U/L (45-117); BUN 24 mg/dl (7-24); CHLORIDE 97 mmol/L (98-107); POTASSIUM 3.8 mmol/L (3.5-5.1); SGOT/AST 14 IU/L (3-35); SGPT/ALT 12 U/L (12-78); SODIUM 137 mmol/L (136-145); TOTAL PROTEIN 8.4 gm/dL (6.4-8.2)
[2020-11-20 06:35] LABS: TROPONIN I 0.037 ng/ml (<0.045)
[2020-11-20 07:06] LABS: PLATELET SUFFICIENCY NORMAL (NORMAL); TOTAL CELLS COUNTED 100 #CELLS
[2020-11-20 07:07] LABS: ROULEAUX SLIGHT
[2020-11-21] VITALS: BP 152/94
[2020-11-21 06:07] LABS: HEMATOCRIT 39.6 % (37.0-47.0); MEAN CELL VOLUME 90.4 fl (81.0-99.0); MEAN CORPUSCULAR HGB 27.2 pg (27.0-31.0); MEAN CORPUSCULAR HGB CONC 30.1 g/dl (33.0-37.0); MEAN PLATELET VOLUME 9.9 fl (9.6-12.3); PLATELET COUNT AUTOMATED 298 10*3/uL (130-400); RED BLOOD COUNT 4.38 10*6/uL (4.10-5.10); RED CELL DISTRI WIDTH 17.1 % (0-14.5); WHITE BLOOD COUNT 17.4 10*3/uL (4.8-10.8)
[2020-11-21 06:19] LABS: BUN 29 mg/dl (7-24); CHLORIDE 100 mmol/L (98-107); CREATININE 0.88 mg/dL (0.55-1.02); POTASSIUM 3.6 mmol/L (3.5-5.1); SODIUM 142 mmol/L (136-145)
[2020-11-21 06:31] LABS: BASOPHILS 1 % (0-1); PLATELET SUFFICIENCY NORMAL (NORMAL); TOTAL CELLS COUNTED 100 #CELLS
[2020-11-21 06:32] LABS: STOMATOCYTE FEW
[2020-11-21 08:00] VITALS: BP 117/96
[2020-11-21 12:00] VITALS: BP 133/87
[2020-11-21 16:00] VITALS: BP 142/86
[2020-11-21 20:00] VITALS: BP 129/73
[2020-11-21 22:17] LABS: BUN 34 mg/dl (7-24); CHLORIDE 104 mmol/L (98-107); CREATININE 0.88 mg/dL (0.55-1.02); POTASSIUM 3.8 mmol/L (3.5-5.1); SODIUM 143 mmol/L (136-145)
[2020-11-22] VITALS (9 sets, daily range): BP systolic 115–154; BP diastolic 60–82
[2020-11-22 11:30] LABS: ALBUMIN 2.2 gm/dl (3.1-4.5); BUN 37 mg/dl (7-24); CHLORIDE 106 mmol/L (98-107); CREATININE 0.85 mg/dL (0.55-1.02); POTASSIUM 3.2 mmol/L (3.5-5.1); SODIUM 144 mmol/L (136-145)
[2020-11-23] VITALS (9 sets, daily range): BP systolic 101–156; BP diastolic 42–97
[2020-11-23 06:29] LABS: BUN 45 mg/dl (7-24); CHLORIDE 105 mmol/L (98-107); CREATININE 1.01 mg/dL (0.55-1.02); SODIUM 152 mmol/L (136-145)
[2020-11-24] VITALS: BP 129/82
[2020-11-24 06:47] LABS: BUN 50 mg/dl (7-24); CHLORIDE 113 mmol/L (98-107); SODIUM 152 mmol/L (136-145)
[2020-11-24 06:48] LABS: CREATININE 0.99 mg/dL (0.55-1.02); POTASSIUM 4.1 mmol/L (3.5-5.1)
[2020-11-24 08:00] VITALS: BP 138/93
[2020-11-24 12:00] VITALS: BP 139/84
[2020-11-24 16:00] VITALS: BP 141/95
[2020-11-24 20:00] VITALS: BP 117/66
[2020-11-25] VITALS: BP 126/74
[2020-11-25 06:27] LABS: BUN 52 mg/dl (7-24); CHLORIDE 110 mmol/L (98-107); SODIUM 153 mmol/L (136-145)
[2020-11-25 06:32] LABS: CREATININE 0.86 mg/dL (0.55-1.02)
[2020-11-25 06:33] LABS: POTASSIUM 5.3 mmol/L (3.5-5.1)
[2020-11-25 08:00] VITALS: BP 123/67
[2020-11-25 08:52] LABS: HEMATOCRIT 43.4 % (37.0-47.0); MEAN CELL VOLUME 96.4 fl (81.0-99.0); MEAN CORPUSCULAR HGB 27.1 pg (27.0-31.0); MEAN CORPUSCULAR HGB CONC 28.1 g/dl (33.0-37.0); MEAN PLATELET VOLUME 10.4 fl (9.6-12.3); PLATELET COUNT AUTOMATED 275 10*3/uL (130-400); RED CELL DISTRI WIDTH 17.1 % (0-14.5); WHITE BLOOD COUNT 18.4 10*3/uL (4.8-10.8)
[2020-11-25 09:13] LABS: PLATELET SUFFICIENCY NORMAL (NORMAL); POLYCHROMASIA SLIGHT; ROULEAUX SLIGHT; STOMATOCYTE FEW; TOTAL CELLS COUNTED 100 #CELLS
[2020-11-25 09:22] LABS: ALBUMIN 2.3 gm/dl (3.1-4.5); ALKALINE PHOSPHATASE 115 U/L (45-117); BUN 51 mg/dl (7-24); CHLORIDE 112 mmol/L (98-107); CREATININE 1.06 mg/dL (0.55-1.02); POTASSIUM 5.8 mmol/L (3.5-5.1); SGOT/AST 34 IU/L (3-35); SGPT/ALT 22 U/L (12-78); SODIUM 152 mmol/L (136-145); TOTAL PROTEIN 7.8 gm/dL (6.4-8.2)
[2020-11-25 09:30] LABS: ABG BASE EXCESS 14.8 mmol/L (-2.0-2.0); ARTERIAL BLOOD GAS PH 7.354 (7.35-7.45); ARTERIAL BLOOD GAS PO2 82.8 (80-90)
[2020-11-25 11:53] LABS: ALBUMIN 2.4 gm/dl (3.1-4.5); ALKALINE PHOSPHATASE 106 U/L (45-117); BUN 50 mg/dl (7-24); CHLORIDE 109 mmol/L (98-107); CREATININE 1.01 mg/dL (0.55-1.02); POTASSIUM 4.9 mmol/L (3.5-5.1); SGOT/AST 30 IU/L (3-35); SGPT/ALT 21 U/L (12-78); SODIUM 154 mmol/L (136-145); TOTAL PROTEIN 7.5 gm/dL (6.4-8.2)
[2020-11-25 12:00] VITALS: BP 143/83
[2020-11-25 12:14] LABS: ABG BASE EXCESS 17.4 mmol/L (-2.0-2.0); ARTERIAL BLOOD GAS PH 7.376 (7.35-7.45); ARTERIAL BLOOD GAS PO2 63.3 (80-90)
[2020-11-25 16:00] VITALS: BP 130/92
[2020-11-25 17:49] LABS: ALBUMIN 2.3 gm/dl (3.1-4.5); ALKALINE PHOSPHATASE 107 U/L (45-117); BUN 48 mg/dl (7-24); CHLORIDE 110 mmol/L (98-107); CREATININE 0.95 mg/dL (0.55-1.02); POTASSIUM 4.4 mmol/L (3.5-5.1); SGOT/AST 77 IU/L (3-35); SGPT/ALT 33 U/L (12-78); SODIUM 156 mmol/L (136-145); TOTAL PROTEIN 7.4 gm/dL (6.4-8.2)
[2020-11-25 20:00] VITALS: BP 129/73
[2020-11-26] VITALS: BP 122/61
[2020-11-26 06:08] LABS: HEMATOCRIT 40.6 % (37.0-47.0); MEAN CELL VOLUME 96.9 fl (81.0-99.0); MEAN CORPUSCULAR HGB 27.2 pg (27.0-31.0); MEAN CORPUSCULAR HGB CONC 28.1 g/dl (33.0-37.0); MEAN PLATELET VOLUME 10.7 fl (9.6-12.3); PLATELET COUNT AUTOMATED 234 10*3/uL (130-400); RED BLOOD COUNT 4.19 10*6/uL (4.10-5.10); RED CELL DISTRI WIDTH 16.9 % (0-14.5); WHITE BLOOD COUNT 14.5 10*3/uL (4.8-10.8)
[2020-11-26 06:24] LABS: BUN 48 mg/dl (7-24); CHLORIDE 110 mmol/L (98-107); CREATININE 0.87 mg/dL (0.55-1.02); POTASSIUM 3.5 mmol/L (3.5-5.1); SODIUM 156 mmol/L (136-145)
[2020-11-26 07:24] LABS: PLATELET SUFFICIENCY NORMAL (NORMAL); TOTAL CELLS COUNTED 100 #CELLS
[2020-11-26 07:25] LABS: POLYCHROMASIA SLIGHT; ROULEAUX SLIGHT
[2020-11-26 08:00] VITALS: BP 129/76
[2020-11-26 12:00] VITALS: BP 135/107
[2020-11-26 16:14] VITALS: BP 146/86
[2020-11-26 20:00] VITALS: BP 138/62
[2020-11-27] VITALS: BP 127/65
[2020-11-27 06:52] LABS: HEMATOCRIT 41.4 % (37.0-47.0); MEAN CELL VOLUME 96.3 fl (81.0-99.0); MEAN CORPUSCULAR HGB 27.2 pg (27.0-31.0); MEAN CORPUSCULAR HGB CONC 28.3 g/dl (33.0-37.0); MEAN PLATELET VOLUME 10.9 fl (9.6-12.3); PLATELET COUNT AUTOMATED 205 10*3/uL (130-400); RED CELL DISTRI WIDTH 16.5 % (0-14.5); WHITE BLOOD COUNT 14.2 10*3/uL (4.8-10.8)
[2020-11-27 07:14] LABS: ALBUMIN 2.4 gm/dl (3.1-4.5); ALKALINE PHOSPHATASE 108 U/L (45-117); BUN 40 mg/dl (7-24); CHLORIDE 106 mmol/L (98-107); CREATININE 1.05 mg/dL (0.55-1.02); SGOT/AST 34 IU/L (3-35); SGPT/ALT 30 U/L (12-78); SODIUM 149 mmol/L (136-145)
[2020-11-27 07:29] LABS: TOTAL CELLS COUNTED 100 #CELLS
[2020-11-27 07:30] LABS: PLATELET SUFFICIENCY NORMAL (NORMAL)
[2020-11-27 08:00] VITALS: BP 150/69
[2020-11-27 12:00] VITALS: BP 127/75
== END 2020-11-27 16:19 | disposition hospice, inpatient (51) | DRG 698 ==
LOC: ED 00:35 → EDHOLD 05:01 → 5E 05:01
PROVIDERS: Internal Medicine; Internal Medicine Nephrology; Social Worker Clinical; Student in an Organized Health Care Education/Training Program; ADMIT Emergency Medicine; ATTEND Emergency Medicine
PROC: 5A09457 Assistance with Respiratory Ventilation, 24-96 Consecutive Hours, Continuous Positive Airway Pressure (ICD-10-PCS; principal; 2020-11-20)
PROC: 5A09357 Assistance with Respiratory Ventilation, Less than 24 Consecutive Hours, Continuous Positive Airway Pressure (ICD-10-PCS; 2020-11-21)
PROC: 5A09357 Assistance with Respiratory Ventilation, Less than 24 Consecutive Hours, Continuous Positive Airway Pressure (ICD-10-PCS; 2020-11-22)
PROC: 5A0935A Assistance with Respiratory Ventilation, Less than 24 Consecutive Hours, High Flow/Velocity Cannula (ICD-10-PCS; 2020-11-22)
PROC: 5A0935A Assistance with Respiratory Ventilation, Less than 24 Consecutive Hours, High Flow/Velocity Cannula (ICD-10-PCS; 2020-11-23)
PROC: 5A09357 Assistance with Respiratory Ventilation, Less than 24 Consecutive Hours, Continuous Positive Airway Pressure (ICD-10-PCS; 2020-11-24)
PROC: 5A0935A Assistance with Respiratory Ventilation, Less than 24 Consecutive Hours, High Flow/Velocity Cannula (ICD-10-PCS; 2020-11-24)
PROC: 5A0935A Assistance with Respiratory Ventilation, Less than 24 Consecutive Hours, High Flow/Velocity Cannula (ICD-10-PCS; 2020-11-25)
PROC: 5A09357 Assistance with Respiratory Ventilation, Less than 24 Consecutive Hours, Continuous Positive Airway Pressure (ICD-10-PCS; 2020-11-25)
PROC: 5A0935A Assistance with Respiratory Ventilation, Less than 24 Consecutive Hours, High Flow/Velocity Cannula (ICD-10-PCS; 2020-11-26)
PROC: 5A09357 Assistance with Respiratory Ventilation, Less than 24 Consecutive Hours, Continuous Positive Airway Pressure (ICD-10-PCS; 2020-11-26)
PROC: 5A0935A Assistance with Respiratory Ventilation, Less than 24 Consecutive Hours, High Flow/Velocity Cannula (ICD-10-PCS; 2020-11-27)
PROC: 5A09357 Assistance with Respiratory Ventilation, Less than 24 Consecutive Hours, Continuous Positive Airway Pressure (ICD-10-PCS; 2020-11-27)
DX: T83.518A Infection and inflammatory reaction due to other urinary catheter, initial encounter (principal); A41.9 Sepsis, unspecified organism; J96.22 Acute and chronic respiratory failure with hypercapnia; J96.21 Acute and chronic respiratory failure with hypoxia; G93.6 Cerebral edema; R65.20 Severe sepsis without septic shock; N39.0 Urinary tract infection, site not specified; E44.0 Moderate protein-calorie malnutrition; E87.0 Hyperosmolality and hypernatremia; J44.0 Chronic obstructive pulmonary disease with (acute) lower respiratory infection; J44.1 Chronic obstructive pulmonary disease with (acute) exacerbation; Z68.41 Body mass index [BMI] 40.0-44.9, adult; R26.2 Difficulty in walking, not elsewhere classified; E66.01 Morbid (severe) obesity due to excess calories; I48.0 Paroxysmal atrial fibrillation; G93.89 Other specified disorders of brain; Z96.642 Presence of left artificial hip joint; Z96.652 Presence of left artificial knee joint; I50.9 Heart failure, unspecified; R73.9 Hyperglycemia, unspecified; Z66 Do not resuscitate; Z51.5 Encounter for palliative care; E87.5 Hyperkalemia; B96.20 Unspecified Escherichia coli [E. coli] as the cause of diseases classified elsewhere; B95.2 Enterococcus as the cause of diseases classified elsewhere; G47.33 Obstructive sleep apnea (adult) (pediatric); F32.9 Major depressive disorder, single episode, unspecified; Z87.891 Personal history of nicotine dependence; Z82.49 Family history of ischemic heart disease and other diseases of the circulatory system; Z90.49 Acquired absence of other specified parts of digestive tract; Z80.0 Family history of malignant neoplasm of digestive organs; Z79.899 Other long term (current) drug therapy; Y84.6 Urinary catheterization as the cause of abnormal reaction of the patient, or of later complication, without mention of misadventure at the time of the procedure; Y92.89 Other specified places as the place of occurrence of the external cause; T50.2X5A Adverse effect of carbonic-anhydrase inhibitors, benzothiadiazides and other diuretics, initial encounter; Y92.238 Other place in hospital as the place of occurrence of the external cause; Z20.822 Contact with and (suspected) exposure to COVID-19

== ENCOUNTER 2020-11-27 16:26 | Inpatient (IN) | payer OTHER ==
[2020-11-27 16:00] VITALS: BP 120/85
[~2020-11-27 16:26] MED LIST changes: +BUMETANIDE2 MG PO; +Ipratropium Brom3 ML INH; +K-TAB20 MEQ PO; +VISTARIL25 MG PO; +VITAMIN C500 M4 PO; +ZOFRAN4 MG PO
[2020-11-27 20:00] VITALS: BP 150/86
[2020-11-28] VITALS: BP 130/83
[2020-11-28 08:00] VITALS: BP 102/49
[2020-11-28 12:00] VITALS: BP 113/63
[2020-11-28 16:00] VITALS: BP 111/90
[2020-11-28 20:00] VITALS: BP 145/68
[2020-11-29] VITALS: BP 116/80
[2020-11-29 08:00] VITALS: BP 108/70; BP 113/51
[2020-11-29 16:00] VITALS: BP 110/90
== END 2020-11-29 18:00 | DRG 871 ==
LOC: 5E 16:26
PROVIDERS: ADMIT Emergency Medicine; ATTEND Emergency Medicine
PROC: 5A0945A Assistance with Respiratory Ventilation, 24-96 Consecutive Hours, High Flow/Velocity Cannula (ICD-10-PCS; principal; 2020-11-27)
DX: A41.9 Sepsis, unspecified organism (principal); J96.21 Acute and chronic respiratory failure with hypoxia; J96.22 Acute and chronic respiratory failure with hypercapnia; C71.9 Malignant neoplasm of brain, unspecified; E44.0 Moderate protein-calorie malnutrition; N30.01 Acute cystitis with hematuria; Z68.41 Body mass index [BMI] 40.0-44.9, adult; I50.9 Heart failure, unspecified; Z51.5 Encounter for palliative care; R73.9 Hyperglycemia, unspecified; R65.20 Severe sepsis without septic shock; G47.33 Obstructive sleep apnea (adult) (pediatric); I48.0 Paroxysmal atrial fibrillation; Z66 Do not resuscitate; F31.9 Bipolar disorder, unspecified; E66.01 Morbid (severe) obesity due to excess calories; J44.9 Chronic obstructive pulmonary disease, unspecified; Z90.49 Acquired absence of other specified parts of digestive tract; Z87.891 Personal history of nicotine dependence; Z83.3 Family history of diabetes mellitus; Z80.0 Family history of malignant neoplasm of digestive organs; Z82.49 Family history of ischemic heart disease and other diseases of the circulatory system